=== PATIENT | female | born 1940 | race Caucasian/White ===

== ENCOUNTER 2017-08-23 19:47 | Observation (INO) ==
[2017-08-23] MEDS ORDERED: 0.9 % Sodium Chloride 500 ML IVC ONE (20:01)
[2017-08-23] MEDS ORDERED: Ondansetron 4 MG/2 ML VIAL IVP ONE (20:01)
--- NOTE | 2017-08-23 20:11 | Emergency Department Note ---
Disposition Clinical Impression: Hyperglycemia Chest pain Qualifiers: Chest pain type: unspecified Qualified Code(s): R07.9 - Chest pain, unspecified Disposition: Admitted As Inpatient Condition: Fair Referrals: Cathie Kaminski MD [Primary Care Provider] - Forms: ED Satisfaction Letter Time of Disposition: 21:22 Chest Pain HPI - General Chief Complaint: ED Chest Pain Stated Complaint: Chest Pain Time Seen by Provider: 08/23/17 20:00 Source: patient, EMS Mode of arrival: ambulatory Limitations: no limitations Vital Signs Reviewed: Yes Nursing Notes Reviewed: Yes - History of Present Illness HPI Narrative: 77-year-old female with history of diabetes and hypertension presents for evaluation of chest pain. Patient states the chest pain started approximately 2 hours prior to arrival. Notes it to be nonexertional. Patient describes a pressure sensation in the chest. No alleviating or aggravating factors. Patient has had episodes of nausea with dry heaves. Patient noted diaphoresis and difficulty breathing. Patient denies any fevers but does have a cough. Patient states that she is evaluated couple of months ago for similar complaints. Patient denies history of heart attacks. Patient denies any abdominal pain. EMS report that the patient did receive full dose aspirin prior to arrival. Patient does live at home by herself. Severity scale (1-10): 4 - Related Data Home Medications Medication Instructions Recorded Confirmed Aspirin 81 mg PO DAILY 08/28/16 08/23/17 LORazepam [Ativan] 0.5 - 1 tab PO DAILY PRN 08/28/16 08/23/17 Losartan/HCTZ [Hyzaar 50-12.5 1 tab PO DAILY 08/28/16 08/23/17 Tablet] Metoprolol Succinate 25 mg PO DAILY 08/28/16 08/23/17 Omeprazole 40 mg PO DAILY 08/28/16 08/23/17 Venlafaxine XR (24 HR) [Effexor Xr] 300 tab PO DAILY 08/28/16 08/23/17 ARIPiprazole [Abilify] 2 mg PO DAILY 06/22/17 08/23/17 Amlodipine Besylate 2.5 mg PO DAILY 06/22/17 08/23/17 Melatonin [Melatin] 6 mg PO HS PRN 06/22/17 08/23/17 Albuterol Sulfate [Ventolin Hfa] 2 puff IH Q4H PRN 08/23/17 08/23/17 Gabapentin [Neurontin] 300 mg PO TID 08/23/17 08/23/17 Insulin NPH Hum/Reg Insulin Hm 30 unit IJ BID 08/23/17 08/23/17 [Novolin 70-30 100 Unit/ml Vial] Loratadine [Claritin] 10 mg PO DAILY 08/23/17 08/23/17 Metformin HCl [Glucophage] 1,000 mg PO BID 08/23/17 08/23/17 Pravastatin Sodium 10 mg PO DAILY 08/23/17 08/23/17 Allergies Allergy/AdvReac Type Severity Reaction Status Date / Time No Known Allergies Allergy Verified 08/23/17 20:15 All systems ED: reviewed and negative except as stated. Constitutional: Denies: fever Cardiovascular: Denies: chest pain Respiratory: Denies: cough, dyspnea Gastrointestinal: Reports: abdominal pain, nausea, vomiting Chest Pain PMH - Past Medical History Medical history: Reports: diabetes, GERD, hypertension Surgical history: Reports: cholecystectomy, herniorrhaphy, hysterectomy, orthopedic, other Psychiatric history: Reports: anxiety - Social History Smoking Status: Never smoker Alcohol use: Reports: none Drug use: Reports: none Physical Exam - General Limitations: no limitations General appearance: alert, in no apparent distress - Head Head exam: atraumatic, normocephalic, normal inspection - Eye Eye exam: Present: normal appearance, PERRL, EOMI - ENT ENT exam: normal exam, normal oropharynx - Neck Neck exam: Present: normal inspection - Chest Chest inspection: Present: normal inspection, symmetric chest wall rise - Respiratory Respiratory exam: Present: normal lung sounds bilaterally. Absent: respiratory distress - Cardiovascular Cardiovascular exam: Present: regular rate, normal rhythm. Absent: systolic murmur - Abdominal Exam Abdominal exam: Present: soft, Non-Tender. Absent: distention, guarding, rebound - Extremities Exam Extremities exam: Present: normal inspection. Absent: pedal edema - Expanded Lower Extremity Exam Neurovascular/Tendon exam: Present: normal capillary refill - Back Exam Back exam: Present: normal inspection - Neurological Exam Neurological exam: Present: alert, oriented X3, CN II-XII intact - Skin Skin exam: Present: warm, dry, intact, normal color Course Course Narrative: Patient seen and examined. Patient appears to be uncomfortable. Patient does have a concerning history for ACS typical chest pain. Patient will receive a cardiopulmonary evaluation with EKG, troponin chest x-ray. Patient will likely require admission. - Reevaluation(s) Reevaluation #1: Patient seen and examined. Patient states that she is feeling better. Patient appears in more comfort however she still feels that there is possibly relating anxious component. Family also states the patient's quite anxious. Patient's been under stress with family issues. Given the patient's age comorbidities and initial presentation the patient will be observed for chest pain rule out. Time: 21:20 Vital Signs Temperature 98 F 08/23/17 19:55 Pulse Rate 98 08/23/17 19:55 Respiratory Rate 18 08/23/17 19:55 Blood Pressure 136/76 08/23/17 19:55 O2 Sat by Pulse Oximetry 100 08/23/17 19:55 Temperature 98 F 08/23/17 19:55 Pulse Rate 91 08/23/17 22:48 Respiratory Rate 18 08/23/17 22:48 Blood Pressure 134/64 08/23/17 22:48 O2 Sat by Pulse Oximetry 97 08/23/17 22:48 Oxygen Delivery Oxygen Delivery Room Air Chest Pain - MDM Narrative Medical decision making narrative: Patient presented for concerns of chest pain. Patient does have risk factors for ACS. Patient was having nausea vomiting with diaphoresis. Patient was describing a pressure sensation. Patient's initial troponin was negative. Patient was given aspirin and nitroglycerin. Patient was resting comfortably on repeat evaluations. Given the patient's age and comorbid disease the patient would likely benefit from further testing. Patient's records reviewed and the patient has not had any recent provocative testing. Patient family agree. Patient's pain is not consistent with pulmonary embolism. - Medical Records Medical records reviewed: Yes I reviewed the patient's medical records. Echo obtained 05/2017. Impressions: LVEF 60-65%. Normal left ventricular size and systolic function. Normal right ventricular size and function. No significant valvular dysfunction. Left Ventricular Wall Motion: Rest Echo Findings All wall segments showed normal motion. - Lab Data Result diagrams: 08/23/17 20:27 08/23/17 20:27 Lab Results 08/23/17 08/23/17 08/23/17 Range/Units 20:27 20:27 20:27 WBC (4.3-11.1) K/mcL RBC (3.82-4.97) M/mcL Hgb (11.5-15.4) g/dL Hct (35.3-44.9) % MCV (83.0-100.0) fL MCH (28.0-33.3) pg MCHC (31.6-35.5) g/dL RDW (11.5-14.5) % Plt Count (140-400) K/mcL MPV (9.4-12.4) fL Immature Gran % (0-4) % Seg Neutrophils % % Lymphocytes % % Monocytes % % Eosinophils % % Basophils % % Neutrophils # (1.6-8.9) K/mcL Lymphocytes # (0.6-4.6) K/mcL Monocytes # (0.0-1.3) K/mcL Eosinophils # (0.0-0.6) K/mcL Basophils # (0.0-0.2) K/mcL PT 10.5 (9.4-12.1) Seconds INR 1.0 Sodium (136-145) mEq/L Potassium (3.5-5.1) mEq/L Chloride (98-107) mEq/L Carbon Dioxide (23-29) mEq/L BUN (8-23) mg/dL Creatinine (0.60-1.20) mg/dL Est GFR ( Amer) (> 60) Est GFR (Non-Af Amer) (> 60) BUN/Creatinine Ratio (6-26) Glucose (70-105) mg/dL Calculated Osmolality (280-300) Calcium (8.6-10.3) mg/dL Troponin I (< 0.04) ng/mL B-Natriuretic Peptide 36 (Less than 100) pg/mL Lipase 25 (11-82) Units/L 08/23/17 08/23/17 Range/Units 20:27 20:27 WBC 11.7 H (4.3-11.1) K/mcL RBC 4.18 (3.82-4.97) M/mcL Hgb 11.2 L (11.5-15.4) g/dL Hct 36.3 (35.3-44.9) % MCV 86.8 (83.0-100.0) fL MCH 26.8 L (28.0-33.3) pg MCHC 30.9 L (31.6-35.5) g/dL RDW 14.3 (11.5-14.5) % Plt Count 309 (140-400) K/mcL MPV 9.9 (9.4-12.4) fL Immature Gran % 0.3 (0-4) % Seg Neutrophils % 65.8 % Lymphocytes % 25.2 % Monocytes % 4.9 % Eosinophils % 2.9 % Basophils % 0.9 % Neutrophils # 7.7 (1.6-8.9) K/mcL Lymphocytes # 2.9 (0.6-4.6) K/mcL Monocytes # 0.6 (0.0-1.3) K/mcL Eosinophils # 0.3 (0.0-0.6) K/mcL Basophils # 0.1 (0.0-0.2) K/mcL PT (9.4-12.1) Seconds INR Sodium 136 (136-145) mEq/L Potassium 3.9 (3.5-5.1) mEq/L Chloride 102 (98-107) mEq/L Carbon Dioxide 22 L (23-29) mEq/L BUN 13 (8-23) mg/dL Creatinine 0.74 (0.60-1.20) mg/dL Est GFR ( Amer) > 60 (> 60) Est GFR (Non-Af Amer) > 60 (> 60) BUN/Creatinine Ratio 18 (6-26) Glucose 187 H (70-105) mg/dL Calculated Osmolality 287 (280-300) Calcium 9.3 (8.6-10.3) mg/dL Troponin I < 0.03 (< 0.04) ng/mL B-Natriuretic Peptide (Less than 100) pg/mL Lipase (11-82) Units/L - EKG Data EKG attestation: Yes I reviewed and interpreted this EKG. EKG shows normal: sinus rhythm Rate: normal Rhythm: NSR Q waves: III Interpretation: no acute changes, unchanged when compared to prior tracing (date ), nonspecific ST-T wave changes Heart Score - Score History: Highly Suspicious EKG: Non Specific repolarisation Disturbance Age: Greater than 65 Risk Factors: 1-2 risk factors Troponin: Less than normal limit HEART Score Total: 6 S.B.A.R. - S.B.A.R. Situation: Demographics Background: Presenting Complaint Assessment: Vital Signs, Patient/Family Expectation Recommendation: Barrier(s) to disposition, Recommendation based on pending studies, treatments, or consults Rodolfo Report Given to: Dr. Carlos Reynolds Repor Time: 23:07
[2017-08-23] MEDS: Nitroglycerin 0.4 MG TAB.SUBL SL ONE ×3 (20:31→20:41)
[2017-08-23 20:37] LABS: Basophils # 0.1 K/mcL (0.0-0.2); Basophils % 0.9 %; Eosinophils # 0.3 K/mcL (0.0-0.6); Eosinophils % 2.9 %; Hematocrit 36.3 % (35.3-44.9); Hemoglobin 11.2 g/dL (11.5-15.4); Immature Granulocytes % 0.3 % (0-4); Lymphocytes # 2.9 K/mcL (0.6-4.6); Lymphocytes % 25.2 %; Mean Corpuscular HGB Conc 30.9 g/dL (31.6-35.5); Mean Corpuscular Hemoglobin 26.8 pg (28.0-33.3); Mean Corpuscular Volume 86.8 fL (83.0-100.0); Mean Platelet Volume 9.9 fL (9.4-12.4); Monocytes # 0.6 K/mcL (0.0-1.3); Monocytes % 4.9 %; Neutrophils # 7.7 K/mcL (1.6-8.9); Platelet Count 309 K/mcL (140-400); Red Blood Count 4.18 M/mcL (3.82-4.97); Red Cell Distribution Width 14.3 % (11.5-14.5); Segmented Neutrophils % 65.8 %
[2017-08-23 20:53] LABS: Prothrombin Time 10.5 Seconds (9.4-12.1)
[2017-08-23 20:58] LABS: BUN/Creatinine Ratio 18 (6-26); Blood Urea Nitrogen 13 mg/dL (8-23); Calcium 9.3 mg/dL (8.6-10.3); Carbon Dioxide 22 mEq/L (23-29); Chloride 102 mEq/L (98-107); Glucose 187 mg/dL (70-105); Osmolality,Calculated 287 (280-300); Potassium 3.9 mEq/L (3.5-5.1); Sodium 136 mEq/L (136-145); eGFR For African Americans > 60 (> 60); eGFR For Non-African Americans > 60 (> 60)
[2017-08-23 20:59] LABS: Troponin I < 0.03 ng/mL (< 0.04)
--- NOTE | 2017-08-23 22:30 | Emergency Department Note ---
Disposition Clinical Impression: Hyperglycemia Chest pain Qualifiers: Chest pain type: unspecified Qualified Code(s): R07.9 - Chest pain, unspecified Disposition: Admitted As Inpatient Condition: Fair Referrals: Cathie Kaminski MD [Primary Care Provider] - Forms: ED Satisfaction Letter General Adult HPI - General Chief complaint: ED Chest Pain Stated complaint: Chest Pain Time Seen by Provider: 08/23/17 20:00 Source: patient, EMS Mode of arrival: ambulatory Limitations: no limitations Nursing Notes Reviewed: Yes Vital Signs Reviewed: Yes - History of Present Illness Pain Scale: 4 - Related Data Home Medications Medication Instructions Recorded Confirmed Aspirin 81 mg PO DAILY 08/28/16 08/23/17 LORazepam [Ativan] 0.5 - 1 tab PO DAILY PRN 08/28/16 08/23/17 Losartan/HCTZ [Hyzaar 50-12.5 1 tab PO DAILY 08/28/16 08/23/17 Tablet] Metoprolol Succinate 25 mg PO DAILY 08/28/16 08/23/17 Omeprazole 40 mg PO DAILY 08/28/16 08/23/17 Venlafaxine XR (24 HR) [Effexor Xr] 300 tab PO DAILY 08/28/16 08/23/17 ARIPiprazole [Abilify] 2 mg PO DAILY 06/22/17 08/23/17 Amlodipine Besylate 2.5 mg PO DAILY 06/22/17 08/23/17 Melatonin [Melatin] 6 mg PO HS PRN 06/22/17 08/23/17 Albuterol Sulfate [Ventolin Hfa] 2 puff IH Q4H PRN 08/23/17 08/23/17 Gabapentin [Neurontin] 300 mg PO TID 08/23/17 08/23/17 Insulin NPH Hum/Reg Insulin Hm 30 unit IJ BID 08/23/17 08/23/17 [Novolin 70-30 100 Unit/ml Vial] Loratadine [Claritin] 10 mg PO DAILY 08/23/17 08/23/17 Metformin HCl [Glucophage] 1,000 mg PO BID 08/23/17 08/23/17 Pravastatin Sodium 10 mg PO DAILY 08/23/17 08/23/17 Allergies Allergy/AdvReac Type Severity Reaction Status Date / Time No Known Allergies Allergy Verified 08/23/17 20:15 Constitutional: Denies: fever Cardiovascular: Denies: chest pain Respiratory: Denies: cough, dyspnea Gastrointestinal: Reports: abdominal pain, nausea, vomiting Past Medical History - Past Medical History Medical history: Reports: diabetes, GERD, hypertension Surgical history: Reports: cholecystectomy, herniorrhaphy, hysterectomy, orthopedic, other Psychiatric history: Reports: anxiety - Social History Smoking Status: Never smoker Smokeless Tobacco Status: No Alcohol use: Reports: none Drug use: Reports: none Physical Exam - General Limitations: no limitations General appearance: alert, in no apparent distress Course Vital Signs Temperature 98 F 08/23/17 19:55 Pulse Rate 98 08/23/17 19:55 Respiratory Rate 18 08/23/17 19:55 Blood Pressure 136/76 08/23/17 19:55 O2 Sat by Pulse Oximetry 100 08/23/17 19:55 Temperature 98 F 08/23/17 19:55 Pulse Rate 91 08/23/17 22:48 Respiratory Rate 18 08/23/17 22:48 Blood Pressure 134/64 08/23/17 22:48 O2 Sat by Pulse Oximetry 97 08/23/17 22:48 Oxygen Delivery Oxygen Delivery Room Air Medical Decision Making - Lab Data Result diagrams: 08/23/17 20:27 08/23/17 20:27 Lab Results 08/23/17 08/23/17 08/23/17 Range/Units 20:27 20:27 20:27 WBC (4.3-11.1) K/mcL RBC (3.82-4.97) M/mcL Hgb (11.5-15.4) g/dL Hct (35.3-44.9) % MCV (83.0-100.0) fL MCH (28.0-33.3) pg MCHC (31.6-35.5) g/dL RDW (11.5-14.5) % Plt Count (140-400) K/mcL MPV (9.4-12.4) fL Immature Gran % (0-4) % Seg Neutrophils % % Lymphocytes % % Monocytes % % Eosinophils % % Basophils % % Neutrophils # (1.6-8.9) K/mcL Lymphocytes # (0.6-4.6) K/mcL Monocytes # (0.0-1.3) K/mcL Eosinophils # (0.0-0.6) K/mcL Basophils # (0.0-0.2) K/mcL PT 10.5 (9.4-12.1) Seconds INR 1.0 Sodium (136-145) mEq/L Potassium (3.5-5.1) mEq/L Chloride (98-107) mEq/L Carbon Dioxide (23-29) mEq/L BUN (8-23) mg/dL Creatinine (0.60-1.20) mg/dL Est GFR ( Amer) (> 60) Est GFR (Non-Af Amer) (> 60) BUN/Creatinine Ratio (6-26) Glucose (70-105) mg/dL Calculated Osmolality (280-300) Calcium (8.6-10.3) mg/dL Troponin I (< 0.04) ng/mL B-Natriuretic Peptide 36 (Less than 100) pg/mL Lipase 25 (11-82) Units/L 08/23/17 08/23/17 Range/Units 20:27 20:27 WBC 11.7 H (4.3-11.1) K/mcL RBC 4.18 (3.82-4.97) M/mcL Hgb 11.2 L (11.5-15.4) g/dL Hct 36.3 (35.3-44.9) % MCV 86.8 (83.0-100.0) fL MCH 26.8 L (28.0-33.3) pg MCHC 30.9 L (31.6-35.5) g/dL RDW 14.3 (11.5-14.5) % Plt Count 309 (140-400) K/mcL MPV 9.9 (9.4-12.4) fL Immature Gran % 0.3 (0-4) % Seg Neutrophils % 65.8 % Lymphocytes % 25.2 % Monocytes % 4.9 % Eosinophils % 2.9 % Basophils % 0.9 % Neutrophils # 7.7 (1.6-8.9) K/mcL Lymphocytes # 2.9 (0.6-4.6) K/mcL Monocytes # 0.6 (0.0-1.3) K/mcL Eosinophils # 0.3 (0.0-0.6) K/mcL Basophils # 0.1 (0.0-0.2) K/mcL PT (9.4-12.1) Seconds INR Sodium 136 (136-145) mEq/L Potassium 3.9 (3.5-5.1) mEq/L Chloride 102 (98-107) mEq/L Carbon Dioxide 22 L (23-29) mEq/L BUN 13 (8-23) mg/dL Creatinine 0.74 (0.60-1.20) mg/dL Est GFR ( Amer) > 60 (> 60) Est GFR (Non-Af Amer) > 60 (> 60) BUN/Creatinine Ratio 18 (6-26) Glucose 187 H (70-105) mg/dL Calculated Osmolality 287 (280-300) Calcium 9.3 (8.6-10.3) mg/dL Troponin I < 0.03 (< 0.04) ng/mL B-Natriuretic Peptide (Less than 100) pg/mL Lipase (11-82) Units/L Attestation Statement - Attestation Attestation: I, Leobardo Subramanian MD, personally evaluated this patient and discussed their management with the resident physician. I reviewed the resident's note and agree with the documented findings, medical decision making, and plan of care. 77-year-old female presents to the emergency department by embolus with a complaint of severe epigastric and substernal chest pain which started about 2 hours prior to arrival. Onset was while at rest. The pain has been constant since onset. Patient complains of nausea with a lot of belching and some dry heaves but no productive vomiting. Some shortness of breath. No diaphoresis. No radiation of the pain. She denies any prior history of heart problems. On examination patient is a well-developed well-nourished elderly female in no acute distress but does appear to be in moderate discomfort. She appears somewhat anxious. She is alert and oriented 3. There is no cyanosis or diaphoresis. Chest is nontender to palpation. Breath sounds are clear and equal bilaterally. Heart regular rate and rhythm. Abdomen is soft and nontender with normal bowel sounds. Labs reviewed. Troponin normal. Chest x-ray negative. EKG shows a normal sinus rhythm with ventricular rate of 94. No acute ST segment elevations or depressions. No significant change from prior EKG dated 06/22/2017. The hospitalist, Dr. Gonzalez, was consulted and accepted admission of the patient.
[2017-08-23] MEDS ORDERED: *HR* LORazepam 2 MG/ML VIAL IVP ONE (22:51)
[2017-08-24] MEDS ORDERED: *HR* HYDROcodone/Acet 5/325 mg TABLET PO PRN (01:22)
[2017-08-24] MEDS ORDERED: Naloxone 0.4 MG/ML INJ IVP PRN (01:22)
[2017-08-24] MEDS ORDERED: Acetaminophen 325 MG TABLET PO PRN (01:22)
[2017-08-24] MEDS ORDERED: Dextrose Gel 15 GM/37.5 ML TUBE PO PRN ×2 (01:29)
[2017-08-24] MEDS ORDERED: D5% in Water 1,000 ML IVC PRN (01:29)
[2017-08-24] MEDS ORDERED: *HR* Dextrose 50 % in Water (Syg) 50 ML SYRINGE IVP PRN (01:29)
[2017-08-24] MEDS: *HR* LORazepam 1 MG TABLET PO PRN (02:35)
--- NOTE | 2017-08-24 02:52 | Internal Med History&Physical ---
Date of Encounter: 08/24/17 Time of Encounter: 01:00 Internal Medicine - H&P: HPI Chief complaint: Chest pain Admitted From: Home Plans for Post Hospital Care: Home History of present illness: Ms. Davenport is a 77 year old female present to ER for chest pain. Past medical history is significant for diabetes, hypertension, COPD. Patient said she has a sudden onset chest pain since this evening, when she is at rest. The pain located on left chest, pressure-like, 10 out of 10, radiated to left arm and left shoulder blade. Patient has shortness of breath, nausea, palpitation, and diaphoresis. The pain is constant, when I saw patient in the emergency room, she still feel chest discomfort but the pain is less, after treatment with aspirin and nitroglycerin. Patient denies recent travel, immobilization, leg swelling or leg pain. I have discussed CODE STATUS with patient. She clearly told me she does not want CPR but accept intubation. DNR CCA placed. Past Med Surg Social Fam HX - Past Medical History Medical history: diabetes, GERD, hypertension Psychiatric history: anxiety - Past Surgical History Surgical History: cholecystectomy, herniorrhaphy, hysterectomy, orthopedic, other - Social History Smoking Status: Never smoker Smokeless Tobacco Status: No Alcohol use: none Drug use: none - Family History Mother Living Status: Still Living Hx Family Neurologic Disorders: Yes (Dementia) Sister Hx Family Cancer: Yes Internal Medicine - H&P: Meds Aspirin 81 mg PO DAILY 08/28/16 [History] LORazepam [Ativan] 0.5 - 1 tab PO DAILY PRN 08/28/16 [History] Losartan/HCTZ [Hyzaar 50-12.5 Tablet] 1 tab PO DAILY 08/28/16 [History] Metoprolol Succinate 25 mg PO DAILY 08/28/16 [History] Omeprazole 40 mg PO DAILY 08/28/16 [History] Venlafaxine XR (24 HR) [Effexor Xr] 300 tab PO DAILY 08/28/16 [History] ARIPiprazole [Abilify] 2 mg PO DAILY 06/22/17 [History] Amlodipine Besylate 2.5 mg PO DAILY 06/22/17 [History] Melatonin [Melatin] 6 mg PO HS PRN 06/22/17 [History] Albuterol Sulfate [Ventolin Hfa] 2 puff IH Q4H PRN 08/23/17 [History] Gabapentin [Neurontin] 300 mg PO TID 08/23/17 [History] Insulin NPH Hum/Reg Insulin Hm [Novolin 70-30 100 Unit/ml Vial] 30 unit IJ BID 08/23/17 [History] Loratadine [Claritin] 10 mg PO DAILY 08/23/17 [History] Metformin HCl [Glucophage] 1,000 mg PO BID 08/23/17 [History] Pravastatin Sodium 10 mg PO DAILY 08/23/17 [History] 3 Allergy/AdvReac Type Severity Reaction Status Date / Time No Known Allergies Allergy Verified 08/23/17 20:15 All Systems PM: A 10-system review of systems was performed and is negative for pertinent findings except as documented above in the HPI. - Constitutional Vitals: Temp Pulse Resp BP Pulse Ox 98.0 F 79 14 127/72 96 08/24/17 02:05 08/24/17 02:05 08/24/17 02:05 08/24/17 02:05 08/24/17 02:05 General appearance: Present: A&O X 3, no acute distress, answers questions appropriately - Head Head exam: Present: atraumatic, normocephalic - Eye Eye exam: Present: PERRL, conjuntiva pink, sclera anicteric Pupils: Present: PERRL - Neck Neck exam general surgery: Present: supple, trachea midline. Absent: lymphadenopathy - Respiratory Respiratory exam: Present: chest wall tenderness (On left mid chest wall), CTAB. Absent: accessory muscle use, rales, rhonchi, wheezes - Cardiovascular Cardiovascular exam: Present: RRR, +S1, +S2. Absent: diastolic murmur, gallop, rubs, systolic murmur - GI/Abdominal GI/Abdominal exam: Present: normal bowel sounds, soft, no peritoneal signs. Absent: distended, tenderness - Extremities Exam Extremities exam: Present: warm, radial pulses palpable and symmetrical. Absent : calf tenderness, cyanotic, pedal edema - Neurological Exam Neurological exam: Present: CN II-XII intact, oriented X3, no focal deficits. Absent: pronater drift, facial droop, speech deficit - Skin Skin exam: Present: dry, intact Internal Med - H&P Results - Labs CBC & Chem 7: 08/23/17 20:27 08/23/17 20:27 - EKG Data -: EKG Interpreted by Myself EKG shows normal: sinus rhythm Rate: normal - Assessment and plan (1) DVT prophylaxis Current Visit: Yes Status: Acute Assessment and plan: Heparin subcutaneously (2) Chest pain Current Visit: Yes Status: Acute Assessment and plan: Patient has chest pain with or shortness of breath, nausea, and diaphoresis. Need to rule out ACS. However, patient has clearly chest wall tenderness, pain is also likely skeletal muscular pain. - Continuous cardiac monitoring - Track 3 sets of troponin - Echocardiogram to see wall movement - EKG is unremarkable - NTG sublingual when necessary - By mouth pain medication for pain control - Patient is not a candidate for stress test at this point because she still has active chest pain. Consider cardiology consult if chest pain persists or patient has positive founding with troponin or echo. Qualifiers: Chest pain type: unspecified Qualified Code(s): R07.9 - Chest pain, unspecified (3) Diabetes mellitus Current Visit: No Status: Chronic Assessment and plan: Continue sliding scale insulin coverage Qualifiers: Diabetes mellitus type: type 2 Diabetes mellitus intermodal dispatcher insulin use: without intermodal dispatcher use Diabetes mellitus complication status: without complication Qualified Code(s): E11.9 - Type 2 diabetes mellitus without complications (4) HTN (hypertension) Current Visit: No Status: Chronic Assessment and plan: Continue home medications Qualifiers: Hypertension type: essential hypertension Qualified Code(s): I10 - Essential (primary) hypertension - Time Spent With Patient Total time spent is greater than 50% in coordination of care (as documented) at patient's floor/unit and/or counseling patient: 40 minutes Greater than 35 minutes
[2017-08-24 03:18] LABS: Basophils # 0.1 K/mcL (0.0-0.2); Basophils % 0.8 %; Eosinophils # 0.3 K/mcL (0.0-0.6); Eosinophils % 3.3 %; Hematocrit 32.4 % (35.3-44.9); Hemoglobin 10.2 g/dL (11.5-15.4); Immature Granulocytes % 0.3 % (0-4); Lymphocytes % 31.2 %; Mean Corpuscular HGB Conc 31.5 g/dL (31.6-35.5); Mean Corpuscular Hemoglobin 27.1 pg (28.0-33.3); Mean Corpuscular Volume 85.9 fL (83.0-100.0); Mean Platelet Volume 9.7 fL (9.4-12.4); Monocytes # 0.5 K/mcL (0.0-1.3); Monocytes % 5.1 %; Neutrophils # 5.7 K/mcL (1.6-8.9); Platelet Count 281 K/mcL (140-400); Red Blood Count 3.77 M/mcL (3.82-4.97); Red Cell Distribution Width 14.3 % (11.5-14.5); Segmented Neutrophils % 59.3 %
[2017-08-24] MEDS: Melatonin 3 MG TABLET PO PRN ×2 (03:32→21:44)
[2017-08-24 03:41] LABS: BUN/Creatinine Ratio 18 (6-26); Blood Urea Nitrogen 12 mg/dL (8-23); Calcium 9.1 mg/dL (8.6-10.3); Carbon Dioxide 26 mEq/L (23-29); Chloride 105 mEq/L (98-107); Glucose 141 mg/dL (70-105); Magnesium 1.8 mg/dL (1.6-2.6); Osmolality,Calculated 290 (280-300); Potassium 3.5 mEq/L (3.5-5.1); Sodium 139 mEq/L (136-145); eGFR For African Americans > 60 (> 60); eGFR For Non-African Americans > 60 (> 60)
[2017-08-24] MEDS: *HR* OxyCODONE Immed Rel 5 MG TABLET PO PRN ×2 (05:09→21:44)
[2017-08-24] MEDS: *HR* Heparin 5,000 UNIT/ML VIAL SQ SCH ×2 (05:10→16:52)
[2017-08-24] MEDS: Gabapentin 300 MG CAPSULE PO SCH ×3 (08:38→21:23)
[2017-08-24] MEDS: Metoprolol XL (24 HR) Succ 25 MG TAB.ER.24H PO SCH (08:39)
[2017-08-24] MEDS: Venlafaxine XR (24 HR) 150 MG CAP.ER.24H PO SCH (08:39)
[2017-08-24] MEDS: Losartan/HCTZ 50-12.5 TABLET PO SCH (08:39)
[2017-08-24] MEDS: amLODIPine 5 MG TABLET PO SCH (08:39)
[2017-08-24] MEDS: Insulin LISPRO 300 UNITS/3 ML VIAL SQ SCH ×3 (08:40→16:53)
[2017-08-24] MEDS: ARIPiprazole 2 MG TABLET PO SCH (08:40)
[2017-08-24] MEDS: Aspirin 81 MG TAB.CHEW PO SCH (08:40)
[2017-08-24] MEDS: Loratadine 10 MG TABLET PO SCH (08:40)
[2017-08-24] MEDS: Nitroglycerin 0.4 MG TAB.SUBL SL PRN ×2 (14:14→14:19)
--- NOTE | 2017-08-24 15:28 | Event Note ---
Date of Encounter: 08/24/17 Time of Encounter: 12:30 Patient was examined at bedside She s asking for IV Ativan, states "I feel like I am falling apart" complains of 9/10 CP midsternal Pain is reproducible on palpations. Advised patient she will receive nitro for CP patient becomes tearful, crying asking if cancer is contagious " I have several family members that have from cancer." Patient was given nitro per nursing with no relief. Will give PO ativan
--- NOTE | 2017-08-24 19:26 | Electrocardiograph Report ---
[place] [id number] Test Date: 2017-08-23 Pat Name: Tiff Davenport Department: 103 Room: 3B Gender: F Frame Opener: DEEDEE : 1940 Requested By: Marcus Back Order Number: [id number] Reading MD: Georgina Taylor Measurements Intervals [place] Rate: 94 P: 53 MS: 132 QRS: 53 QRSD: 82 T: 34 QT: 328 QTc: 380 Interpretive Statements SINUS RHYTHM NONSPECIFIC T-WAVE ABNORMALITY Electronically Signed On 08-24-2017 19:25:21 EDT by Georgina Taylor
[2017-08-24] MEDS ORDERED: Insulin LISPRO 300 UNITS/3 ML VIAL SQ SCH (21:00)
[2017-08-25] MEDS: *HR* Heparin 5,000 UNIT/ML VIAL SQ SCH ×2 (06:26→16:48)
[2017-08-25] MEDS: Gabapentin 300 MG CAPSULE PO SCH ×3 (08:16→20:51)
[2017-08-25] MEDS: Venlafaxine XR (24 HR) 150 MG CAP.ER.24H PO SCH (08:17)
[2017-08-25] MEDS: Aspirin 81 MG TAB.CHEW PO SCH (08:17)
[2017-08-25] MEDS: amLODIPine 5 MG TABLET PO SCH (08:17)
[2017-08-25] MEDS: Losartan/HCTZ 50-12.5 TABLET PO SCH (08:17)
[2017-08-25] MEDS: *HR* LORazepam 1 MG TABLET PO PRN (08:17)
[2017-08-25] MEDS: Loratadine 10 MG TABLET PO SCH (08:17)
[2017-08-25] MEDS: Insulin LISPRO 300 UNITS/3 ML VIAL SQ SCH ×3 (08:18→16:48)
[2017-08-25] MEDS: Metoprolol XL (24 HR) Succ 25 MG TAB.ER.24H PO SCH (08:18)
[2017-08-25] MEDS: ARIPiprazole 2 MG TABLET PO SCH (09:07)
[2017-08-25 11:28] LABS: BUN/Creatinine Ratio 15 (6-26); Blood Urea Nitrogen 13 mg/dL (8-23); Calcium 9.4 mg/dL (8.6-10.3); Carbon Dioxide 28 mEq/L (23-29); Chloride 101 mEq/L (98-107); Glucose 261 mg/dL (70-105); Osmolality,Calculated 291 (280-300); Potassium 4.3 mEq/L (3.5-5.1); Sodium 136 mEq/L (136-145); eGFR For African Americans > 60 (> 60); eGFR For Non-African Americans > 60 (> 60)
[2017-08-25 11:34] LABS: Basophils # 0.1 K/mcL (0.0-0.2); Basophils % 0.8 %; Eosinophils # 0.2 K/mcL (0.0-0.6); Eosinophils % 2.8 %; Hematocrit 35.4 % (35.3-44.9); Hemoglobin 11.1 g/dL (11.5-15.4); Immature Granulocytes % 0.7 % (0-4); Lymphocytes # 2.1 K/mcL (0.6-4.6); Lymphocytes % 34.6 %; Mean Corpuscular HGB Conc 31.4 g/dL (31.6-35.5); Mean Corpuscular Hemoglobin 27.1 pg (28.0-33.3); Mean Corpuscular Volume 86.6 fL (83.0-100.0); Mean Platelet Volume 11.2 fL (9.4-12.4); Monocytes # 0.4 K/mcL (0.0-1.3); Monocytes % 5.9 %; Neutrophils # 3.4 K/mcL (1.6-8.9); Platelet Count 245 K/mcL (140-400); Red Blood Count 4.09 M/mcL (3.82-4.97); Red Cell Distribution Width 14.3 % (11.5-14.5); Segmented Neutrophils % 55.2 %
--- NOTE | 2017-08-25 16:50 | Internal Med Progress Note ---
Date of Encounter: 08/25/17 Time of Encounter: 12:00 - Assessment and plan (1) Chest pain Current Visit: Yes Status: Acute Assessment and plan: No chest pain at this time. Patient did experience chest pain yesterday was reproducible she was given nitroglycerin which did not relieve her pain. She was requesting anxiety medication as well as pain medication. Chest pain did relief with pain medication. Patient did have a stress test last year which did show small sized mild intensity reversible defect in the inferolateral segments possibly due to ischemia. She did undergo a cardiac catheterization which was negative. She does have risk factors of diabetes hypertension dyslipidemia. Patient was not able to undergo a stress test yesterday because of taking nitroglycerin. Patient did eat breakfast and take beta ruth this a.m. Discussed with patient she will undergo a stress test on Sunday. She will be nothing by mouth after midnight. Troponins have been negative. EKG with no ST-T wave abnormalities. Continuous cardiac monitoring Qualifiers: Chest pain type: unspecified Qualified Code(s): R07.9 - Chest pain, unspecified (2) HTN (hypertension) Current Visit: No Status: Chronic Assessment and plan: Presently controlled Continue home medications Qualifiers: Hypertension type: essential hypertension Qualified Code(s): I10 - Essential (primary) hypertension (3) Diabetes mellitus Current Visit: No Status: Chronic Assessment and plan: Patient's blood sugar has been elevated to the increase to medium scale sliding scale Accu-Cheks before meals at bedtime Qualifiers: Diabetes mellitus type: type 2 Diabetes mellitus 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 Anticipated stress test however patient did eat breakfast today and took her beta ruth discussed with patient stress test on Sunday which she agreed. - Constitutional Vitals: Temp Pulse Resp BP Pulse Ox 98.2 F 71 16 126/77 95 08/25/17 15:25 08/25/17 15:25 08/25/17 15:25 08/25/17 15:25 08/25/17 15:25 General appearance: Present: A&O X 3, no acute distress, answers questions appropriately - Head Head exam: Present: atraumatic, normocephalic - Eye Eye exam: Present: PERRL, conjuntiva pink, sclera anicteric Pupils: Present: PERRL - Neck Neck exam general surgery: Present: supple, trachea midline. Absent: lymphadenopathy - Respiratory Respiratory exam: Present: CTAB. Absent: accessory muscle use, rales, rhonchi, wheezes - Cardiovascular Cardiovascular exam: Present: RRR, +S1, +S2. Absent: diastolic murmur, gallop, rubs, systolic murmur - GI/Abdominal GI/Abdominal exam: Present: normal bowel sounds, soft, no peritoneal signs. Absent: distended, tenderness - Extremities Exam Extremities exam: Present: warm, radial pulses palpable and symmetrical. Absent : calf tenderness, cyanotic, pedal edema - Neurological Exam Neurological exam: Present: CN II-XII intact, oriented X3, no focal deficits. Absent: pronater drift, facial droop, speech deficit - Skin Skin exam: Present: dry, intact Internal Medicine: Result - Labs CBC & Chem 7: 08/25/17 08:48 08/25/17 10:43 Labs: Short CBC 08/25/17 Range/Units 08:48 WBC 6.1 (4.3-11.1) K/mcL Hgb 11.1 L (11.5-15.4) g/dL Hct 35.4 (35.3-44.9) % Plt Count 245 (140-400) K/mcL Neutrophils # 3.4 (1.6-8.9) K/mcL BMP 08/25/17 10:43 Sodium 136 Potassium 4.3 Chloride 101 Carbon Dioxide 28 BUN 13 Creatinine 0.84 Glucose 261 H Calcium 9.4 - ABG Interpretation ABG results: PT/INR, D-dimer PT 10.5 Seconds (9.4-12.1) 08/23/17 20:27 - Impressions Impressions Echocardiogram 08/24/17 01:27 Impressions: LVEF 65%. Normal LV chamber size, wall thickness and function. Mild left ventricular diastolic dysfunction. Normal right ventricular structure and function. No evidence of pulmonary hypertension. No significant valvular dysfunction. Left Ventricular Wall Motion: Rest Echo Findings All wall segments showed normal motion. Findings: Study Quality * Technically adequate exam. ECG Findings * Normal sinus rhythm. Left Ventricle * LVEF 65%. * Normal LV chamber size, wall thickness and function. * Mild left ventricular diastolic dysfunction. Right Ventricle * Normal right ventricular structure and function. Left Atrium * Mildly dilated left atrium. Right Atrium * Normal right atrial size. Aortic Valve * Aortic valve not well visualized. * No aortic regurgitation. * No aortic stenosis. Mitral Valve * Normal mitral valve structure and function. * No mitral regurgitation. * No mitral stenosis. Tricuspid Valve * Normal tricuspid valve structure and function. * Trace tricuspid regurgitation. * No evidence of pulmonary hypertension. Pulmonic Valve * Normal pulmonic valve structure and function. * No pulmonic regurgitation. Aorta * Normally sized aortic root. Pericardium * The pericardium appears normal. IVC * Normal IVC dimensions and inspiratory collapse. Pulmonary Artery * Normal visualized portions of the main pulmonary artery. Consult Discharge Plan - Plan Referrals: Cathie Kaminski MD [Primary Care Provider] -
[2017-08-25] MEDS ORDERED: Insulin LISPRO 300 UNITS/3 ML VIAL SQ SCH ×2 (16:52)
[2017-08-25] MEDS: *HR* OxyCODONE Immed Rel 5 MG TABLET PO PRN (21:10)
[2017-08-25] MEDS ORDERED: Ondansetron 4 MG/2 ML VIAL IVP PRN (21:53)
[2017-08-25] MEDS ORDERED: Ibuprofen 600 MG TABLET PO PRN (21:55)
[2017-08-25] MEDS ORDERED: *HR* LORazepam 2 MG/ML VIAL IVP PRN ×2 (23:30→23:45)
[2017-08-26 04:23] LABS: Basophils # 0.1 K/mcL (0.0-0.2); Basophils % 1.1 %; Eosinophils # 0.2 K/mcL (0.0-0.6); Eosinophils % 2.5 %; Hematocrit 35.4 % (35.3-44.9); Hemoglobin 11.2 g/dL (11.5-15.4); Immature Granulocytes % 0.2 % (0-4); Lymphocytes # 2.9 K/mcL (0.6-4.6); Lymphocytes % 34.6 %; Mean Corpuscular HGB Conc 31.6 g/dL (31.6-35.5); Mean Corpuscular Hemoglobin 27.3 pg (28.0-33.3); Mean Corpuscular Volume 86.1 fL (83.0-100.0); Mean Platelet Volume 10.1 fL (9.4-12.4); Monocytes # 0.5 K/mcL (0.0-1.3); Monocytes % 5.8 %; Neutrophils # 4.7 K/mcL (1.6-8.9); Platelet Count 287 K/mcL (140-400); Red Blood Count 4.11 M/mcL (3.82-4.97); Red Cell Distribution Width 14.2 % (11.5-14.5); Segmented Neutrophils % 55.8 %
[2017-08-26 04:59] LABS: BUN/Creatinine Ratio 20 (6-26); Blood Urea Nitrogen 17 mg/dL (8-23); Calcium 9.3 mg/dL (8.6-10.3); Chloride 102 mEq/L (98-107); Glucose 233 mg/dL (70-105); Osmolality,Calculated 293 (280-300); Sodium 137 mEq/L (136-145); eGFR For African Americans > 60 (> 60); eGFR For Non-African Americans > 60 (> 60)
[2017-08-26 05:11] LABS: Potassium 4.5 mEq/L (3.5-5.1)
[2017-08-26] MEDS: *HR* Heparin 5,000 UNIT/ML VIAL SQ SCH (05:18)
[2017-08-26 05:53] LABS: Carbon Dioxide 22 mEq/L (23-29)
[2017-08-26] MEDS: Gabapentin 300 MG CAPSULE PO SCH (07:58)
[2017-08-26] MEDS: Losartan/HCTZ 50-12.5 TABLET PO SCH (07:58)
[2017-08-26] MEDS: Loratadine 10 MG TABLET PO SCH (07:59)
[2017-08-26] MEDS: Venlafaxine XR (24 HR) 150 MG CAP.ER.24H PO SCH (07:59)
[2017-08-26] MEDS: amLODIPine 5 MG TABLET PO SCH (07:59)
[2017-08-26] MEDS: Aspirin 81 MG TAB.CHEW PO SCH (08:00)
[2017-08-26] MEDS: Metoprolol XL (24 HR) Succ 25 MG TAB.ER.24H PO SCH (08:00)
[2017-08-26] MEDS: ARIPiprazole 2 MG TABLET PO SCH (08:02)
--- NOTE | 2017-08-26 09:09 | Internal Med Progress Note ---
Date of Encounter: 08/26/17 Time of Encounter: 09:06 - Assessment and plan (1) Chest pain Current Visit: Yes Status: Acute Assessment and plan: No chest pain at this time. Patient did experience chest pain Sunday was reproducible she was given nitroglycerin which did not relieve her pain. She was requesting anxiety medication as well as pain medication. Chest pain did relief with pain medication. Patient did have a stress test last year which did show small sized mild intensity reversible defect in the inferolateral segments possibly due to ischemia. She did undergo a cardiac catheterization which was negative. She does have risk factors of diabetes hypertension dyslipidemia. Patient was not able to undergo a stress test Sunday because of taking nitroglycerin. Patient did eat breakfast and take beta ruth yesterday. Discussed with patient she will undergo a stress test on Sunday. She will be nothing by mouth after midnight. Troponins have been negative. EKG with no ST-T wave abnormalities. Continuous cardiac monitoring Qualifiers: Chest pain type: unspecified Qualified Code(s): R07.9 - Chest pain, unspecified (2) HTN (hypertension) Current Visit: No Status: Chronic Assessment and plan: Presently controlled Continue home medications Qualifiers: Hypertension type: essential hypertension Qualified Code(s): I10 - Essential (primary) hypertension (3) Diabetes mellitus Current Visit: No Status: Chronic Assessment and plan: Patient's blood sugar has been elevated to the increase to medium scale sliding scale Accu-Cheks before meals at bedtime Qualifiers: Diabetes mellitus type: type 2 Diabetes mellitus 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 She will be NPO at midnight and undergo stress test in the AM. I reviewed plan of care and patient verbalizes understanding - Constitutional Vitals: Temp Pulse Resp BP Pulse Ox 97.8 F 73 16 117/70 92 08/26/17 07:02 08/26/17 07:02 08/26/17 07:02 08/26/17 07:02 08/26/17 07:02 General appearance: Present: A&O X 3, no acute distress, answers questions appropriately - Head Head exam: Present: atraumatic, normocephalic - Eye Eye exam: Present: PERRL, conjuntiva pink, sclera anicteric Pupils: Present: PERRL - Neck Neck exam general surgery: Present: supple, trachea midline. Absent: lymphadenopathy - Respiratory Respiratory exam: Present: CTAB. Absent: accessory muscle use, rales, rhonchi, wheezes - Cardiovascular Cardiovascular exam: Present: RRR, +S1, +S2. Absent: diastolic murmur, gallop, rubs, systolic murmur - GI/Abdominal GI/Abdominal exam: Present: normal bowel sounds, soft, no peritoneal signs. Absent: distended, tenderness - Extremities Exam Extremities exam: Present: warm, radial pulses palpable and symmetrical. Absent : calf tenderness, cyanotic, pedal edema - Neurological Exam Neurological exam: Present: CN II-XII intact, oriented X3, no focal deficits. Absent: pronater drift, facial droop, speech deficit - Skin Skin exam: Present: dry, intact Internal Medicine: Result - Labs CBC & Chem 7: 08/26/17 03:52 08/26/17 03:52 Labs: Short CBC 08/25/17 08/26/17 Range/Units 08:48 03:52 WBC 6.1 8.3 (4.3-11.1) K/mcL Hgb 11.1 L 11.2 L (11.5-15.4) g/dL Hct 35.4 35.4 (35.3-44.9) % Plt Count 245 287 (140-400) K/mcL Neutrophils # 3.4 4.7 (1.6-8.9) K/mcL BMP 08/25/17 08/26/17 10:43 03:52 Sodium 136 137 Potassium 4.3 4.5 Chloride 101 102 Carbon Dioxide 28 22 L BUN 13 17 Creatinine 0.84 0.86 Glucose 261 H 233 H Calcium 9.4 9.3 Cardiac Enzymes 08/25/17 08/26/17 Range/Units 21:18 03:52 Troponin I < 0.03 < 0.03 (< 0.04) ng/mL - ABG Interpretation ABG results: PT/INR, D-dimer PT 10.5 Seconds (9.4-12.1) 08/23/17 20:27 Consult Discharge Plan - Plan Referrals: Cathie Kaminski MD [Primary Care Provider] -
[2017-08-26] MEDS ORDERED: Insulin LISPRO 300 UNITS/3 ML VIAL SQ SCH ×2 (09:15)
[2017-08-26] MEDS ORDERED: *HR* LORazepam 2 MG/ML VIAL IVP ONE (11:19)
--- NOTE | 2017-08-26 11:33 | Discharge Summary ---
- NOTES TO OUTPATIENT PROVIDER Notes to Outpatient Provider: Chest pain - muscular skeletal, cardiac workup negative - having alot of anxiety Orders not resulted at time of discharge: Pending orders 08/25/17 12:33 NM fabby perf SPECT multi [NM] Routine 08/25/17 21:00 EKG [ECG 12 lead ECG] [ECG] Stat 08/27/17 04:00 CBC [Complete Blood Count] [HEME] AM 0400 Chem 7 [Basic Metabolic Panel] AM 0400 08/27/17 08:00 SP pharm nuclear stress Routine Date of Encounter: 08/26/17 Time of Encounter: 11:30 - Discharge Diagnosis (1) Chest pain Priority: Primary Status: Acute Qualifiers: Chest pain type: unspecified Qualified Code(s): R07.9 - Chest pain, unspecified (2) HTN (hypertension) Priority: Primary Status: Chronic Qualifiers: Hypertension type: essential hypertension Qualified Code(s): I10 - Essential (primary) hypertension (3) Diabetes mellitus Priority: Primary Status: Chronic Qualifiers: Diabetes mellitus type: type 2 Diabetes mellitus 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 Davenport is a 77 year old female past medical history for diabetes hypertension COPD. She presented to the emergency department with sudden onset chest pain which occurred at rest pain was located left side of her chest 10 out of 10 radiating to left arm shoulder blade pain was constant patient was given aspirin and nitroglycerin with little relief. Troponins were negative 3 EKG with no acute ST-T wave abnormalities. Echo was complete EF of 65% which was unchanged from last year cardiac catheterization. Last year patient did undergo an stress test which did reveal small sized mild intensity reversible defect in the inferolateral segment possibly due to ischemia. She underwent a cardiac catheterization coronary arteries were angiographically normal. Upon assessment patient's chest pain was reproducible upon palpation. She was given nitroglycerin for chest pain which did not relieve her pain however pain was relieved with an analgesic. Patient mostly complain about anxiety and requested Ativan multiple times. I suspect this pain is mostly related to musculoskeletal and anxiety. I did review his case with cardiology ACETYLENE CYLINDER [employer] who agreed patient can follow-up with primary care as outpatient. I did update the patient concerning findings advised her to follow-up with her PCP she verbalized understanding however she began to become tearful requesting Ativan stated that she is out of her prescription. I did prescribe 3 ativan tablets for patient-advised her to follow-up with PCP and renew her prescription since this provider knows her best. Advised patient continue home medications. Patient verbalized understanding she is hemodynamically stable at this time and ready for discharge - Time Spent with Patient Total time spent providing and/or coordinating discharge services: - Discharge Medications Prescriptions: LORazepam [Ativan] 0.5 tab PO DAILY PRN 6 Days #3 tablet PRN Reason: Anxiety Home Medications: Aspirin 81 mg PO DAILY 08/28/16 [History] Losartan/HCTZ [Hyzaar 50-12.5 Tablet] 1 tab PO DAILY 08/28/16 [History] Metoprolol Succinate 25 mg PO DAILY 08/28/16 [History] Omeprazole 40 mg PO DAILY 08/28/16 [History] Venlafaxine XR (24 HR) [Effexor Xr] 300 tab PO DAILY 08/28/16 [History] ARIPiprazole [Abilify] 2 mg PO DAILY 06/22/17 [History] Amlodipine Besylate 2.5 mg PO DAILY 06/22/17 [History] Melatonin [Melatin] 6 mg PO HS PRN 06/22/17 [History] Albuterol Sulfate [Ventolin Hfa] 2 puff IH Q4H PRN 08/23/17 [History] Gabapentin [Neurontin] 300 mg PO TID 08/23/17 [History] Insulin NPH Hum/Reg Insulin Hm [Novolin 70-30 100 Unit/ml Vial] 30 unit IJ BID 08/23/17 [History] Loratadine [Claritin] 10 mg PO DAILY 08/23/17 [History] Metformin HCl [Glucophage] 1,000 mg PO BID 08/23/17 [History] Pravastatin Sodium 10 mg PO DAILY 08/23/17 [History] LORazepam [Ativan] 0.5 tab PO DAILY PRN 6 Days #3 tablet 08/26/17 [Rx] Allergies/Adverse Reactions: 3 Allergy/AdvReac Type Severity Reaction Status Date / Time No Known Allergies Allergy Verified 08/23/17 20:15 Date of admission: 08/24/17 00:20 Primary care physician: Cathie Kamisnki Discharging clinician: Fauzia Blackmon Anticipated date of discharge: 08/26/17 - Constitutional Vitals: Temp Pulse Resp BP Pulse Ox 97.8 F 73 16 117/70 92 08/26/17 07:02 08/26/17 07:02 08/26/17 07:02 08/26/17 07:02 08/26/17 07:02 General appearance: Present: A&O X 3, no acute distress, answers questions appropriately - Head Head exam: Present: atraumatic, normocephalic - Eye Eye exam: Present: PERRL, conjuntiva pink, sclera anicteric Pupils: Present: PERRL - Neck Neck exam general surgery: Present: supple, trachea midline. Absent: lymphadenopathy - Respiratory Respiratory exam: Present: CTAB. Absent: accessory muscle use, rales, rhonchi, wheezes - Cardiovascular Cardiovascular exam: Present: RRR, +S1, +S2. Absent: diastolic murmur, gallop, rubs, systolic murmur - GI/Abdominal GI/Abdominal exam: Present: normal bowel sounds, soft, no peritoneal signs. Absent: distended, tenderness - Extremities Exam Extremities exam: Present: warm, radial pulses palpable and symmetrical. Absent : calf tenderness, cyanotic, pedal edema - Neurological Exam Neurological exam: Present: CN II-XII intact, oriented X3, no focal deficits. Absent: pronater drift, facial droop, speech deficit - Skin Skin exam: Present: dry, intact - Patient Status Disposition: Home, Self-Care Condition: Fair Functional capacity at discharge: independent ambulation - Discharge Instructions Instructions: Chest Pain (DC) Follow Up With: Cathie Kaminski MD [Primary Care Provider] - - Diet and Activity Activity: as per physical therapy Diet: advance to your usual diet
[2017-08-26 11:56] VITALS: BP 131/62
--- NOTE | 2017-08-27 16:42 | Electrocardiograph Report ---
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
== END 2017-08-26 15:26 | disposition home or self-care (01) ==
LOC: EMEROO 19:47 → 3BNU 19:47
PROVIDERS: ADMIT Internal Medicine; ATTEND Internal Medicine

== ENCOUNTER 2017-12-12 19:12 | Observation (INO) ==
--- NOTE | 2017-12-12 19:26 | Emergency Department Note ---
Disposition Clinical Impression: Tachycardia, Left-sided weakness, Lactic acidosis Fever Qualifiers: Fever type: unspecified Qualified Code(s): R50.9 - Fever, unspecified Disposition: Admitted As Inpatient Condition: Good Referrals: Chris Galvez [Primary Care Provider] - Forms: ED Satisfaction Letter Neuro HPI - General Chief Complaint: ED Neuro Symptoms/Deficit Stated Complaint: poss stroke Time Seen by Provider: 12/12/17 19:16 Source: EMS Mode of arrival: EMS Limitations: no limitations Nursing Notes Reviewed: Yes Vital Signs Reviewed: Yes - History of Present Illness HPI Narrative: 77-year-old female history of remote CVA who presents to the ER via EMS from her nursing facility with concern for acute stroke. Reports last known well was at 18:20. Did have left-sided weakness as well as decline in mental status. This is exactly the same as her prior presentation earlier this year. She denies any injury. States that her left face arm and leg feel numb. She has weakness that is worse than her baseline. No other complaints. Onset of Symptoms Date: 12/12/17 Onset of Symptoms Time: 18:20 Symptom Onset Unknown: No Timing confirmed by: caregiver Location: left face, left arm, left leg History of same: Yes Severity: moderate Quality: weakness, numbness Symptoms Improving: No Improves with: none Worsens with: none Context: sudden onset On Anticoagulants: No Associated symptoms: Reports: denies other symptoms Treatments Prior to Arrival: none - Related Data Home Medications: Home Medications Medication Instructions Recorded Confirmed Aspirin 81 mg PO DAILY 08/28/16 12/12/17 Losartan/HCTZ [Hyzaar 50-12.5 1 tab PO DAILY 08/28/16 12/12/17 Tablet] Omeprazole 40 mg PO DAILY 08/28/16 12/12/17 Venlafaxine XR (24 HR) [Effexor Xr] 150 tab PO DAILY 08/28/16 12/12/17 Melatonin [Melatin] 3 mg PO HS PRN 06/22/17 12/12/17 Insulin NPH Hum/Reg Insulin Hm 20 unit SQ BID 08/23/17 12/12/17 [Novolin 70-30 100 Unit/ml Vial] Metformin HCl [Glucophage] 1,000 mg PO BID 08/23/17 12/12/17 Pravastatin Sodium 10 mg PO DAILY 08/23/17 12/12/17 ARIPiprazole [Abilify] 5 mg PO DAILY 12/12/17 12/12/17 Acetaminophen [Tylenol] 650 mg PO Q6HR 12/12/17 12/12/17 Baclofen [Lioresal] 10 mg PO TID 12/12/17 12/12/17 Gabapentin [Neurontin] 600 mg PO BID 12/12/17 12/12/17 LORazepam [Ativan] 1 tab PO DAILY PRN 12/12/17 12/12/17 Metoprolol Succinate [Toprol Xl] 25 mg PO DAILY 12/12/17 12/12/17 Phenazopyridine HCl [Pyridium] 200 mg PO TIDAC 12/12/17 12/12/17 cephALEXin [Cephalexin] 500 mg PO Q12H 12/12/17 12/12/17 Allergies/Adverse Reactions: Allergies Allergy/AdvReac Type Severity Reaction Status Date / Time No Known Allergies Allergy Verified 08/28/17 14:42 All systems ED: reviewed and negative except as stated. Constitutional: Denies: fever Cardiovascular: Denies: chest pain Respiratory: Denies: dyspnea Neurological: Reports: headache, weakness, numbness Past Medical History - Past Medical History Attestation: Yes The following information was validated with the patient. Source: patient, old records reviewed Medical history: Reports: COPD, diabetes, GERD, hypertension Surgical history: Reports: cholecystectomy, herniorrhaphy, hysterectomy, orthopedic, other Psychiatric history: Reports: anxiety - Social History Smoking Status: Never smoker Smokeless Tobacco Status: No Alcohol use: Reports: none Drug use: Reports: none Physical Exam - General Limitations: no limitations General appearance: alert, in no apparent distress - Head Head exam: atraumatic, normocephalic, normal inspection - Eye Eye exam: Present: normal appearance, EOMI - ENT ENT exam: normal exam - Neck Neck exam: Present: normal inspection - Chest Chest inspection: Present: normal inspection, symmetric chest wall rise - Respiratory Respiratory exam: Present: normal lung sounds bilaterally - Cardiovascular Cardiovascular exam: Present: regular rate, normal rhythm, normal heart sounds - Abdominal Exam Abdominal exam: Present: soft, Non-Tender. Absent: tenderness - Extremities Exam Extremities exam: Present: normal inspection, full ROM - Expanded Upper Extremity Exam Shoulder exam: Present: normal inspection, full ROM Arm exam: Present: normal inspection, full ROM Elbow exam: Present: normal inspection, full ROM Forearm/Wrist exam: Present: normal inspection, full ROM Hand exam: Present: normal inspection, full ROM Vascular exam: Normal: radial pulse - Expanded Lower Extremity Exam Hip/Pelvis exam: Present: normal inspection, full ROM Upper leg exam: Present: normal inspection, full ROM Knee exam: Present: normal inspection, full ROM Lower leg exam: Present: normal inspection, full ROM Ankle exam: Present: normal inspection, full ROM Foot/toe exam: Present: normal inspection, full ROM - Neurological Exam Neurological exam: Present: alert, CN II-XII intact (With the exception of left cranial nerve V) - Expanded Neurological Exam Speech: Present: fluid speech Cranial nerves: EOM function (II, III, IV, ): Normal, facial sensation (V): Abnormal Left, spinal accessory function (XI): Normal, tongue deviation (XII): Normal Cerebellar function: finger to nose: Normal Motor strength - LUE: 3/5 Motor strength - RUE: 4/5 Motor strength - LLE: 3/5 Motor strength - RLE: 4/5 Sensory exam upper extremity: light touch: Abnormal Left Sensory exam lower extremity: light touch: Abnormal Left Coma Scale Eye Opening: To Voice Coma Scale Motor Response: Obeys Commands Coma Scale Verbal Response: Oriented Coma Scale Total: 14 - Skin Skin exam: Present: warm, dry Course Course Narrative: Patient seen and examined. Vital signs reviewed. Stroke alert called at presentation. CT imaging head, labs. She is noted to be hypertensive and febrile here. - Reevaluation(s) Reevaluation #1: Patient noted to be febrile and tachycardic here. Lactate and blood cultures ordered as well as IV fluids. - Consultations Consultation #1: Patient evaluated by [facility] stroke neurology. The patient is not felt to be a candidate for TPA given her recent use of TPA. Neurology reports the last time she presented like this she ended up having a UTI exacerbating her neurologic symptoms. Plan to stay here for further evaluation as she is febrile and tachycardic. Vital Signs Temperature 101.5 F H 12/12/17 19:14 Pulse Rate 125 12/12/17 19:14 Respiratory Rate 18 12/12/17 19:14 Blood Pressure 157/55 12/12/17 19:14 O2 Sat by Pulse Oximetry 97 12/12/17 19:14 Temperature 101.5 F H 12/12/17 19:14 Pulse Rate 99 12/12/17 22:00 Respiratory Rate 16 12/12/17 22:00 Blood Pressure 127/60 12/12/17 22:00 O2 Sat by Pulse Oximetry 97 12/12/17 22:00 Oxygen Delivery Oxygen Delivery Room Air Neuro Symptoms/Deficit - MDM Narrative Medical decision making narrative: 77-year-old female presents with strokelike symptoms. She has presented like this previously. Initially evaluated by [facility] stroke neurology not felt to be a candidate for TPA also with likely concern for metabolic origin. Noted to be febrile and tachycardic upon arrival with coordination unknown at this time. Noted to have an elevated lactic of 4.7. CT imaging of the abdomen in process. Patient given vancomycin and Zosyn. Cultures pending. Admitted in stable condition. - Lab Data Lab results reviewed: Yes I reviewed the patient's lab results. Result diagrams: 12/12/17 19:44 12/12/17 19:44 Lab Results 12/12/17 12/12/17 12/12/17 Range/Units 19:44 19:44 19:44 WBC 11.8 H D (4.3-11.1) K/mcL RBC 4.19 (3.82-4.97) M/mcL Hgb 11.0 L (11.5-15.4) g/dL Hct 35.2 L (35.3-44.9) % MCV 84.0 (83.0-100.0) fL MCH 26.3 L (28.0-33.3) pg MCHC 31.3 L (31.6-35.5) g/dL RDW 15.4 H (11.5-14.5) % Plt Count 305 (140-400) K/mcL MPV 9.4 (9.4-12.4) fL Immature Gran % 0.5 (0-4) % Seg Neutrophils % 88.5 % Lymphocytes % 6.1 % Monocytes % 4.1 % Eosinophils % 0.7 % Basophils % 0.1 % Neutrophils # 10.4 H (1.6-8.9) K/mcL Lymphocytes # 0.7 (0.6-4.6) K/mcL Monocytes # 0.5 (0.0-1.3) K/mcL Eosinophils # 0.1 (0.0-0.6) K/mcL Basophils # 0.0 (0.0-0.2) K/mcL PT 11.5 (9.4-12.1) Seconds INR 1.0 APTT 27.3 (26.0-36.0) Seconds Sodium 133 L (136-145) mEq/L Potassium 4.4 (3.5-5.1) mEq/L Chloride 99 (98-107) mEq/L Carbon Dioxide 23 (23-29) mEq/L BUN 13 (8-23) mg/dL Creatinine 0.86 (0.60-1.20) mg/dL Est GFR ( Amer) > 60 (> 60) Est GFR (Non-Af Amer) > 60 (> 60) BUN/Creatinine Ratio 15 (6-26) Glucose 211 H (70-105) mg/dL Calculated Osmolality 282 (280-300) Lactic Acid (0.5-2.2) mmol/L Calcium 9.7 (8.6-10.3) mg/dL Troponin I < 0.03 (< 0.04) ng/mL Urine Color (Yellow) Urine Clarity (Clear) Urine pH (5.0-8.0) pH Units Ur Specific Robert (1.010-1.025) Urine Protein (Neg-Trace) mg/dL Urine Glucose (UA) (Normal) mg/dL Urine Ketones (Negative) mg/dL Urine Blood (Negative) Urine Nitrite (Negative) Urine Bilirubin (Negative) Urine Urobilinogen (Normal) mg/dL Ur Leukocyte Esterase (Negative) Urine Microscopic RBC (0-3) per hpf Urine Microscopic WBC (0-3) per hpf Ur Squamous Epith Cells (None-Few) per lpf Urine Bacteria (None-Few) per hpf Hyaline Casts (None-Few) per lpf Ur Culture Indicated? (NO) Urine Opiates Screen (Yvasgy=139) ng/mL Ur Barbiturates Screen (Bpqiyz=339) ng/mL Ur Phencyclidine Scrn (Cutoff=25) ng/mL Ur Amphetamines Screen (Drkium=5210) ng/mL U Benzodiazepines Scrn (Ysiilw=001) ng/mL Urine Cocaine Screen (Cutoff= 300) ng/mL U Marijuana (THC) Screen (Cutoff = 50) ng/mL Ur Drug Screen Interp 12/12/17 12/12/17 12/12/17 Range/Units 19:44 20:40 20:40 WBC (4.3-11.1) K/mcL RBC (3.82-4.97) M/mcL Hgb (11.5-15.4) g/dL Hct (35.3-44.9) % MCV (83.0-100.0) fL MCH (28.0-33.3) pg MCHC (31.6-35.5) g/dL RDW (11.5-14.5) % Plt Count (140-400) K/mcL MPV (9.4-12.4) fL Immature Gran % (0-4) % Seg Neutrophils % % Lymphocytes % % Monocytes % % Eosinophils % % Basophils % % Neutrophils # (1.6-8.9) K/mcL Lymphocytes # (0.6-4.6) K/mcL Monocytes # (0.0-1.3) K/mcL Eosinophils # (0.0-0.6) K/mcL Basophils # (0.0-0.2) K/mcL PT (9.4-12.1) Seconds INR APTT (26.0-36.0) Seconds Sodium (136-145) mEq/L Potassium (3.5-5.1) mEq/L Chloride (98-107) mEq/L Carbon Dioxide (23-29) mEq/L BUN (8-23) mg/dL Creatinine (0.60-1.20) mg/dL Est GFR ( Amer) (> 60) Est GFR (Non-Af Amer) (> 60) BUN/Creatinine Ratio (6-26) Glucose (70-105) mg/dL Calculated Osmolality (280-300) Lactic Acid 4.7 H* (0.5-2.2) mmol/L Calcium (8.6-10.3) mg/dL Troponin I (< 0.04) ng/mL Urine Color Yellow (Yellow) Urine Clarity Clear (Clear) Urine pH 5.5 (5.0-8.0) pH Units Ur Specific Robert 1.013 (1.010-1.025) Urine Protein Negative (Neg-Trace) mg/dL Urine Glucose (UA) Normal (Normal) mg/dL Urine Ketones 15 H (Negative) mg/dL Urine Blood Negative (Negative) Urine Nitrite Negative (Negative) Urine Bilirubin Negative (Negative) Urine Urobilinogen Normal (Normal) mg/dL Ur Leukocyte Esterase Trace H (Negative) Urine Microscopic RBC 0-3 (0-3) per hpf Urine Microscopic WBC 3-5 H (0-3) per hpf Ur Squamous Epith Cells Few (None-Few) per lpf Urine Bacteria None Seen (None-Few) per hpf Hyaline Casts None Seen (None-Few) per lpf Ur Culture Indicated? YES A (NO) Urine Opiates Screen Negative (Wkcvly=823) ng/mL Ur Barbiturates Screen Negative (Lcwbnq=005) ng/mL Ur Phencyclidine Scrn Negative (Cutoff=25) ng/mL Ur Amphetamines Screen Negative (Bxzrsz=5038) ng/mL U Benzodiazepines Scrn Negative (Czrfcc=220) ng/mL Urine Cocaine Screen Negative (Cutoff= 300) ng/mL U Marijuana (THC) Screen Negative (Cutoff = 50) ng/mL Ur Drug Screen Interp See Below - Radiology Data Radiology results reviewed: Yes I reviewed the patient's radiology results. Chest X-Ray 12/12/17 19:16 IMPRESSION: Stable portable study. D/ / Jannette Broderick Cha, MD / Jannette Broderick Cha, MD Interpreting Provider: Jannette Broderick Cha, MD Head CT 12/12/17 19:16 IMPRESSION: No acute intracranial abnormality. Findings were discussed with Andre Cheney at 7:34 pm on 12/12/2017. D/ / 12/12/2017 19:38:34 John Miller MD / allie Interpreting Provider: John Miller MD - EKG Data EKG attestation: Yes I reviewed and interpreted this EKG. EKG results narrative: EKG demonstrates sinus tachycardia with a rate of 120. Normal axis. Normal intervals. Normal R-wave progression. No gross ST elevations or depressions. No acute ischemic findings. NIH Stroke Scale - Level of Consciousness LOC: Drowsy, but arousable - LOC Questions LOC Questions: Answers both correctly - LOC Commands LOC Commands: Performs both correctly - Best Gaze Best Gaze: Normal - Visual Visual: No visual loss - Facial Palsy Facial Palsy: Minor asymmetry on smiling, flattened nasolabial fold - Motor Arms Motor Arm-Left: Some effort against gravity, limb drifts to bed Motor Arm-Right: No drift for 10 seconds - Motor Legs Motor Leg-Left: Some effort against gravity, limb drifts to bed Motor Leg-Right: No drift for 5 seconds - Limb Ataxia Limb Ataxia: Present in ONE limb - Sensory Sensory: Mild to moderate loss, "not as sharp" - Best Language Best Language: No aphasia - Dysarthria Dysarthria: Mild, slurs some words - Extinction and Inattention Extinction and Inattention: Normal - NIHSS Total Score NIHSS Total Score: 9 TPA Checklist - LKW: 3-4.5 hrs Add. Warnings/Precautions Patient/family understanding: The patient/family members have been counseled and understood the risk, benefit , and alternatives of treatment. S.B.ACorey - Rodolfo Situation: Demographics, MOA Background: Presenting Complaint, Relevant PMH, Meds, & Allergies Assessment: Course and respsone to treatment, Exam Concerns, Patient/Family Expectation, Pertinant Lab Results Recommendation: Barrier(s) to disposition, Recommendation based on pending studies, treatments, or consults S.B.Varghese Report Given to: Dr. Anna Reynolds Repor Time: 22:09 (Agrees with CT of the abdomen given her elevated lactate.) Attestation Statement - Attestation Attestation: I, Kelechi Hair, examined this patient and my medical decision-making was reviewed with the WAGON WASHER/PA/Advanced Practice Nurse/Resident Physician. I agree with the documented findings, disposition and treatment plan as described except to the extent set forth below. 77-year-old female presents emergency department for possible stroke alert. Patient is at a residential facility, they state that she has chronic left- sided weakness however they noticed it as worse today at 1820. This is about 40 minutes prior to arrival. Unknown last time well. Patient is fatigued and has a difficult time answering questions in the emergency department. She gives 1-2 word answers, the answers are appropriate to the question however she is unable to explain things further. Patient had a similar presentation to the day 1 week ago. At that time she was flown to [place] for further evaluation for possible CVA. Apparently the symptoms had improved by the time that she arrived to [place] and she was diagnosed with a urinary tract infection. Patient has a fever of 101 1.5 in the emergency department, she denies coughing, denies abdominal pain, denies other sick contacts. Laboratory evaluation shows an elevated white blood cell count as well as an elevated lactic acidosis. Chest x -ray did not show evidence of acute infiltrate. Urinalysis was negative for urinary tract infection. CT of the abdomen and pelvis is obtained to further evaluate for possible infection source. Imaging is pending however patient will likely be admitted to the hospitalist for further care and evaluation.
[2017-12-12] MEDS ORDERED: 0.9 % Sodium Chloride 1,000 ML IVC ONE ×2 (19:40→20:17)
[2017-12-12 19:53] LABS: Basophils % 0.1 %; Eosinophils # 0.1 K/mcL (0.0-0.6); Eosinophils % 0.7 %; Hematocrit 35.2 % (35.3-44.9); Immature Granulocytes % 0.5 % (0-4); Lymphocytes # 0.7 K/mcL (0.6-4.6); Lymphocytes % 6.1 %; Mean Corpuscular HGB Conc 31.3 g/dL (31.6-35.5); Mean Corpuscular Hemoglobin 26.3 pg (28.0-33.3); Mean Platelet Volume 9.4 fL (9.4-12.4); Monocytes # 0.5 K/mcL (0.0-1.3); Monocytes % 4.1 %; Neutrophils # 10.4 K/mcL (1.6-8.9); Platelet Count 305 K/mcL (140-400); Red Blood Count 4.19 M/mcL (3.82-4.97); Red Cell Distribution Width 15.4 % (11.5-14.5); Segmented Neutrophils % 88.5 %
[2017-12-12 19:59] LABS: Prothrombin Time 11.5 Seconds (9.4-12.1)
[2017-12-12 20:01] LABS: Activated Partial Thrombo Time 27.3 Seconds (26.0-36.0)
[2017-12-12 20:14] LABS: BUN/Creatinine Ratio 15 (6-26); Blood Urea Nitrogen 13 mg/dL (8-23); Calcium 9.7 mg/dL (8.6-10.3); Carbon Dioxide 23 mEq/L (23-29); Chloride 99 mEq/L (98-107); Glucose 211 mg/dL (70-105); Osmolality,Calculated 282 (280-300); Potassium 4.4 mEq/L (3.5-5.1); Sodium 133 mEq/L (136-145); Troponin I < 0.03 ng/mL (< 0.04); eGFR For Non-African Americans > 60 (> 60)
[2017-12-12 20:54] LABS: Bilirubin,Urine Negative (Negative); Blood,Urine Negative (Negative); Clarity,Urine Clear (Clear); Color,Urine Yellow (Yellow); Glucose,Urine (UA) Normal (Normal); Ketones,Urine 15 mg/dL (Negative); Leukocyte Esterase,Urine Trace (Negative); Nitrite,Urine Negative (Negative); PH,Urine 5.5 pH Units (5.0-8.0); Protein,Urine Negative (Neg-Trace); Specific Gravity,Urine 1.013 (1.010-1.025); Urobilinogen,Urine Normal (Normal)
[2017-12-12 20:56] LABS: Bacteria,Urine None Seen per hpf (None-Few); Hyaline Casts,Urine None Seen per lpf (None-Few); RBC,Urine 0-3 per hpf (0-3); Squamous Epithelial Cell,Urine Few per lpf (None-Few)
[2017-12-12] MEDS ORDERED: Piperacillin/Tazobactam 3.375 GM in 0.9 % Sodium Chloride Mini Bag 100 ML IVPB ONE (21:11)
[2017-12-12 21:18] LABS: Amphetamine Screen,Urine Negative ng/mL (Cutoff=1000); Barbiturate Screen,Urine Negative ng/mL (Cutoff=200); Benzodiazepines Screen,Urine Negative ng/mL (Cutoff=200); Cannabinoid Screen,Urine Negative ng/mL (Cutoff = 50); Cocaine Screen,Urine Negative ng/mL (Cutoff= 300); Opiate Screen,Urine Negative ng/mL (Cutoff=300); Phencyclidine Screen,Urine Negative ng/mL (Cutoff=25)
[2017-12-12] MEDS ORDERED: Isovue-370 500 ML INFUS..BTL IV ONE (21:38)
[2017-12-13] MEDS ORDERED: OXYCODONE Oral CONC 10 MG/0.5 ML ORAL.SYG SL PRN (00:14)
[2017-12-13] MEDS ORDERED: Naloxone 0.4 MG/ML INJ IVP PRN ×2 (00:14)
[2017-12-13] MEDS ORDERED: Ondansetron 4 MG/2 ML VIAL IVP PRN (00:14)
[2017-12-13] MEDS ORDERED: D5% in Water 1,000 ML IVC PRN (00:33)
[2017-12-13] MEDS ORDERED: Dextrose Gel 15 GM/37.5 ML TUBE PO PRN ×2 (00:33)
[2017-12-13] MEDS ORDERED: *HR* Dextrose 50 % in Water (Syg) 50 ML SYRINGE IVP PRN (00:33)
--- NOTE | 2017-12-13 00:59 | Internal Med History&Physical ---
Date of Encounter: 12/13/17 Time of Encounter: 00:40 Internal Medicine - H&P: HPI Chief complaint: left sided weakness, headache Admitted From: Emergency Dept Plans for Post Hospital Care: Home History of present illness: Ms. Davenport is a 77 year old female with a PMHx of COPD, DM2, GERD, HTN, CVA presents to ED with a complaint of left sided body weakness, left face numbness , and headache. She has been seen in ED on 11/26/17, and 12/05/17 for similar complaints. On initial presentation, in October, CT head was negative however [facility] teleconference did recommend TPA and she was transferred to [facility]. She was unable to have MRI due to presence of hardware. She then presented on 12/05 with the same complaint and [facility] was again consulted who said due to recent TPA use she was not a condidate however she was transferred back to [facility] for further evaluation. Per printed chart from [facility], they felt that she was experiencing worsening neurological symptoms due to presence of UTI and was being treated with Keflex. Stroke alert was again called at this visit, however [facility] evaluated and did not recommend TPA or transfer. CT head again negative. At this presentation, patient states that her weakness and numbness are worse than usual. Located in the LLE and LUE, and face. She states it was sudden onset since late afternoon. Headache is left frontal and constant but does wax and wane. She denies changes in vision. She also has complaints of sharp chest pain, SOB with orthopnea, non productive cough, nausea without vomiting, fevers and chills, lower extremity swelling, urinary frequency and dysuria, fatigue and malaise. She states her weakness and numbness has been constant since onset. In the ED, Vitals significant for fever of 101.5, tachycardia 125, RR 18, BP 157 /55, O2 97% on RA Labs significant for WBC of 11.8, Lactic acid 4.7, glucose 211. UA with few LE, nitrites, WBCs and few epithelial cells. CT head negative for acute pathology, CXR wnl, ABdomen/pelvis CT shows no acute finding with stable post surgical changes, mild constipation. PMHx as above PSHx includes hysterectomy, hernia repair, cholecystectomy, appendectomy, partial sigmoid resection Social history: Denies smoking, rare alcohol use, denies drug use Family History: sister with lung cancer, mother with alzheimers, brothers with cirrhosis and alcohol abuse Past Med Surg Social Fam HX - Past Medical History Medical history: COPD, diabetes, GERD, hypertension Additional medical history: anemia, Psychiatric history: anxiety - Past Surgical History Surgical History: cholecystectomy, herniorrhaphy, hysterectomy, orthopedic, other Additional surgical history: back stimulator - Social History Smoking Status: Never smoker Smokeless Tobacco Status: No Alcohol use: none Drug use: none - Family History Mother Living Status: Still Living Hx Family Neurologic Disorders: Yes (Dementia) Sister Hx Family Cancer: Yes Internal Medicine - H&P: Meds Aspirin 81 mg PO DAILY 08/28/16 [History] Losartan/HCTZ [Hyzaar 50-12.5 Tablet] 1 tab PO DAILY 08/28/16 [History] Omeprazole 40 mg PO DAILY 08/28/16 [History] Venlafaxine XR (24 HR) [Effexor Xr] 150 tab PO DAILY 08/28/16 [History] Melatonin [Melatin] 3 mg PO HS PRN 06/22/17 [History] Insulin NPH Hum/Reg Insulin Hm [Novolin 70-30 100 Unit/ml Vial] 20 unit SQ BID 08/23/17 [History] Metformin HCl [Glucophage] 1,000 mg PO BID 08/23/17 [History] Pravastatin Sodium 10 mg PO DAILY 08/23/17 [History] ARIPiprazole [Abilify] 5 mg PO DAILY 12/12/17 [History] Acetaminophen [Tylenol] 650 mg PO Q6HR 12/12/17 [History] Baclofen [Lioresal] 10 mg PO TID 12/12/17 [History] Gabapentin [Neurontin] 600 mg PO BID 12/12/17 [History] LORazepam [Ativan] 1 tab PO DAILY PRN 12/12/17 [History] Metoprolol Succinate [Toprol Xl] 25 mg PO DAILY 12/12/17 [History] Phenazopyridine HCl [Pyridium] 200 mg PO TIDAC 12/12/17 [History] cephALEXin [Cephalexin] 500 mg PO Q12H 12/12/17 [History] 3 Allergy/AdvReac Type Severity Reaction Status Date / Time No Known Allergies Allergy Verified 08/28/17 14:42 All Systems PM: A 10-system review of systems was performed and is negative for pertinent findings except as documented above in the HPI. - Constitutional Constitutional: chills, fever(s), malaise, weakness - EENT Eyes: no blurry vision Nose, mouth and throat: facial pain, neck pain, no nasal congestion, no nasal discharge, no odynophagia, no sinus pressure, no sore throat - Cardiovascular Cardiovascular ROS IM: chest pain, dyspnea, edema, orthopnea, no dyspnea on exertion, no syncope - Respiratory Respiratory: cough (non productive), dyspnea, no hemoptysis, no dyspnea on exertion, no wheezing - Gastrointestinal Gastrointestinal: abdominal pain, nausea, no constipation, no diarrhea, no dyspepsia, no hematochezia, no loose stools, no melena, no vomiting - Genitourinary Genitourinary: dysuria, urinary frequency, urinary incontinence - Integumentary Integumentary IM: no rash - Neurological Neurological ROS: abnormal gait, headache(s), numbness, weakness - Constitutional Vitals: Temp Pulse Resp BP Pulse Ox 99.1 F 98 16 119/56 95 12/12/17 23:54 12/12/17 23:54 12/12/17 23:54 12/12/17 23:54 12/12/17 23:54 Exam: Gen.: Vitals noted. No acute distress. AAOx3 (able to state it is November 2017 but is unsure on date). Resting comfortably. HEENT: PERRL/EOMI, oropharynx clear, Normocephalic, atraumatic, MMM Cardiac: RRR, no murmur, +S1/S2 Pulmonary: CTA bilaterally, no wheezes, rales or rhonchi, equal chest expansion Abdomen: soft, diffusely tender to light palpation diffusely, BS noted, exam limited due to pain MSK: Muscle strength 3/5 on left, 4/5 on right. Patient states she feels worse from baseline. Neck tender to palpation but negative brudzinki sign. Skin: warm face and neck with cool distal extremities. No obvious rash Extremities: no BLE edema, nontender calf, no cyanosis or clubbing Neuro: A&Ox3, moves all extremities, strength as above. CN II-XII intact grossly. Patient states numbness but also states pain to palpation of left face. Psych: Appropriate mood and behavior Internal Med - H&P Results - Labs CBC & Chem 7: 12/12/17 19:44 12/12/17 19:44 - Assessment and plan (1) Septic shock Current Visit: Yes Status: Acute Assessment and plan: - Meets 2/4 SIRS criteria on presentation with fever 101.5, HR 125, lactic acid 4.7 - Has improved with 2L fluids and tylenol and is most recently vitals are improved to 98.6/98/18 with a lactic of 2.1 - She is showing no signs of shock or end organ damage. - Most likely source is urine as she is having dysuria and frequency. - CXR shows no acute process, Abd CT show mild-moderate stool burden with no acute process - UA shows trace LE, 3-5 WBC, and few epithelial cells. Its noted that shes been on Keflex however. - Also have low suspicion for meningitis given POPE and neuro symptoms. She does have negative Brudzinski sign Plan - Continue vancomycin and zosyn with de-escalation as able - Continue tylenol PRN fever - Fludis x1L for a total of 3L - Urine and blood cultures collect in ED - Continue to trend lactate - Consider lumbar puncture if she continues to be febrile or has worsening neurologic symptoms. Also keep in mind that she received TPA <3 weeks ago (2) UTI (urinary tract infection) Current Visit: Yes Status: Suspected Assessment and plan: as above for septic shock Qualifiers: Urinary tract infection type: acute cystitis Hematuria presence: without hematuria Qualified Code(s): N30.00 - Acute cystitis without hematuria (3) History of CVA (cerebrovascular accident) Current Visit: Yes Status: Chronic Assessment and plan: - Neurologic symptoms are similar to baseline from 11/26 however patient states they are worsened - This may be a case of infection worsening neurological status - CT head wnl and [facility] cancelled stroke alert - There also may be a component of somatization, patient tearful at times, history of depression Plan - Continue to monitor with q4 hours neuro checks - Patient unable to have MRI due to hardware. - Continue home meds once reconciled. - PT/OT (4) Diabetes mellitus Current Visit: Yes Status: Chronic Assessment and plan: BS on presentation of 211 possibly elevated due to stress, infection A1c in [facility] in 8s Will start SSI moderate scale and 15 units basal. Qualifiers: Diabetes mellitus type: type 2 Diabetes mellitus buttermaker continuous churn insulin use: with assisted use Diabetes mellitus complication status: without complication Qualified Code(s): E11.9 - Type 2 diabetes mellitus without complications; Z79.4 - custodial (current) use of insulin (5) HTN (hypertension) Current Visit: Yes Status: Chronic Assessment and plan: - Mildly elevated at 157/55 on presentation currently 135/57 will continue to monitor and resume home meds Qualifiers: Hypertension type: essential hypertension Qualified Code(s): I10 - Essential (primary) hypertension (6) DVT prophylaxis Current Visit: Yes Status: Acute Assessment and plan: heparin 5000 units q12 hours - Time Spent With Patient Total time spent is greater than 50% in coordination of care (as documented) at patient's floor/unit and/or counseling patient:
[2017-12-13] MEDS ORDERED: 0.9 % Sodium Chloride 1,000 ML IVC ONE (01:29)
[2017-12-13] MEDS ORDERED: *HR* LORazepam 1 MG TABLET PO PRN (01:48)
[2017-12-13] MEDS ORDERED: Melatonin 3 MG TABLET PO PRN (01:48)
[2017-12-13] MEDS: Acetaminophen 325 MG TABLET PO PRN ×2 (02:07→14:14)
[2017-12-13 04:50] LABS: Basophils % 0.1 %; Eosinophils % 1.4 %; Hematocrit 29.8 % (35.3-44.9); Immature Granulocytes % 0.5 % (0-4); Lymphocytes % 7.9 %; Mean Corpuscular HGB Conc 31.5 g/dL (31.6-35.5); Mean Corpuscular Hemoglobin 25.8 pg (28.0-33.3); Mean Corpuscular Volume 81.9 fL (83.0-100.0); Mean Platelet Volume 9.2 fL (9.4-12.4); Monocytes % 5.3 %; Platelet Count 292 K/mcL (140-400); Red Blood Count 3.64 M/mcL (3.82-4.97); Red Cell Distribution Width 15.6 % (11.5-14.5); Segmented Neutrophils % 84.8 %
[2017-12-13 04:51] LABS: Eosinophils # 0.1 K/mcL (0.0-0.6); Lymphocytes # 0.7 K/mcL (0.6-4.6); Monocytes # 0.5 K/mcL (0.0-1.3); Neutrophils # 7.4 K/mcL (1.6-8.9)
[2017-12-13 04:54] LABS: Hemoglobin 9.4 g/dL (11.5-15.4)
--- NOTE | 2017-12-13 05:02 | Sepsis Event Note ---
Sepsis Reassessment Note - Evaluation Sepsis Screen: No Definite Risk Current Stage of Sepsis: ruled out Reason for ruling out sepsis: tachycardia. Fever and lacic acidosis resolved. Possible Source of Sepsis: genitourinary - Focused Exam Date of Encounter: 12/13/17 Time of Encounter: 05:01 Vital Signs: Vital Signs Temp Pulse Resp BP Pulse Ox 12/13/17 03:30 98.9 F 95 18 134/59 94 12/13/17 02:17 98.6 F 98 18 132/57 96 12/13/17 00:41 98.6 F 98 18 132/57 96 Respiratory Exam: Present: CTA bilaterally Cardiovascular Exam: Present: RRR, tachycardia Capillary Refill: < 2 seconds Peripheral Pulse Strength: 2+ slightly diminished Peripheral Pulse Location: Radial Skin Exam: pale
[2017-12-13 05:07] LABS: BUN/Creatinine Ratio 14 (6-26); Blood Urea Nitrogen 9 mg/dL (8-23); Calcium 8.6 mg/dL (8.6-10.3); Carbon Dioxide 22 mEq/L (23-29); Chloride 107 mEq/L (98-107); Glucose 167 mg/dL (70-105); Osmolality,Calculated 284 (280-300); Potassium 3.7 mEq/L (3.5-5.1); Sodium 136 mEq/L (136-145); eGFR For Non-African Americans > 60 (> 60)
[2017-12-13] MEDS: *HR* Heparin 5,000 UNIT/ML VIAL SQ SCH ×3 (05:51→21:13)
[2017-12-13] MEDS: Gabapentin 300 MG CAPSULE PO SCH ×2 (08:11→21:12)
[2017-12-13] MEDS: Aspirin 81 MG TAB.CHEW PO SCH (08:11)
[2017-12-13] MEDS: Losartan/HCTZ 50-12.5 TABLET PO SCH (08:11)
[2017-12-13] MEDS: Metoprolol XL (24 HR) Succ 25 MG TAB.ER.24H PO SCH (08:11)
[2017-12-13] MEDS: Venlafaxine XR (24 HR) 150 MG CAP.ER.24H PO SCH ×2 (08:12→21:12)
[2017-12-13] MEDS: Piperacillin/Tazobactam 3.375 GM in 0.9 % Sodium Chloride Mini Bag 100 ML IVPB SCH ×2 (08:13→15:54)
[2017-12-13] MEDS: Insulin LISPRO 300 UNITS/3 ML VIAL SQ SCH ×3 (08:13→18:04)
--- NOTE | 2017-12-13 09:14 | Internal Med Progress Note ---
<Nadeem Monroe W - Last Filed: 12/13/17 15:34> Hospitalist Progress Note - Encounter Date of Encounter: 12/13/17 Time of Encounter: 09:10 - Subjective Interval History: Patient is 72-year-old female past medical history of CVA presented to the ED yesterday with left-sided body weakness, left face weakness, and headache. She continues in the ED on 11/26/17 and 12/05/17 for similar complaints. On initial presentation, in October, CT head was negative however [facility] teleconference recommended TPA to transfer to [facility]. on 12/05 she was transferred to [facility] again. On this visit CT head is negative again post you felt she could be managed here. Patient is currently being treated for UTI with cephalexin. Patient states numbness and weakness are still present. Located on left lower extremity left upper chest and face. She also has decreased sensation on the left side of her body. Patient also admits to a headache that is left frontal is constant but sometimes wax and wanes. Patient also complains of sharp chest pain 6 out of 10 that comes and goes, shortness of breath, nonproductive cough, nausea, fever, urinary frequency and dysuria, fatigue and malaise. She reports no improvement since admission. On admission lactic acid is 4.7 today lactic acid is 1.6 vitals are stable. Patient has remained afebrile since her first elevated temperature during admission. Sepsis reassessment this morning showed resolution of sepsis concern. - Exam Vitals: Temp Pulse Resp BP Pulse Ox 98.9 F 97 17 151/72 96 12/13/17 05:56 12/13/17 07:03 12/13/17 07:03 12/13/17 07:03 12/13/17 07:03 Exam: Gen.: Vitals noted. No acute distress. Resting comfortably. Other HEENT: PERRL/EOMI, oropharynx clear, Normocephalic, atraumatic, MMM Cardiac: RRR, no murmur, +S1/S2 Pulmonary: CTA bilaterally, no wheezes, rales or rhonchi, equal chest expansion Abdomen: soft, tenderness to palpation left lower quadrant and suprapubic, BS noted, MSK: Muscle strength 3/5 on left, 4/5 on right. Patient states she feels worse from baseline. Skin: warm face and neck with cool distal extremities. No obvious rash Extremities: no BLE edema, nontender calf, no cyanosis or clubbing Neuro: A&O, moves all extremities, strength as above. CN II-XII intact grossly. Patient states numbness but also states pain to palpation of left face. Psych: Appropriate responses - Assessment and Plan (1) UTI (urinary tract infection) Current Visit: Yes Status: Suspected Assessment and Plan: Patient complaining of dysuria and increased frequency urination Urinalysis on mildly elevated leukocyte esterase Currently afebrile in white blood cell count is 8.8 down from 11.8 Admission patient admitted to for SIRS criteria with tachycardia and fever, lactic acid was 4.7 currently is 1.6 Plan - Continue Zosyn day 2 - Vancomycin D/C (2) History of CVA (cerebrovascular accident) Current Visit: Yes Status: Chronic Assessment and Plan: - Neurologic symptoms are similar to baseline from 11/26 however patient states they are worsened - This may be a case of infection worsening neurological status - CT head wnl and [facility] cancelled stroke alert - There also may be a component of somatization, patient tearful at times, history of depression - PT/OT consulted Plan - Continue to monitor with q4 hours neuro checks - Patient unable to have MRI due to hardware. (3) Left-sided weakness Current Visit: Yes Status: Acute Assessment and Plan: Presents with L sided weakness UE and LE History of CVA with same symptoms CT head no acute process L sided frontal POPE Unknown etiology CVA vs vasospastic migraine vs somatization Plan - Neuro consult appreciate recs - Continue to monitor (4) HTN (hypertension) Current Visit: Yes Status: Chronic Assessment and Plan: Known history of HTN Currently 151/72 Continue home medication of Lisinopril/HCTZ and Metoprolol XL (5) Hemoglobin decreased Current Visit: Yes Status: Acute Assessment and Plan: 11.0 on admission 9.4 today Likely dilution as she received 3L during admission Continue to monitor (6) Diabetes mellitus Current Visit: Yes Status: Chronic Assessment and Plan: Known history of DM most recent BG 167 SSI medium corrective dose and 15 units Levamir HS (7) DVT prophylaxis Current Visit: Yes Status: Acute Assessment and Plan: heparin 5000 units q12 hours (8) SIRS due to infectious process without acute organ dysfunction Current Visit: Yes Status: Resolved Assessment and Plan: - Resolved - Meet 2/4 SIRS criteria on presentation with fever 101.5, HR 125, lactic acid 4.7 on admission - Improved with 2L fluids and tylenol - Current lactic acid 1.6 - She is showing no signs of shock or end organ damage. - Most likely source is urine as she is having dysuria and frequency. - CXR shows no acute process, Abd CT show mild-moderate stool burden with no acute process - UA shows trace LE, 3-5 WBC, and few epithelial cells. Its noted that shes been on Keflex however. - Also have low suspicion for meningitis given POPE and neuro symptoms. She does have negative Brudzinski sign Plan - Continue Zosyn - Continue tylenol PRN fever - Follow blood cultures - Time Spent with Patient Total time spent is greater than 50% in coordination of care (as documented) at patient's floor/unit and/or counseling patient: Internal Medicine: Result - Labs CBC & Chem 7: 12/13/17 04:28 12/13/17 04:28 Labs: Short CBC 12/13/17 Range/Units 04:28 WBC 8.8 (4.3-11.1) K/mcL Hgb 9.4 L D (11.5-15.4) g/dL Hct 29.8 L (35.3-44.9) % Plt Count 292 (140-400) K/mcL Neutrophils # 7.4 (1.6-8.9) K/mcL BMP 12/13/17 04:28 Sodium 136 Potassium 3.7 Chloride 107 Carbon Dioxide 22 L BUN 9 Creatinine 0.63 Glucose 167 H Calcium 8.6 - ABG Interpretation ABG results: PT/INR, D-dimer PT 11.5 Seconds (9.4-12.1) 12/12/17 19:44 Consult Discharge Plan - Plan Referrals: Chris Galvez [Primary Care Provider] - <C[place] Patricio - Last Filed: 12/13/17 19:31> Hospitalist Progress Note - Encounter Date of Encounter: 12/13/17 - Exam Vitals: Temp Pulse Resp BP Pulse Ox 98.2 F 84 17 140/63 97 12/13/17 16:10 12/13/17 16:10 12/13/17 16:10 12/13/17 16:10 12/13/17 16:10 - Assessment and Plan (1) UTI (urinary tract infection) Current Visit: Yes Status: Suspected (2) HTN (hypertension) Current Visit: Yes Status: Chronic (3) Diabetes mellitus Current Visit: Yes Status: Chronic (4) DVT prophylaxis Current Visit: Yes Status: Acute (5) Left-sided weakness Current Visit: Yes Status: Acute (6) History of CVA (cerebrovascular accident) Current Visit: Yes Status: Chronic (7) Hemoglobin decreased Current Visit: Yes Status: Acute (8) SIRS due to infectious process without acute organ dysfunction Current Visit: Yes Status: Resolved - Time Spent with Patient Total time spent is greater than 50% in coordination of care (as documented) at patient's floor/unit and/or counseling patient: Internal Medicine: Result - Labs CBC & Chem 7: 12/13/17 04:28 12/13/17 04:28 Labs: Short CBC 12/13/17 Range/Units 04:28 WBC 8.8 (4.3-11.1) K/mcL Hgb 9.4 L D (11.5-15.4) g/dL Hct 29.8 L (35.3-44.9) % Plt Count 292 (140-400) K/mcL Neutrophils # 7.4 (1.6-8.9) K/mcL BMP 12/13/17 04:28 Sodium 136 Potassium 3.7 Chloride 107 Carbon Dioxide 22 L BUN 9 Creatinine 0.63 Glucose 167 H Calcium 8.6 - ABG Interpretation ABG results: PT/INR, D-dimer PT 11.5 Seconds (9.4-12.1) 12/12/17 19:44 - Attending Attestation I examined this patient and my medical decision-making was reviewed with the Resident Physician on 12/13/17. I agree with the documented findings, disposition and treatment plan as described except to the extent set forth below. Ms Davenport is currently in observation for neurologic symptoms. She remains moderate risk. Ms Davenport continues to have fluctuating neurologic symptoms. Appreciate neuro input. No CP at this time. Exam Alert Comfortable Mucus membranes dry Heart not tachy No wheeze She has had transient and inconsistent neuro symptoms. I/P 1. L side weakness Further diagnoses and plan as above. <Nadeem Monroe - Last Filed: 12/13/17 15:34> (1) UTI (urinary tract infection) Qualifiers: Urinary tract infection type: acute cystitis Hematuria presence: without hematuria Qualified Code(s): N30.00 - Acute cystitis without hematuria (4) HTN (hypertension) Qualifiers: Hypertension type: essential hypertension Qualified Code(s): I10 - Essential (primary) hypertension (6) Diabetes mellitus Qualifiers: Diabetes mellitus type: type 2 Diabetes mellitus prison insulin use: with prison use Diabetes mellitus complication status: without complication Qualified Code(s): E11.9 - Type 2 diabetes mellitus without complications; 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 <[place] Patricio A - Last Filed: 12/13/17 19:31> (1) UTI (urinary tract infection) Qualifiers: Urinary tract infection type: acute cystitis Hematuria presence: without hematuria Qualified Code(s): N30.00 - Acute cystitis without hematuria (2) HTN (hypertension) Qualifiers: Hypertension type: essential hypertension Qualified Code(s): I10 - Essential (primary) hypertension (3) Diabetes mellitus Qualifiers: Diabetes mellitus type: type 2 Diabetes mellitus prison insulin use: with prison use Diabetes mellitus complication status: without complication Qualified Code(s): E11.9 - Type 2 diabetes mellitus without complications; 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
[2017-12-13] MEDS ORDERED: Aminoglycoside Consult 1 EACH MC ONE (13:13)
--- NOTE | 2017-12-13 17:21 | Electrocardiograph Report ---
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
--- NOTE | 2017-12-13 17:29 | Neurology - Consult Note ---
Date of Encounter: 12/13/17 Time of Encounter: 17:25 Assessment and Plan (1) History of CVA (cerebrovascular accident) Current Visit: Yes Status: Chronic It is my opinion that the patient does not have evidence of new stroke although she complained of having worsening weakness to the left side the weakness is unreliable due to the notion that she is not using full efforts. Repeated CT of head over the last 2 weeks since 11/26/2017 showed no focal hypointensity in likely involved locations in the brain argue against the diagnosis of stroke, or the focal deficits can be the result of ongoing medical conditions or fluctuating BP. It is worth noting that her stroke, beside the clinical symptoms of left sided weakness has not been confirmed on imaging studies since she can not get MRI of brain and repeated CT of head showed no focal hypointensity in likely areas. it is also noted that this patient has chronic lumbar pain and left leg weakness listed as one of her medical condition. She has had repeated full stroke work up at [facility] during the last two recent admissions therefore i would recommend no repeat stroke work up. I would recommend aspirin 325mg daily and continuing medical and supportive care. after review of her medical records i would refrain from repeat CT of head to avoid excessive x-ray exposure. There may be a component of supratentorial embellishment in my opinion. However , this would be eventually a diagnosis of exclusion. History of Present Illness Chief complaint: headache and left sided weakness HPI: Ms. Davenport is a 77 year old female with PMH significant for recent CVA, s/p tPA thrombolytic therapy on 11/26/2017, GERD, DM, chronic pain, depression, HTN, cervicalgia, peripheral neuropathy who developed worsening of left sided weakness, headache and is also running a fever with tachycardia. She complaints of having a headache on the left side, the left sided weakness was worsening than before although she can move her left arm now. Per medical records, she developed left sided weakness and headache on 2017 ad was consulted by stroke team and eventually given tPA. Transferred to [facility] neurology and completed stroke work up. She could not get MRI of brain due to lumbar stimulator placement. CT of head was normal. CTA of brain and neck showed no occlusion or stenosis, CTP showed symmetry. Echo showed normal LVEF and no other abnormalities. She was given aspirin 325mg daily and eventually discharged home with improving left sided weakness ( NIH scale 3 at discharge) She then developed similar episode of left sided weakness on 12/05/2017, initially evaluated at [facility] and CT showed no acute intracranial abnormality. She was again transferred to [facility] neurology and another stroke work up done. including repeat CT of head, CTP, CTA of brain and neck, and Echo, LDL 50, no changes from pervious studies. She was kept on aspirin 325mg daily. It was thought that initially she has right brain stem infarct, but this can not be confirmed due to lack of crossed paralysis. It is always documented that her facial droop/numbness is on the left side. Repeat CT of head showed no discrete infarct, no large infarct, no hemorrhagic infarct although small infarct can not be excluded. At the time of this interview, she is improving because 'she can move her left hand now'. Then she complains of having headaches and asking if something stronger than tylenolol can be given. Past Med Surg Social Fam HX - Past Medical History Medical history: COPD, diabetes, GERD, hypertension Additional medical history: anemia, Psychiatric history: anxiety - Past Surgical History Surgical History: cholecystectomy, herniorrhaphy, hysterectomy, orthopedic, other Additional surgical history: back stimulator - Social History Smoking Status: Never smoker Smokeless Tobacco Status: No Alcohol use: none Drug use: none - Family History Mother Living Status: Still Living Hx Family Neurologic Disorders: Yes (Dementia) Sister Hx Family Cancer: Yes Medications and Allergies Aspirin 81 mg PO DAILY 08/28/16 [History] Losartan/HCTZ [Hyzaar 50-12.5 Tablet] 1 tab PO DAILY 08/28/16 [History] Omeprazole 40 mg PO DAILY 08/28/16 [History] Venlafaxine XR (24 HR) [Effexor Xr] 150 tab PO DAILY 08/28/16 [History] Melatonin [Melatin] 3 mg PO HS PRN 06/22/17 [History] Insulin NPH Hum/Reg Insulin Hm [Novolin 70-30 100 Unit/ml Vial] 20 unit SQ BID 08/23/17 [History] Metformin HCl [Glucophage] 1,000 mg PO BID 08/23/17 [History] Pravastatin Sodium 10 mg PO DAILY 08/23/17 [History] ARIPiprazole [Abilify] 5 mg PO DAILY 12/12/17 [History] Acetaminophen [Tylenol] 650 mg PO Q6HR 12/12/17 [History] Baclofen [Lioresal] 10 mg PO TID 12/12/17 [History] Gabapentin [Neurontin] 600 mg PO BID 12/12/17 [History] LORazepam [Ativan] 1 tab PO DAILY PRN 12/12/17 [History] Metoprolol Succinate [Toprol Xl] 25 mg PO DAILY 12/12/17 [History] Phenazopyridine HCl [Pyridium] 200 mg PO TIDAC 12/12/17 [History] cephALEXin [Cephalexin] 500 mg PO Q12H 12/12/17 [History] 3 Allergy/AdvReac Type Severity Reaction Status Date / Time No Known Allergies Allergy Verified 08/28/17 14:42 All Systems: The remainder of the systems were reviewed and are negative Physical Examination - Vital Signs Vital Signs: Initial Vital Signs Temp Pulse Resp BP Pulse Ox 101.5 F H 125 18 157/55 97 12/12/17 19:14 12/12/17 19:14 12/12/17 19:14 12/12/17 19:14 12/12/17 19:14 - Constitutional General appearance: comfortable - Neurologic Sensorimotor examination: intact (Grossly intact) Detailed motor examination: other (The muscle strength is thought to be unreliable and my impression is that she is not using fully effots. She is not pushing down her right leg when asking to lift left leg the difference can be noticed when checking the other leg. ) Motor examination - right side: 5/5: deltoids, biceps, triceps, wrist flexion, wrist extension, business services manager, hip flexors, tibialis Anterior, quadriceps, toe extension (EHL), plantarflexion Motor examination - left side: 4/5: deltoids, biceps, triceps, wrist flexion, wrist extension, hip flexors, business services manager, quadriceps, tibialis Anterior, toe extension (EHL), plantarflexion Detailed sensory examination: intact (Grossly intact) Posture: other (None) Reflexes: Biceps: 1+, Triceps: 1+, Brachioradialis: 1+, Patella: 1+, Achilles: 1 + Mental Status Examination: awake, alert, oriented to person, oriented to place, oriented to time, follows commands appropriately, answers questions appropriately, no agnosia, no aphasia, no aproxia Cranial nerve examination: PERRL, EOMI, visual sood intact, corneal reflexes brisk symmetrically, sensory to face intact, mastication intact, no facial asymmetry is present (There may be a slight residual left facial flattening more prominent when trying to smile), no dysarthria, hearing is intact symmetrically, soft palate elevates bilaterally upon phonation, gag reflex intact, flexes SCM and trapezius muscles symmetrically with full power, tongue protrudes midline, no atrophy or facial fasiculations present Results - Laboratory Findings CBC and BMP: 12/13/17 04:28 12/13/17 04:28 Abnormal lab findings: Abnormal lab results RBC 3.64 M/mcL (3.82-4.97) L 12/13/17 04:28 Hgb 9.4 g/dL (11.5-15.4) L D 12/13/17 04:28 Hct 29.8 % (35.3-44.9) L 12/13/17 04:28 MCV 81.9 fL (83.0-100.0) L 12/13/17 04:28 MCH 25.8 pg (28.0-33.3) L 12/13/17 04:28 MCHC 31.5 g/dL (31.6-35.5) L 12/13/17 04:28 RDW 15.6 % (11.5-14.5) H 12/13/17 04:28 MPV 9.2 fL (9.4-12.4) L 12/13/17 04:28 Carbon Dioxide 22 mEq/L (23-29) L 12/13/17 04:28 Glucose 167 mg/dL (70-105) H 12/13/17 04:28 POC Glucose 222 mg/dL (70-99) H 12/13/17 16:12 Urine Ketones 15 mg/dL (Negative) H 12/12/17 20:40 Ur Leukocyte Esterase Trace (Negative) H 12/12/17 20:40 Urine Microscopic WBC 3-5 per hpf (0-3) H 12/12/17 20:40 Ur Culture Indicated? YES (NO) A 12/12/17 20:40 Consult Discharge Plan - Plan Referrals: Chris Galvez [Primary Care Provider] -
[2017-12-13] MEDS: Ketorolac 15 MG/ML VIAL IVP PRN (18:18)
[2017-12-13] MEDS ORDERED: Insulin DETEMIR 100 UNIT/ML X5UNITS SQ SCH (21:00)
[2017-12-13] MEDS ORDERED: Insulin LISPRO 300 UNITS/3 ML VIAL SQ SCH (21:00)
[2017-12-13] MEDS ORDERED: ARIPiprazole 5 MG TABLET PO SCH (21:00)
[2017-12-14] MEDS: Piperacillin/Tazobactam 3.375 GM in 0.9 % Sodium Chloride Mini Bag 100 ML IVPB SCH (00:22)
[2017-12-14] MEDS: Ketorolac 15 MG/ML VIAL IVP PRN ×2 (03:30→09:20)
[2017-12-14 04:01] LABS: Basophils % 0.3 %; Eosinophils # 0.3 K/mcL (0.0-0.6); Eosinophils % 4.8 %; Hematocrit 30.6 % (35.3-44.9); Hemoglobin 9.4 g/dL (11.5-15.4); Immature Granulocytes % 0.3 % (0-4); Immature Platelets 2.4 % (1.1-6.1); Lymphocytes # 1.6 K/mcL (0.6-4.6); Mean Corpuscular HGB Conc 30.7 g/dL (31.6-35.5); Mean Corpuscular Hemoglobin 25.7 pg (28.0-33.3); Mean Corpuscular Volume 83.6 fL (83.0-100.0); Mean Platelet Volume 9.5 fL (9.4-12.4); Monocytes # 0.4 K/mcL (0.0-1.3); Monocytes % 5.7 %; Neutrophils # 4.7 K/mcL (1.6-8.9); Platelet Count 298 K/mcL (140-400); Red Blood Count 3.66 M/mcL (3.82-4.97); Red Cell Distribution Width 15.8 % (11.5-14.5); Segmented Neutrophils % 66.9 %
[2017-12-14 04:25] LABS: BUN/Creatinine Ratio 15 (6-26); Blood Urea Nitrogen 11 mg/dL (8-23); Calcium 9.1 mg/dL (8.6-10.3); Carbon Dioxide 29 mEq/L (23-29); Chloride 103 mEq/L (98-107); Glucose 116 mg/dL (70-105); Osmolality,Calculated 286 (280-300); Potassium 3.7 mEq/L (3.5-5.1); Sodium 138 mEq/L (136-145); eGFR For Non-African Americans > 60 (> 60)
[2017-12-14] MEDS: *HR* Heparin 5,000 UNIT/ML VIAL SQ SCH (06:19)
[2017-12-14 06:54] VITALS: BP 138/65
[2017-12-14] MEDS: Insulin LISPRO 300 UNITS/3 ML VIAL SQ SCH (07:35)
--- NOTE | 2017-12-14 08:03 | Discharge Summary ---
<Nadeem Monroe W - Last Filed: 12/14/17 09:08> - NOTES TO OUTPATIENT PROVIDER Notes to Outpatient Provider: Nichole was admitted for Left sided UE and LE weakness and left sided facial weakness. Similar complaints in past. Questionable history of CVA. Unlikjoe this was a vascular event. Patient also met 2/4 SIRS criteria fever and tachycardia. Most likely source of infection being a UTI. Orders not resulted at time of discharge: Pending orders 12/15/17 04:00 Basic Metabolic Panel AM 0400 CBC [Complete Blood Count] [HEME] AM 0400 12/16/17 04:00 Basic Metabolic Panel AM 0400 CBC [Complete Blood Count] [HEME] AM 0400 12/17/17 04:00 Basic Metabolic Panel AM 0400 CBC [Complete Blood Count] [HEME] AM 0400 Date of Encounter: 12/14/17 Time of Encounter: 08:00 - Discharge Diagnosis (1) UTI (urinary tract infection) Priority: Primary Status: Suspected Assessment and Plan: Patient complaining of dysuria and increased frequency urination has improved since admission Urinalysis on mildly elevated leukocyte esterase Currently afebrile in white blood cell count 11.8 to 8.8 to 7.1 today Admission patient admitted to for SIRS criteria with tachycardia and fever, lactic acid was 4.7 currently is 1.6 Plan - Zosyn day 3 add Levofloxacin for outpatient total 5 day course - Monitor for signs of infection Qualifiers: Urinary tract infection type: acute cystitis Hematuria presence: without hematuria Qualified Code(s): N30.00 - Acute cystitis without hematuria (2) History of CVA (cerebrovascular accident) Priority: Primary Status: Chronic Assessment and Plan: - Neurologic symptoms are similar to baseline from 11/26 however patient states they are worsened - This may be a case of infection worsening neurological status - CT head wnl and [facility] cancelled stroke alert - Patient has not had CT evidence of CVA but has been treated symptomatically as she cannot receive an MRI due to hardware in her hip - There may be a component of somatization, patient tearful at times, history of depression - PT/OT consulted Plan - Aspirin 325 mg daily (3) Left-sided weakness Priority: Primary Status: Acute Assessment and Plan: Presents with L sided weakness UE and LE History of CVA with same symptoms CT head no acute process L sided frontal POPE Unknown etiology CVA vs vasospastic migraine vs somatization Patient has improved no longer complains of decreased ROM but still feels weak Plan - Aspirin 325 mg daily (4) HTN (hypertension) Priority: Secondary Status: Chronic Assessment and Plan: Known history of HTN Continue home medication of Lisinopril/HCTZ and Metoprolol XL Qualifiers: Hypertension type: essential hypertension Qualified Code(s): I10 - Essential (primary) hypertension (5) Diabetes mellitus Priority: Secondary Status: Chronic Assessment and Plan: Known history of DM SSI medium corrective dose and 15 units Levamir HS Qualifiers: Diabetes mellitus type: type 2 Diabetes mellitus prison insulin use: with prison use Diabetes mellitus complication status: without complication Qualified Code(s): E11.9 - Type 2 diabetes mellitus without complications; 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 (6) Hemoglobin decreased Priority: Secondary Status: Acute Assessment and Plan: 11.0 on admission 9.4 today Likely dilution as she received 3L during admission Continue to monitor (7) DVT prophylaxis Priority: Secondary Status: Acute Assessment and Plan: heparin 5000 units q12 hours (8) SIRS due to infectious process without acute organ dysfunction Priority: Secondary Status: Resolved Assessment and Plan: - Resolved - Meet 2/4 SIRS criteria on presentation with fever 101.5, HR 125, lactic acid 4.7 on admission - Improved with 2L fluids and tylenol - Current lactic acid 1.6 - She is showing no signs of shock or end organ damage. - Most likely source is urine as she is having dysuria and frequency. - CXR shows no acute process, Abd CT show mild-moderate stool burden with no acute process - UA shows trace LE, 3-5 WBC, and few epithelial cells. Its noted that shes been on Keflex Plan - Continue Zosyn - Continue tylenol PRN fever - Follow blood cultures Hospital course: Ms. Davenport is a 77 year old female with a past medical history of CVA presented to the ED yesterday with left-sided body weakness, left face weakness, and headache. She was in the ED on 11/26/17 and 12/05/17 for similar complaints. On initial presentation, in October, CT head was negative however [facility] teleconference recommended TPA to transfer to [facility]. on 12/05 she was transferred to [facility] again. On this visit CT head is negative again [facility] felt she could be managed here. Patient is currently being treated for UTI with cephalexin around 4 days. Patient states numbness and weakness are still present. Located on left lower extremity left upper chest and face. She also has decreased sensation on the left side of her body. Patient also admits to a headache that is left frontal is constant but sometimes wax and wanes. Patient also complains of sharp chest pain 6 out of 10 that comes and goes, shortness of breath, nonproductive cough, nausea, and fever. Patient is currently being treated for UTI with cephalexin around 4 days. She is complaining of uriniary symptoms like dysuria and increased frequency. On admission lactic acid is 4.7 which has down tredned significantly. sepsis reassessment was negative. Patient had significant improvement of L sided weakness and improvement of her urinary symptoms. WBC count trended down from 11.8 to 7.1. Neuro was consulted on her case. They found no evidence of CVA and felt no further workup was needed. - Time Spent with Patient Total time spent providing and/or coordinating discharge services: - Discharge Medications Prescriptions: Aspirin Enteric Coated [Aspirin EC] 325 mg PO DAILY #30 tablet. Levofloxacin [Levaquin] 750 mg PO DAILY 2 Days #2 tablet Home Medications: Losartan/HCTZ [Hyzaar 50-12.5 Tablet] 1 tab PO DAILY 08/28/16 [History] Omeprazole 40 mg PO DAILY 08/28/16 [History] Venlafaxine XR (24 HR) [Effexor Xr] 150 tab PO DAILY 08/28/16 [History] Melatonin [Melatin] 3 mg PO HS PRN 06/22/17 [History] Insulin NPH Hum/Reg Insulin Hm [Novolin 70-30 100 Unit/ml Vial] 20 unit SQ BID 08/23/17 [History] Metformin HCl [Glucophage] 1,000 mg PO BID 08/23/17 [History] Pravastatin Sodium 10 mg PO DAILY 08/23/17 [History] ARIPiprazole [Abilify] 5 mg PO DAILY 12/12/17 [History] Acetaminophen [Tylenol] 650 mg PO Q6HR 12/12/17 [History] Baclofen [Lioresal] 10 mg PO TID 12/12/17 [History] Gabapentin [Neurontin] 600 mg PO BID 12/12/17 [History] LORazepam [Ativan] 1 tab PO DAILY PRN 12/12/17 [History] Metoprolol Succinate [Toprol Xl] 25 mg PO DAILY 12/12/17 [History] Phenazopyridine HCl [Pyridium] 200 mg PO TIDAC 12/12/17 [History] Aspirin Enteric Coated [Aspirin EC] 325 mg PO DAILY #30 tablet. 12/14/17 [Rx] Levofloxacin [Levaquin] 750 mg PO DAILY 2 Days #2 tablet 12/14/17 [Rx] Allergies/Adverse Reactions: 3 Allergy/AdvReac Type Severity Reaction Status Date / Time No Known Allergies Allergy Verified 08/28/17 14:42 Date of admission: 12/13/17 00:21 Primary care physician: Chris Galvez Consults: 12/13/17 01:47 Consult to Occupational Therapy [CONS] Routine Comment: Evaluate, develop and implement POC Reason for Consult: weakness Does patient have active BEDREST order?: No Is patient medically & hemodynamically stable?: Yes Patient assessed for mobility or mobilized this visit?: No Consult to Physical Therapy [CONS] Routine Comment: Evaluate, develop and implement POC Reason for Consult: weakness Does patient have active BEDREST order?: No Is patient medically & hemodynamically stable?: Yes Patient assessed for mobility or mobilized this visit?: No 12/13/17 13:26 Consult to Apartment Community Manager [CONS] Routine Reason for SW Consult: patient needs to return to ECF. 12/13/17 15:38 Consult to Neurology [CONS] Routine Consulting Provider: [facility] Reason for Consult: Left sided weakness Time Notified: 15:39 Call Completed: No Discharging clinician: Nadeem Monroe Anticipated date of discharge: 12/14/17 - Constitutional Vitals: Temp Pulse Resp BP Pulse Ox 98.6 F 76 17 138/65 90 12/14/17 06:42 12/14/17 06:42 12/14/17 06:42 12/14/17 06:42 12/14/17 06:42 General appearance: Present: A&O X 3, no acute distress, obese - Head Head exam: Present: atraumatic, normocephalic - Eye Eye exam: Present: PERRL, conjuntiva pink, sclera anicteric Pupils: Present: PERRL - ENT ENT exam: Present: mucous membranes moist, normal exam - Respiratory Respiratory exam: Present: CTAB. Absent: accessory muscle use, rales, rhonchi, wheezes - Cardiovascular Cardiovascular exam: Present: RRR, +S1, +S2. Absent: diastolic murmur, gallop, rubs, systolic murmur - GI/Abdominal GI/Abdominal exam: Present: normal bowel sounds, soft, no peritoneal signs. Absent: distended, tenderness - Extremities Exam Extremities exam: Present: full ROM, warm, radial pulses palpable and symmetrical. Absent: calf tenderness, cyanotic, pedal edema - Neurological Exam Neurological exam: Present: alert, CN II-XII intact, oriented X3, no focal deficits. Absent: strengths equal and symetr throughout (concern of patient not giving full effort during exam) - Psychiatric Additional comments: Patient was appropriate and pleasant, concerns for incongruities in her story and physical exam. - Skin Skin exam: Present: dry, warm - Patient Status Disposition: Transfer SNF Condition: Good Overall status at discharge: patient is back to baseline - Discharge Instructions Follow Up With: Chris Galvez [Primary Care Provider] - - Diet and Activity Activity: increase activity as tolerated Diet: diabetic diet <[place] Patricio - Last Filed: 12/14/17 14:45> Date of Encounter: 12/14/17 - Discharge Diagnosis (1) UTI (urinary tract infection) Status: Suspected Qualifiers: Urinary tract infection type: acute cystitis Hematuria presence: without hematuria Qualified Code(s): N30.00 - Acute cystitis without hematuria (2) HTN (hypertension) Status: Chronic Qualifiers: Hypertension type: essential hypertension Qualified Code(s): I10 - Essential (primary) hypertension (3) Diabetes mellitus Status: Chronic Qualifiers: Diabetes mellitus type: type 2 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 Davenport is a 77 year old female - Time Spent with Patient Total time spent providing and/or coordinating discharge services: Date of admission: 12/13/17 00:21 Primary care physician: Chris Galvez Consults: 12/13/17 01:47 Consult to Occupational Therapy [CONS] Routine Comment: Evaluate, develop and implement POC Reason for Consult: weakness Does patient have active BEDREST order?: No Is patient medically & hemodynamically stable?: Yes Patient assessed for mobility or mobilized this visit?: No Consult to Physical Therapy [CONS] Routine Comment: Evaluate, develop and implement POC Reason for Consult: weakness Does patient have active BEDREST order?: No Is patient medically & hemodynamically stable?: Yes Patient assessed for mobility or mobilized this visit?: No 12/13/17 13:26 Consult to Apartment Community Manager [CONS] Routine Reason for SW Consult: patient needs to return to ECF. 12/13/17 15:38 Consult to Neurology [CONS] Routine Consulting Provider: Neurology [facility] Reason for Consult: Left sided weakness Time Notified: 15:39 Call Completed: No - Constitutional Vitals: Temp Pulse Resp BP Pulse Ox 98.6 F 76 17 138/65 90 12/14/17 06:42 12/14/17 06:42 12/14/17 06:42 12/14/17 06:42 12/14/17 06:42 - Attending Attestation I examined this patient and my medical decision-making was reviewed with the Resident Physician on 12/14/17. I agree with the documented findings, disposition and treatment plan as described except to the extent set forth below. Ms Davenport has been in observation due to UTI and neurologic symptoms. She is now afebrile and ready to return to SNF. She has been evaluated by neurology and it does not appear that this is an ischemic process due to the inconsistencies in her exac. UTI was treated with abx. Exam alert comfortable Mucus membranes dry No wheeze Not tachycardic Plan D/C to SNF today.
[2017-12-14] MEDS ORDERED: levoFLOXacin 750 MG TABLET PO ONE (08:59)
--- NOTE | 2017-12-14 09:07 | Physician Discharge Referral ---
<Nadeem Monroe W - Last Filed: 12/14/17 09:08> ExtendedCare Referral Info Transfer To: [facility] Provider in Charge after Transfer: PCP Institutional Level of Care: Skilled - Diagnosis (1) UTI (urinary tract infection) Priority: Primary Status: Suspected (2) History of CVA (cerebrovascular accident) Priority: Primary Status: Chronic (3) Left-sided weakness Priority: Primary Status: Acute (4) HTN (hypertension) Priority: Secondary Status: Chronic (5) Diabetes mellitus Priority: Secondary Status: Chronic (6) Hemoglobin decreased Priority: Secondary Status: Acute (7) SIRS due to infectious process without acute organ dysfunction Priority: Secondary Status: Resolved (8) DVT prophylaxis Priority: Secondary Status: Acute - Transfer Medications Prescriptions: Aspirin Enteric Coated [Aspirin EC] 325 mg PO DAILY #30 tablet. Levofloxacin [Levaquin] 750 mg PO DAILY 2 Days #2 tablet Home Medications: Losartan/HCTZ [Hyzaar 50-12.5 Tablet] 1 tab PO DAILY 08/28/16 [History] Omeprazole 40 mg PO DAILY 08/28/16 [History] Venlafaxine XR (24 HR) [Effexor Xr] 150 tab PO DAILY 08/28/16 [History] Melatonin [Melatin] 3 mg PO HS PRN 06/22/17 [History] Insulin NPH Hum/Reg Insulin Hm [Novolin 70-30 100 Unit/ml Vial] 20 unit SQ BID 08/23/17 [History] Metformin HCl [Glucophage] 1,000 mg PO BID 08/23/17 [History] Pravastatin Sodium 10 mg PO DAILY 08/23/17 [History] ARIPiprazole [Abilify] 5 mg PO DAILY 12/12/17 [History] Acetaminophen [Tylenol] 650 mg PO Q6HR 12/12/17 [History] Baclofen [Lioresal] 10 mg PO TID 12/12/17 [History] Gabapentin [Neurontin] 600 mg PO BID 12/12/17 [History] LORazepam [Ativan] 1 tab PO DAILY PRN 12/12/17 [History] Metoprolol Succinate [Toprol Xl] 25 mg PO DAILY 12/12/17 [History] Phenazopyridine HCl [Pyridium] 200 mg PO TIDAC 12/12/17 [History] Aspirin Enteric Coated [Aspirin EC] 325 mg PO DAILY #30 tablet. 12/14/17 [Rx] Levofloxacin [Levaquin] 750 mg PO DAILY 2 Days #2 tablet 12/14/17 [Rx] Allergies/Adverse Reactions: 3 Allergy/AdvReac Type Severity Reaction Status Date / Time No Known Allergies Allergy Verified 08/28/17 14:42 - Respiratory Orders Smoking Cessation: Smoking cessation has been advised. For more information, call the [facility] at 3-189-FIRT-KXY. CERTIFICATION: I certify that the transfer of the above named patient to an Extended Care Facility is necessary for the continuing treatment of the diagnosis listed. The above information is true and accurate reflection of patient's current condition. Confidential - Redisclosure prohibited without a patient's written consent. <C[place] Patricio - Last Filed: 12/14/17 14:55> - Diagnosis (1) UTI (urinary tract infection) Status: Suspected (2) HTN (hypertension) Status: Chronic (3) Diabetes mellitus Status: Chronic (4) Left-sided weakness Priority: Secondary Status: Acute (5) History of CVA (cerebrovascular accident) Priority: Secondary Status: Chronic (6) Hemoglobin decreased Status: Acute Expected Duration of Placement: Less than 30 days Prognosis: Fair Aware of Diagnosis: Patient Aware of Prognosis: Patient - Respiratory Orders None Smoking Cessation: Smoking cessation has been advised. For more information, call the [facility] at 3-467-GOEU-UYZ. - Ancillary Orders May use pressure relief devices daily prn, May consult with Dentist, Drawbench Operator, Varying Exceptionalities Teacher PRN - Advance Directives Code Status: DNR-Arrest/Don't Intubate - Mobility Orders Ambulate - Rehabiliation Orders Rehab Potential: Fair Rehab Orders: Evaluation for Physical Therapy, Evaluation for Occupational Therapy - Treatments Skin tear care topically daily PRN per policy, May check for fecal impaction rectally daily PRN, Fleet enema rectally every other day PRN cleansing purposes - Diet Orders Cardiac CERTIFICATION: I certify that the transfer of the above named patient to an Extended Care Facility is necessary for the continuing treatment of the diagnosis listed. The above information is true and accurate reflection of patient's current condition. Confidential - Redisclosure prohibited without a patient's written consent.
[2017-12-14] MEDS: Aspirin 81 MG TAB.CHEW PO SCH (09:08)
[2017-12-14] MEDS: Venlafaxine XR (24 HR) 150 MG CAP.ER.24H PO SCH (09:08)
[2017-12-14] MEDS: Metoprolol XL (24 HR) Succ 25 MG TAB.ER.24H PO SCH (09:08)
[2017-12-14] MEDS: Losartan/HCTZ 50-12.5 TABLET PO SCH (09:08)
[2017-12-14] MEDS: Gabapentin 300 MG CAPSULE PO SCH (09:09)
== END 2017-12-14 13:14 ==
LOC: 2NENU 19:12 → EMEROOARM 19:12 → SUATTDRO 12-13 00:21 → 2NENU 12-13 00:36
PROVIDERS: ADMIT Internal Medicine; ATTEND Internal Medicine

== ENCOUNTER 2017-12-31 19:25 | Inpatient (IN) ==
--- NOTE | 2017-12-31 20:10 | Emergency Department Note ---
Disposition Clinical Impression: Weakness Disposition: Still a Patient Condition: Fair Referrals: Cathie Kaminski MD [Primary Care Provider] - General Adult HPI - General Chief complaint: ED Neuro Symptoms/Deficit Stated complaint: poss stroke Time Seen by Provider: 12/31/17 19:34 Source: patient, family Limitations: no limitations Nursing Notes Reviewed: Yes Vital Signs Reviewed: Yes - History of Present Illness Pain Scale: 0 - Related Data Home Medications Medication Instructions Recorded Confirmed Losartan/HCTZ [Hyzaar 50-12.5 1 tab PO DAILY 08/28/16 12/12/17 Tablet] Omeprazole 40 mg PO DAILY 08/28/16 12/12/17 Venlafaxine XR (24 HR) [Effexor Xr] 150 tab PO DAILY 08/28/16 12/12/17 Melatonin [Melatin] 3 mg PO HS PRN 06/22/17 12/12/17 Insulin NPH Hum/Reg Insulin Hm 20 unit SQ BID 08/23/17 12/12/17 [Novolin 70-30 100 Unit/ml Vial] Metformin HCl [Glucophage] 1,000 mg PO BID 08/23/17 12/12/17 Pravastatin Sodium 10 mg PO DAILY 08/23/17 12/12/17 ARIPiprazole [Abilify] 5 mg PO DAILY 12/12/17 12/12/17 Acetaminophen [Tylenol] 650 mg PO Q6HR 12/12/17 12/12/17 Baclofen [Lioresal] 10 mg PO TID 12/12/17 12/12/17 Gabapentin [Neurontin] 600 mg PO BID 12/12/17 12/12/17 LORazepam [Ativan] 1 tab PO DAILY PRN 12/12/17 12/12/17 Metoprolol Succinate [Toprol Xl] 25 mg PO DAILY 12/12/17 12/12/17 Phenazopyridine HCl [Pyridium] 200 mg PO TIDAC 12/12/17 12/12/17 Previous Rx's Medication Instructions Recorded Aspirin Enteric Coated [Aspirin EC] 325 mg PO DAILY #30 tablet. 12/14/17 Levofloxacin [Levaquin] 750 mg PO DAILY 2 Days #2 tablet 12/14/17 Allergies Allergy/AdvReac Type Severity Reaction Status Date / Time No Known Allergies Allergy Verified 08/28/17 14:42 Past Medical History - Past Medical History Medical history: Reports: COPD, diabetes, GERD, hypertension Surgical history: Reports: cholecystectomy, herniorrhaphy, hysterectomy, orthopedic, other Psychiatric history: Reports: anxiety - Social History Smoking Status: Never smoker Smokeless Tobacco Status: No Alcohol use: Reports: none Drug use: Reports: none Physical Exam - General Limitations: no limitations General appearance: alert, in no apparent distress Course Vital Signs Temperature 98.9 F 12/31/17 19:28 Pulse Rate 97 12/31/17 19:28 Respiratory Rate 18 12/31/17 19:28 Blood Pressure 183/79 12/31/17 19:28 O2 Sat by Pulse Oximetry 98 12/31/17 19:28 Temperature 98.9 F 12/31/17 19:28 Pulse Rate 97 12/31/17 19:28 Respiratory Rate 18 12/31/17 19:28 Blood Pressure 183/79 12/31/17 19:28 O2 Sat by Pulse Oximetry 99 12/31/17 19:44 Oxygen Delivery Oxygen Delivery Room Air Attestation Statement - Attestation Attestation: I, Kelechi Hair, examined this patient and my medical decision-making was reviewed with the LIFE ENRICHMENT SPECIALIST/PA/Advanced Practice Nurse/Resident Physician. I agree with the documented findings, disposition and treatment plan as described except to the extent set forth below. 77-year-old female presents emergency Department with concerns of acute weakness. Patient states she has weakness to the left upper and left lower extremities. Last known well was 5:30 PM at the [facility] facility. I saw the patient for a very similar presentation one month ago for which she was admitted to the hospital for a lactic acidosis and the [place] left lower extremity weakness with possible CVA. Patient states she had been improving while she was at [facility] facility however she had an acute decline in her strength of the left upper and left lower extremity. On physical exam the patient is unable or unwilling to smile. She also had 25 weakness to the left upper extremity compared to 5 out of 5 strength of the right upper extremity. Patient also had 305 strength to the left lower extremity compared to 5 out of 5 on the right. She will below was initiated and we will have [facility] neurology evaluate the patient. Disposition and imaging pending at this time.
[2017-12-31] MEDS ORDERED: Isovue-370 500 ML INFUS..BTL IV ONE (20:42)
[2017-12-31 20:49] LABS: Basophils # 0.1 K/mcL (0.0-0.2); Basophils % 0.9 %; Eosinophils # 0.7 K/mcL (0.0-0.6); Eosinophils % 6.9 %; Hematocrit 34.2 % (35.3-44.9); Hemoglobin 10.4 g/dL (11.5-15.4); Immature Granulocytes % 0.4 % (0-4); Lymphocytes % 28.8 %; Mean Corpuscular HGB Conc 30.4 g/dL (31.6-35.5); Mean Corpuscular Hemoglobin 26.1 pg (28.0-33.3); Mean Corpuscular Volume 85.7 fL (83.0-100.0); Mean Platelet Volume 9.6 fL (9.4-12.4); Monocytes # 0.6 K/mcL (0.0-1.3); Monocytes % 5.3 %; Neutrophils # 5.9 K/mcL (1.6-8.9); Platelet Count 346 K/mcL (140-400); Red Blood Count 3.99 M/mcL (3.82-4.97); Red Cell Distribution Width 16.6 % (11.5-14.5); Segmented Neutrophils % 57.7 %
--- NOTE | 2017-12-31 20:50 | Emergency Department Note ---
Disposition Clinical Impression: Weakness Cerebrovascular accident Qualifiers: CVA mechanism: unspecified Qualified Code(s): I63.9 - Cerebral infarction, unspecified Disposition: Still a Patient Condition: Fair Referrals: Cathie Kaminski MD [Primary Care Provider] - Forms: ED Satisfaction Letter Time of Disposition: 21:02 Neuro HPI - General Chief Complaint: ED Neuro Symptoms/Deficit Stated Complaint: poss stroke Time Seen by Provider: 12/31/17 19:34 Source: patient, family Limitations: no limitations Nursing Notes Reviewed: Yes Vital Signs Reviewed: Yes - History of Present Illness HPI Narrative: Patient is a 77-year-old female who presents to [facility] ED with a chief complaint of left-sided extremity weakness. States her symptoms started at approximately 5:30 this evening after she ate dinner. States she started feeling weak than called the nurse in who came to get her blood pressure. States she also felt her face and her left extremities go numb. Past medical history significant for recent stroke for which she received TPA and was sent to [facility] in October. She then has been back 3 more times for similar symptoms. Denies any nausea, vomiting, fever or chills. No chest pain, difficulty breathing, abdominal pain, problems with urination or bowel movements. Onset of Symptoms Date: 12/31/17 Onset of Symptoms Time: 17:30 Symptom Onset Unknown: No Timing confirmed by: caregiver Location: left face, dysarthria, left arm, left leg History of same: No Severity: moderate Quality: weakness, numbness Symptoms Improving: No Improves with: none Worsens with: none Context: sudden onset On Anticoagulants: No Associated symptoms: Reports: weakness. Denies: chest pain, cough, fever/chills , nausea/vomiting, shortness of breath Treatments Prior to Arrival: none - Related Data Home Medications: Home Medications Medication Instructions Recorded Confirmed Losartan/HCTZ [Hyzaar 50-12.5 1 tab PO DAILY 08/28/16 12/12/17 Tablet] Omeprazole 40 mg PO DAILY 08/28/16 12/12/17 Venlafaxine XR (24 HR) [Effexor Xr] 150 tab PO DAILY 08/28/16 12/12/17 Melatonin [Melatin] 3 mg PO HS PRN 06/22/17 12/12/17 Insulin NPH Hum/Reg Insulin Hm 20 unit SQ BID 08/23/17 12/12/17 [Novolin 70-30 100 Unit/ml Vial] Metformin HCl [Glucophage] 1,000 mg PO BID 08/23/17 12/12/17 Pravastatin Sodium 10 mg PO DAILY 08/23/17 12/12/17 ARIPiprazole [Abilify] 5 mg PO DAILY 12/12/17 12/12/17 Acetaminophen [Tylenol] 650 mg PO Q6HR 12/12/17 12/12/17 Baclofen [Lioresal] 10 mg PO TID 12/12/17 12/12/17 Gabapentin [Neurontin] 600 mg PO BID 12/12/17 12/12/17 LORazepam [Ativan] 1 tab PO DAILY PRN 12/12/17 12/12/17 Metoprolol Succinate [Toprol Xl] 25 mg PO DAILY 12/12/17 12/12/17 Phenazopyridine HCl [Pyridium] 200 mg PO TIDAC 12/12/17 12/12/17 Previous Rx's Medication Instructions Recorded Aspirin Enteric Coated [Aspirin EC] 325 mg PO DAILY #30 tablet. 12/14/17 Levofloxacin [Levaquin] 750 mg PO DAILY 2 Days #2 tablet 12/14/17 Allergies/Adverse Reactions: Allergies Allergy/AdvReac Type Severity Reaction Status Date / Time No Known Allergies Allergy Verified 08/28/17 14:42 All systems ED: reviewed and negative except as stated. Past Medical History - Past Medical History Attestation: Yes The following information was validated with the patient. Source: patient Medical history: Reports: COPD, diabetes, GERD, hypertension Surgical history: Reports: cholecystectomy, herniorrhaphy, hysterectomy, orthopedic, other Psychiatric history: Reports: anxiety - Social History Smoking Status: Never smoker Smokeless Tobacco Status: No Alcohol use: Reports: none Drug use: Reports: none Physical Exam - General Limitations: no limitations General appearance: alert, in no apparent distress - Head Head exam: atraumatic, normocephalic, normal inspection - Eye Eye exam: Present: PERRL, EOMI - ENT ENT exam: normal exam, normal oropharynx, mucous membranes moist - Neck Neck exam: Present: normal inspection, full ROM, trachea midline - Chest Chest inspection: Present: normal inspection, symmetric chest wall rise - Respiratory Respiratory exam: Present: normal lung sounds bilaterally - Cardiovascular Cardiovascular exam: Present: regular rate, normal rhythm, normal heart sounds - Abdominal Exam Abdominal exam: Present: soft, Non-Tender. Absent: tenderness, distention, guarding, rebound, rigidity - Extremities Exam Extremities exam: Present: normal inspection - Neurological Exam Neurological exam: Present: alert, oriented X3 - Expanded Neurological Exam Patient oriented to: Present: person, place, time Speech: Present: expressive aphasia Cranial nerves: EOM function (II, III, IV, ): Normal, facial sensation (V): Abnormal Left, facial palsy (VII): Normal, tongue deviation (XII): Normal Cerebellar function: finger to nose: Normal, heel to [place]: Normal Motor strength - LUE: 1/5 Motor strength - RUE: 5/5 Motor strength - LLE: 1/5 Motor strength - RLE: 5/5 Upper motor neuron exam: radha neglect: Absent bilaterally, pronator drift: Present on left Sensory exam upper extremity: light touch: Abnormal Left Sensory exam lower extremity: light touch: Abnormal Left Coma Scale Eye Opening: Spontaneous Coma Scale Motor Response: Obeys Commands Coma Scale Verbal Response: Oriented Coma Scale Total: 15 - Psychiatric Psychiatric exam: Present: normal affect, normal mood - Skin Skin exam: Present: warm, dry, intact, normal color Course Course Narrative: Patient seen and examined. CVA symptoms including left lower extremity and upper extremity weakness, decreased sensation on the left side of the face, arm and leg. History of recent prior CVA and was given TPA on November 26. Stroke alert was initiated at 19:30. CVA workup, CT of the head ordered. Initial NIH score of 6. - Reevaluation(s) Reevaluation #1: I received call back from [facility] saying CT head was unremarkable for any acute changes. Patient was assessed by the [facility] neurologist on the [facility] monitor who states she does believe that the patient is having a CVA. States she has not a TPA candidate since she recently received TPA. Recommends CTA of the head and neck to rule out large vessel occlusion. If there is no signs of this, we can admit her for further management at our facility. Time: 20:57 Vital Signs Temperature 98.9 F 12/31/17 19:28 Pulse Rate 97 12/31/17 19:28 Respiratory Rate 18 12/31/17 19:28 Blood Pressure 183/79 12/31/17 19:28 O2 Sat by Pulse Oximetry 98 12/31/17 19:28 Temperature 98.5 F 12/31/17 20:30 Pulse Rate 92 12/31/17 20:30 Respiratory Rate 16 12/31/17 20:30 Blood Pressure 164/72 12/31/17 20:30 O2 Sat by Pulse Oximetry 99 12/31/17 19:44 Oxygen Delivery Oxygen Delivery Room Air Neuro Symptoms/Deficit - Medical Records Medical records reviewed: Yes I reviewed the patient's medical records. - Lab Data Lab results reviewed: Yes I reviewed the patient's lab results. - Radiology Data Radiology results reviewed: Yes I reviewed the patient's radiology results. Head CT 12/31/17 19:35 IMPRESSION: No acute intracranial abnormality. Diffuse atrophic changes with findings suggesting chronic microvascular ischemia Findings were discussed with Dr Horowitz at 8:02 pm on 12/31/2017. D/ / Delmer Delgado MD / Delmer Delgado MD Interpreting Provider: Delmer Delgado MD - EKG Data EKG attestation: Yes I reviewed and interpreted this EKG. EKG results narrative: EKG done at 1933 shows sinus tachycardia with a rate of [address] elevation or depression noted. Normal axis. Poor wandering baseline. Unchanged from prior EKG done 12/12/2017. NIH Stroke Scale - Level of Consciousness LOC: Alert - LOC Questions LOC Questions: Answers both correctly - LOC Commands LOC Commands: Performs both correctly - Best Gaze Best Gaze: Normal - Visual Visual: No visual loss - Facial Palsy Facial Palsy: Normal - Motor Arms Motor Arm-Left: Some effort against gravity, limb drifts to bed Motor Arm-Right: No drift for 10 seconds - Motor Legs Motor Leg-Left: Some effort against gravity, limb drifts to bed Motor Leg-Right: No drift for 5 seconds - Limb Ataxia Limb Ataxia: Absent of affected limb too weak to perform exam - Sensory Sensory: Mild to moderate loss, "not as sharp" - Best Language Best Language: No aphasia - Dysarthria Dysarthria: Mild, slurs some words - Extinction and Inattention Extinction and Inattention: Normal - NIHSS Total Score NIHSS Total Score: 6 TPA Checklist - LKW: 3-4.5 hrs Add. Warnings/Precautions Patient/family understanding: The patient/family members have been counseled and understood the risk, benefit , and alternatives of treatment.
[2017-12-31] MEDS ORDERED: Aspirin 325 MG TABLET PO ONE (20:51)
[2017-12-31 21:09] LABS: BUN/Creatinine Ratio 16 (6-26); Blood Urea Nitrogen 15 mg/dL (8-23); Carbon Dioxide 18 mEq/L (23-29); Chloride 103 mEq/L (98-107); Glucose 295 mg/dL (70-105); Osmolality,Calculated 288 (280-300); Potassium 4.6 mEq/L (3.5-5.1); Sodium 133 mEq/L (136-145); Troponin I < 0.03 ng/mL (< 0.04); eGFR For Non-African Americans > 60 (> 60)
[2017-12-31 21:34] LABS: INR 0.9; Prothrombin Time 9.8 Seconds (9.4-12.1)
[2017-12-31 21:36] LABS: Activated Partial Thrombo Time 28.9 Seconds (26.0-36.0)
[2018-01-01] MEDS: Acetaminophen 325 MG TABLET PO PRN ×2 (03:29→20:41)
[2018-01-01] MEDS ORDERED: Naloxone 0.4 MG/ML INJ IVP PRN (03:33)
[2018-01-01 05:30] LABS: Bilirubin,Urine Negative (Negative); Blood,Urine Negative (Negative); Clarity,Urine Clear (Clear); Color,Urine Yellow (Yellow); Glucose,Urine (UA) 100 mg/dL (Normal); Ketones,Urine Negative (Negative); Leukocyte Esterase,Urine Negative (Negative); Nitrite,Urine Negative (Negative); Protein,Urine Negative (Neg-Trace); Specific Gravity,Urine 1.024 (1.010-1.025); Urobilinogen,Urine Normal (Normal)
[2018-01-01 06:03] LABS: Basophils # 0.1 K/mcL (0.0-0.2); Basophils % 0.8 %; Eosinophils # 0.8 K/mcL (0.0-0.6); Eosinophils % 8.4 %; Hematocrit 30.9 % (35.3-44.9); Hemoglobin 9.2 g/dL (11.5-15.4); Immature Granulocytes % 0.3 % (0-4); Lymphocytes # 2.9 K/mcL (0.6-4.6); Lymphocytes % 30.4 %; Mean Corpuscular HGB Conc 29.8 g/dL (31.6-35.5); Mean Corpuscular Hemoglobin 24.9 pg (28.0-33.3); Mean Corpuscular Volume 83.7 fL (83.0-100.0); Mean Platelet Volume 9.3 fL (9.4-12.4); Monocytes # 0.6 K/mcL (0.0-1.3); Monocytes % 5.9 %; Neutrophils # 5.1 K/mcL (1.6-8.9); Platelet Count 374 K/mcL (140-400); Red Blood Count 3.69 M/mcL (3.82-4.97); Red Cell Distribution Width 16.8 % (11.5-14.5); Segmented Neutrophils % 54.2 %
[2018-01-01 06:08] LABS: Prothrombin Time 11.6 Seconds (9.4-12.1)
--- NOTE | 2018-01-01 06:44 | Internal Med History&Physical ---
Date of Encounter: 01/02/18 Time of Encounter: 03:33 Internal Medicine - H&P: HPI Chief complaint: Acute onset Left-sided weakness History of present illness: Ms. Davenport is a 77 year old female with a past medical history of multiple CVAs , diabetes, hypertension and COPD who presents with acute onset left-sided extremity weakness which occurred at her rehabilitation center. Patient states that her symptoms started at approximately 5:30 this evening shortly after she had dinner. She went to retire to her room when she was all of a sudden overcome with a strange feeling. Symptoms were followed by left arm, face and lower leg numbness and weakness. She subsequently called the nurse in who came to get her blood pressure which was found to be 200/140. Past medical history significant for a recent stroke for which she received TPA and was sent to [facility] in October. Denies any nausea, vomiting, fever or chills. No chest pain, difficulty breathing, abdominal pain, problems with urination or bowel movements. Patient was assessed by the [facility] neurologist via monitor who felt the patient was having a CVA, however, given that she received TPA in October, she was not a candidate for TPA and recommended CTA of the head and neck to rule out large vessel occlusion. CT scan showed no evidence of vessel occlusion. EKG was unchanged from prior EKG. Patient was given a loading dose of aspirin and admitted to the floor. Past Med Surg Social Fam HX - Past Medical History Medical history: COPD, diabetes, GERD, hypertension, TIA Additional medical history: anemia, Psychiatric history: anxiety - Past Surgical History Surgical History: cholecystectomy, herniorrhaphy, hysterectomy, orthopedic, other Additional surgical history: back stimulator - Social History Smoking Status: Never smoker Smokeless Tobacco Status: No Alcohol use: none Drug use: none - Family History Mother Living Status: Still Living Hx Family Neurologic Disorders: Yes (Dementia) Sister Hx Family Cancer: Yes Internal Medicine - H&P: Meds ARIPiprazole [Abilify] 5 mg PO HS 01/01/18 [History] Acetaminophen [Tylenol] 650 mg PO Q6HR 01/01/18 [History] Aspirin [Ecotrin] 81 mg PO QAM 30 Days #30 tablet. 01/01/18 [Rx] Atorvastatin [Lipitor] 40 mg PO HS #30 tablet 01/01/18 [Rx] Baclofen [Lioresal] 10 mg PO TID 01/01/18 [History] Clopidogrel [Plavix] 75 mg PO DAILY #30 tablet 01/01/18 [Rx] Gabapentin [Neurontin] 600 mg PO BID 01/01/18 [History] Insulin Aspart Prot/Insuln Asp [Novolog Mix 70-30 Vial] 20 unit SQ BID 01/01/18 [History] LORazepam [Ativan] 1 mg PO HS 01/01/18 [History] Losartan/HCTZ [Hyzaar 50-12.5 Tablet] 1 each PO DAILY 01/01/18 [History] Melatonin [Melatin] 3 mg PO HS 01/01/18 [History] Metformin HCl 1,000 mg PO BID 01/01/18 [History] Metoprolol Succinate [Toprol Xl] 25 mg PO QAM 01/01/18 [History] Omeprazole [PriLOSEC] 40 mg PO DAILY 01/01/18 [History] Sulfamethoxazole/Trimeth DS [Bactrim Ds] 1 tab PO DAILY 01/01/18 [History] Venlafaxine XR (24 HR) [Effexor XR] 300 mg PO DAILY 01/01/18 [History] 3 Allergy/AdvReac Type Severity Reaction Status Date / Time No Known Allergies Allergy Verified 08/28/17 14:42 All Systems PM: A 10-system review of systems was performed and is negative for pertinent findings except as documented above in the HPI. - Constitutional Constitutional: no chills, no fever(s), no night sweats - EENT Eyes: no change in vision, no discharge, no pain, no photophobia Ears: no ear discharge, no ear pain, no tinnitus Nose, mouth and throat: no dysphagia, no nasal discharge, no neck pain, no sore throat - Cardiovascular Cardiovascular ROS IM: no chest pain, no diaphoresis, no dyspnea, no lightheadedness, no palpitations, no syncope - Respiratory Respiratory: no cough, no dyspnea, no wheezing, no excessive phlegm production - Gastrointestinal Gastrointestinal: no abdominal pain, no diarrhea, no hematemesis, no hematochezia, no melena, no nausea, no vomiting - Genitourinary Genitourinary: no change in urinary stream, no dysuria, no flank pain, no hematuria - Musculoskeletal Musculoskeletal ROS IM: no numbness, no tingling - Integumentary Integumentary IM: no rash, no unusual bruising - Neurological Neurological ROS: no confusion, no convulsions, no focal weakness, no numbness, no tingling, no tremor(s) - Hematologic/Lymphatic Hematologic/Lymphatic: no easy bruising - Constitutional Vitals: Temp Pulse Resp BP Pulse Ox 97.9 F 73 16 116/65 97 01/01/18 03:05 01/01/18 03:05 01/01/18 03:05 01/01/18 03:05 01/01/18 03:05 Exam: General: Alert and oriented 3. Lying in bed in no acute distress Skin:Normal color, no rash, no lesions. HEENT:EOM, pupils equal, round and reactive. Cardiovascular:Normal S1 & S2, no rubs, murmurs or gallops. No JVD. Pulse regular. Lungs: Normal breath sounds, no wheezes or crackles. Abdomen:Soft, non-tender, no rigidity. Extremities:No deformity, no edema or tenderness, no joint swelling or clubbing. Neurological: Normal cognition; cranial nerves II through XII intact; left- sided pronator drift; decreased sensation of the right upper and lower extremity as well as left side of the face. Muscle strength to out of 5 in the left upper and lower extremities. 5 out of 5 in the right upper lower extremities. Babinski was mute bilaterally. Pulses:Carotid and radial pulses normal +2. Rest of the physical exam is non contributory Internal Med - H&P Results - Labs CBC & Chem 7: 01/01/18 05:26 01/01/18 07:03 Labs: Short CBC 01/01/18 Range/Units 05:26 WBC 9.4 (4.3-11.1) K/mcL Hgb 9.2 L (11.5-15.4) g/dL Hct 30.9 L (35.3-44.9) % Plt Count 374 (140-400) K/mcL Neutrophils # 5.1 (1.6-8.9) K/mcL Urine 01/01/18 Range/Units 05:21 Urine Color Yellow (Yellow) Urine Clarity Clear (Clear) Urine pH 6.0 (5.0-8.0) pH Units Ur Specific [place] 1.024 (1.010-1.025) Urine Protein Negative (Neg-Trace) mg/dL Urine Glucose (UA) 100 H (Normal) mg/dL - Assessment and plan (1) Cerebrovascular accident Current Visit: Yes Status: Acute Assessment and plan: Recurrent stroke with left-sided facial, upper and lower extremity weakness which is an acute change from her previous baseline of residual left-sided weakness. Patient evaluated by [facility] neurology and further assessment if felt patient had suffered a recurrence of her stroke. No evidence of vascular occlusion on CTA. As noted above patient was not a candidate for TPA given that she had received TPA in October. Patient received loading dose of aspirin in the ED. We will give statin. Allow permissive hypertension and hold her antihypertensives for now. Frequent neuro checks. Neurology consult in the morning. Echo and carotid ultrasound. Qualifiers: CVA mechanism: unspecified Qualified Code(s): I63.9 - Cerebral infarction, unspecified (2) Left-sided weakness Current Visit: No Status: Acute Assessment and plan: Change from previous residual left-sided weakness as patient reports a change from her baseline which had been improving during rehabilitation. (3) Diabetes mellitus Current Visit: No Status: Chronic Assessment and plan: We will monitor blood glucose. Sliding scale insulin. Qualifiers: Diabetes mellitus type: type 2 Diabetes mellitus nursing home insulin use: with computer terminal operator use Diabetes mellitus complication status: without complication Qualified Code(s): E11.9 - Type 2 diabetes mellitus without complications; Z79.4 - FDC (current) use of insulin (4) HTN (hypertension) Current Visit: No Status: Chronic Assessment and plan: Holding antihypertensives to allow for permissive hypertension. Qualifiers: Hypertension type: essential hypertension Qualified Code(s): I10 - Essential (primary) hypertension - Time Spent With Patient Total time spent is greater than 50% in coordination of care (as documented) at patient's floor/unit and/or counseling patient:
[2018-01-01] MEDS: Ondansetron 4 MG/2 ML VIAL IVP PRN ×2 (06:48→18:39)
[2018-01-01] MEDS: traMADol 50 MG TABLET PO PRN ×2 (06:48→10:53)
[2018-01-01] MEDS ORDERED: Isovue-370 500 ML INFUS..BTL IV ONE (06:49)
[2018-01-01] MEDS ORDERED: D5% in Water 1,000 ML IVC PRN (06:57)
[2018-01-01] MEDS ORDERED: *HR* Dextrose 50 % in Water (Syg) 50 ML SYRINGE IVP PRN (06:57)
[2018-01-01] MEDS ORDERED: Dextrose Gel 15 GM/37.5 ML TUBE PO PRN ×2 (06:57)
[2018-01-01 07:39] LABS: Troponin I < 0.03 ng/mL (< 0.04)
[2018-01-01 07:41] LABS: Alanine Aminotransferase 14 Units/L (7-52); Albumin 3.9 g/dL (3.5-5.7); Albumin/Globulin Ratio 1.4 (1.1-2.2); Alkaline Phosphatase 99 Units/L (34-104); Aspartate Amino Transferase 16 Units/L (13-39); BUN/Creatinine Ratio 18 (6-26); Bilirubin,Total 0.3 mg/dL (0.3-1.0); Blood Urea Nitrogen 12 mg/dL (8-23); Calcium 9.3 mg/dL (8.6-10.3); Carbon Dioxide 24 mEq/L (23-29); Chloride 104 mEq/L (98-107); Chol/HDL Ratio 2.4 (0-4.9); Cholesterol 146 mg/dL (< 200); Globulin 2.7 g/dL (2.4-3.5); Glucose 146 mg/dL (70-105); HDL Cholesterol 62 mg/dL (40-59); LDL Cholesterol,Calculated 64 mg/dL (0-99); LDL Cholesterol,Direct 71 mg/dL (75-193); Osmolality,Calculated 284 (280-300); Potassium 4.4 mEq/L (3.5-5.1); Sodium 136 mEq/L (136-145); Total Protein 6.6 g/dL (6.4-8.9); Triglycerides 99 mg/dL (< 150); eGFR For Non-African Americans > 60 (> 60)
[2018-01-01] MEDS: Aspirin Enteric Coated 325 MG Tablet PO SCH (08:28)
[2018-01-01] MEDS ORDERED: Aspirin Enteric Coated 81 MG Tablet PO SCH (09:00)
--- NOTE | 2018-01-01 09:27 | Discharge Summary ---
Orders not resulted at time of discharge: Pending orders 01/01/18 15:00 CT head/brain w con [CT] Routine Date of Encounter: 01/01/18 Time of Encounter: 09:00 - Discharge Diagnosis (1) Cerebrovascular accident Priority: Primary Status: Acute Assessment and Plan: 77 year old female with a past medical history of multiple CVAs, diabetes, hypertension and COPD who presents with acute onset left-sided extremity weakness which occurred at her rehabilitation center. Patient states that her symptoms started at approximately 5:30 this evening shortly after she had dinner. She went to retire to her room when she was all of a sudden overcome with a strange feeling. Symptoms were followed by left arm, face and lower leg numbness and weakness. Past medical history significant for a recent stroke for which she received TPA and was sent to [facility] in October. Patient was assessed by the [facility] neurologist via monitor who felt the patient was having a CVA, however, given that she received TPA in October, she was not a candidate for TPA and recommended CTA of the head and neck to rule out large vessel occlusion. She was started on aspirin and high dose statin and admitted to rule out a new acute CVA. CT head and CTA head and neck were one and came back showing no acute abnormality. She is not a candidate for a brain MRI due to the fact that she has a spinal stimulator. She was seen by neurology who determined it was possible she had suffered a new infarct in the same distribution as her last CVA and recommended changing her antiplatelet therapy to aspirin 81mg and plavix and to continue statin. She was prescribed these meds and discharged in a stable condition Qualifiers: CVA mechanism: unspecified Qualified Code(s): I63.9 - Cerebral infarction, unspecified (2) HTN (hypertension) Priority: Secondary Status: Chronic Assessment and Plan: Holding antihypertensives to allow for permissive hypertension. Qualifiers: Hypertension type: essential hypertension Qualified Code(s): I10 - Essential (primary) hypertension (3) Diabetes mellitus Priority: Secondary Status: Chronic Qualifiers: Diabetes mellitus type: type 2 Diabetes mellitus watermelon inspector insulin use: with watermelon inspector use Diabetes mellitus complication status: without complication Qualified Code(s): E11.9 - Type 2 diabetes mellitus without complications; Z79.4 - terminal operations manager (current) use of insulin (4) Left-sided weakness Priority: Secondary Status: Acute Hospital course: Ms. Davenport is a 77 year old female - Time Spent with Patient Total time spent providing and/or coordinating discharge services: - Discharge Medications Prescriptions: Aspirin [Ecotrin] 81 mg PO QAM 30 Days #30 tablet. Atorvastatin [Lipitor] 40 mg PO HS #30 tablet Clopidogrel [Plavix] 75 mg PO DAILY #30 tablet Home Medications: ARIPiprazole [Abilify] 5 mg PO HS 01/01/18 [History] Acetaminophen [Tylenol] 650 mg PO Q6HR 01/01/18 [History] Aspirin [Ecotrin] 81 mg PO QAM 30 Days #30 tablet. 01/01/18 [Rx] Atorvastatin [Lipitor] 40 mg PO HS #30 tablet 01/01/18 [Rx] Baclofen [Lioresal] 10 mg PO TID 01/01/18 [History] Clopidogrel [Plavix] 75 mg PO DAILY #30 tablet 01/01/18 [Rx] Gabapentin [Neurontin] 600 mg PO BID 01/01/18 [History] Insulin Aspart Prot/Insuln Asp [Novolog Mix 70-30 Vial] 20 unit SQ BID 01/01/18 [History] LORazepam [Ativan] 1 mg PO HS 01/01/18 [History] Losartan/HCTZ [Hyzaar 50-12.5 Tablet] 1 each PO DAILY 01/01/18 [History] Melatonin [Melatin] 3 mg PO HS 01/01/18 [History] Metformin HCl 1,000 mg PO BID 01/01/18 [History] Metoprolol Succinate [Toprol Xl] 25 mg PO QAM 01/01/18 [History] Omeprazole [PriLOSEC] 40 mg PO DAILY 01/01/18 [History] Sulfamethoxazole/Trimeth DS [Bactrim Ds] 1 tab PO DAILY 01/01/18 [History] Venlafaxine XR (24 HR) [Effexor XR] 300 mg PO DAILY 01/01/18 [History] Allergies/Adverse Reactions: 3 Allergy/AdvReac Type Severity Reaction Status Date / Time No Known Allergies Allergy Verified 08/28/17 14:42 Date of admission: 01/01/18 03:33 Primary care physician: Cathie Kaminski - Constitutional Vitals: Temp Pulse Resp BP Pulse Ox 97.8 F 73 18 137/61 98 01/01/18 07:32 01/01/18 07:32 01/01/18 07:32 01/01/18 07:32 01/01/18 07:32 Exam: General: Alert and oriented 3. Lying in bed in no acute distress Skin:Normal color, no rash, no lesions. HEENT:EOM, pupils equal, round and reactive. Cardiovascular:Normal S1 & S2, no rubs, murmurs or gallops. No JVD. Pulse regular. Lungs: Normal breath sounds, no wheezes or crackles. Abdomen:Soft, non-tender, no rigidity. Extremities:No deformity, no edema or tenderness, no joint swelling or clubbing. Neurological: Normal cognition; cranial nerves II through XII intact; le Pulses:Carotid and radial pulses normal +2. Rest of the physical exam is non contributory - Head Head exam: Present: atraumatic, normocephalic - Eye Eye exam: Present: PERRL, conjuntiva pink, sclera anicteric Pupils: Present: PERRL - Neck Neck exam general surgery: Present: supple, trachea midline. Absent: lymphadenopathy - Respiratory Respiratory exam: Present: CTAB. Absent: accessory muscle use, rales, rhonchi, wheezes - Cardiovascular Cardiovascular exam: Present: RRR, +S1, +S2. Absent: diastolic murmur, gallop, rubs, systolic murmur - GI/Abdominal GI/Abdominal exam: Present: normal bowel sounds, soft, no peritoneal signs. Absent: distended, tenderness - Extremities Exam Extremities exam: Present: warm, radial pulses palpable and symmetrical. Absent : calf tenderness, cyanotic, pedal edema - Neurological Exam Neurological exam: Present: CN II-XII intact, oriented X3, no focal deficits. Absent: pronater drift, facial droop, speech deficit - Skin Skin exam: Present: dry, intact - Patient Status Disposition: Transfer SNF Condition: Good - Discharge Instructions Follow Up With: Cathie Kaminski MD [Primary Care Provider] -
--- NOTE | 2018-01-01 09:55 | Neurology - Consult Note ---
<Leticia Chaudhry P - Last Filed: 01/01/18 11:05> Date of Encounter: 01/01/18 Time of Encounter: 09:30 Assessment and Plan (1) Stroke Current Visit: Yes Status: Acute She is case of Recurrent stroke with left-sided hemiparesis She had weakness in left upper and lower extremities and numbness in left side of face and left limbs which was worse from her previous stroke and residual left-sided weakness. Patient was managed by [facility] neurology team with TPA in October and recovering gradually with [facility]. She had significant weakness in both upper and lower limbs ( left side) and numbness in left side of face CTA head and neck : unremarkable, EKG normal CT head : normal , no acute clot : chronic microvascular ischemia She is on high dose aspirin and atorvastatin 80 mg Her recent BP is 137/61 . Qualifiers: CVA mechanism: unspecified Qualified Code(s): I63.9 - Cerebral infarction, unspecified History of Present Illness Chief complaint: Left sided hemiparesis /weakness and numbness in left side HPI: Ms. Davenport is a 77 year old female admitted via [facility] ED for sudden onset of left side weakness , headache, nausea . She is patient of DM , HTN, repeated stroke, COPD . Patient states she had weakness to the left upper and lower extremities as she had h/o stroke in October and she is under follow up with [facility] neurology team . She states that she had stroke in the past, had received TPA treatment and was recovering with exercise at her prison facility . She was able to walk in walker .Now she has difficulty to move her left arm, left leg and feeling numbness in left side of face and both upper and lower limbs.She mentioned that she did not miss her medication , but her BP was 200/ 140 during her attack. Today she was lying in bed and states that she is better than before. Vitals : 97.8 BP 137/61 , sat 98 , Labs:WBC 9.4, Hb 9.2, Na 136, K 4.4 BUN 12, creatinine 0.68, PT 11.6, INR 1. CTA head : unremarkable,CT head : no acute abnormality, CTA neck : unremarkable . Past Med Surg Social Fam HX - Past Medical History Medical history: COPD, diabetes, GERD, hypertension, TIA Additional medical history: anemia, Psychiatric history: anxiety - Past Surgical History Surgical History: cholecystectomy, herniorrhaphy, hysterectomy, orthopedic, other Additional surgical history: back stimulator - Social History Smoking Status: Never smoker Smokeless Tobacco Status: No Alcohol use: none Drug use: none - Family History Mother Living Status: Still Living Hx Family Neurologic Disorders: Yes (Dementia) Sister Hx Family Cancer: Yes Medications and Allergies ARIPiprazole [Abilify] 5 mg PO HS 01/01/18 [History] Acetaminophen [Tylenol] 650 mg PO Q6HR 01/01/18 [History] Aspirin [Ecotrin] 325 mg PO QAM 01/01/18 [History] Baclofen [Lioresal] 10 mg PO TID 01/01/18 [History] Gabapentin [Neurontin] 600 mg PO BID 01/01/18 [History] Insulin Aspart Prot/Insuln Asp [Novolog Mix 70-30 Vial] 20 unit SQ BID 01/01/18 [History] LORazepam [Ativan] 1 mg PO HS 01/01/18 [History] Losartan/HCTZ [Hyzaar 50-12.5 Tablet] 1 each PO DAILY 01/01/18 [History] Melatonin [Melatin] 3 mg PO HS 01/01/18 [History] Metformin HCl 1,000 mg PO BID 01/01/18 [History] Metoprolol Succinate [Toprol Xl] 25 mg PO QAM 01/01/18 [History] Omeprazole [PriLOSEC] 40 mg PO DAILY 01/01/18 [History] Pravastatin Sodium [Pravachol] 10 mg PO QAM 01/01/18 [History] Sulfamethoxazole/Trimeth DS [Bactrim Ds] 1 tab PO DAILY 01/01/18 [History] Venlafaxine XR (24 HR) [Effexor XR] 300 mg PO DAILY 01/01/18 [History] 3 Allergy/AdvReac Type Severity Reaction Status Date / Time No Known Allergies Allergy Verified 08/28/17 14:42 All Systems: The remainder of the systems were reviewed and are negative Physical Examination - Vital Signs Vital Signs: Initial Vital Signs Temp Pulse Resp BP Pulse Ox 98.9 F 97 18 183/79 98 12/31/17 19:28 12/31/17 19:28 12/31/17 19:28 12/31/17 19:28 12/31/17 19:28 - Constitutional General appearance: comfortable - Neurologic Sensorimotor examination: hemiparesis Detailed motor examination: other Motor examination - right side: 5/5: deltoids, biceps, triceps, wrist flexion, wrist extension, checkering machine adjuster, hip flexors, tibialis Anterior, quadriceps, toe extension (EHL), plantarflexion Motor examination - left side: 2: checkering machine adjuster, toe extension (EHL), 3/5: deltoids, biceps, triceps, wrist flexion, wrist extension, hip flexors, quadriceps, tibialis Anterior, plantarflexion Detailed sensory examination: light touch Reflex and gait examination: other Reflexes: Biceps: 2+, Triceps: 2+, Brachioradialis: 2+, Patella: 2+, Achilles: 2 + Mental Status Examination: awake, alert, oriented to person, oriented to place, oriented to time, follows commands appropriately, answers questions appropriately Cranial nerve examination: PERRL, EOMI, visual sood intact, hearing is intact symmetrically, gag reflex intact Results - Laboratory Findings CBC and BMP: 01/01/18 05:26 01/01/18 07:03 Abnormal lab findings: Abnormal lab results RBC 3.69 M/mcL (3.82-4.97) L 01/01/18 05:26 Hgb 9.2 g/dL (11.5-15.4) L 01/01/18 05:26 Hct 30.9 % (35.3-44.9) L 01/01/18 05:26 MCH 24.9 pg (28.0-33.3) L 01/01/18 05:26 MCHC 29.8 g/dL (31.6-35.5) L 01/01/18 05:26 RDW 16.8 % (11.5-14.5) H 01/01/18 05:26 MPV 9.3 fL (9.4-12.4) L 01/01/18 05:26 Eosinophils # 0.8 K/mcL (0.0-0.6) H 01/01/18 05:26 Glucose 146 mg/dL (70-105) H 01/01/18 07:03 POC Glucose 309 mg/dL (70-99) H 12/31/17 19:31 LDL Cholesterol Measurd 71 mg/dL (75-193) L 01/01/18 07:03 HDL Cholesterol 62 mg/dL (40-59) H 01/01/18 07:03 Urine Glucose (UA) 100 mg/dL (Normal) H 01/01/18 05:21 Consult Discharge Plan - Plan Referrals: Cathie Kaminski MD [Primary Care Provider] - <Jayden Johnson I - Last Filed: 01/01/18 12:05> Date of Encounter: 01/01/18 Time of Encounter: 12:01 Assessment and Plan (1) Stroke Current Visit: Yes Status: Acute Pt was seen and examined, my medical decision was reviewed with the Resident Physician, I agree with the documented findings, disposition and treatment plas as described except to the extent set forth below This patient who apparently had a history of recent CVA with negative workup with residual left-sided weakness now admitted with increasing weakness of the left upper and lower extremity in the same distribution. At the same time she was also found to have a UTI and is been treated for it CT scan of the head did not show any acute abnormality CT angiogram also did not show any intracranial stenosis and at the same time no evidence of any carotid stenosis of CT angiogram Echocardiogram in July was negative for any embolic source at the same time negative for any PFO As she has a spinal stimulator, she is not able to get an MRI of the brain to confirm that indeed it was a new stroke or not Considering patient's symptoms with increased weakness it is possible that, she may have suffered a new infarct in the same distribution but at the same time possibility of worsening of the or deficit from the UTI and metabolic imbalance. Regardless I recommend changing her antiplatelet therapy to Plavix 75 mg daily along with 81 mg of baby aspirin as well as statin. Continue to monitor her blood pressure and blood sugar and keep it in stable range head at the same time a sure that she is not having any paroxysmal atrial fibrillation Patient would benefit from continued physical therapy and long-term rehabilitation Patient will follow up with neurology in 3-4 weeks as an outpatient Jayden Johnson MD Qualifiers: CVA mechanism: unspecified Qualified Code(s): I63.9 - Cerebral infarction, unspecified History of Present Illness HPI: Ms. Davenport is a 77 year old female All Systems: The remainder of the systems were reviewed and are negative Physical Examination - Vital Signs Vital Signs: Initial Vital Signs Temp Pulse Resp BP Pulse Ox 98.9 F 97 18 183/79 98 12/31/17 19:28 12/31/17 19:28 12/31/17 19:28 12/31/17 19:28 12/31/17 19:28 Results - Laboratory Findings CBC and BMP: 01/01/18 05:26 01/01/18 07:03 Abnormal lab findings: Abnormal lab results RBC 3.69 M/mcL (3.82-4.97) L 01/01/18 05:26 Hgb 9.2 g/dL (11.5-15.4) L 01/01/18 05:26 Hct 30.9 % (35.3-44.9) L 01/01/18 05:26 MCH 24.9 pg (28.0-33.3) L 01/01/18 05:26 MCHC 29.8 g/dL (31.6-35.5) L 01/01/18 05:26 RDW 16.8 % (11.5-14.5) H 01/01/18 05:26 MPV 9.3 fL (9.4-12.4) L 01/01/18 05:26 Eosinophils # 0.8 K/mcL (0.0-0.6) H 01/01/18 05:26 Glucose 146 mg/dL (70-105) H 01/01/18 07:03 POC Glucose 309 mg/dL (70-99) H 12/31/17 19:31 LDL Cholesterol Measurd 71 mg/dL (75-193) L 01/01/18 07:03 HDL Cholesterol 62 mg/dL (40-59) H 01/01/18 07:03 Urine Glucose (UA) 100 mg/dL (Normal) H 01/01/18 05:21
[2018-01-01] MEDS: Insulin LISPRO 300 UNITS/3 ML VIAL SQ SCH ×2 (12:51→18:34)
[2018-01-01] MEDS ORDERED: Melatonin 3 MG TABLET PO SCH (21:00)
[2018-01-01] MEDS: Gabapentin 300 MG CAPSULE PO SCH (22:38)
[2018-01-02] MEDS: Insulin LISPRO 300 UNITS/3 ML VIAL SQ SCH ×2 (04:20→06:29)
[2018-01-02 08:33] VITALS: BP 138/75
[2018-01-02] MEDS: Aspirin Enteric Coated 325 MG Tablet PO SCH (09:05)
[2018-01-02] MEDS: Gabapentin 300 MG CAPSULE PO SCH (09:05)
--- NOTE | 2018-01-02 09:05 | Internal Med Progress Note ---
Hospitalist Progress Note - Encounter Date of Encounter: 01/02/18 Time of Encounter: 09:00 - Exam Vitals: Temp Pulse Resp BP Pulse Ox 98.1 F 85 18 138/75 91 01/02/18 08:29 01/02/18 08:29 01/02/18 08:29 01/02/18 08:29 01/02/18 08:29 Exam: General: Alert and oriented 3. Lying in bed in no acute distress Skin:Normal color, no rash, no lesions. HEENT:EOM, pupils equal, round and reactive. Cardiovascular:Normal S1 & S2, no rubs, murmurs or gallops. No JVD. Pulse regular. Lungs: Normal breath sounds, no wheezes or crackles. Abdomen:Soft, non-tender, no rigidity. Extremities:No deformity, no edema or tenderness, no joint swelling or clubbing. Neurological: Normal cognition; cranial nerves II through XII intact; left- sided pronator drift; decreased sensation of the right upper and lower extremity as well as left side of the face. Muscle strength to out of 5 in the left upper and lower extremities. 5 out of 5 in the right upper lower extremities. Babinski was mute bilaterally. Pulses:Carotid and radial pulses normal +2. Rest of the physical exam is non contributory - Assessment and Plan (1) Cerebrovascular accident Status: Acute Assessment and Plan: CT head and CTA head and neck were one and came back showing no acute abnormality. She is not a candidate for a brain MRI due to the fact that she has a spinal stimulator. She was seen by neurology who determined it was possible she had suffered a new infarct in the same distribution as her last CVA and recommended changing her antiplatelet therapy to aspirin 81mg and plavix and to continue statin. (2) HTN (hypertension) Status: Chronic Assessment and Plan: Holding antihypertensives to allow for permissive hypertension. (3) Diabetes mellitus Status: Chronic Assessment and Plan: We will monitor blood glucose. Sliding scale insulin. (4) Left-sided weakness Status: Acute Assessment and Plan: Change from previous residual left-sided weakness as patient reports a change from her baseline which had been improving during rehabilitation. - Time Spent with Patient Total time spent is greater than 50% in coordination of care (as documented) at patient's floor/unit and/or counseling patient: Internal Medicine: Result - Labs CBC & Chem 7: 01/01/18 05:26 01/01/18 07:03 - ABG Interpretation ABG results: PT/INR, D-dimer PT 11.6 Seconds (9.4-12.1) 01/01/18 05:26 Consult Discharge Plan - Plan Instructions: Chest Pain (DC), Diabetic Hyperglycemia (DC) Referrals: Cathie Kaminski MD [Primary Care Provider] - Prescriptions: Aspirin [Ecotrin] 81 mg PO QAM 30 Days #30 tablet. 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
[2018-01-02] MEDS: Ondansetron 4 MG/2 ML VIAL IVP PRN (09:12)
[2018-01-02] MEDS: traMADol 50 MG TABLET PO PRN (09:12)
--- NOTE | 2018-01-02 10:01 | Physician Discharge Referral ---
- Diagnosis (1) Cerebrovascular accident Priority: Primary Status: Acute (2) HTN (hypertension) Priority: Secondary Status: Chronic (3) Diabetes mellitus Priority: Secondary Status: Chronic (4) Left-sided weakness Priority: Secondary Status: Acute - Transfer Medications Prescriptions: Aspirin [Ecotrin] 81 mg PO QAM 30 Days #30 tablet. Atorvastatin [Lipitor] 40 mg PO HS #30 tablet Clopidogrel [Plavix] 75 mg PO DAILY #30 tablet Home Medications: ARIPiprazole [Abilify] 5 mg PO HS 01/01/18 [History] Acetaminophen [Tylenol] 650 mg PO Q6HR 01/01/18 [History] Aspirin [Ecotrin] 81 mg PO QAM 30 Days #30 tablet. 01/01/18 [Rx] Atorvastatin [Lipitor] 40 mg PO HS #30 tablet 01/01/18 [Rx] Baclofen [Lioresal] 10 mg PO TID 01/01/18 [History] Clopidogrel [Plavix] 75 mg PO DAILY #30 tablet 01/01/18 [Rx] Gabapentin [Neurontin] 600 mg PO BID 01/01/18 [History] Insulin Aspart Prot/Insuln Asp [Novolog Mix 70-30 Vial] 20 unit SQ BID 01/01/18 [History] LORazepam [Ativan] 1 mg PO HS 01/01/18 [History] Losartan/HCTZ [Hyzaar 50-12.5 Tablet] 1 each PO DAILY 01/01/18 [History] Melatonin [Melatin] 3 mg PO HS 01/01/18 [History] Metformin HCl 1,000 mg PO BID 01/01/18 [History] Metoprolol Succinate [Toprol Xl] 25 mg PO QAM 01/01/18 [History] Omeprazole [PriLOSEC] 40 mg PO DAILY 01/01/18 [History] Sulfamethoxazole/Trimeth DS [Bactrim Ds] 1 tab PO DAILY 01/01/18 [History] Venlafaxine XR (24 HR) [Effexor XR] 300 mg PO DAILY 01/01/18 [History] Allergies/Adverse Reactions: 3 Allergy/AdvReac Type Severity Reaction Status Date / Time No Known Allergies Allergy Verified 08/28/17 14:42 - Respiratory Orders Smoking Cessation: Smoking cessation has been advised. For more information, call the [place] Tobacco Quit Line at 5-441-LVUP-NOW. - Mobility Orders Ambulate - Rehabiliation Orders Rehab Potential: Good Rehab Orders: Evaluation for Physical Therapy - Diet Orders Cardiac CERTIFICATION: I certify that the transfer of the above named patient to an Extended Care Facility is necessary for the continuing treatment of the diagnosis listed. The above information is true and accurate reflection of patient's current condition. Confidential - Redisclosure prohibited without a patient's written consent.
--- NOTE | 2018-01-05 11:00 | Electrocardiograph Report ---
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
== END 2018-01-02 10:31 | DRG 65 ==
LOC: EMEROOARM 19:25 → 3BNU 19:25
PROVIDERS: ADMIT Internal Medicine; ATTEND Internal Medicine

== ENCOUNTER 2018-08-11 12:36 | Inpatient (IN) ==
[2018-08-11] MEDS ORDERED: Isovue-370 500 ML BOTTLE IVP ONE (13:27)
[2018-08-11 13:36] LABS: Hematocrit 32.3 % (35.3-44.9); Mean Corpuscular HGB Conc 27.9 g/dL (31.6-35.5); Mean Corpuscular Hemoglobin 20.9 pg (28.0-33.3); Mean Corpuscular Volume 74.9 fL (83.0-100.0); Mean Platelet Volume 9.4 fL (9.4-12.4); Platelet Count 352 K/mcL (140-400); Red Blood Count 4.31 M/mcL (3.82-4.97); Red Cell Distribution Width 19.4 % (11.5-14.5)
[2018-08-11 13:36] LABS: BUN/Creatinine Ratio 18 (6-26); Blood Urea Nitrogen 15 mg/dL (8-23); Calcium 9.3 mg/dL (8.6-10.3); Carbon Dioxide 19 mEq/L (23-29); Chloride 106 mEq/L (98-107); Glucose 133 mg/dL (70-105); Osmolality,Calculated 287 (280-300); Potassium 4.2 mEq/L (3.5-5.1); Sodium 137 mEq/L (136-145); eGFR For Non-African Americans > 60 (> 60)
[2018-08-11 13:37] LABS: Troponin I < 0.03 ng/mL (< 0.04)
[2018-08-11 13:47] LABS: INR 0.9; Prothrombin Time 9.6 Seconds (9.4-12.1)
[2018-08-11 13:49] LABS: Activated Partial Thrombo Time 24.9 Seconds (26.0-36.0)
--- NOTE | 2018-08-11 15:27 | Emergency Department Note ---
Disposition Clinical Impression: Left-sided weakness Disposition: Admitted As Inpatient Condition: Good Time of Disposition: 16:02 General Adult HPI - General Chief complaint: ED Neuro Symptoms/Deficit Stated complaint: stroke alert Time Seen by Provider: 08/11/18 12:41 Source: EMS Mode of arrival: EMS Limitations: no limitations Nursing Notes Reviewed: Yes Vital Signs Reviewed: Yes - History of Present Illness HPI Narrative: Pt is a 78F DNR-CCA that was walking to lunch at 1210 today and reported to her aide that she felt like her left leg was becoming weak. The aide was able to get her into her walker and have her sit down. She then noted that her left arm, left face, and left leg all felt "funny". Her [facility] called EMS, when EMS arrived, they called a stroke alert to our facility. When patient arrived, she was immediately taken to the CT suite for a non-contrast Head CT which was negative for acute intracranial abnormality. I discussed the findings with the radiologist by telephone. Pt reports a headache that she has had treated with botox before with resolution, last botox was several months ago. She states her head started hurting again one week ago. Pain Scale: 0 - Related Data Home Medications Medication Instructions Recorded Confirmed Gabapentin [Neurontin] 600 mg PO BID 01/01/18 08/11/18 Insulin Aspart Prot/Insuln Asp 30 unit SQ BIDWM 01/01/18 08/11/18 [Novolog Mix 70-30 Vial] Losartan/HCTZ [Hyzaar 50-12.5 1 each PO DAILY 01/01/18 08/11/18 Tablet] Metformin HCl 1,000 mg PO BID 01/01/18 08/11/18 Metoprolol Succinate [Toprol Xl] 25 mg PO QAM 01/01/18 08/11/18 Omeprazole [PriLOSEC] 40 mg PO DAILY 01/01/18 08/11/18 Aspirin 325 mg PO DAILY 03/08/18 08/11/18 Pravastatin Sodium 10 mg PO HS 03/08/18 08/11/18 Topiramate 50 mg PO BID 03/08/18 08/11/18 Venlafaxine HCl [Venlafaxine HCl 300 mg PO DAILY 03/08/18 08/11/18 ER] ARIPiprazole [Abilify] 2 mg PO HS 08/11/18 08/11/18 Loratadine [Allergy Relief] 10 mg PO DAILY 08/11/18 08/11/18 Tizanidine HCl 2 mg PO BID 08/11/18 08/11/18 Allergies Allergy/AdvReac Type Severity Reaction Status Date / Time No Known Allergies Allergy Verified 03/08/18 13:00 Review of Systems: All systems ED: reviewed and negative except as stated. Constitutional: Denies: fever, chills ENT ED: Denies: ear pain, throat pain Cardiovascular: Denies: chest pain, palpitations Respiratory: Denies: cough, dyspnea Gastrointestinal: Denies: abdominal pain, nausea, vomiting, diarrhea, constipation Genitourinary: Denies: urgency, dysuria, frequency Musculoskeletal: Denies: back pain, neck pain Integumentary: Denies: rash, abrasion Neurological: Reports: weakness, numbness, paresthesias on left side, headache Psychiatric: Denies: anxiety, depression Endocrine: Denies: fatigue, heat or cold intolerance Hematological/Lymphatic: Denies: easy bleeding, easy bruising Allergic/Immunologic: Denies: facial swelling, urticaria Past Medical History - Past Medical History Medical history: Reports: COPD, CVA, diabetes, GERD, hypertension, TIA Surgical history: Reports: cholecystectomy, herniorrhaphy, hysterectomy, orthopedic, other Psychiatric history: Reports: anxiety - Social History Smoking Status: Never smoker Smokeless Tobacco Status: No Alcohol use: Reports: none Drug use: Reports: none Physical Exam General: A&O x 3. No acute distress. Well developed, well nourished. Head: atraumatic, normocephalic. ENT: No conjunctival injection, no scleral icterus. PERRLA. EOMI. Oropharynx non- erythematous. mucous membranes moist. Neuro: Pt has eyes closed, will open only a slit to voice. States she cannot open them wider. Speech is slow. EOMI, PRAMOD. Pt states she cannot feel the left side of her face as sharply, nor the left arm or left leg as sharply as the rig ht. She is unable to lift/hold up her left leg. When her left arm is raised over her body, she is able to return it to her side, but states she cannot hold it up. During conversation, she will move her left hand, but when asked to move her left hand, she cannot. Pt is unable to smile at all or open her eyes wider. Left side of patient's face appears more flat than right. Cerebellar testing with he el-to-amezcua with right heel over amezcua is slow but intact. Pulm: Lungs CTAB A/P. No wheezes, rales, ronchi. Cardio: RRR no m/r/g. Chest not tender to palpation. Abd: Soft, non-distended. Normoactive bowel sounds. Non-tender to palpation. No guarding. Non rigid. Extremities: Radial pulses 2+ julisa, dorsalis pedis/posterior tibialis 2+ julisa. No LE edema. No cyanosis, clubbing. Skin: warm, dry, intact. No rashes. Psych: Appropriate mood and affect. Answers questions appropriately. Cooperative with exam. - General Limitations: no limitations General appearance: alert Course Course Narrative: Stroke alert was called, pt received labs, imaging, and EKG. Will wait for results for disposition. - Reevaluation(s) Reevaluation #1: Records review revealed that pt had tPA 05/19/18 and so was not eligible to receive it during this visit. [facility] stroke neurologist, Dr. Aj Hill recommended CTA head and neck to r/o acute occlusion. These studies were negative for occlusion. Pt continued to have weakness and had not returned to baseline. Time: 15:49 Vital Signs Temperature 99.8 F H 08/11/18 12:51 Pulse Rate 90 08/11/18 12:51 Respiratory Rate 16 08/11/18 12:51 Blood Pressure 144/63 08/11/18 12:51 O2 Sat by Pulse Oximetry 97 08/11/18 12:51 Temperature 99.8 F H 08/11/18 12:51 Pulse Rate 75 08/11/18 15:11 Respiratory Rate 16 08/11/18 15:11 Blood Pressure 114/92 08/11/18 15:11 O2 Sat by Pulse Oximetry 98 08/11/18 15:11 Oxygen Delivery Oxygen Delivery Room Air Medical Decision Making - MDM Narrative Medical decision making narrative: Pts workup was unrevealing as to cause of her weakness, imaging did not show an acute bleed or occlusion. Pt was admitted to hospitalist, Dr. Dial, for further workup of her symptoms. Patient was given an opportunity to ask questions at bedside and all of their concerns were addressed. Patient verbalized understanding and agreement with plan of care. Pt remained stable while in the department. - Medical Records Medical records reviewed: Yes I reviewed the patient's medical records. - Lab Data Lab results reviewed: Yes I reviewed the patient's lab results. Result diagrams: 08/11/18 13:27 08/11/18 13:03 Lab Results 08/11/18 08/11/18 08/11/18 Range/Units 13:03 13:03 13:27 WBC 11.2 H (4.3-11.1) K/mcL RBC 4.31 (3.82-4.97) M/mcL Hgb 9.0 L (11.5-15.4) g/dL Hct 32.3 L (35.3-44.9) % MCV 74.9 L (83.0-100.0) fL MCH 20.9 L (28.0-33.3) pg MCHC 27.9 L (31.6-35.5) g/dL RDW 19.4 H (11.5-14.5) % Plt Count 352 (140-400) K/mcL MPV 9.4 (9.4-12.4) fL PT (9.4-12.1) Seconds INR APTT (26.0-36.0) Seconds Sodium 137 (136-145) mEq/L Potassium 4.2 (3.5-5.1) mEq/L Chloride 106 (98-107) mEq/L Carbon Dioxide 19 L (23-29) mEq/L BUN 15 (8-23) mg/dL Creatinine 0.85 (0.60-1.20) mg/dL Est GFR ( Amer) > 60 (> 60) Est GFR (Non-Af Amer) > 60 (> 60) BUN/Creatinine Ratio 18 (6-26) Glucose 133 H (70-105) mg/dL Calculated Osmolality 287 (280-300) Calcium 9.3 (8.6-10.3) mg/dL Troponin I < 0.03 (< 0.04) ng/mL Specimen Rejected Clotted 08/11/18 Range/Units 13:27 WBC (4.3-11.1) K/mcL RBC (3.82-4.97) M/mcL Hgb (11.5-15.4) g/dL Hct (35.3-44.9) % MCV (83.0-100.0) fL MCH (28.0-33.3) pg MCHC (31.6-35.5) g/dL RDW (11.5-14.5) % Plt Count (140-400) K/mcL MPV (9.4-12.4) fL PT 9.6 (9.4-12.1) Seconds INR 0.9 APTT 24.9 L (26.0-36.0) Seconds Sodium (136-145) mEq/L Potassium (3.5-5.1) mEq/L Chloride (98-107) mEq/L Carbon Dioxide (23-29) mEq/L BUN (8-23) mg/dL Creatinine (0.60-1.20) mg/dL Est GFR ( Amer) (> 60) Est GFR (Non-Af Amer) (> 60) BUN/Creatinine Ratio (6-26) Glucose (70-105) mg/dL Calculated Osmolality (280-300) Calcium (8.6-10.3) mg/dL Troponin I (< 0.04) ng/mL Specimen Rejected - Radiology Data Radiology results reviewed: Yes I reviewed the patient's radiology results. Head CT 08/11/18 12:41 IMPRESSION: No acute intracranial abnormality. Findings were discussed with Ivett Dempsey at 12:54 pm on 08/11/2018. D/ / Alex Javier MD / Alex Javier MD Interpreting Provider: Alex Javier MD Head CTA 08/11/18 13:27 IMPRESSION: No flow limiting stenosis or branch occlusion detected within the head or neck. D/ / Cséar Ochoa MD / César Ochoa MD Interpreting Provider: César Ochoa MD Neck CTA 08/11/18 13:27 IMPRESSION: No flow limiting stenosis or branch occlusion detected within the head or neck. D/ / César Ochoa MD / César Ochoa MD Interpreting Provider: César Ochoa MD - EKG Data EKG #1 EKG attestation: Yes I reviewed and interpreted this EKG. EKG results narrative: HR 74, rhythm sinus, axis normal. NH 154, QRS 87, QTc 434. No evidence of ST elevation or depression. Low voltage in precordial leads, unchanged from previous study on 05/19/18. No criteria for LVH. Attestation Statement - Attestation Attestation: I, Kelechi Hair, examined this patient and my medical decision-making was reviewed with the [employer]/PA/Advanced Practice Nurse/Resident Physician. I agree with the documented findings, disposition and treatment plan as described except to the extent set forth below. 78-year-old female brought to emergency department for evaluation of acute weakness and concerns for stroke. Patient was diagnosed with CVA and given TPA within the past 3 months for similar symptoms. Patient states she was walking to a meal when she developed acute weakness left lower extremity and generalized weakness with difficulty with her speech. As seen patient in the past for similar symptoms, she is able to answer questions and is alert and oriented, she is moving all extremities however it seems that she has either poor effort or has global weakness. Sugar was initiated as symptoms started within 20 minutes prior to arrival per EMS. CT of the head did not show evidence of acute intracranial hemorrhage or mass. Neurology recommended no TPA she had it within the past 3 months. Patient had CTA of the head and neck which did not show evidence of acute stenosis or thrombosis. Patient will be admitted to the hospitalist for further care and evaluation.
--- NOTE | 2018-08-11 18:04 | Internal Med History&Physical ---
Date of Encounter: 08/11/18 Time of Encounter: 11:00 Internal Medicine - H&P: HPI Chief complaint: Left-sided weakness Admitted From: Long-term Nursing Facility Plans for Post Hospital Care: Transfer [facility] History of present illness: Patient is a 78-year-old female with past medical history significant for multiple CVAs with resultant left-sided weakness in extremities, diabetes, hypertension and COPD who presents from the [facility] due to left-sided weakness. Patient is a very poor historian and family not present at bedside but reports of dragging left foot and then developing left-sided weakness in lower extremit ies and upper extremities and was recommended to come to the ER per nursing staff at the [facility]. In the ER patient was found to have no acute findings on head CT and no acute findings on CT of the head/neck. She will be admitted to observation unit for CVA/TIA rule out. Past Med Surg Social Fam HX - Past Medical History Medical history: COPD, CVA, diabetes, GERD, hypertension, TIA Additional medical history: depression,lateral meniscus tear,perniciuos anemia,anxiety,bilateral hip osteoarthritis,left hamstring avulsion,peripheral neuropathy,diabetic neuropathy,left foot drop,right third MCP post traumatic synovitis,bilateral knee osteoarthritis,avulsion of hamstring muscle,lactic acidosis,3rd toe right turning under, spinal cord stimulator,stroke Psychiatric history: anxiety - Past Surgical History Surgical History: cholecystectomy, herniorrhaphy, hysterectomy, orthopedic, other Additional surgical history: bilateral knee,hip implant neuromodulation,intestinal resection,hiatal hernia repair,colonoscopy/EGD,heart cath,botulinium toxin injection gastroenteric anastomosis - Social History Smoking Status: Never smoker Smokeless Tobacco Status: No Alcohol use: none Drug use: none - Family History Mother Living Status: Still Living Hx Family Neurologic Disorders: Yes (Dementia) Sister Hx Family Cancer: Yes Internal Medicine - H&P: Meds Gabapentin [Neurontin] 600 mg PO BID 01/01/18 [History] Insulin Aspart Prot/Insuln Asp [Novolog Mix 70-30 Vial] 30 unit SQ BIDWM 01/01/18 [History] Losartan/HCTZ [Hyzaar 50-12.5 Tablet] 1 each PO DAILY 01/01/18 [History] Metformin HCl 1,000 mg PO BID 01/01/18 [History] Metoprolol Succinate [Toprol Xl] 25 mg PO QAM 01/01/18 [History] Omeprazole [PriLOSEC] 40 mg PO DAILY 01/01/18 [History] Aspirin 325 mg PO DAILY 03/08/18 [History] Pravastatin Sodium 10 mg PO HS 03/08/18 [History] Topiramate 50 mg PO BID 03/08/18 [History] Venlafaxine HCl [Venlafaxine HCl ER] 300 mg PO DAILY 03/08/18 [History] ARIPiprazole [Abilify] 2 mg PO HS 08/11/18 [History] Loratadine [Allergy Relief] 10 mg PO DAILY 08/11/18 [History] Tizanidine HCl 2 mg PO BID 08/11/18 [History] Allergy/AdvReac Type Severity Reaction Status Date / Time No Known Allergies Allergy Verified 03/08/18 13:00 All Systems PM: A 10-system review of systems was performed and is negative for pertinent findings except as documented above in the HPI. - Constitutional Vitals: Temp Pulse Resp BP Pulse Ox 99.8 F H 76 16 135/62 98 08/11/18 12:51 08/11/18 17:34 08/11/18 17:34 08/11/18 17:34 08/11/18 17:34 Exam: General appearance: Present: A&O X 3, no acute distress - Head Head exam: Present: normocephalic - Eye Eye exam: Present: normal appearance - ENT ENT exam: Present: mucous membranes moist - Respiratory Respiratory exam: Present: CTAB. Absent: accessory muscle use, rales, rhonchi, wheezes - Cardiovascular Cardiovascular exam: Present: RRR, +S1, +S2. Absent: diastolic murmur, gallop, rubs, systolic murmur - GI/Abdominal GI/Abdominal exam: Present: normal bowel sounds, soft, no peritoneal signs. Absent: distended, tenderness - Extremities Exam Extremities exam: Absent: pedal edema - Neurological Exam Neurological exam: Present: alert, oriented X3, no focal deficits. Absent: altered - Psychiatric Psychiatric exam: -normal mood Skin exam: -normal color Internal Med - H&P Results - Labs CBC & Chem 7: 08/11/18 13:27 08/11/18 13:03 Labs: Short CBC 08/11/18 Range/Units 13:27 WBC 11.2 H (4.3-11.1) K/mcL Hgb 9.0 L (11.5-15.4) g/dL Hct 32.3 L (35.3-44.9) % Plt Count 352 (140-400) K/mcL BMP 08/11/18 13:03 Sodium 137 Potassium 4.2 Chloride 106 Carbon Dioxide 19 L BUN 15 Creatinine 0.85 Glucose 133 H Calcium 9.3 Cardiac Enzymes 08/11/18 Range/Units 13:03 Troponin I < 0.03 (< 0.04) ng/mL - Impressions ITS Impressions Head CT 08/11/18 12:41 IMPRESSION: No acute intracranial abnormality. Findings were discussed with Ivett Dempsey at 12:54 pm on 08/11/2018. D/ / Alex Javier MD / Alex Javier MD Interpreting Provider: Alex Javier MD Head CTA 08/11/18 13:27 IMPRESSION: No flow limiting stenosis or branch occlusion detected within the head or neck. D/ / César Ochoa MD / César Ochoa MD Interpreting Provider: César Ochoa MD Neck CTA 08/11/18 13:27 IMPRESSION: No flow limiting stenosis or branch occlusion detected within the head or neck. D/ / César Ochoa MD / César Ochoa MD Interpreting Provider: César Ochoa MD - Assessment and Plan (1) Left-sided weakness Current Visit: Yes Status: Acute Assessment and plan: Patient port acute on chronic left-sided weakness that developed earlier today. Patient has a history of recurrent CVA with left-sided hemiparesis recently treated on 01/01/18 In the ER patient was found to have no acute findings on head CT and no acute findings on CT of the head/neck. Will order MRI Will Also consult neurology and appreciate recommendations. (2) History of CVA (cerebrovascular accident) Current Visit: No Status: Chronic Assessment and plan: Patient with history of recurrent CVA and was recently discharged on 01/01/18 for recurrent CVA noted to have worsening residual left-sided weakness Neurology consulted as above. 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
[2018-08-11] MEDS ORDERED: Naloxone 0.4 MG/ML INJ IVP PRN (18:10)
[2018-08-11] MEDS ORDERED: D5% in Water 1,000 ML IVC PRN (18:17)
[2018-08-11] MEDS ORDERED: Dextrose Gel 15 GM/37.5 ML TUBE PO PRN ×2 (18:17)
[2018-08-11] MEDS ORDERED: *HR* Dextrose 50 % in Water (Syg) 50 ML SYRINGE IVP PRN (18:17)
[2018-08-11] MEDS: Topiramate 25 MG TABLET PO SCH (21:36)
[2018-08-11] MEDS: ARIPiprazole 2 MG TABLET PO SCH (21:36)
[2018-08-11] MEDS: Gabapentin 300 MG CAPSULE PO SCH (21:36)
[2018-08-11] MEDS: tiZANidine 4 MG TABLET PO SCH (21:37)
[2018-08-11] MEDS: *HR* Heparin 5,000 UNIT/ML VIAL SQ SCH (21:37)
--- NOTE | 2018-08-12 01:47 | Event Note ---
Date of Encounter: 08/11/18 Time of Encounter: 20:33 Alerted by patient's nurse CECILLE Gunderson that patient had been admitted for stroke-like symptoms. Modified NIHSS, dysphagia screen, NPO, and neurologic assessments ordered. Alerted by pts. nurse that the pt. had MRI of the head/brain ordered which could not be done d/t pt. having metal in her spine. Paged Dr. Alarcon to discuss plan of action, however Dr. Alarcon was unfamiliar w/pt. and not been consulted yet. Discussed the pt. w/him regarding permissive HTN, Plavix, etc. and I appreciate the consult and recommendations. Dr. Alarcon states he will see pt. tomorrow and make sure pt. has ASA dosing. Additional stroke w/u orders placed per Dr. Alarcon. MRI cancelled. Pt. passed dysphagia screen successfully so cardiac/ADA diet ordered. Instructed nurse to monitor BP closely and notify me if >170 systolically. Nurse instructed to continue monitoring pt. very closely for any adverse neurologic changes and notify me immediately.
[2018-08-12] MEDS: Aspirin Enteric Coated 81 MG Tablet PO SCH ×2 (02:02→07:56)
[2018-08-12 02:32] LABS: Basophils % 0.9 %; Hemoglobin 8.4 g/dL (11.5-15.4); Mean Platelet Volume 9.6 fL (9.4-12.4); Segmented Neutrophils % 58.6 %
[2018-08-12 02:34] LABS: Basophils # 0.1 K/mcL (0.0-0.2); Eosinophils # 0.4 K/mcL (0.0-0.6); Eosinophils % 3.4 %; Immature Granulocytes % 0.4 % (0-4); Lymphocytes # 3.3 K/mcL (0.6-4.6); Lymphocytes % 31.1 %; Mean Corpuscular HGB Conc 27.1 g/dL (31.6-35.5); Mean Corpuscular Volume 73.8 fL (83.0-100.0); Monocytes # 0.6 K/mcL (0.0-1.3); Monocytes % 5.6 %; Neutrophils # 6.2 K/mcL (1.6-8.9); Platelet Count 317 K/mcL (140-400); Red Cell Distribution Width 19.4 % (11.5-14.5)
[2018-08-12 02:51] LABS: BUN/Creatinine Ratio 18 (6-26); Blood Urea Nitrogen 14 mg/dL (8-23); Calcium 9.1 mg/dL (8.6-10.3); Carbon Dioxide 26 mEq/L (23-29); Chloride 105 mEq/L (98-107); Glucose 188 mg/dL (70-105); Osmolality,Calculated 291 (280-300); Sodium 138 mEq/L (136-145); eGFR For Non-African Americans > 60 (> 60)
[2018-08-12 02:58] LABS: Hypochromasia Present (Not Present); Platelet Estimate Normal (Normal)
[2018-08-12] MEDS: *HR* Heparin 5,000 UNIT/ML VIAL SQ SCH ×3 (05:04→21:14)
[2018-08-12] MEDS: Insulin LISPRO 300 UNITS/3 ML VIAL SQ SCH ×4 (07:49→21:46)
[2018-08-12] MEDS: Venlafaxine XR (24 HR) 150 MG CAP.ER.24H PO SCH (07:55)
[2018-08-12] MEDS: Metoprolol XL (24 HR) Succ 25 MG TAB.ER.24H PO SCH (07:56)
[2018-08-12] MEDS: Losartan/HCTZ 50-12.5 TABLET PO SCH (07:56)
[2018-08-12] MEDS: Topiramate 25 MG TABLET PO SCH ×2 (07:56→21:13)
[2018-08-12] MEDS: tiZANidine 4 MG TABLET PO SCH ×2 (07:56→21:14)
[2018-08-12] MEDS: Gabapentin 300 MG CAPSULE PO SCH ×2 (07:56→21:14)
[2018-08-12] MEDS: Loratadine 10 MG TABLET PO SCH (07:56)
[2018-08-12] MEDS: Insulin NPH/REG 70/30 100 UNIT/ML (x5UNIT) SQ SCH ×2 (08:01→16:39)
[2018-08-12] MEDS: traMADol 50 MG TABLET PO PRN ×3 (08:59→21:20)
[2018-08-12] MEDS ORDERED: Aspirin 325 MG TABLET PO SCH (09:00)
--- NOTE | 2018-08-12 09:37 | Neurology - Consult Note ---
<Tommie Zambrano J - Last Filed: 08/12/18 09:29> Date of Encounter: 08/12/18 Time of Encounter: 09:29 Assessment and Plan (1) Left-sided weakness Current Visit: Yes Status: Acute Neurologist been consulted to evaluate for the cause of left sided weakness and paresthesias. The patient is reporting left facial asymmetry, slurred speech, headache, visual changes, left arm and leg hemiparesis and paresthesias which began yesterday around noon. These symptoms are slowly improving but nonetheless are persistent. CT angiogram of the head and neck completed and found to be negative for flow- limiting stenosis or aneurysms. CT of head for this admission negative for acute intracranial abnormality more specifically negative for an acute right-sided infarct in the region of the motor cortex. Unable to obtain MRI due to spine stimulator. It should be noted the patient has had multiple stroke alerts with multiple CT angiograms of the head and neck as well as CT of the head. All prior imaging negative for an acute cerebrovascular event. Today on exam she is very anxious and perseverating on the fact that she believes she has had another stroke. She reports that in October 2017 she had a stroke resulting in left-sided residual deficits requiring many months of therapy to get back to baseline. However, review of the October 2017 study reveals that she had a questionable left-sided MCA territory infarct. An infarct in this location would not explain left-sided motor symptoms. Today on exam she is displaying left arm and leg weakness and reports that she is unable to lift her left extremities off the bed. However, through passive observation I did witness the patient lifting her left arm up to her face to rub her eye and lifting her left leg off the bed closer to her body to scratch it. She notes that when she has a pain or itch she is able to move her left side but only then. At this time I feel that her symptoms are most likely supratentorial. She is currently taking a daily aspirin and statin. I would not recommend any dose changes at this time but agree with continuing both of these medications. Further, I do not recommend any additional neuroimaging. I would recommend PT/OT however. There does not appear to be an acute neurological process. Neurology will sign off at this time. Please reconsult should any further need arise. History of Present Illness Chief complaint: left sided weakness and parasthesias HPI: Ms. Davenport is a 78 year old female with a PMH of COPD, DM, and HTN who presents to [facility] with a chief c/o left arm/leg weakness and parasthesias. She states that around noon yesterday "my left foot began to drag". She states that this concerned her that she may be having a stroke so she informed a nurse at her facility. She notes that while talking to the nurse her symptoms began to progress up her leg into her left arm and left face. She notes that due to the progressive symptoms she was no longer able to stand and had to sit by her walker. She states that "I have had the same symptoms in the past and in October of 2017 was dx with a stroke". She reports that the CVA in 10/2017 resulted in residual left-sided deficits requiring much physical therapy. However, per review of the CT imaging it appears that there is a questionable MCA territory infarct which would not explain residual left-sided deficits. Additionally, yesterday she endorses that she was experiencing headaches, blurred vision, slurred speech, facial droop, left-sided paresthesias and weakness extending from the left leg to the left face. As of my assessment this morning she reports that the symptoms are improving but have not completely resolved. She states that she is unable to lift her left arm or left leg and she does not know why. However, through passive observation I did witness the patient move both her left leg off the bed and lift her left arm up to her left thigh to rub it. I have reviewed CT imaging of the head which was negative for an acute intracranial abnormality. CT angiogram of head and neck also negative for flow limiting stenosis. No abnormalities found on CBC or chemistry panel with the exception of a chronic anemia. Vital signs remained stable. Past Med Surg Social Fam HX - Past Medical History Medical history: COPD, CVA, diabetes, GERD, hypertension, TIA Additional medical history: depression,lateral meniscus tear,perniciuos anemia,anxiety,bilateral hip osteoarthritis,left hamstring avulsion,peripheral neuropathy,diabetic neuropathy,left foot drop,right third MCP post traumatic synovitis,bilateral knee osteoarthritis,avulsion of hamstring muscle,lactic acidosis,3rd toe right turning under, spinal cord stimulator,stroke Psychiatric history: anxiety - Past Surgical History Surgical History: cholecystectomy, herniorrhaphy, hysterectomy, orthopedic, other Additional surgical history: bilateral knee,hip implant ne uromodulation,intestinal resection,hiatal hernia repair,colonoscopy/EGD,heart cath,botulinium toxin injection gastroenteric anastomosis - Social History Smoking Status: Never smoker Smokeless Tobacco Status: No Alcohol use: none Drug use: none - Family History Mother Age: 94 Living Status: Still Living Hx Family Neuromuscular Disorders: Yes (Dementia) Hx Family Neurologic Disorders: Yes (Dementia) Sister Hx Family Cancer: Yes Father Living Status: Age at : 55 Cause of : heart attack Medications and Allergies Gabapentin [Neurontin] 600 mg PO BID 01/01/18 [History] Insulin Aspart Prot/Insuln Asp [Novolog Mix 70-30 Vial] 30 unit SQ BIDWM 01/01/18 [History] Losartan/HCTZ [Hyzaar 50-12.5 Tablet] 1 each PO DAILY 01/01/18 [History] Metformin HCl 1,000 mg PO BID 01/01/18 [History] Metoprolol Succinate [Toprol Xl] 25 mg PO QAM 01/01/18 [History] Omeprazole [PriLOSEC] 40 mg PO DAILY 01/01/18 [History] Aspirin 325 mg PO DAILY 03/08/18 [History] Pravastatin Sodium 10 mg PO HS 03/08/18 [History] Topiramate 50 mg PO BID 03/08/18 [History] Venlafaxine HCl [Venlafaxine HCl ER] 300 mg PO DAILY 03/08/18 [History] ARIPiprazole [Abilify] 2 mg PO HS 08/11/18 [History] Loratadine [Allergy Relief] 10 mg PO DAILY 08/11/18 [History] Tizanidine HCl 2 mg PO BID 08/11/18 [History] Allergy/AdvReac Type Severity Reaction Status Date / Time No Known Allergies Allergy Verified 03/08/18 13:00 All Systems: The remainder of the systems were reviewed and are negative Review of Systems: REVIEW OF SYSTEMS GENERAL: Negative for any nausea, vomiting, fevers, chills, or weight loss, POSITIE-fatigue NEUROLOGIC: Negative for dysphagia, POSITIVE-blurred vision, slurred speech, left facial droop, left face parasthesias, left arm and leg hemiparesis and parasthesias. PSYCH: POSITIVE- Anxiety HEENT: Negative for any head trauma, neck trauma, neck stiffness CARDIAC: Negative for any chest pain, dyspnea, peripheral edema. POSITIVE: palpitations GENITOURINARY: Negative for any dysuria, hematuria, incontinence. MUSCULOSKELETAL: POSITIVE; loss of strength left arm and leg Physical Examination - Vital Signs Vital Signs: Initial Vital Signs Temp Pulse Resp BP Pulse Ox 99.8 F H 90 16 144/63 97 08/11/18 12:51 08/11/18 12:51 08/11/18 12:51 08/11/18 12:51 08/11/18 12:51 - Exam Exam: Examination: General Examination: *CONSTITUTIONAL: Alert and oriented x3, no acute distress, *GENERAL APPEARANCE OF PATIENT appears generally healthy and well groome d. Elderly obese female *EYES: pupils equal, round, reactive to light and accommodation, con junctiva clear *CARDIOVASCULAR RRR, S1, S2, no mumurs, rubs, or gallops, no peripheral edema, distal temperature normal, dorsalis pedis pulses normal. See vital signs *PSYCH: Anxious appearing Musculoskeletal: *GAIT AND STATION sitting upright in bed with erect posture. 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 Patient reports that she is unable to lift extremities off the bed. However, through passive observation I did witness her lifting THE left arm and left leg completely off the bed. She did note that sometimes she is able to move the le ft arm and left leg if she has "a pain or an itch or something". *MUSCLE TONE IN THE UPPER AND LOWER EXTREMITIES normal. No abnormal movements, fasciculations or atrophy identified. Neurological: *ORIENTATION to person, situation, time and place *RECURRENT AND REMOTE MEMORY intact *ATTENTION AND CONCENTRATION are normal *LANGUAGE FUNCTION no significant aphasia or dysarthia was noted. *FUND OF KNOWLEDGE aware of current events, past history, vocabulary *MENTAL attention span and concentration normal. *CN II optic fundi were normal, no papilledema noted. *CN III,IV, PERRLA extraocular eye movements were full, no nystagmus and no ptosis noted. *CN V shows normal sensation and jaw opens symmetrically. *CN VII shows normal facial movement symmetrically, upper and lower bilaterally. *CN VIII shows no significant hearing loss on exam *CN IX,,X palate elevated symmetrically *CN XI normal strength in the sternocleidomastoid muscles, symmetrical shoulder shrugging. *CN XII tongue protruded in the midline, with normal strength and movement. *SENSORY EXAMINATION light touch intact *REFLEXES: deep tendon reflexes were normal and symmetrical , grade 2/4 diffusely, no pathological reflexes were noted. *CEREBELLAR TESTING negative for opsoclonus, normal right finger to nose, noncompliant with exam when assessing left finger to nose *PAIN LEVEL 4/10 intermittent left temporal headache Results - Laboratory Findings CBC and BMP: 08/12/18 02:02 08/12/18 02:02 Abnormal lab findings: Abnormal lab results Hgb 8.4 g/dL (11.5-15.4) L 08/12/18 02:02 Hct 31.0 % (35.3-44.9) L 08/12/18 02:02 MCV 73.8 fL (83.0-100.0) L 08/12/18 02:02 MCH 20.0 pg (28.0-33.3) L 08/12/18 02:02 MCHC 27.1 g/dL (31.6-35.5) L 08/12/18 02:02 RDW 19.4 % (11.5-14.5) H 08/12/18 02:02 Hypochromasia Present (Not Present) A 08/12/18 02:02 APTT 24.8 Seconds (26.0-36.0) L 08/11/18 21:06 Glucose 188 mg/dL (70-105) H 08/12/18 02:02 - Diagnostic Findings Additional findings: CT/CT angio neck IMPRESSION: No flow limiting stenosis or branch occlusion detected within the head or neck. CT/CT stroke alert head wo con IMPRESSION: No acute intracranial abnormality. Consult Discharge Plan - Plan Referrals: Cathie Kaminski MD [Partnered Physician] - <Delmer Alarcon - Last Filed: 08/12/18 15:34> Date of Encounter: 08/12/18 Assessment and Plan (1) Left-sided weakness Current Visit: Yes Status: Acute I have personally performed a [id number] assessment of the patient and have reviewed the PA/PRESS MACHINE OPERATOR note. My impressions are as follows: The case was discussed with the COMPOSITE BOND TECHNICIAN. I agree with his assessment as stated above. Patient has had multiple admissions for chief complaint of left sided weakness none of which have ever feel that an offending right hemispheric lesion. I agree that more than likely this is conversion. I agree with PT and OT is necessary. Otherwise I will reevaluate her at your request. History of Present Illness HPI: I have personally performed a [id number] assessment of the patient and have reviewed the PA/PRESS MACHINE OPERATOR note. My impressions are as follows: I agree with the issue of present illness as documented above. This patient has had multiple admissions for strokelike symptoms, and has even received TPA on several occasions. However her neuroimaging studies are consistently negative for any evidence of ischemic insult. She has had yet another CT scan of the brain with this admission as well as CTA of the head and neck which are negative and modalities that explain this presentation. All Systems: The remainder of the systems were reviewed and are negative Review of Systems: The balance of the systems review is negative Physical Examination - Vital Signs Vital Signs: Initial Vital Signs Temp Pulse Resp BP Pulse Ox 99.8 F H 90 16 144/63 97 08/11/18 12:51 08/11/18 12:51 08/11/18 12:51 08/11/18 12:51 08/11/18 12:51 - Exam Exam: I have personally performed a ohyj-jm-[id number] assessment of the patient and have reviewed the PA/PRESS MACHINE OPERATOR note. My impressions are as follows: I have performed a completing comprehensive neurologic examination and I agree with the COMPOSITE BOND TECHNICIAN's assessment as stated above. Results - Laboratory Findings CBC and BMP: 08/12/18 02:02 08/12/18 02:02 Abnormal lab findings: Abnormal lab results Hgb 8.4 g/dL (11.5-15.4) L 08/12/18 02:02 Hct 31.0 % (35.3-44.9) L 08/12/18 02:02 MCV 73.8 fL (83.0-100.0) L 08/12/18 02:02 MCH 20.0 pg (28.0-33.3) L 08/12/18 02:02 MCHC 27.1 g/dL (31.6-35.5) L 08/12/18 02:02 RDW 19.4 % (11.5-14.5) H 08/12/18 02:02 Hypochromasia Present (Not Present) A 08/12/18 02:02 APTT 24.8 Seconds (26.0-36.0) L 08/11/18 21:06 Glucose 188 mg/dL (70-105) H 08/12/18 02:02
[2018-08-12] MEDS ORDERED: Nitroglycerin 0.4 MG TAB.SUBL SL PRN (15:28)
[2018-08-12] MEDS ORDERED: Nitroglycerin 0.4 MG TAB.SUBL SL ONE (15:30)
--- NOTE | 2018-08-12 15:43 | Internal Med Progress Note ---
Hospitalist Progress Note - Encounter Date of Encounter: 08/12/18 Time of Encounter: 13:30 - Subjective Interval History: Ms. Davenport is a 78-year-old female with known past medical history of spina injury status post stimulator, chronic lower back pain and followed with Dr. Ryan as an out pt, also have depression / anxiety who follows Dr. Kelley as an out pt, also patient believes that she had stroke in the past with left sided residual weakness, as well as patient had history of multiple hospitalizations here for stroke workup, unable to do MRI of Brain due to her spine stimulator now she presented to our ER from local assisted-living facility c/o worsening left side weakness and left foot drop started y/d afternoon. In the ER her her workup CT of the head CTA of the head and neck were unremarkable. Patient was admitted in the hospital and placed on cardiac cath lab manager. This morning patient complained about chest pain. However EKG's completely within normal limits. Patient stated her left-sided weakness is a little better today. She is also complaining about generalized weakness and lethargic. - Exam Vitals: Temp Pulse Resp BP Pulse Ox 97.8 F 80 15 105/66 98 08/12/18 15:16 08/12/18 15:16 08/12/18 15:16 08/12/18 15:16 08/12/18 15:16 Exam: Gen: Alert, awake, Oriented to time,place and person Chest: Diminished breath sounds B/L, No wheezing, No crackles, No rales Heart: S1S2+ RRR No murmurs Abd: Soft, NT, BS +, No organomegaly Ext: No edema, pulses are palpable, No calf tenderness Neuro : strength 4/5 in LE b/l. No foot drop / no pronator drift noticed. No loss of sensation. Reflexex + Psych: Depressed Skin: No rash. - Assessment and Plan (1) Left-sided weakness Current Visit: Yes Status: Acute Assessment and Plan: acute on chronic left-sided weakness Unable to do brain MRI due to her Spine stimulator Reviewed her Ct of head and CTA of Head and Neck - No acute on subsacute infarction noticed I could not appreciate any focal neuro deficits, other than b/l LE weakness and more lethargic concerning for spine pathology too ordered CT of Thoracic and Lumbar spine PT / OT eval Patient does need to stay in the hospital more than 2 midnights due to her complex medical problems. So we will change her to full admission today. I did review my colleague Dr. Chacko's H & P including HPI, PMH, PSH, FH, SH, and ROS no changes noticed (2) Chest pain Current Visit: Yes Status: Acute Assessment and Plan: atypical presentation her EKG showed NST No ST T changes noticed Had normal LHC in 08/2016 Will repeat a stress test in AM Trop x 2 were negative (3) Diabetes mellitus Current Visit: No Status: Chronic Assessment and Plan: on ADA diet and ISS (4) Depression Current Visit: No Status: Chronic Assessment and Plan: Continue home medications (5) DVT prophylaxis Current Visit: No Status: Acute Assessment and Plan: Subcutaneous heparin (6) History of CVA (cerebrovascular accident) Current Visit: No Status: Chronic Assessment and Plan: Resumed home medications - Time Spent with Patient Total time spent is greater than 50% in coordination of care (as documented) at patient's floor/unit and/or counseling patient: Internal Medicine: Result - Labs CBC & Chem 7: 08/12/18 02:02 08/12/18 02:02 Labs: Short CBC 08/12/18 Range/Units 02:02 WBC 10.5 (4.3-11.1) K/mcL Hgb 8.4 L (11.5-15.4) g/dL Hct 31.0 L (35.3-44.9) % Plt Count 317 (140-400) K/mcL Neutrophils # 6.2 (1.6-8.9) K/mcL BMP 08/12/18 02:02 Sodium 138 Potassium 4.0 Chloride 105 Carbon Dioxide 26 BUN 14 Creatinine 0.77 Glucose 188 H Calcium 9.1 Cardiac Enzymes 08/11/18 Range/Units 21:06 Troponin I < 0.03 (< 0.04) ng/mL - ABG Interpretation ABG results: PT/INR, D-dimer PT 9.6 Seconds (9.4-12.1) 08/11/18 13:27 Consult Discharge Plan - Plan Referrals: Cathie Kaminski MD [Partnered Physician] - (3) Diabetes mellitus Qualifiers: Diabetes mellitus type: type 2 Diabetes mellitus halfway insulin use: with manager long term care use Diabetes mellitus complication status: without complication Qualified Code(s): E11.9 - Type 2 diabetes mellitus without complications; Z79.4 - 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
--- NOTE | 2018-08-12 16:41 | Electrocardiograph Report ---
[address] [address] Test Date: 2018-08-11 Pat Name: Tiff Davenport Department: [id number] Room: 3B Gender: F Director Of Litigation: : 1940 Requested By: Ivett Dempsey Order Number: [id number] Reading MD: Phil Brown Measurements Intervals [place] Rate: 74 P: 78 [place]: 154 QRS: 77 QRSD: 87 T: 62 QT: 391 QTc: 434 Interpretive Statements Sinus rhythm Electronically Signed On 08-12-2018 16:39:45 EDT by Phil Brown
[2018-08-12] MEDS: ARIPiprazole 2 MG TABLET PO SCH (21:14)
[2018-08-13] MEDS: traMADol 50 MG TABLET PO PRN ×2 (04:21→21:31)
[2018-08-13] MEDS: *HR* Heparin 5,000 UNIT/ML VIAL SQ SCH ×3 (05:17→21:32)
[2018-08-13] MEDS ORDERED: Regadenoson 0.4 MG/5 ML SYRINGE IVP ONE (06:24)
[2018-08-13 06:27] LABS: Hematocrit 31.4 % (35.3-44.9); Hemoglobin 8.9 g/dL (11.5-15.4); Mean Corpuscular HGB Conc 28.3 g/dL (31.6-35.5); Mean Corpuscular Hemoglobin 20.9 pg (28.0-33.3); Mean Corpuscular Volume 73.7 fL (83.0-100.0); Mean Platelet Volume 9.7 fL (9.4-12.4); Platelet Count 343 K/mcL (140-400); Red Blood Count 4.26 M/mcL (3.82-4.97); Red Cell Distribution Width 19.7 % (11.5-14.5)
[2018-08-13 06:48] LABS: BUN/Creatinine Ratio 22 (6-26); Blood Urea Nitrogen 16 mg/dL (8-23); Calcium 7.2 mg/dL (8.6-10.3); Carbon Dioxide 27 mEq/L (23-29); Chloride 101 mEq/L (98-107); Glucose 182 mg/dL (70-105); Osmolality,Calculated 288 (280-300); Potassium 3.6 mEq/L (3.5-5.1); Sodium 136 mEq/L (136-145); eGFR For Non-African Americans > 60 (> 60)
[2018-08-13] MEDS: Insulin LISPRO 300 UNITS/3 ML VIAL SQ SCH ×4 (08:00→21:30)
--- NOTE | 2018-08-13 09:42 | Electrocardiograph Report ---
[place] [address] Test Date: 2018-08-12 Pat Name: Tiff Davenport Department: 113 Room: 3B Gender: F Teacher Dancing: : 1940 Requested By: Sia Vu Order Number: [id number] Reading MD: Ricardo Cleaning Measurements Intervals [place] Rate: 75 P: 46 UT: 146 QRS: 46 QRSD: 90 T: 38 QT: 370 QTc: 398 Interpretive Statements SINUS RHYTHM Electronically Signed On 08-13-2018 9:41:20 EDT by Ricardo Cleaning
[2018-08-13] MEDS ORDERED: Ondansetron 4 MG/2 ML VIAL ONE (10:16)
[2018-08-13] MEDS: Ondansetron 4 MG/2 ML VIAL IVP PRN ×2 (10:33→19:42)
[2018-08-13] MEDS ORDERED: Ondansetron 4 MG/2 ML VIAL IVP SCH (12:00)
[2018-08-13] MEDS: Metoprolol XL (24 HR) Succ 25 MG TAB.ER.24H PO SCH (12:21)
[2018-08-13] MEDS: tiZANidine 4 MG TABLET PO SCH ×2 (12:21→21:31)
[2018-08-13] MEDS: Topiramate 25 MG TABLET PO SCH ×2 (12:21→21:32)
[2018-08-13] MEDS: Losartan/HCTZ 50-12.5 TABLET PO SCH (12:21)
[2018-08-13] MEDS: Gabapentin 300 MG CAPSULE PO SCH ×2 (12:21→21:31)
[2018-08-13] MEDS: Aspirin Enteric Coated 81 MG Tablet PO SCH (12:21)
[2018-08-13] MEDS: Venlafaxine XR (24 HR) 150 MG CAP.ER.24H PO SCH (12:21)
[2018-08-13] MEDS: Insulin NPH/REG 70/30 100 UNIT/ML (x5UNIT) SQ SCH ×2 (12:22→18:00)
[2018-08-13] MEDS: Loratadine 10 MG TABLET PO SCH (12:22)
--- NOTE | 2018-08-13 16:01 | Internal Med Progress Note ---
Hospitalist Progress Note - Encounter Date of Encounter: 08/13/18 Time of Encounter: 15:59 - Subjective Interval History: Ms. Davenport is a 78-year-old female with known past medical history of spina injury status post stimulator, chronic lower back pain and followed with Dr. Ryan as an out pt, also have depression / anxiety who follows Dr. Kelley as an out pt, also patient believes that she had stroke in the past with left sided residual weakness, as well as patient had history of multiple hospitalizations here for stroke workup, unable to do MRI of Brain due to her spine stimulator now she presented to our ER from local assisted-living facility c/o worsening left side weakness and left foot drop started y/d afternoon. In the ER her her workup CT of the head CTA of the head and neck were unremarkable. Patient was admitted in the hospital and placed on director of cardiac cath lab. Pt complained about chest pain initially. However EKG's completely within normal limits. Patient stated her left-sided weakness is a little better today. She is still complaining about generalized weakness and lethargic. She denied any more CP today. - Exam Vitals: Temp Pulse Resp BP Pulse Ox 97.8 F 70 13 113/71 94 08/13/18 15:20 08/13/18 15:20 08/13/18 15:20 08/13/18 15:20 08/13/18 15:20 Exam: Gen: Alert, awake, Oriented to time,place and person Chest: Diminished breath sounds B/L, No wheezing, No crackles, No rales Heart: S1S2+ RRR No murmurs Abd: Soft, NT, BS +, No organomegaly Ext: No edema, pulses are palpable, No calf tenderness Neuro : strength 4/5 in LE b/l. No foot drop / no pronator drift noticed. No loss of sensation. Reflexex + Psych: Depressed Skin: No rash. - Assessment and Plan (1) Left-sided weakness Current Visit: Yes Status: Acute Assessment and Plan: acute on chronic left-sided weakness Unable to do brain MRI due to her Spine stimulator Reviewed her Ct of head and CTA of Head and Neck - No acute on subsacute infarction noticed I could not appreciate any focal neuro deficits, other than b/l LE weakness and more lethargic concerning for spine pathology too ordered CT of Thoracic and Lumbar spine PT / OT eval May need ECF placement SW working on it (2) Chest pain Current Visit: Yes Status: Acute Assessment and Plan: atypical presentation her EKG showed NST No ST T changes noticed Had normal LHC in 08/2016 Trop x 2 were negative her nuclear stress test came back is negative for ischemia or infarct continue home medication aspirin, metoprolol and Zocor (3) Diabetes mellitus Current Visit: No Status: Chronic Assessment and Plan: on ADA diet and resumed home Insulin regimen also placed her on ISS (4) Depression Current Visit: No Status: Chronic Assessment and Plan: Continue home medications (5) DVT prophylaxis Current Visit: No Status: Acute Assessment and Plan: Subcutaneous heparin (6) History of CVA (cerebrovascular accident) Current Visit: No Status: Chronic Assessment and Plan: Resumed home medications - Time Spent with Patient Total time spent is greater than 50% in coordination of care (as documented) at patient's floor/unit and/or counseling patient: Internal Medicine: Result - Labs CBC & Chem 7: 08/13/18 05:08 08/13/18 05:08 Labs: Short CBC 08/13/18 Range/Units 05:08 WBC 9.4 (4.3-11.1) K/mcL Hgb 8.9 L (11.5-15.4) g/dL Hct 31.4 L (35.3-44.9) % Plt Count 343 (140-400) K/mcL BMP 08/13/18 05:08 Sodium 136 Potassium 3.6 Chloride 101 Carbon Dioxide 27 BUN 16 Creatinine 0.74 Glucose 182 H Calcium 7.2 L - ABG Interpretation ABG results: PT/INR, D-dimer PT 9.6 Seconds (9.4-12.1) 08/11/18 13:27 - Impressions Impressions Lumbar Spine CT 08/12/18 12:53 IMPRESSION: 1. No acute abnormality in the thoracolumbar spine. 2. Stimulator lead wires in the midthoracic spine with no complication noted. 3. Multilevel degenerative changes throughout the lumbar spine as described above. D/ / Sheng Gilbert MD / Sheng Gilbert MD Interpreting Provider: Sheng Gilbert MD Thoracic Spine CT 08/12/18 12:53 IMPRESSION: 1. No acute abnormality in the thoracolumbar spine. 2. Stimulator lead wires in the midthoracic spine with no complication noted. 3. Multilevel degenerative changes throughout the lumbar spine as described above. 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
[2018-08-13] MEDS: ARIPiprazole 2 MG TABLET PO SCH (21:31)
[2018-08-14] MEDS: traMADol 50 MG TABLET PO PRN ×2 (03:48→22:19)
[2018-08-14 05:00] LABS: Hematocrit 33.9 % (35.3-44.9); Platelet Count 369 K/mcL (140-400)
[2018-08-14 05:01] LABS: Hemoglobin 9.4 g/dL (11.5-15.4); Mean Corpuscular HGB Conc 27.7 g/dL (31.6-35.5); Mean Corpuscular Hemoglobin 20.3 pg (28.0-33.3); Mean Corpuscular Volume 73.2 fL (83.0-100.0); Mean Platelet Volume 9.4 fL (9.4-12.4); Red Blood Count 4.63 M/mcL (3.82-4.97); Red Cell Distribution Width 19.6 % (11.5-14.5)
[2018-08-14 05:18] LABS: BUN/Creatinine Ratio 20 (6-26); Blood Urea Nitrogen 16 mg/dL (8-23); Calcium 9.3 mg/dL (8.6-10.3); Carbon Dioxide 27 mEq/L (23-29); Chloride 104 mEq/L (98-107); Glucose 112 mg/dL (70-105); Osmolality,Calculated 288 (280-300); Potassium 3.7 mEq/L (3.5-5.1); Sodium 138 mEq/L (136-145); eGFR For Non-African Americans > 60 (> 60)
[2018-08-14] MEDS: *HR* Heparin 5,000 UNIT/ML VIAL SQ SCH ×3 (06:04→22:20)
[2018-08-14] MEDS: Insulin LISPRO 300 UNITS/3 ML VIAL SQ SCH ×4 (07:30→22:18)
[2018-08-14] MEDS: Aspirin Enteric Coated 81 MG Tablet PO SCH (08:26)
[2018-08-14] MEDS: Gabapentin 300 MG CAPSULE PO SCH ×2 (08:26→22:18)
[2018-08-14] MEDS: Loratadine 10 MG TABLET PO SCH (08:26)
[2018-08-14] MEDS: Topiramate 25 MG TABLET PO SCH ×2 (08:26→22:18)
[2018-08-14] MEDS: Insulin NPH/REG 70/30 100 UNIT/ML (x5UNIT) SQ SCH ×2 (08:27→19:20)
[2018-08-14] MEDS: tiZANidine 4 MG TABLET PO SCH ×2 (08:27→22:19)
[2018-08-14] MEDS: Losartan/HCTZ 50-12.5 TABLET PO SCH (08:27)
[2018-08-14] MEDS: Venlafaxine XR (24 HR) 150 MG CAP.ER.24H PO SCH (08:27)
[2018-08-14] MEDS: Metoprolol XL (24 HR) Succ 25 MG TAB.ER.24H PO SCH (08:27)
--- NOTE | 2018-08-14 10:25 | Internal Med Progress Note ---
Hospitalist Progress Note - Encounter Date of Encounter: 08/14/18 Time of Encounter: 10:23 - Subjective Interval History: Ms. Davenport is a 78-year-old female with known past medical history of spina injury status post stimulator, chronic lower back pain and followed with Dr. Ryan as an out pt, also have depression / anxiety who follows Dr. Kelley as an out pt, also patient believes that she had stroke in the past with left sided residual weakness, as well as patient had history of multiple hospitalizations here for stroke workup, unable to do MRI of Brain due to her spine stimulator now she presented to our ER from local assisted-living facility c/o worsening left side weakness and left foot drop started y/d afternoon. In the ER her her workup CT of the head CTA of the head and neck were unremarkable. Patient was admitted in the hospital and placed on security monitor. Pt complained about chest pain initially. However EKG is completely within normal limits. Patient stated her left-sided weakness is a little better today. She is still complaining about generalized weakness and lethargic. She denied any more CP today. - Exam Vitals: Temp Pulse Resp BP Pulse Ox 97.5 F L 70 16 119/73 93 08/14/18 06:56 08/14/18 06:56 08/14/18 06:56 08/14/18 06:56 08/14/18 06:56 Exam: Gen: Alert, awake, Oriented to time,place and person Chest: Diminished breath sounds B/L, No wheezing, No crackles, No rales Heart: S1S2+ RRR No murmurs Abd: Soft, NT, BS +, No organomegaly Ext: No edema, pulses are palpable, No calf tenderness Neuro : strength 4/5 in LE b/l. No foot drop / no pronator drift noticed. No loss of sensation. Reflexes + Psych: Depressed Skin: No rash. - Assessment and Plan (1) Left-sided weakness Current Visit: Yes Status: Acute Assessment and Plan: acute on chronic left-sided weakness Unable to do brain MRI due to her Spine stimulator Reviewed her Ct of head and CTA of Head and Neck - No acute on subsacute infarction noticed I could not appreciate any focal neuro deficits, other than b/l LE weakness and more lethargic concerning for spine pathology too Reviewed her CT of Thoracic and Lumbar spine - which did not show any acute abnormality. She does have stimulator lead wires in the mid-thoracic spine with no complication. There are multilevel degenerative changes through the lumbar spine noticed PT / OT eval done - recommend short-term rehab May need ECF placement SW working on it (2) Chest pain Current Visit: Yes Status: Acute Assessment and Plan: atypical presentation her EKG showed NST No ST T changes noticed Had normal LHC in 08/2016 Trop x 2 were negative her nuclear stress test came back as negative for ischemia or infarct continue home medication aspirin, metoprolol and Zocor (3) Diabetes mellitus Current Visit: No Status: Chronic Assessment and Plan: on ADA diet and resumed home Insulin regimen also placed her on ISS (4) Depression Current Visit: No Status: Chronic Assessment and Plan: Continue home medications (5) DVT prophylaxis Current Visit: No Status: Acute Assessment and Plan: Subcutaneous heparin (6) History of CVA (cerebrovascular accident) Current Visit: No Status: Chronic Assessment and Plan: Resumed home medications - Time Spent with Patient Total time spent is greater than 50% in coordination of care (as documented) at patient's floor/unit and/or counseling patient: Internal Medicine: Result - Labs CBC & Chem 7: 08/14/18 04:43 08/14/18 04:43 Labs: Short CBC 08/14/18 Range/Units 04:43 WBC 10.0 (4.3-11.1) K/mcL Hgb 9.4 L (11.5-15.4) g/dL Hct 33.9 L (35.3-44.9) % Plt Count 369 (140-400) K/mcL BMP 08/14/18 04:43 Sodium 138 Potassium 3.7 Chloride 104 Carbon Dioxide 27 BUN 16 Creatinine 0.82 Glucose 112 H Calcium 9.3 - ABG Interpretation ABG results: PT/INR, D-dimer PT 9.6 Seconds (9.4-12.1) 08/11/18 13:27 Consult Discharge Plan - Plan Referrals: Cathie Kaminski MD [Partnered Physician] - (3) Diabetes mellitus Qualifiers: Diabetes mellitus type: type 2 Diabetes mellitus senior living insulin use: with senior living use Diabetes mellitus complication status: without complication Qualified Code(s): E11.9 - Type 2 diabetes mellitus without complications; 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
[2018-08-14] MEDS: Ondansetron 4 MG/2 ML VIAL IVP PRN (20:10)
[2018-08-14] MEDS: ARIPiprazole 2 MG TABLET PO SCH (22:17)
[2018-08-14 22:18] LABS: Bilirubin,Urine Negative (Negative); Blood,Urine Negative (Negative); Clarity,Urine Clear (Clear); Color,Urine Yellow (Yellow); Glucose,Urine (UA) Normal (Normal); Ketones,Urine Negative (Negative); Leukocyte Esterase,Urine Negative (Negative); Nitrite,Urine Negative (Negative); PH,Urine 5.5 pH Units (5.0-8.0); Protein,Urine Negative (Neg-Trace); Specific Gravity,Urine 1.024 (1.010-1.025); Urobilinogen,Urine Normal (Normal)
[2018-08-15] MEDS: traMADol 50 MG TABLET PO PRN (03:33)
[2018-08-15] MEDS: *HR* Heparin 5,000 UNIT/ML VIAL SQ SCH (06:02)
[2018-08-15] MEDS: Insulin LISPRO 300 UNITS/3 ML VIAL SQ SCH ×2 (07:47→13:00)
[2018-08-15] MEDS: Losartan/HCTZ 50-12.5 TABLET PO SCH (08:15)
[2018-08-15] MEDS: Gabapentin 300 MG CAPSULE PO SCH (08:15)
[2018-08-15] MEDS: Venlafaxine XR (24 HR) 150 MG CAP.ER.24H PO SCH (08:15)
[2018-08-15] MEDS: Aspirin Enteric Coated 81 MG Tablet PO SCH (08:16)
[2018-08-15] MEDS: tiZANidine 4 MG TABLET PO SCH (08:16)
[2018-08-15] MEDS: Metoprolol XL (24 HR) Succ 25 MG TAB.ER.24H PO SCH (08:16)
[2018-08-15] MEDS: Loratadine 10 MG TABLET PO SCH (08:16)
[2018-08-15] MEDS: Topiramate 25 MG TABLET PO SCH (08:16)
[2018-08-15] MEDS: Insulin NPH/REG 70/30 100 UNIT/ML (x5UNIT) SQ SCH (08:17)
[2018-08-15 11:29] VITALS: BP 104/64
--- NOTE | 2018-08-15 11:32 | Discharge Summary ---
- NOTES TO OUTPATIENT PROVIDER Notes to Outpatient Provider: f/u with PCP in one week. 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 Davenport is a 78-year-old female with known past medical history of spina injury status post stimulator, chronic lower back pain and followed with Dr. Ryan as an out pt, also have depression / anxiety who follows Dr. Kelley as an out pt, also patient believes that she had stroke in the past with left sided residual weakness, as well as patient had history of multiple hospitalizations here for stroke workup, unable to do MRI of Brain due to her spine stimulator now she presented to our ER from local assisted-living facility c/o worsening left side weakness and left foot drop started y/d afternoon. In the ER her her workup CT of the head CTA of the head and neck were unremarkable. Patient was admitted in the hospital and placed on air sampling and monitoring. Pt complained about chest pain initially. However EKG is completely within normal limits. Her serial troponin came back is negative. She did go for nuclear stress test which came back as negative for any ischemia or infarction. Regarding her left-sided weakness unable to do brain MRI due to her Spine stimulator. I could not appreciate any focal neuro deficits, other than b/l LE weakness and more lethargic. Reviewed her CT of Thoracic and Lumbar spine - which did not show any acute abnormality. She does have stimulator lead wires in the mid-thoracic spine with no complication. There are multilevel degenerative changes through the lumbar spine noticed. Her weakness seems to be more like physical deconditioning. Patient was evaluated by PT/OT who recommended ECF placement for short-term rehab. So will d/c her to ECF in stable condition today. - Time Spent with Patient Total time spent providing and/or coordinating discharge services: - Discharge Medications Prescriptions: New Ondansetron ODT [Zofran ODT] 4 mg SL Q8HR PRN #15 tab.rapdis PRN Reason: Nausea Continue Gabapentin [Neurontin] 600 mg PO BID Losartan/HCTZ [Hyzaar 50-12.5 Tablet] 1 each PO DAILY Insulin Aspart Prot/Insuln Asp [Novolog Mix 70-30 Vial] 30 unit SQ BIDWM Metoprolol Succinate [Toprol Xl] 25 mg PO QAM Omeprazole [PriLOSEC] 40 mg PO DAILY Metformin HCl 1,000 mg PO BID Aspirin 325 mg PO DAILY Pravastatin Sodium 10 mg PO HS Topiramate 50 mg PO BID Venlafaxine HCl [Venlafaxine HCl ER] 300 mg PO DAILY ARIPiprazole [Abilify] 2 mg PO HS Loratadine [Allergy Relief] 10 mg PO DAILY Tizanidine HCl 2 mg PO BID Home Medications: Gabapentin [Neurontin] 600 mg PO BID 01/01/18 [History] Insulin Aspart Prot/Insuln Asp [Novolog Mix 70-30 Vial] 30 unit SQ BIDWM 01/01/18 [History] Losartan/HCTZ [Hyzaar 50-12.5 Tablet] 1 each PO DAILY 01/01/18 [History] Metformin HCl 1,000 mg PO BID 01/01/18 [History] Metoprolol Succinate [Toprol Xl] 25 mg PO QAM 01/01/18 [History] Omeprazole [PriLOSEC] 40 mg PO DAILY 01/01/18 [History] Aspirin 325 mg PO DAILY 03/08/18 [History] Pravastatin Sodium 10 mg PO HS 03/08/18 [History] Topiramate 50 mg PO BID 03/08/18 [History] Venlafaxine HCl [Venlafaxine HCl ER] 300 mg PO DAILY 03/08/18 [History] ARIPiprazole [Abilify] 2 mg PO HS 08/11/18 [History] Loratadine [Allergy Relief] 10 mg PO DAILY 08/11/18 [History] Tizanidine HCl 2 mg PO BID 08/11/18 [History] Ondansetron ODT [Zofran ODT] 4 mg SL Q8HR PRN #15 tab.rapdis 08/15/18 [Rx] Allergies/Adverse Reactions: Allergy/AdvReac Type Severity Reaction Status Date / Time No Known Allergies Allergy Verified 03/08/18 13:00 Date of admission: 08/12/18 18:53 Primary care physician: PCP NONE Consults: 08/11/18 18:13 Consult to Neurology [CONS] Stat Consulting Provider: [facility] Reason for Consult: CVA/TIA rule out Call Completed: No 08/12/18 09:11 Consult to Catcher Plug [CONS] Routine Reason for SW Consult: [facility] FROM [facility] 08/12/18 09:39 Consult to Physical Therapy [CONS] Routine Comment: Evaluate, develop and implement POC Reason for Consult: Left side weakness Does patient have active BEDREST order?: Yes Is patient medically & hemodynamically stable?: No Patient assessed for mobility or mobilized this visit?: No OT [Consult to Occupational Therapy] [CONS] Routine Comment: Evaluate, develop and implement POC Reason for Consult: Left side weakness Does patient have active BEDREST order?: Yes Is patient medically & hemodynamically stable?: No Patient assessed for mobility or mobilized this visit?: No - Constitutional Vitals: Temp Pulse Resp BP Pulse Ox 97.5 F L 66 20 117/69 95 08/15/18 07:30 08/15/18 07:30 08/15/18 07:30 08/15/18 07:30 08/15/18 07:30 General appearance: Present: A&O X 3, no acute distress, answers questions appropriately Exam: Gen: Alert, awake, Oriented to time,place and person Chest: Diminished breath sounds B/L, No wheezing, No crackles, No rales Heart: S1S2+ RRR No murmurs Abd: Soft, NT, BS +, No organomegaly Ext: No edema, pulses are palpable, No calf tenderness Neuro : strength 4/5 in LE b/l. No foot drop / no pronator drift noticed. No loss of sensation. Reflexes + Psych: Depressed Skin: No rash - Patient Status Disposition: Transfer SNF Condition: Good Overall status at discharge: patient is back to baseline - Discharge Instructions Follow Up With: Cathie Kaminski MD [Partnered Physician] - 08/21/18 11:15 am - Diet and Activity Activity: as per physical therapy, increase activity as tolerated Diet: low salt diet
--- NOTE | 2018-08-15 11:34 | Physician Discharge Referral ---
ExtendedCare Referral Info Transfer To: ECF Provider in Charge after Transfer: PCP Institutional Level of Care: Skilled - Diagnosis (1) Left-sided weakness Status: Acute (2) Chest pain Status: Acute (3) Diabetes mellitus Status: Chronic (4) Depression Status: Chronic (5) DVT prophylaxis Status: Acute (6) History of CVA (cerebrovascular accident) Status: Chronic - Transfer Medications Prescriptions: Ondansetron ODT [Zofran ODT] 4 mg SL Q8HR PRN #15 tab.rapdis PRN Reason: Nausea Home Medications: Gabapentin [Neurontin] 600 mg PO BID 01/01/18 [History] Insulin Aspart Prot/Insuln Asp [Novolog Mix 70-30 Vial] 30 unit SQ BIDWM 01/01/18 [History] Losartan/HCTZ [Hyzaar 50-12.5 Tablet] 1 each PO DAILY 01/01/18 [History] Metformin HCl 1,000 mg PO BID 01/01/18 [History] Metoprolol Succinate [Toprol Xl] 25 mg PO QAM 01/01/18 [History] Omeprazole [PriLOSEC] 40 mg PO DAILY 01/01/18 [History] Aspirin 325 mg PO DAILY 03/08/18 [History] Pravastatin Sodium 10 mg PO HS 03/08/18 [History] Topiramate 50 mg PO BID 03/08/18 [History] Venlafaxine HCl [Venlafaxine HCl ER] 300 mg PO DAILY 03/08/18 [History] ARIPiprazole [Abilify] 2 mg PO HS 08/11/18 [History] Loratadine [Allergy Relief] 10 mg PO DAILY 08/11/18 [History] Tizanidine HCl 2 mg PO BID 08/11/18 [History] Ondansetron ODT [Zofran ODT] 4 mg SL Q8HR PRN #15 tab.rapdis 08/15/18 [Rx] Allergies/Adverse Reactions: Allergy/AdvReac Type Severity Reaction Status Date / Time No Known Allergies Allergy Verified 03/08/18 13:00 - Respiratory Orders Smoking Cessation: Smoking cessation has been advised. For more information, call the [place] Tobacco Quit Line at 0-439-IEDJ-NOW. CERTIFICATION: I certify that the transfer of the above named patient to an Extended Care Facility is necessary for the continuing treatment of the diagnosis listed. The above information is true and accurate reflection of patient's current condition. Confidential - Redisclosure prohibited without a patient's written consent.
[2018-08-15] MEDS: Ondansetron 4 MG/2 ML VIAL IVP PRN (12:53)
== END 2018-08-15 14:14 | DRG 57 ==
LOC: 3BNU 12:36 → EMEROOARM 12:36 → SUATTDRO 18:30 → 3BNU 19:13
PROVIDERS: ADMIT Hospitalist; ATTEND Family Medicine

== ENCOUNTER 2018-09-16 10:15 | Inpatient (IN) ==
--- NOTE | 2018-09-16 10:28 | Emergency Department Note ---
Disposition Clinical Impression: Left-sided weakness Extravasation accident Qualifiers: Encounter type: initial encounter Qualified Code(s): T80.818A - Extravasation of other vesicant agent, initial encounter Disposition: Admitted As Inpatient Referrals: NONE,PCP [Primary Care Provider] - Forms: ED Satisfaction Letter Time of Disposition: 17:00 Neuro HPI - General Chief Complaint: ED Neuro Symptoms/Deficit Stated Complaint: stroke symptoms Source: EMS Mode of arrival: EMS Limitations: no limitations Nursing Notes Reviewed: Yes Vital Signs Reviewed: Yes - History of Present Illness HPI Narrative: Patient is a 78-year-old female with past medical history including hypertension, diabetes mellitus presenting with chief complaint of left-sided weakness that started at 9:22 AM. The patient has presented multiple times for left-sided weakness and slurred speech. She last received TPA in April 2018 and has been at [facility] several times. This morning, the patient states she just finished breakfast when she all of a sudden developed left arm and left leg weakness. She also complains of slurred speech. EMS was called and brought the patient here. She also complains of a generalized pounding headache. She states she usually does not have headaches with these symptoms. She states symptoms resolve within a day or 2. She denies any residual weakness in the past. She denies any falls or loss of consciousness, vision changes, chest pain, shortness of breath, abdominal pain, nausea or vomiting. - Related Data Home Medications: Home Medications Medication Instructions Recorded Confirmed Gabapentin [Neurontin] 600 mg PO BID 01/01/18 08/11/18 Insulin Aspart Prot/Insuln Asp 30 unit SQ BIDWM 01/01/18 08/11/18 [Novolog Mix 70-30 Vial] Losartan/HCTZ [Hyzaar 50-12.5 1 each PO DAILY 01/01/18 08/11/18 Tablet] Metformin HCl 1,000 mg PO BID 01/01/18 08/11/18 Metoprolol Succinate [Toprol Xl] 25 mg PO QAM 01/01/18 08/11/18 Omeprazole [PriLOSEC] 40 mg PO DAILY 01/01/18 08/11/18 Aspirin 325 mg PO DAILY 03/08/18 08/11/18 Pravastatin Sodium 10 mg PO HS 03/08/18 08/11/18 Topiramate 50 mg PO BID 03/08/18 08/11/18 Venlafaxine HCl [Venlafaxine HCl 300 mg PO DAILY 03/08/18 08/11/18 ER] ARIPiprazole [Abilify] 2 mg PO HS 08/11/18 08/11/18 Loratadine [Allergy Relief] 10 mg PO DAILY 08/11/18 08/11/18 Tizanidine HCl 2 mg PO BID 08/11/18 08/11/18 Acetaminophen [Tylenol] 500 mg PO Q6HR 09/16/18 09/16/18 Ketorolac [Toradol] 10 mg PO DAILY PRN 09/16/18 09/16/18 Melatonin [Melatin] 3 mg PO HS PRN 09/16/18 09/16/18 Nitroglycerin [Nitrostat] 0.4 mg SL Q5M PRN 09/16/18 09/16/18 Previous Rx's Medication Instructions Recorded Ondansetron ODT [Zofran ODT] 4 mg SL Q8HR PRN #15 tab.rapdis 08/15/18 Allergies/Adverse Reactions: Allergies Allergy/AdvReac Type Severity Reaction Status Date / Time No Known Allergies Allergy Verified 03/08/18 13:00 All systems ED: reviewed and negative except as stated. Review of Systems: As Per HPI Constitutional: Denies: fever, chills Eyes: Denies: vision change Cardiovascular: Denies: chest pain, palpitations Respiratory: Denies: cough, dyspnea Gastrointestinal: Denies: abdominal pain, nausea, vomiting Genitourinary: Denies: dysuria Neurological: Reports: weakness, numbness Past Medical History - Past Medical History Attestation: Yes The following information was validated with the patient. Source: patient Medical history: Reports: COPD, CVA, diabetes, GERD, hypertension, TIA Surgical history: Reports: cholecystectomy, herniorrhaphy, hysterectomy, orthopedic, other Psychiatric history: Reports: anxiety - Social History Smoking Status: Never smoker Smokeless Tobacco Status: No Alcohol use: Reports: none Drug use: Reports: none Physical Exam - General Limitations: no limitations General appearance: other (Appears lethargic, eye opening is sluggish, slow response to answering questions.) - Head Head exam: atraumatic, normocephalic - Eye Eye exam: Present: normal appearance, PERRL, EOMI. Absent: nystagmus - ENT ENT exam: mucous membranes moist - Neck Neck exam: Present: trachea midline. Absent: tenderness - Chest Chest inspection: Present: normal inspection, symmetric chest wall rise - Respiratory Respiratory exam: Present: normal lung sounds bilaterally. Absent: respiratory distress, wheezes - Cardiovascular Cardiovascular exam: Present: regular rate, normal rhythm - Abdominal Exam Abdominal exam: Present: soft, Non-Tender. Absent: distention, guarding - Extremities Exam Extremities exam: Present: normal capillary refill. Absent: pedal edema, calf tenderness - Neurological Exam Neurological exam: Present: alert, oriented X3, other (NIHSS 9) - Expanded Neurological Exam Cranial nerves: EOM function (II, III, IV, ): Normal, facial sensation (V): Normal, facial palsy (VII): Abnormal Left, spinal accessory function (XI): Normal, tongue deviation (XII): Normal Motor strength - LUE: 1/5 Motor strength - RUE: 5/5 Motor strength - LLE: 1/5 Motor strength - RLE: 5/5 Sensory exam upper extremity: light touch: Abnormal Left Sensory exam lower extremity: light touch: Abnormal Left - Psychiatric Psychiatric exam: Present: normal affect, normal mood - Skin Skin exam: Present: warm, dry. Absent: diaphoresis, pallor Course Vital Signs Temperature 98.6 F 09/16/18 10:19 Pulse Rate 87 09/16/18 10:19 Respiratory Rate 16 09/16/18 10:19 Blood Pressure 132/85 09/16/18 10:19 O2 Sat by Pulse Oximetry 100 09/16/18 10:19 Temperature 98.6 F 09/16/18 10:19 Pulse Rate 72 09/16/18 15:16 Respiratory Rate 16 09/16/18 15:16 Blood Pressure 133/62 09/16/18 15:16 O2 Sat by Pulse Oximetry 100 09/16/18 15:16 Oxygen Delivery Oxygen Delivery Room Air Neuro Symptoms/Deficit - MDM Narrative Medical decision making narrative: Stroke alert was called with NIHSS 9 for left upper extremity and left lower extremity weakness, slurred speech, and decreased sensation on the Discussed with patient's daughter, Angela Adhikari at [phone]. She states that there has never been a documented stroke in the past. She has last received TPA in April and was sent to [facility] at that time. She states she has no residual left-sided weakness however she does have a known left-sided facial droop that is chronic for many years. She states the patient frequently presents with left-sided weakness. She has presented multiple times in the past year. She states most recently, she had a follow-up appointment with her primary care physician, Dr. Pierson, and states the patient was complaining of left arm weakness. She started to cry and Dr. Pierson handed her a tissue which the patient then grabbed with her left arm. The patient's daughter states she is DNR CC they do not want to give any TPA. They state a CT angiogram does show a clot, they will be agreeable to transfer up to [facility] area and will call the daughter back with CT findings. At 1047, [facility], Dr. Lorenzo, states there are no acute findings on CT head without contrast. [facility] neurology, Dr. Will is on stroke telemetry at this time. Discussed with Dr. Will, Neurology, at 10:55. documentation from [facility] was reviewed. After imaging and much evaluation, she states her symptoms are likely secondary to migraine or conversion disorder. She has multiple documented episodes of this. She recommends treating this symptomatically for her migraine. She states symptoms resolved within a day and the patient then goes home. Stroke alert will be canceled at this time. No MRI secondary to spinal cord stimulator. 12:20 Contrast extravasation in the left arm IV from the CTA head and neck. Will elevate the arm and give hyaluronidase and contact radiology on whether the patient can receive repeat imaging or should be admitted for obs and have repeat imaging tomorrow. Discussed with Dr. Seaman at [facility] and states this is considered a dose of contrast and will be reabsorbed. We are able to repeat the dose of contrast. 12:30 Discussed with the patient's nurse, the patient was able to move both of her legs equally when she had her Nair inserted. She also held up her left upper extremity when the tourniquet was placed on for IV placement and the blood pressure cuff was placed on. However when I reassessed the patient, the patient states she cannot move her left leg and had minimal movement of her left arm. Will obtain PICC/midline and repeat imaging. She will receive additional IVFs. She will need to be admitted for monitoring of the extravasation of the left upper extremity as well as monitoring of kidney function and resolution of her symptoms. 15:00 A midline was placed and patient is currently receiving repeat CTA head and neck. 16:00 CTA were within normal limits. Will admit to monitor weakness, SUMA, and monitor for complications from extravasation of the left upper extremity. Hospitalist has been paged. 17:[address] Connor who accepts patient for admission. - Medical Records Medical records reviewed: Yes I reviewed the patient's medical records. - Lab Data Lab results reviewed: Yes I reviewed the patient's lab results. Result diagrams: 09/16/18 10:40 09/16/18 10:40 Lab Results 09/16/18 09/16/18 09/16/18 Range/Units 10:40 10:40 10:40 WBC 11.1 (4.3-11.1) K/mcL RBC 4.43 (3.82-4.97) M/mcL Hgb 9.0 L (11.5-15.4) g/dL Hct 33.1 L (35.3-44.9) % MCV 74.7 L (83.0-100.0) fL MCH 20.3 L (28.0-33.3) pg MCHC 27.2 L (31.6-35.5) g/dL RDW 20.0 H (11.5-14.5) % Plt Count 297 (140-400) K/mcL MPV 9.3 L (9.4-12.4) fL PT 11.1 (9.4-12.1) Seconds INR 1.0 APTT 22.6 L (26.0-36.0) Seconds Sodium 140 (136-145) mEq/L Potassium 4.0 (3.5-5.1) mEq/L Chloride 106 (98-107) mEq/L Carbon Dioxide 23 (23-29) mEq/L BUN 14 (8-23) mg/dL Creatinine 0.92 (0.60-1.20) mg/dL Est GFR ( Amer) > 60 (> 60) Est GFR (Non-Af Amer) 59 L (> 60) BUN/Creatinine Ratio 15 (6-26) Glucose 148 H (70-105) mg/dL Calculated Osmolality 293 (280-300) Calcium 9.3 (8.6-10.3) mg/dL Troponin I < 0.03 (< 0.04) ng/mL Urine Color (Yellow) Urine Clarity (Clear) Urine pH (5.0-8.0) pH Units Ur Specific [place] (1.010-1.025) Urine Protein (Neg-Trace) mg/dL Urine Glucose (UA) (Normal) mg/dL Urine Ketones (Negative) mg/dL Urine Blood (Negative) Urine Nitrite (Negative) Urine Bilirubin (Negative) Urine Urobilinogen (Normal) mg/dL Ur Leukocyte Esterase (Negative) Urine Microscopic RBC (0-3) per hpf Urine Microscopic WBC (0-3) per hpf Ur Squamous Epith Cells (None-Few) per lpf Urine Bacteria (None-Few) per hpf Hyaline Casts (None-Few) per lpf Ur Culture Indicated? (NO) 09/16/18 Range/Units 12:00 WBC (4.3-11.1) K/mcL RBC (3.82-4.97) M/mcL Hgb (11.5-15.4) g/dL Hct (35.3-44.9) % MCV (83.0-100.0) fL MCH (28.0-33.3) pg MCHC (31.6-35.5) g/dL RDW (11.5-14.5) % Plt Count (140-400) K/mcL MPV (9.4-12.4) fL PT (9.4-12.1) Seconds INR APTT (26.0-36.0) Seconds Sodium (136-145) mEq/L Potassium (3.5-5.1) mEq/L Chloride (98-107) mEq/L Carbon Dioxide (23-29) mEq/L BUN (8-23) mg/dL Creatinine (0.60-1.20) mg/dL Est GFR ( Amer) (> 60) Est GFR (Non-Af Amer) (> 60) BUN/Creatinine Ratio (6-26) Glucose (70-105) mg/dL Calculated Osmolality (280-300) Calcium (8.6-10.3) mg/dL Troponin I (< 0.04) ng/mL Urine Color Yellow (Yellow) Urine Clarity Clear (Clear) Urine pH 6.0 (5.0-8.0) pH Units Ur Specific [place] 1.020 (1.010-1.025) Urine Protein Negative (Neg-Trace) mg/dL Urine Glucose (UA) Normal (Normal) mg/dL Urine Ketones Negative (Negative) mg/dL Urine Blood Negative (Negative) Urine Nitrite Negative (Negative) Urine Bilirubin Negative (Negative) Urine Urobilinogen Normal (Normal) mg/dL Ur Leukocyte Esterase Trace H (Negative) Urine Microscopic RBC 0-3 (0-3) per hpf Urine Microscopic WBC 3-5 H (0-3) per hpf Ur Squamous Epith Cells Many H (None-Few) per lpf Urine Bacteria Many H (None-Few) per hpf Hyaline Casts None Seen (None-Few) per lpf Ur Culture Indicated? YES A (NO) - Radiology Data Radiology results reviewed: Yes I reviewed the patient's radiology results. Head CT 09/16/18 10:22 IMPRESSION: No acute intracranial abnormality. D/ / 09/16/2018 10:44:41 Bradley Lorenzo MD / Charu Rocha Interpreting Provider: Bradley Lorenzo MD - EKG Data EKG attestation: Yes I reviewed and interpreted this EKG. EKG results narrative: EKG obtained at 1036 shows sinus rhythm with heart rate 84, normal intervals, no ST elevation or depression, compared to old EKG on 08/12/2018 which shows no ac nome changes. NIH Stroke Scale - Level of Consciousness LOC: Alert - LOC Questions LOC Questions: Answers both correctly - LOC Commands LOC Commands: Performs both correctly - Best Gaze Best Gaze: Normal - Visual Visual: No visual loss - Facial Palsy Facial Palsy: Minor asymmetry on smiling, flattened nasolabial fold - Motor Arms Motor Arm-Left: No effort against gravity, limb falls to bed, some movement Motor Arm-Right: No drift for 10 seconds - Motor Legs Motor Leg-Left: No effort against gravity, limb falls to bed, some movement Motor Leg-Right: No drift for 5 seconds - Limb Ataxia Limb Ataxia: Absent of affected limb too weak to perform exam - Sensory Sensory: Mild to moderate loss, "not as sharp" - Best Language Best Language: No aphasia - Dysarthria Dysarthria: Mild, slurs some words - Extinction and Inattention Extinction and Inattention: Normal - NIHSS Total Score NIHSS Total Score: 9 TPA Checklist - LKW: 3-4.5 hrs Add. Warnings/Precautions Patient/family understanding: The patient/family members have been counseled and understood the risk, benefit, and alternatives of treatment.
[2018-09-16] MEDS ORDERED: Isovue-370 500 ML BOTTLE IVP ONE ×2 (10:29→14:15)
--- NOTE | 2018-09-16 10:44 | Emergency Department Note ---
Disposition Clinical Impression: Left-sided weakness Extravasation accident Qualifiers: Encounter type: initial encounter Qualified Code(s): T80.818A - Extravasation of other vesicant agent, initial encounter Disposition: Admitted As Inpatient Time of Disposition: 12:00 Neuro HPI - General Chief Complaint: ED Neuro Symptoms/Deficit Stated Complaint: stroke symptoms Time Seen by Provider: 09/16/18 10:28 Source: EMS Mode of arrival: EMS Limitations: no limitations - Related Data Home Medications: Home Medications Medication Instructions Recorded Confirmed Gabapentin [Neurontin] 600 mg PO BID 01/01/18 09/17/18 Insulin Aspart Prot/Insuln Asp 30 unit SQ BIDWM 01/01/18 09/17/18 [Novolog Mix 70-30 Vial] Losartan/HCTZ [Hyzaar 50-12.5 1 each PO DAILY 01/01/18 09/17/18 Tablet] Metformin HCl 1,000 mg PO BID 01/01/18 09/17/18 Metoprolol Succinate [Toprol Xl] 25 mg PO QAM 01/01/18 09/17/18 Omeprazole [PriLOSEC] 40 mg PO DAILY 01/01/18 09/17/18 Aspirin 325 mg PO DAILY 03/08/18 09/17/18 Pravastatin Sodium 10 mg PO HS 03/08/18 09/17/18 Topiramate 50 mg PO BID 03/08/18 09/17/18 Venlafaxine HCl [Venlafaxine HCl 300 mg PO DAILY 03/08/18 09/17/18 ER] ARIPiprazole [Abilify] 2 mg PO HS 08/11/18 09/17/18 Loratadine [Allergy Relief] 10 mg PO DAILY 08/11/18 09/17/18 Tizanidine HCl 2 mg PO BID 08/11/18 09/17/18 Acetaminophen [Tylenol] 500 mg PO Q6HR 09/16/18 09/17/18 Ketorolac [Toradol] 10 mg PO DAILY PRN 09/16/18 09/17/18 Melatonin [Melatin] 3 - 6 mg PO HS PRN 09/16/18 09/17/18 Nitroglycerin [Nitrostat] 0.4 mg SL Q5M PRN 09/16/18 09/17/18 LORazepam [Ativan] 0.5 - 1 mg PO DAILY PRN 09/17/18 09/17/18 Allergies/Adverse Reactions: Allergies Allergy/AdvReac Type Severity Reaction Status Date / Time No Known Allergies Allergy Verified 09/17/18 13:39 Past Medical History - Past Medical History Medical history: Reports: COPD, CVA, diabetes, GERD, hypertension, TIA Surgical history: Reports: cholecystectomy, herniorrhaphy, hysterectomy, orthopedic, other Psychiatric history: Reports: anxiety - Social History Smoking Status: Never smoker Smokeless Tobacco Status: No Alcohol use: Reports: none Drug use: Reports: none Physical Exam - General Limitations: no limitations Course Vital Signs Temperature 98.6 F 09/16/18 10:19 Pulse Rate 87 09/16/18 10:19 Respiratory Rate 16 09/16/18 10:19 Blood Pressure 132/85 09/16/18 10:19 O2 Sat by Pulse Oximetry 100 09/16/18 10:19 Temperature 98.4 F 09/17/18 11:29 Pulse Rate 70 09/17/18 11:29 Respiratory Rate 13 09/17/18 11:29 Blood Pressure 135/75 09/17/18 11:29 O2 Sat by Pulse Oximetry 96 09/17/18 11:29 Oxygen Delivery Oxygen Delivery Room Air Neuro Symptoms/Deficit - Lab Data Result diagrams: 09/17/18 04:34 09/17/18 04:34 Lab Results 09/16/18 09/16/18 09/16/18 Range/Units 10:21 10:40 10:40 WBC 11.1 (4.3-11.1) K/mcL RBC 4.43 (3.82-4.97) M/mcL Hgb 9.0 L (11.5-15.4) g/dL Hct 33.1 L (35.3-44.9) % MCV 74.7 L (83.0-100.0) fL MCH 20.3 L (28.0-33.3) pg MCHC 27.2 L (31.6-35.5) g/dL RDW 20.0 H (11.5-14.5) % Plt Count 297 (140-400) K/mcL MPV 9.3 L (9.4-12.4) fL Immature Gran % (0-4) % Seg Neutrophils % % Lymphocytes % % Monocytes % % Eosinophils % % Basophils % % Neutrophils # (1.6-8.9) K/mcL Lymphocytes # (0.6-4.6) K/mcL Monocytes # (0.0-1.3) K/mcL Eosinophils # (0.0-0.6) K/mcL Basophils # (0.0-0.2) K/mcL Platelet Estimate (Normal) Polychromasia (Not Present) Hypochromasia (Not Present) Anisocytosis (Not Present) Macrocytosis (Not Present) PT 11.1 (9.4-12.1) Seconds INR 1.0 APTT 22.6 L (26.0-36.0) Seconds Sodium (136-145) mEq/L Potassium (3.5-5.1) mEq/L Chloride (98-107) mEq/L Carbon Dioxide (23-29) mEq/L BUN (8-23) mg/dL Creatinine (0.60-1.20) mg/dL Est GFR ( Amer) (> 60) Est GFR (Non-Af Amer) (> 60) BUN/Creatinine Ratio (6-26) Glucose (70-105) mg/dL POC Glucose 174 H (70-99) mg/dL Calculated Osmolality (280-300) Calcium (8.6-10.3) mg/dL Phosphorus (2.7-4.5) mg/dL Magnesium (1.6-2.6) mg/dL Troponin I (< 0.04) ng/mL Triglycerides (< 150) mg/dL Cholesterol (< 200) mg/dL LDL Cholesterol, Calc (0-99) mg/dL VLDL Cholesterol, Calc (< 31) mg/dL HDL Cholesterol (40-59) mg/dL Cholesterol/HDL Ratio (0-4.9) Urine Color (Yellow) Urine Clarity (Clear) Urine pH (5.0-8.0) pH Units Ur Specific Milo (1.010-1.025) Urine Protein (Neg-Trace) mg/dL Urine Glucose (UA) (Normal) mg/dL Urine Ketones (Negative) mg/dL Urine Blood (Negative) Urine Nitrite (Negative) Urine Bilirubin (Negative) Urine Urobilinogen (Normal) mg/dL Ur Leukocyte Esterase (Negative) Urine Microscopic RBC (0-3) per hpf Urine Microscopic WBC (0-3) per hpf Ur Squamous Epith Cells (None-Few) per lpf Urine Bacteria (None-Few) per hpf Hyaline Casts (None-Few) per lpf Ur Culture Indicated? (NO) 09/16/18 09/16/18 09/16/18 Range/Units 10:40 12:00 19:11 WBC (4.3-11.1) K/mcL RBC (3.82-4.97) M/mcL Hgb (11.5-15.4) g/dL Hct (35.3-44.9) % MCV (83.0-100.0) fL MCH (28.0-33.3) pg MCHC (31.6-35.5) g/dL RDW (11.5-14.5) % Plt Count (140-400) K/mcL MPV (9.4-12.4) fL Immature Gran % (0-4) % Seg Neutrophils % % Lymphocytes % % Monocytes % % Eosinophils % % Basophils % % Neutrophils # (1.6-8.9) K/mcL Lymphocytes # (0.6-4.6) K/mcL Monocytes # (0.0-1.3) K/mcL Eosinophils # (0.0-0.6) K/mcL Basophils # (0.0-0.2) K/mcL Platelet Estimate (Normal) Polychromasia (Not Present) Hypochromasia (Not Present) Anisocytosis (Not Present) Macrocytosis (Not Present) PT (9.4-12.1) Seconds INR APTT (26.0-36.0) Seconds Sodium 140 (136-145) mEq/L Potassium 4.0 (3.5-5.1) mEq/L Chloride 106 (98-107) mEq/L Carbon Dioxide 23 (23-29) mEq/L BUN 14 (8-23) mg/dL Creatinine 0.92 (0.60-1.20) mg/dL Est GFR ( Amer) > 60 (> 60) Est GFR (Non-Af Amer) 59 L (> 60) BUN/Creatinine Ratio 15 (6-26) Glucose 148 H (70-105) mg/dL POC Glucose 97 (70-99) mg/dL Calculated Osmolality 293 (280-300) Calcium 9.3 (8.6-10.3) mg/dL Phosphorus (2.7-4.5) mg/dL Magnesium (1.6-2.6) mg/dL Troponin I < 0.03 (< 0.04) ng/mL Triglycerides (< 150) mg/dL Cholesterol (< 200) mg/dL LDL Cholesterol, Calc (0-99) mg/dL VLDL Cholesterol, Calc (< 31) mg/dL HDL Cholesterol (40-59) mg/dL Cholesterol/HDL Ratio (0-4.9) Urine Color Yellow (Yellow) Urine Clarity Clear (Clear) Urine pH 6.0 (5.0-8.0) pH Units Ur Specific Milo 1.020 (1.010-1.025) Urine Protein Negative (Neg-Trace) mg/dL Urine Glucose (UA) Normal (Normal) mg/dL Urine Ketones Negative (Negative) mg/dL Urine Blood Negative (Negative) Urine Nitrite Negative (Negative) Urine Bilirubin Negative (Negative) Urine Urobilinogen Normal (Normal) mg/dL Ur Leukocyte Esterase Trace H (Negative) Urine Microscopic RBC 0-3 (0-3) per hpf Urine Microscopic WBC 3-5 H (0-3) per hpf Ur Squamous Epith Cells Many H (None-Few) per lpf Urine Bacteria Many H (None-Few) per hpf Hyaline Casts None Seen (None-Few) per lpf Ur Culture Indicated? YES A (NO) 09/17/18 09/17/18 Range/Units 04:34 04:34 WBC 8.8 (4.3-11.1) K/mcL RBC 4.21 (3.82-4.97) M/mcL Hgb 8.5 L (11.5-15.4) g/dL Hct 30.9 L (35.3-44.9) % MCV 73.4 L (83.0-100.0) fL MCH 20.2 L (28.0-33.3) pg MCHC 27.5 L (31.6-35.5) g/dL RDW 19.9 H (11.5-14.5) % Plt Count 297 (140-400) K/mcL MPV 9.3 L (9.4-12.4) fL Immature Gran % 0.2 (0-4) % Seg Neutrophils % 58.0 % Lymphocytes % 31.1 % Monocytes % 5.8 % Eosinophils % 3.9 % Basophils % 1.0 % Neutrophils # 5.1 (1.6-8.9) K/mcL Lymphocytes # 2.7 (0.6-4.6) K/mcL Monocytes # 0.5 (0.0-1.3) K/mcL Eosinophils # 0.3 (0.0-0.6) K/mcL Basophils # 0.1 (0.0-0.2) K/mcL Platelet Estimate Normal (Normal) Polychromasia 1+ A (Not Present) Hypochromasia Present A (Not Present) Anisocytosis 1+ A (Not Present) Macrocytosis Present A (Not Present) PT (9.4-12.1) Seconds INR APTT (26.0-36.0) Seconds Sodium 139 (136-145) mEq/L Potassium 4.0 (3.5-5.1) mEq/L Chloride 108 H (98-107) mEq/L Carbon Dioxide 22 L (23-29) mEq/L BUN 11 (8-23) mg/dL Creatinine 0.66 (0.60-1.20) mg/dL Est GFR ( Amer) > 60 (> 60) Est GFR (Non-Af Amer) > 60 (> 60) BUN/Creatinine Ratio 17 (6-26) Glucose 94 (70-105) mg/dL POC Glucose (70-99) mg/dL Calculated Osmolality 287 (280-300) Calcium 8.7 (8.6-10.3) mg/dL Phosphorus 3.3 (2.7-4.5) mg/dL Magnesium 2.1 (1.6-2.6) mg/dL Troponin I (< 0.04) ng/mL Triglycerides 215 H (< 150) mg/dL Cholesterol 139 (< 200) mg/dL LDL Cholesterol, Calc 49 (0-99) mg/dL VLDL Cholesterol, Calc 43 H (< 31) mg/dL HDL Cholesterol 47 (40-59) mg/dL Cholesterol/HDL Ratio 3.0 (0-4.9) Urine Color (Yellow) Urine Clarity (Clear) Urine pH (5.0-8.0) pH Units Ur Specific Milo (1.010-1.025) Urine Protein (Neg-Trace) mg/dL Urine Glucose (UA) (Normal) mg/dL Urine Ketones (Negative) mg/dL Urine Blood (Negative) Urine Nitrite (Negative) Urine Bilirubin (Negative) Urine Urobilinogen (Normal) mg/dL Ur Leukocyte Esterase (Negative) Urine Microscopic RBC (0-3) per hpf Urine Microscopic WBC (0-3) per hpf Ur Squamous Epith Cells (None-Few) per lpf Urine Bacteria (None-Few) per hpf Hyaline Casts (None-Few) per lpf Ur Culture Indicated? (NO) TPA Checklist - LKW: 3-4.5 hrs Add. Warnings/Precautions Patient/family understanding: The patient/family members have been counseled and understood the risk, benefit, and alternatives of treatment. Attestation Statement - Attestation Attestation: Resident Attestation: I examined this patient and my medical decision making was reviewed with the Resident Physician. I agree with the documented findings, disposition and treatment plan as described except to the extent set forth below. We independently had [id number] contact with the patient. Patient to the emergency room for left-sided deficits. No by staff for previous stroke visits. Last TPA was in April. Patient went [facility]. Patient without any specific evidence for stroke. Patient unable to go through MRI. Patient on arrival has left-sided deficits. She sepsis involving the left face left arm and left leg. Daughter will be contacted by resident physician. Stroke alert has been called. Patient will undergo further evaluation. After resident discussion with daughter. Daughter has complained of symptoms on the left side before but has then gone on to specifically move the left arm whe n prompted. The patient has had multiple visits to [facility] with no specific cause found. Daughter echoes patient statement in regards to not wanting TPA. CTA head and neck will be performed. There is interventional lesion, patient will be transferred to [facility]. Otherwise, it appears they would like conservative management at [facility] possible. They do understand this does not involve potential definitive or curative therapy. Patient went for CTA, IV had extravasation of the contrast material. The IV initially placed with ultrasound guidance and had meds flushed through it. Did not have any signs of extra prior to contrast per nurse. Extremity will be elevated, ice pack applied, how you are on today's ordered per hospital protocol.
[2018-09-16 10:53] LABS: Mean Platelet Volume 9.3 fL (9.4-12.4)
[2018-09-16 10:55] LABS: Hematocrit 33.1 % (35.3-44.9); Mean Corpuscular HGB Conc 27.2 g/dL (31.6-35.5); Mean Corpuscular Hemoglobin 20.3 pg (28.0-33.3); Mean Corpuscular Volume 74.7 fL (83.0-100.0); Platelet Count 297 K/mcL (140-400); Red Blood Count 4.43 M/mcL (3.82-4.97)
[2018-09-16] MEDS ORDERED: 0.9 % Sodium Chloride 1,000 ML IVC ONE (10:57)
[2018-09-16] MEDS ORDERED: Prochlorperazine 10 MG/2 ML VIAL IVP ONE (10:58)
[2018-09-16 11:04] LABS: Prothrombin Time 11.1 Seconds (9.4-12.1)
[2018-09-16 11:06] LABS: Activated Partial Thrombo Time 22.6 Seconds (26.0-36.0)
[2018-09-16 11:15] LABS: BUN/Creatinine Ratio 15 (6-26); Blood Urea Nitrogen 14 mg/dL (8-23); Calcium 9.3 mg/dL (8.6-10.3); Carbon Dioxide 23 mEq/L (23-29); Chloride 106 mEq/L (98-107); Glucose 148 mg/dL (70-105); Osmolality,Calculated 293 (280-300); Sodium 140 mEq/L (136-145); eGFR For Non-African Americans 59 (> 60)
[2018-09-16 12:23] LABS: Troponin I < 0.03 ng/mL (< 0.04)
[2018-09-16 12:24] LABS: Bilirubin,Urine Negative (Negative); Blood,Urine Negative (Negative); Clarity,Urine Clear (Clear); Color,Urine Yellow (Yellow); Glucose,Urine (UA) Normal (Normal); Ketones,Urine Negative (Negative); Leukocyte Esterase,Urine Trace (Negative); Nitrite,Urine Negative (Negative); Protein,Urine Negative (Neg-Trace); Urobilinogen,Urine Normal (Normal)
[2018-09-16 12:30] LABS: Bacteria,Urine Many per hpf (None-Few); Hyaline Casts,Urine None Seen per lpf (None-Few); RBC,Urine 0-3 per hpf (0-3); Squamous Epithelial Cell,Urine Many per lpf (None-Few)
[2018-09-16] MEDS: 0.9 % Sodium Chloride 1,000 ML IVC SCH (14:09)
[2018-09-16] MEDS ORDERED: Naloxone 0.4 MG/ML INJ IVP PRN (17:07)
[2018-09-16] MEDS ORDERED: D5% in Water 1,000 ML IVC PRN (17:11)
[2018-09-16] MEDS ORDERED: *HR* Dextrose 50 % in Water (Syg) 50 ML SYRINGE IVP PRN (17:11)
[2018-09-16] MEDS ORDERED: Dextrose Gel 15 GM/37.5 ML TUBE PO PRN ×2 (17:11)
--- NOTE | 2018-09-16 17:43 | Internal Med History&Physical ---
Date of Encounter: 09/16/18 Time of Encounter: 17:36 Internal Medicine - H&P: HPI Chief complaint: facial droop and worsening left sided weakness Admitted From: Home Plans for Post Hospital Care: Home History of present illness: Ms. Davenport is a 78 year old female PMH of CVA and multiple TIAs, DM, HTN, chronic headache s/p Botox injection and COPD. Patient presented to the ED due to left facial droop and slurred speech. patient reports that the had a CVA on November 26, 2017 and she had significant left sided weakness for which she required extensive rehabilitation. She reports that after this CVA she has had multiple episodes of stroke like symptoms, which she describes as worsening left extremity weakness, left facial droop and slurred speech. Reports that today after she finished eating breakfast she started feeling this strange sensation on her left side and started feeling like she had left facial droop and slurred speech. She asked some of her family members if her face was different and they told her it did and they called EMS. Patient also reports having urinary frequency and urgency for the past 2 weeks. denies dysuria or abdominal pain. denies fever or chills. 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,bilateral knee osteoarthritis,avulsion of hamstring muscle,lactic acidosis,3rd toe right turning under, spinal cord stimulator,stroke Psychiatric history: anxiety - Past Surgical History Surgical History: cholecystectomy, herniorrhaphy, hysterectomy, orthopedic, other Additional surgical history: bilateral knee,hip implant neuromodulation,intestinal resection,hiatal hernia repair,colonoscopy/EGD,heart cath,botulinium toxin injection gastroenteric anastomosis - Social History Smoking Status: Never smoker Smokeless Tobacco Status: No Alcohol use: none Drug use: none - Family History Mother Living Status: Still Living Hx Family Neuromuscular Disorders: Yes (Dementia) Hx Family Neurologic Disorders: Yes (Dementia) Sister Hx Family Cancer: Yes Father Living Status: Internal Medicine - H&P: Meds Gabapentin [Neurontin] 600 mg PO BID 01/01/18 [History] Insulin Aspart Prot/Insuln Asp [Novolog Mix 70-30 Vial] 30 unit SQ BIDWM 01/01/18 [History] Losartan/HCTZ [Hyzaar 50-12.5 Tablet] 1 each PO DAILY 01/01/18 [History] Metformin HCl 1,000 mg PO BID 01/01/18 [History] Metoprolol Succinate [Toprol Xl] 25 mg PO QAM 01/01/18 [History] Omeprazole [PriLOSEC] 40 mg PO DAILY 01/01/18 [History] Aspirin 325 mg PO DAILY 03/08/18 [History] Pravastatin Sodium 10 mg PO HS 03/08/18 [History] Topiramate 50 mg PO BID 03/08/18 [History] Venlafaxine HCl [Venlafaxine HCl ER] 300 mg PO DAILY 03/08/18 [History] ARIPiprazole [Abilify] 2 mg PO HS 08/11/18 [History] Loratadine [Allergy Relief] 10 mg PO DAILY 08/11/18 [History] Tizanidine HCl 2 mg PO BID 08/11/18 [History] Ondansetron ODT [Zofran ODT] 4 mg SL Q8HR PRN #15 tab.rapdis 08/15/18 [Rx] Acetaminophen [Tylenol] 500 mg PO Q6HR 09/16/18 [History] Ketorolac [Toradol] 10 mg PO DAILY PRN 09/16/18 [History] Melatonin [Melatin] 3 mg PO HS PRN 09/16/18 [History] Nitroglycerin [Nitrostat] 0.4 mg SL Q5M PRN 09/16/18 [History] Allergy/AdvReac Type Severity Reaction Status Date / Time No Known Allergies Allergy Verified 03/08/18 13:00 All Systems PM: A 10-system review of systems was performed and is negative for pertinent findings except as documented above in the HPI. - Constitutional Constitutional: weakness, no chills, no fever(s), no lethargy - EENT Eyes: no irritation, no pain - Cardiovascular Cardiovascular ROS IM: no chest pain, no dyspnea, no edema - Respiratory Respiratory: no cough, no wheezing, no excessive phlegm production - Gastrointestinal Gastrointestinal: no abdominal pain, no melena, no vomiting - Genitourinary Genitourinary: urinary frequency, no dysuria, no urinary incontinence, no urinary urgency - Musculoskeletal Musculoskeletal ROS IM: limited range of motion, numbness, no atrophy, no stiffness, no tingling - Integumentary Integumentary IM: no erythema, no non-healing lesions - Neurological Neurological ROS: numbness (left facial.), weakness, no dizziness, no headache(s ), no lack of coordination, no loss of vision - Psychiatric Psychiatric: no anxiety, no hopelessness, no irritability - Endocrine Endocrine IM: no cold intolerance, no excessive sweating - Allergic/Immunologic Allergic/Immunologic: no GI upset with certain foods - Constitutional Vitals: Temp Pulse Resp BP Pulse Ox 98.6 F 72 16 133/62 100 09/16/18 10:19 09/16/18 15:16 09/16/18 15:16 09/16/18 15:16 09/16/18 15:16 Exam: General: Patient is alert, oriented x4. In mild distress due to worsening left sided weakness Head: atraumatic, normocephalic, Eye: normal appearance, PERRL, no scleral icterus, no conjunctival injection Neck: normal inspection, trachea midline, full ROM, no carotid bruits Respiratory: Good respiratory effort. CTA b/l, no wheezing, or crackles. Cardiovascular: RRR, normal s1 and s2, No clicks, rubs, gallops, or murmors. Abdomen: Bowel sounds present normoactive x-4 quadrants. Abdomen is soft, nondistended. No guarding or rebound. Musculoskeletal: No edema, no calf tenderness. strength in the left upper extr 4/5, 5/5 in the right upper extr, 2/5 in the left lower extr and 5/5 in the right lower extr. Neuro: Not aphasic. CN II-XII intact. Psych: Patient's affect is normal Internal Med - H&P Results - Labs CBC & Chem 7: 09/16/18 10:40 09/16/18 10:40 Labs: Short CBC 09/16/18 Range/Units 10:40 WBC 11.1 (4.3-11.1) K/mcL Hgb 9.0 L (11.5-15.4) g/dL Hct 33.1 L (35.3-44.9) % Plt Count 297 (140-400) K/mcL BMP 09/16/18 10:40 Sodium 140 Potassium 4.0 Chloride 106 Carbon Dioxide 23 BUN 14 Creatinine 0.92 Glucose 148 H Calcium 9.3 Cardiac Enzymes 09/16/18 Range/Units 10:40 Troponin I < 0.03 (< 0.04) ng/mL Urine 09/16/18 Range/Units 12:00 Urine Color Yellow (Yellow) Urine Clarity Clear (Clear) Urine pH 6.0 (5.0-8.0) pH Units Ur Specific Hamel 1.020 (1.010-1.025) Urine Protein Negative (Neg-Trace) mg/dL Urine Glucose (UA) Normal (Normal) mg/dL - Impressions ITS Impressions Head CTA 09/16/18 00:00 IMPRESSION: Normal CTA of the head and neck. No significant arterial stenosis identified. No aneurysm or dissection. D/ / Jeevan Shah MD / Jeevan Shah MD Interpreting Provider: Jeevan Shah MD Neck CTA 09/16/18 00:00 IMPRESSION: Normal CTA of the head and neck. No significant arterial stenosis identified. No aneurysm or dissection. D/ / Jeevan Shah MD / Jeevan Shah MD Interpreting Provider: Jeevan Shah MD Head CT 09/16/18 10:22 IMPRESSION: No acute intracranial abnormality. D/ / 09/16/2018 10:44:41 Bradley Lorenzo MD / Charu Rocha Interpreting Provider: Bradley Lorenzo MD Head CTA 09/16/18 14:15 IMPRESSION: Failed procedure due to IV infiltration. No gross evidence of acute abnormality within the visualized portion of the neck. Repeat examination may be obtained as clinically warranted. Repeat CTA head and neck may be obtained, once IV access has been reobtained. D/ : / 09/16/2018 14:34:14 Sherman Virk MD / [email or web address] Interpreting Provider: Sherman Virk MD Neck CTA 09/16/18 14:15 IMPRESSION: Failed procedure due to IV infiltration. No gross evidence of acute abnormality within the visualized portion of the neck. Repeat examination may be obtained as clinically warranted. Repeat CTA head and neck may be obtained, once IV access has been reobtained. D/ /16/2018 14:34:14 Sherman Virk MD / [email or web address] Interpreting Provider: Sherman Virk MD - Assessment and Plan (1) Left-sided weakness Current Visit: Yes Status: Acute Assessment and plan: patient reports left sided facial droop and worsening left upper and lower extremities weakness. worsening symptoms likely due to UTI. patient reported urinary frequency. Plan unable to obtain a MRI of the brain as patient has a spinal stimulator CTA of the head and neck: unremarkable Neurology consulted Will continue home dose of Aspirin 325mg/PO daily Lipid panel Hydralazine 5mg/IV Q6HR for SBP >190 PT/OT (2) DVT prophylaxis Current Visit: No Status: Chronic Assessment and plan: started on heparin subQ (3) Depression Current Visit: No Status: Chronic Assessment and plan: Continue home dose Aripiprazole. Qualifiers: Depression Type: unspecified Qualified Code(s): F32.9 - Major depressive disorder, single episode, unspecified (4) Diabetes mellitus Current Visit: No Status: Chronic Assessment and plan: carbs controlled diet. started on lispro medium dose sliding scale. 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 will start patient on ceftriaxone 1gm/IV jonathan ly. Qualifiers: Urinary tract infection type: acute cystitis Hematuria presence: without hematuria Qualified Code(s): N30.00 - Acute cystitis without hematuria (8) Migraine headache Current Visit: Yes Status: Chronic Assessment and plan: patient s/p Botox injection. will continue topiromate Qualifiers: Migraine type: unspecified Status migrainosus presence: without status migrainosus Intractability: not intractable Qualified Code(s): G43.909 - Migraine, unspecified, not intractable, without status migrainosus - Time Spent With Patient Total time spent is greater than 50% in coordination of care (as documented) at patient's floor/unit and/or counseling patient: Greater than 35 minutes (45)
[2018-09-16] MEDS: ARIPiprazole 2 MG TABLET PO SCH (21:21)
[2018-09-16] MEDS: cefTRIAXone 1,000 MG in Water for inj. (sterile) 20 ML 10 ML IVP SCH (21:22)
[2018-09-16] MEDS: Aspirin Enteric Coated 325 MG Tablet PO SCH (21:22)
[2018-09-16] MEDS: Topiramate 25 MG TABLET PO SCH (21:22)
[2018-09-16] MEDS: *HR* Heparin 5,000 UNIT/ML VIAL SQ SCH (21:23)
[2018-09-16] MEDS: Insulin DETEMIR 100 UNIT/ML X5UNITS SQ SCH (21:23)
[2018-09-16] MEDS: traMADol 50 MG TABLET PO PRN (21:47)
[2018-09-17] MEDS: Melatonin 3 MG TABLET PO PRN ×2 (00:34→21:24)
[2018-09-17] MEDS: Gabapentin 300 MG CAPSULE PO SCH ×3 (00:34→21:22)
[2018-09-17] MEDS: 0.9 % Sodium Chloride 1,000 ML IVC SCH (04:33)
[2018-09-17] MEDS: traMADol 50 MG TABLET PO PRN ×3 (05:02→21:22)
[2018-09-17] MEDS: *HR* Heparin 5,000 UNIT/ML VIAL SQ SCH ×3 (05:02→21:23)
[2018-09-17 05:11] LABS: Hemoglobin 8.5 g/dL (11.5-15.4); Immature Granulocytes % 0.2 % (0-4)
[2018-09-17 05:13] LABS: Basophils # 0.1 K/mcL (0.0-0.2); Eosinophils # 0.3 K/mcL (0.0-0.6); Eosinophils % 3.9 %; Hematocrit 30.9 % (35.3-44.9); Lymphocytes # 2.7 K/mcL (0.6-4.6); Lymphocytes % 31.1 %; Mean Corpuscular HGB Conc 27.5 g/dL (31.6-35.5); Mean Corpuscular Hemoglobin 20.2 pg (28.0-33.3); Mean Corpuscular Volume 73.4 fL (83.0-100.0); Mean Platelet Volume 9.3 fL (9.4-12.4); Monocytes # 0.5 K/mcL (0.0-1.3); Monocytes % 5.8 %; Neutrophils # 5.1 K/mcL (1.6-8.9); Platelet Count 297 K/mcL (140-400); Red Blood Count 4.21 M/mcL (3.82-4.97); Red Cell Distribution Width 19.9 % (11.5-14.5)
[2018-09-17 05:32] LABS: Cholesterol 139 mg/dL (< 200); HDL Cholesterol 47 mg/dL (40-59); LDL Cholesterol,Calculated 49 mg/dL (0-99); Triglycerides 215 mg/dL (< 150)
[2018-09-17 05:51] LABS: Anisocytosis 1+ (Not Present); Hypochromasia Present (Not Present); Macrocytosis Present (Not Present); Platelet Estimate Normal (Normal); Polychromasia 1+ (Not Present)
[2018-09-17] MEDS: Insulin LISPRO 300 UNITS/3 ML VIAL SQ SCH ×3 (08:31→17:02)
[2018-09-17] MEDS: Losartan/HCTZ 50-12.5 TABLET PO SCH (08:34)
[2018-09-17] MEDS: Topiramate 25 MG TABLET PO SCH ×2 (08:34→21:22)
[2018-09-17] MEDS: cefTRIAXone 1,000 MG in Water for inj. (sterile) 20 ML 10 ML IVP SCH (08:34)
[2018-09-17] MEDS: Aspirin Enteric Coated 325 MG Tablet PO SCH (08:34)
--- NOTE | 2018-09-17 09:57 | Neurology - Consult Note ---
<Tommie Zambrano J - Last Filed: 09/17/18 15:31> Date of Encounter: 09/17/18 Time of Encounter: 09:53 Assessment and Plan (1) Left-sided weakness Current Visit: Yes Status: Acute P/W left-sided weakness and paresthesias Multiple admissions for the same in the past; has had 10 admissions with stroke alert called and negative CT imaging of the head since 10/2017 During one of these admissions she reports receiving TPA Again, presents with the same presentation of left-sided weakness and paresthesias CT head and CT angiogram this admission unremarkable She reports that her symptoms are improving. Neuro exam reveals some left arm and leg weakness 3/5 with poor effort on exam. Additionally, admits to diminished sensation in left face arm and leg however, during sensory testing patient reporting diminished sensation before crossing midline when assessing laterality of sensory deficits. Low suspicion for acute CVA. This is most like ly conversion disorder which she has been previously diagnosed. We do not recommend any further neuro imaging or workup at this time. However, we do recommend a psychiatric consultation for evaluation given conversion disorder. History of Present Illness Chief complaint: left sided weakness and parasthesias HPI: Ms. Davenport is a 78 year old female with a PMH of conversion disorder, CVA, multiple TIAs, DM, HTN, chronic headache S/P Botox injection and COPD. She is known to neurology and has had multiple workups both here and at [facility] in the last 6 months for CVA and TIA. She presents to the ED from a [facility] with a CC of left facial droop, slurred speech, left-sided paresthesias and weakness. The time of my assessment this morning her symptoms are persisting. However, she notes that they have improved since admission. There is no evidence of speech slurring or facial droop. Patient is unable to obtain an MRI due to spinal stimulator. CT of head was obtained in the ED and shows no acute intracranial abnormality. CT of the head and neck shows no significant arterial stenosis no aneurysm or dissection. Past Med Surg Social Fam HX - Past Medical History Medical history: COPD, CVA, diabetes, GERD, hypertension, TIA Additional medical history: depression,lateral meniscus tear,perniciuos anemia,anxiety,bilateral hip osteoarthritis,left hamstring avulsion,peripheral neuropathy,diabetic neuropathy,left foot drop,right third MCP post traumatic synovitis,bilateral knee osteoarthritis,avulsion of hamstring muscle,lactic acidosis,3rd toe right turning under, spinal cord stimulator,stroke Psychiatric history: anxiety - Past Surgical History Surgical History: cholecystectomy, herniorrhaphy, hysterectomy, orthopedic, other Additional surgical history: bilateral knee,hip implant neuromodulation,intestinal resection,hiatal hernia repair,colonoscopy/EGD,heart cath,botulinium toxin injection gastroenteric anastomosis - Social History Smoking Status: Never smoker Smokeless Tobacco Status: No Alcohol use: none Drug use: none - Family History Mother Living Status: Still Living Hx Family Neuromuscular Disorders: Yes (Dementia) Hx Family Neurologic Disorders: Yes (dementia) Sister Hx Family Cancer: Yes Father History Unknown: Yes Living Status: Medications and Allergies Gabapentin [Neurontin] 600 mg PO BID 01/01/18 [History] Insulin Aspart Prot/Insuln Asp [Novolog Mix 70-30 Vial] 30 unit SQ BIDWM 01/01/18 [History] Losartan/HCTZ [Hyzaar 50-12.5 Tablet] 1 each PO DAILY 01/01/18 [History] Metformin HCl 1,000 mg PO BID 01/01/18 [History] Metoprolol Succinate [Toprol Xl] 25 mg PO QAM 01/01/18 [History] Omeprazole [PriLOSEC] 40 mg PO DAILY 01/01/18 [History] Aspirin 325 mg PO DAILY 03/08/18 [History] Pravastatin Sodium 10 mg PO HS 03/08/18 [History] Topiramate 50 mg PO BID 03/08/18 [History] Venlafaxine HCl [Venlafaxine HCl ER] 300 mg PO DAILY 03/08/18 [History] ARIPiprazole [Abilify] 2 mg PO HS 08/11/18 [History] Loratadine [Allergy Relief] 10 mg PO DAILY 08/11/18 [History] Tizanidine HCl 2 mg PO BID 08/11/18 [History] Acetaminophen [Tylenol] 500 mg PO Q6HR 09/16/18 [History] Ketorolac [Toradol] 10 mg PO DAILY PRN 09/16/18 [History] Melatonin [Melatin] 3 - 6 mg PO HS PRN 09/16/18 [History] Nitroglycerin [Nitrostat] 0.4 mg SL Q5M PRN 09/16/18 [History] LORazepam [Ativan] 0.5 - 1 mg PO DAILY PRN 09/17/18 [History] Allergy/AdvReac Type Severity Reaction Status Date / Time No Known Allergies Allergy Verified 09/17/18 13:39 All Systems: The remainder of the systems were reviewed and are negative Review of Systems: REVIEW OF SYSTEMS GENERAL: Negative for any nausea, vomiting, fevers, chills NEUROLOGIC: Negative for any blurry vision, blind spots, double vision,dysphagia, Wsghrmar-qvuh-lhcwe paresthesias and weakness, reporting left facial droop and s lurred speech which has since resolved CARDIAC: Negative for any chest pain, dyspnea, or palpitation MUSCULOSKELETAL: Positive-loss of strength to left arm and leg, Decreased activity tolerance Physical Examination - Vital Signs Vital Signs: Initial Vital Signs Temp Pulse Resp BP Pulse Ox 98.6 F 87 16 132/85 100 09/16/18 10:19 09/16/18 10:19 09/16/18 10:19 09/16/18 10:09/16/18 10:19 - Exam Exam: Examination: General Examination: *CONSTITUTIONAL: Alert and oriented x3, no acute distress *GENERAL APPEARANCE OF PATIENT appears healthy and well groomed *EYES: pupils equal, round, reactive to light and accommodation *CARDIOVASCULAR no peripheral edema, see vital signs Musculoskeletal: *GAIT AND STATION *ASSESSMENT OF MUSCLE STRENGTH IN THE UPPER AND LOWER EXTREMITIES right deltoid, bicep, tricep, animal rehabilitator strength, hip flexors ,anterior tibialis, dorsoflexion of the foot 5/5 - left deltoid, bicep, tricep, animal rehabilitator strength is 3/5, left hip flexor, anterior tibialis and dorsal flexion of 3/5 *MUSCLE TONE IN THE UPPER AND LOWER EXTREMITIES No abnormal movements, fasciculations or atrophy identified. Neurological: *ORIENTATION to person, situation, time and place *RECURRENT AND REMOTE MEMORY intact *ATTENTION AND CONCENTRATION are normal *LANGUAGE FUNCTION no significant aphasia or dysarthia was noted. *FUND OF KNOWLEDGE aware of current events, past history, vocabulary *MENTAL attention span and concentration normal. *CN II optic fundi were normal, no papilledema noted. *CN III,IV, PERRLA extraocular eye movements were full, no nystagmus and no ptosis noted. *CN V shows normal sensation and jaw opens symmetrically. *CN VII shows normal facial movement symmetrically, upper and lower bilaterally. *CN VIII shows no significant hearing loss on exam *CN IX,,X palate elevated symmetrically *CN XI normal strength in the sternocleidomastoid muscles, symmetrical shoulder shrugging. *CN XII tongue protruded in the midline, with normal strength and movement. *SENSORY EXAMINATION diminished sensation to sharp and light touch on left face, arm and leg however, there is some discrepancy as some of the sensory deficit occurs before crossing midline from right to left *REFLEXES: deep tendon reflexes were normal and symmetrical , grade 2/4 diffusely, no pathological reflexes were noted. *PAIN LEVEL 0/10 Results - Laboratory Findings CBC and BMP: 09/17/18 04:34 09/17/18 04:34 Abnormal lab findings: Abnormal lab results Hgb 8.5 g/dL (11.5-15.4) L 09/17/18 04:34 Hct 30.9 % (35.3-44.9) L 09/17/18 04:34 MCV 73.4 fL (83.0-100.0) L 09/17/18 04:34 MCH 20.2 pg (28.0-33.3) L 09/17/18 04:34 MCHC 27.5 g/dL (31.6-35.5) L 09/17/18 04:34 RDW 19.9 % (11.5-14.5) H 09/17/18 04:34 MPV 9.3 fL (9.4-12.4) L 09/17/18 04:34 1+ (Not Present) A 09/17/18 04:34 Present (Not Present) A 09/17/18 04:34 1+ (Not Present) A 09/17/18 04:34 Present (Not Present) A 09/17/18 04:34 APTT 22.6 Seconds (26.0-36.0) L 09/16/18 10:40 Est GFR (Non-Af Amer) 59 (> 60) L 09/16/18 10:40 Glucose 148 mg/dL (70-105) H 09/16/18 10:40 POC Glucose 174 mg/dL (70-99) H 09/16/18 10:21 Triglycerides 215 mg/dL (< 150) H 09/17/18 04:34 VLDL Cholesterol, Calc 43 mg/dL (< 31) H 09/17/18 04:34 Ur Leukocyte Esterase Trace (Negative) H 09/16/18 12:00 3-5 per hpf (0-3) H 09/16/18 12:00 Ur Squamous Epith Cells Many per lpf (None-Few) H 09/16/18 12:00 Many per hpf (None-Few) H 09/16/18 12:00 Ur Culture Indicated? YES (NO) A 09/16/18 12:00 - Diagnostic Findings Additional findings: CT/CT angio neck IMPRESSION: Normal CTA of the head and neck. No significant arterial stenosis identified. No aneurysm or dissection. CT/CT stroke alert head wo con IMPRESSION: No acute intracranial abnormality. Consult Discharge Plan - Plan Referrals: NONE,PCP [Primary Care Provider] - <Jayden Johnson I - Last Filed: 09/17/18 16:06> Date of Encounter: 09/17/18 Assessment and Plan (1) Left-sided weakness Current Visit: Yes Status: Acute I have personally performed a face to face diagnostic evaluation, including HPI, EXAM, which is included in the Assesment and plan, which was discussed with Tommie Zambrano CNP, I agree with the above outlined documentation. Patient is known to me from previous office visits as well as multiple admissions including [facility] and [facility] with stroke like symptoms. Patient had multiple workup for stroke in all has been negative. Even today's examination significant functional deficit on exam. She had been evaluated by psychiatrist as an outpatient. Symptoms are consistent with conversion disorder. Unable to get an MRI of the brain because of the stimulator but again multiple CT angiograms and CT of the headaches had been negative. Not recommend any more angiograms at this time. Suggest psychiatric evaluation, probably would need long-term rehabilitation and behavioral therapy. At the same times need to discussed with the family regarding long-term care plan, no family is available at this time but I have discussed it with her daughter in the past, that need to come is some long-term plan about her care otherwise she would continue to have these symptoms and afraid that she may get TPA with acute acute stroke like symptoms and that could have a potentially devastating side affects. Jayden Johnson MD. Neurology History of Present Illness HPI: Ms. Davenport is a 78 year old female All Systems: The remainder of the systems were reviewed and are negative Physical Examination - Vital Signs Vital Signs: Initial Vital Signs Temp Pulse Resp BP Pulse Ox 98.6 F 87 16 132/85 100 09/16/18 10:19 09/16/18 10:19 09/16/18 10:19 09/16/18 10:19 09/16/18 10:19 Results - Laboratory Findings CBC and BMP: 09/17/18 04:34 09/17/18 04:34 Abnormal lab findings: Abnormal lab results Hgb 8.5 g/dL (11.5-15.4) L 09/17/18 04:34 Hct 30.9 % (35.3-44.9) L 09/17/18 04:34 MCV 73.4 fL (83.0-100.0) L 09/17/18 04:34 MCH 20.2 pg (28.0-33.3) L 09/17/18 04:34 MCHC 27.5 g/dL (31.6-35.5) L 09/17/18 04:34 RDW 19.9 % (11.5-14.5) H 09/17/18 04:34 MPV 9.3 fL (9.4-12.4) L 09/17/18 04:34 1+ (Not Present) A 09/17/18 04:34 Present (Not Present) A 09/17/18 04:34 1+ (Not Present) A 09/17/18 04:34 Present (Not Present) A 09/17/18 04:34 APTT 22.6 Seconds (26.0-36.0) L 09/16/18 10:40 Chloride 108 mEq/L (98-107) H 09/17/18 04:34 Carbon Dioxide 22 mEq/L (23-29) L 09/17/18 04:34 Est GFR (Non-Af Amer) 59 (> 60) L 09/16/18 10:40 Glucose 148 mg/dL (70-105) H 09/16/18 10:40 POC Glucose 174 mg/dL (70-99) H 09/16/18 10:21 Triglycerides 215 mg/dL (< 150) H 09/17/18 04:34 VLDL Cholesterol, Calc 43 mg/dL (< 31) H 09/17/18 04:34 Ur Leukocyte Esterase Trace (Negative) H 09/16/18 12:00 3-5 per hpf (0-3) H 09/16/18 12:00 Ur Squamous Epith Cells Many per lpf (None-Few) H 09/16/18 12:00 Many per hpf (None-Few) H 09/16/18 12:00 Ur Culture Indicated? YES (NO) A 09/16/18 12:00
[2018-09-17] MEDS: Ketorolac 15 MG/ML VIAL IVP PRN ×2 (10:06→17:02)
--- NOTE | 2018-09-17 11:27 | Electrocardiograph Report ---
[employer] Test Date: 2018-09-16 Pat Name: Tiff Davenport Department: [id number] Room: 3B34 Gender: F Top Cager: : [phone] Requested By: Thuan Stephens Order Number: [id number] Reading MD: Octaviano Carrasco Measurements Intervals [place] Rate: 84 P: 87 NV: 156 QRS: 73 QRSD: 88 T: 64 QT: 363 QTc: 430 Interpretive Statements Sinus rhythm Low voltage, precordial leads Electronically Signed On 09-17-2018 11:25:30 EDT by Octaviano Carrasco
--- NOTE | 2018-09-17 11:42 | Internal Med Progress Note ---
Hospitalist Progress Note - Encounter Date of Encounter: 09/17/18 Time of Encounter: 11:42 - Subjective Interval History: I have seen and evaluated the patient at bedside. Patient reported improvement on the strength of her left upper extr, reports still feeling some tingling on the left lower side of her face. Patient denies nausea, vomiting or chest pain. - Exam Vitals: Temp Pulse Resp BP Pulse Ox 98.4 F 70 13 135/75 96 09/17/18 11:29 09/17/18 11:29 09/17/18 11:09/17/18 11:09/17/18 11:29 Exam: Vitals: Reviewed General: Alert and oriented x3. In mild distress due to left side weakness Cardiovascular: RRR, normal S1 & S2, no rubs, murmurs or gallops. Lungs: CTA b/l, no wheezes or crackles. Abdomen: Obese, soft, non-tender, no rigidity. Extremities: strength 4/5 in the left upper extr, 4/5 in the left lower extr. Neurological: CN II-XII intact Rest of the physical exam is non contributory - Assessment and Plan (1) Left-sided weakness Current Visit: Yes Status: Acute Assessment and Plan: possible secondary to a TIA vs possible UTI. patient symptoms on presentation have almost completely resolved. patient only refers tingly in the left side of her face the weakness is back to her baseline. neurology consulted, recommendations appreciated on aspirin 325mg/PO daily (2) Depression Current Visit: No Status: Chronic Assessment and Plan: Aripiprazole 2mg/PO HS (3) Diabetes mellitus Current Visit: No Status: Chronic Assessment and Plan: blood sugar is well controlled. on short and long acting insulin coverage. (4) HTN (hypertension) Current Visit: No Status: Chronic Assessment and Plan: Blood pressures well controlled. Patient is on losartan HCTZ. (5) History of CVA (cerebrovascular accident) Current Visit: No Status: Chronic Assessment and Plan: Plan of care as problem #1. (6) UTI (urinary tract infection) Current Visit: No Status: Suspected Assessment and Plan: Continue ceftriaxone 1 g IV daily. Urine cultures result pending. (7) Migraine headache Current Visit: Yes Status: Chronic Assessment and Plan: patient s/p Botox injection. On topiromate 50 mg by mouth twice a day DVT Prophylaxis: On heparin subcutaneous. - Summary of Assessment and Plan Summary of Assessment and Plan: Patient to remain in the hospital due to left-sided weakness. Potential discharge tomorrow morning - Time Spent with Patient Total time spent is greater than 50% in coordination of care (as documented) at patient's floor/unit and/or counseling patient: Greater than 35 minutes (40) Plan of Care Discussed with: patient (and the nurse.) Internal Medicine: Result - Labs CBC & Chem 7: 09/17/18 04:34 09/16/18 10:40 Labs: Short CBC 09/17/18 Range/Units 04:34 WBC 8.8 (4.3-11.1) K/mcL Hgb 8.5 L (11.5-15.4) g/dL Hct 30.9 L (35.3-44.9) % Plt Count 297 (140-400) K/mcL Neutrophils # 5.1 (1.6-8.9) K/mcL Cardiac Enzymes 09/16/18 Range/Units 10:40 Troponin I < 0.03 (< 0.04) ng/mL Urine 09/16/18 Range/Units 12:00 Urine Color Yellow (Yellow) Urine Clarity Clear (Clear) Urine pH 6.0 (5.0-8.0) pH Units Ur Specific [place] 1.020 (1.010-1.025) Urine Protein Negative (Neg-Trace) mg/dL Urine Glucose (UA) Normal (Normal) mg/dL - ABG Interpretation ABG results: PT/INR, D-dimer PT 11.1 Seconds (9.4-12.1) 09/16/18 10:40 - Impressions Impressions Head CTA 09/16/18 00:00 IMPRESSION: Normal CTA of the head and neck. No significant arterial stenosis identified. No aneurysm or dissection. D/ / Jeevan Shah MD / Jeevan Shah MD Interpreting Provider: Jeevan Shah MD Neck CTA 09/16/18 00:00 IMPRESSION: Normal CTA of the head and neck. No significant arterial stenosis identified. No aneurysm or dissection. D/ / Jeevan Shah MD / Jeevan Shah MD Interpreting Provider: Jeevan Shah MD Head CTA 09/16/18 14:15 IMPRESSION: 1. Failed CTA head and neck examination due to IV infiltration. No gross evidence of acute abnormality within visualized portion of head and neck on provided images. 2. Repeat CTA head and neck may be obtained, once IV access has been re-established. D/ : / 09/16/2018 14:34:14 Sherman Virk MD / nawaf Interpreting Provider: Sherman Virk MD Neck CTA 09/16/18 14:15 IMPRESSION: 1. Failed CTA head and neck examination due to IV infiltration. No gross evidence of acute abnormality within visualized portion of head and neck on provided images. 2. Repeat CTA head and neck may be obtained, once IV access has been re-established. 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
[2018-09-17 14:13] LABS: BUN/Creatinine Ratio 17 (6-26); Blood Urea Nitrogen 11 mg/dL (8-23); Calcium 8.7 mg/dL (8.6-10.3); Carbon Dioxide 22 mEq/L (23-29); Chloride 108 mEq/L (98-107); Glucose 94 mg/dL (70-105); Magnesium 2.1 mg/dL (1.6-2.6); Osmolality,Calculated 287 (280-300); Phosphorous 3.3 mg/dL (2.7-4.5); Sodium 139 mEq/L (136-145); eGFR For Non-African Americans > 60 (> 60)
[2018-09-17] MEDS: ARIPiprazole 2 MG TABLET PO SCH (21:23)
[2018-09-17] MEDS: Insulin DETEMIR 100 UNIT/ML X5UNITS SQ SCH (21:33)
[2018-09-18] MEDS: *HR* Heparin 5,000 UNIT/ML VIAL SQ SCH ×3 (04:59→21:28)
[2018-09-18] MEDS: Ketorolac 15 MG/ML VIAL IVP PRN ×3 (05:10→21:27)
[2018-09-18] MEDS: cefTRIAXone 1,000 MG in Water for inj. (sterile) 20 ML 10 ML IVP SCH (08:07)
[2018-09-18] MEDS: Topiramate 25 MG TABLET PO SCH ×2 (08:08→21:28)
[2018-09-18] MEDS: Aspirin Enteric Coated 325 MG Tablet PO SCH (08:09)
[2018-09-18] MEDS: Gabapentin 300 MG CAPSULE PO SCH ×2 (08:09→21:28)
[2018-09-18] MEDS: Losartan/HCTZ 50-12.5 TABLET PO SCH (08:09)
[2018-09-18] MEDS: Insulin LISPRO 300 UNITS/3 ML VIAL SQ SCH ×3 (08:09→18:08)
[2018-09-18] MEDS: traMADol 50 MG TABLET PO PRN (08:21)
--- NOTE | 2018-09-18 09:29 | Neurology Progress Note ---
<Tommie Zambrano - Last Filed: 09/18/18 14:40> Date of Encounter: 09/18/18 Time of Encounter: 09:27 Assessment and Plan (1) Left-sided weakness Current Visit: Yes Status: Acute p/w left-sided weakness and paresthesias; symptoms are improving overnight Multiple admissions for the same in the past; has had 10 admissions with stroke alert called and negative CT imaging of the head since 10/2017 During one of these admissions she reports receiving TPA Patients has been admitted on multiple occasions with the manifestation of neurological sx which are exacerbated by life stress CT imaging of the head and CT angiogram head and neck completed yesterday and unremarkable Symptoms are most compatible with conversion disorder which she has a known history Neuro exam reveals improving LUE, LLE weakness; patient is progressing back to baseline Recommend psychiatric evaluation; will likely benefit from long-term rehabilitation and behavioral therapy Neurology will sign off at this time Subjective Principal diagnosis: Strokelike symptoms Interval history: Patient seen in follow-up for strokelike symptoms. Overnight notes and chart reviewed. Again, patient has had 10 stroke alerts since October 2017 which have all had negative CT imaging. She is unable to obtain MRI of the brain and spine stimulator. This morning she reports that her left-sided weakness is resolving but that ultimately she is still weaker than baseline. Nursing staff reported to me that yesterday the patient had no difficulty using his left arm or leg. She does have a history of conversion disorder and this is thought to be caused by conversion at this time. Objective - Constitutional Vitals: Temp Pulse Resp BP Pulse Ox 97.7 F 82 14 127/73 94 09/18/18 07:16 09/18/18 07:16 09/18/18 07:16 09/18/18 07:16 09/18/18 07:16 Exam: Examination: General Examination: *CONSTITUTIONAL: Alert and oriented x3, no acute distress *GENERAL APPEARANCE OF PATIENT appears healthy and well groomed *EYES: pupils equal, round, reactive to light and accommodation *CARDIOVASCULAR no peripheral edema, see vital signs Musculoskeletal: *GAIT AND STATION *ASSESSMENT OF MUSCLE STRENGTH IN THE UPPER AND LOWER EXTREMITIES right deltoid, bicep, tricep, silk crepe machine operator strength, hip flexors ,anterior tibialis, dorsoflexion of the foot 5/5 - left deltoid, bicep, tricep, silk crepe machine operator strength is 3/5, left hip flexor, anterior tibialis and dorsal flexion of 3/5 *MUSCLE TONE IN THE UPPER AND LOWER EXTREMITIES No abnormal movements, fasciculations or atrophy identified. Neurological: *ORIENTATION to person, situation, time and place *RECURRENT AND REMOTE MEMORY intact *ATTENTION AND CONCENTRATION are normal *LANGUAGE FUNCTION no significant aphasia or dysarthia was noted. *FUND OF KNOWLEDGE aware of current events, past history, vocabulary *MENTAL attention span and concentration normal. *CN II optic fundi were normal, no papilledema noted. *CN III,IV, PERRLA extraocular eye movements were full, no nystagmus and no ptosis noted. *CN V shows normal sensation and jaw opens symmetrically. *CN VII shows normal facial movement symmetrically, upper and lower bilaterally. *CN VIII shows no significant hearing loss on exam *CN IX,,X palate elevated symmetrically *CN XI normal strength in the sternocleidomastoid muscles, symmetrical shoulder shrugging. *CN XII tongue protruded in the midline, with normal strength and movement. *SENSORY EXAMINATION continues to report left-sided diminished sensation but notes that this has somewhat improved overnight *REFLEXES: deep tendon reflexes were normal and symmetrical , grade 2/4 diffusely, no pathological reflexes were noted. *PAIN LEVEL 0/10 Results - Laboratory Findings CBC and BMP: 09/17/18 04:34 09/18/18 13:35 Abnormal lab findings: Abnormal lab results Hgb 8.5 g/dL (11.5-15.4) L 09/17/18 04:34 Hct 30.9 % (35.3-44.9) L 09/17/18 04:34 MCV 73.4 fL (83.0-100.0) L 09/17/18 04:34 MCH 20.2 pg (28.0-33.3) L 09/17/18 04:34 MCHC 27.5 g/dL (31.6-35.5) L 09/17/18 04:34 RDW 19.9 % (11.5-14.5) H 09/17/18 04:34 MPV 9.3 fL (9.4-12.4) L 09/17/18 04:34 1+ (Not Present) A 09/17/18 04:34 Present (Not Present) A 09/17/18 04:34 1+ (Not Present) A 09/17/18 04:34 Present (Not Present) A 09/17/18 04:34 APTT 22.6 Seconds (26.0-36.0) L 09/16/18 10:40 Chloride 108 mEq/L (98-107) H 09/17/18 04:34 Carbon Dioxide 22 mEq/L (23-29) L 09/17/18 04:34 Est GFR (Non-Af Amer) 59 (> 60) L 09/16/18 10:40 Glucose 148 mg/dL (70-105) H 09/16/18 10:40 POC Glucose 196 mg/dL (70-99) H 09/17/18 20:01 Triglycerides 215 mg/dL (< 150) H 09/17/18 04:34 VLDL Cholesterol, Calc 43 mg/dL (< 31) H 09/17/18 04:34 Ur Leukocyte Esterase Trace (Negative) H 09/16/18 12:00 3-5 per hpf (0-3) H 09/16/18 12:00 Ur Squamous Epith Cells Many per lpf (None-Few) H 09/16/18 12:00 Many per hpf (None-Few) H 09/16/18 12:00 Ur Culture Indicated? YES (NO) A 09/16/18 12:00 Consult Discharge Plan - Plan Referrals: Anastasia Beverly MD [Partnered Physician] - 09/26/18 2:40 pm Sahra Higgins LISW [Seo Expert] - 10/02/18 3:00 pm Kelechi Bridges DPM [Partnered Physician] - 10/08/18 10:30 am Jayden Johnson MD [Partnered Physician] - 10/30/18 8:00 am <Jayden Johnson I - Last Filed: 09/18/18 16:15> Date of Encounter: 09/18/18 Assessment and Plan (1) Left-sided weakness Current Visit: Yes Status: Acute I have personally performed a face to face diagnostic evaluation, including HPI, EXAM, which is included in the Assesment and plan, which was discussed with Tommie Zambrano CNP, I agree with the above outlined documentation. Patient is stable but continued to have these fluctuating exam findings, CT of the head is negative Considering overall I would recommend that she should be evaluated by a psychiatrist though she has seen them as an outpatient but would need some adjustment of the medication as she continued to have these symptoms off and on and unfortunately, continued to have these symptoms. She also has an history of chronic headaches for which she has received even the Botox which has not helped her either. Which is also quite unusual due to the fact that not even as little bit improvement, especially when Botox seems to work pretty good for these chronic headaches again significant behavioral psychosomatic component in her overall symptoms and condition. Jayden Johnson MD. Neurology Objective - Constitutional Vitals: Temp Pulse Resp BP Pulse Ox 97.9 F 83 16 144/68 94 09/18/18 11:38 09/18/18 11:38 09/18/18 11:38 09/18/18 11:38 09/18/18 11:38 Results - Laboratory Findings CBC and BMP: 09/17/18 04:34 09/18/18 13:35 Abnormal lab findings: Abnormal lab results Hgb 8.5 g/dL (11.5-15.4) L 09/17/18 04:34 Hct 30.9 % (35.3-44.9) L 09/17/18 04:34 MCV 73.4 fL (83.0-100.0) L 09/17/18 04:34 MCH 20.2 pg (28.0-33.3) L 09/17/18 04:34 MCHC 27.5 g/dL (31.6-35.5) L 09/17/18 04:34 RDW 19.9 % (11.5-14.5) H 09/17/18 04:34 MPV 9.3 fL (9.4-12.4) L 09/17/18 04:34 1+ (Not Present) A 09/17/18 04:34 Present (Not Present) A 09/17/18 04:34 1+ (Not Present) A 09/17/18 04:34 Present (Not Present) A 09/17/18 04:34 APTT 22.6 Seconds (26.0-36.0) L 09/16/18 10:40 Chloride 108 mEq/L (98-107) H 09/17/18 04:34 Carbon Dioxide 22 mEq/L (23-29) L 09/17/18 04:34 Est GFR (Non-Af Amer) 59 (> 60) L 09/16/18 10:40 Glucose 244 mg/dL (70-105) H 09/18/18 13:35 POC Glucose 196 mg/dL (70-99) H 09/17/18 20:01 Triglycerides 215 mg/dL (< 150) H 09/17/18 04:34 VLDL Cholesterol, Calc 43 mg/dL (< 31) H 09/17/18 04:34 Ur Leukocyte Esterase Trace (Negative) H 09/16/18 12:00 3-5 per hpf (0-3) H 09/16/18 12:00 Ur Squamous Epith Cells Many per lpf (None-Few) H 09/16/18 12:00 Many per hpf (None-Few) H 09/16/18 12:00 Ur Culture Indicated? YES (NO) A 09/16/18 12:00
[2018-09-18 14:04] LABS: BUN/Creatinine Ratio 16 (6-26); Blood Urea Nitrogen 14 mg/dL (8-23); Calcium 8.8 mg/dL (8.6-10.3); Carbon Dioxide 26 mEq/L (23-29); Chloride 105 mEq/L (98-107); Glucose 244 mg/dL (70-105); Osmolality,Calculated 293 (280-300); Phosphorous 3.2 mg/dL (2.7-4.5); Potassium 4.3 mEq/L (3.5-5.1); Sodium 137 mEq/L (136-145); eGFR For Non-African Americans > 60 (> 60)
--- NOTE | 2018-09-18 16:19 | Internal Med Progress Note ---
Hospitalist Progress Note - Encounter Date of Encounter: 09/18/18 Time of Encounter: 16:16 - Subjective Interval History: Patient seen and examined earlier today. Patient resting in bed and reports of feeling better compared to previous day. States she was able to shower today which made her feel better. Continues to complain of left upper and lower extremity weakness which has improved from previous day. PT evaluation recommending SNF placement and patient willing to go. environmental services manager on board for placement. Pt denies any headache, sob, chest pain, n/v, fever, or chills. No overnight events reported Pt appears to have multiple hospitalizations for similar symptoms, reports of following a psychiatrist as outpatient. Pt will benefit from behavioral therapy as outpatient in addition to physical therapy. Ten point ROS is negative except as listed above A sharp catheter was placed in the ER, sharp to be discontinued today - Exam Vitals: Temp Pulse Resp BP Pulse Ox 97.9 F 83 16 144/68 94 09/18/18 11:38 09/18/18 11:38 09/18/18 11:38 09/18/18 11:38 09/18/18 11:38 Exam: Vitals: Reviewed General: Alert and oriented x3. No acute distress, morbidly obese Cardiovascular: RRR, normal S1 & S2, no rubs, murmurs or gallops. Lungs: CTA b/l, no wheezes or crackles. Abdomen: Obese, soft, non-tender, no rigidity, normal bowel sounds Extremities: strength 4/5 in the left upper extr, 4/5 in the left lower extr, no tenderness Neurological: CN II-XII intact Rest of the physical exam is non contributory - Assessment and Plan (1) Left-sided weakness Current Visit: Yes Status: Acute Assessment and Plan: Of unclear etiology neuro workup negative PT recommending SNF placement on discharge Neurology recommending psych follow up continue aspirin and statin therapy clinically improving tentative d/c in am once SNF placement has been arranged (2) History of CVA (cerebrovascular accident) Current Visit: No Status: Chronic Assessment and Plan: Plan of care as problem #1. (3) HTN (hypertension) Current Visit: No Status: Chronic Assessment and Plan: BP within acceptable range continue current management closely monitor BP (4) Diabetes mellitus Current Visit: No Status: Chronic Assessment and Plan: Noted to be hyperglycemic increased to high dose insulin sliding scale monitor fingerstick and blood glucose ADA diet (5) Depression Current Visit: No Status: Chronic Assessment and Plan: continue home meds (6) UTI (urinary tract infection) Current Visit: No Status: Suspected Assessment and Plan: urine culture reported no growth will treat for a total of five days (day 3/5) (7) Migraine headache Current Visit: Yes Status: Chronic DVT Prophylaxis: Heparin SQ - Time Spent with Patient Total time spent is greater than 50% in coordination of care (as documented) at patient's floor/unit and/or counseling patient: 25 - 35 minutes Plan of Care Discussed with: patient (patient/RN/case management) Internal Medicine: Result - Labs CBC & Chem 7: 09/17/18 04:34 09/18/18 13:35 Labs: BMP 09/18/18 13:35 Sodium 137 Potassium 4.3 Chloride 105 Carbon Dioxide 26 BUN 14 Creatinine 0.88 Glucose 244 H Calcium 8.8 - ABG Interpretation ABG results: PT/INR, D-dimer PT 11.1 Seconds (9.4-12.1) 09/16/18 10:40 Consult Discharge Plan - Plan Referrals: Anastasia Beverly MD [Partnered Physician] - 09/26/18 2:40 pm Sahra Higgins LISW [Plug Grower] - 10/02/18 3:00 pm Kelechi Bridges DPM [Partnered Physician] - 10/08/18 10:30 am Jayden Johnson MD [Partnered Physician] - 10/30/18 8:00 am (3) HTN (hypertension) Qualifiers: Hypertension type: essential hypertension Qualified Code(s): I10 - Essential (primary) hypertension (4) Diabetes mellitus Qualifiers: Diabetes mellitus type: type 2 Diabetes mellitus long chain beamer insulin use: with senior living use Diabetes mellitus complication status: without complication Qualified Code(s): E11.9 - Type 2 diabetes mellitus without complications; Z79.4 - shelter (current) use of insulin (5) Depression Qualifiers: Depression Type: unspecified Qualified Code(s): F32.9 - Major depressive disorder, single episode, unspecified (6) UTI (urinary tract infection) Qualifiers: Urinary tract infection type: acute cystitis Hematuria presence: without hematuria Qualified Code(s): N30.00 - Acute cystitis without hematuria (7) Migraine headache Qualifiers: Migraine type: unspecified Status migrainosus presence: without status migrainosus Intractability: not intractable Qualified Code(s): G43.909 - Migraine, unspecified, not intractable, without status migrainosus
[2018-09-18] MEDS: ARIPiprazole 2 MG TABLET PO SCH (21:28)
[2018-09-18] MEDS: Melatonin 3 MG TABLET PO PRN (21:28)
[2018-09-18] MEDS: Insulin DETEMIR 100 UNIT/ML X5UNITS SQ SCH (21:37)
[2018-09-19] MEDS: Ketorolac 15 MG/ML VIAL IVP PRN ×2 (04:07→11:30)
[2018-09-19] MEDS: *HR* Heparin 5,000 UNIT/ML VIAL SQ SCH (04:51)
[2018-09-19 07:42] LABS: Hemoglobin 8.9 g/dL (11.5-15.4); Red Cell Distribution Width 19.7 % (11.5-14.5)
[2018-09-19 07:43] LABS: Eosinophils # 0.3 K/mcL (0.0-0.6); Hematocrit 33.1 % (35.3-44.9); Mean Corpuscular HGB Conc 26.9 g/dL (31.6-35.5); Mean Corpuscular Hemoglobin 19.7 pg (28.0-33.3); Mean Corpuscular Volume 73.2 fL (83.0-100.0); Mean Platelet Volume 9.3 fL (9.4-12.4); Platelet Count 323 K/mcL (140-400); Red Blood Count 4.52 M/mcL (3.82-4.97)
[2018-09-19] MEDS: Insulin LISPRO 300 UNITS/3 ML VIAL SQ SCH ×2 (08:21→11:26)
[2018-09-19] MEDS: cefTRIAXone 1,000 MG in Water for inj. (sterile) 20 ML 10 ML IVP SCH (08:21)
[2018-09-19] MEDS: Losartan/HCTZ 50-12.5 TABLET PO SCH (08:22)
[2018-09-19] MEDS: Gabapentin 300 MG CAPSULE PO SCH (08:22)
[2018-09-19] MEDS: Aspirin Enteric Coated 325 MG Tablet PO SCH (08:23)
[2018-09-19] MEDS: Topiramate 25 MG TABLET PO SCH (08:23)
[2018-09-19 08:37] LABS: BUN/Creatinine Ratio 21 (6-26); Blood Urea Nitrogen 15 mg/dL (8-23); Calcium 9.4 mg/dL (8.6-10.3); Carbon Dioxide 25 mEq/L (23-29); Chloride 106 mEq/L (98-107); Glucose 189 mg/dL (70-105); Magnesium 2.1 mg/dL (1.6-2.6); Osmolality,Calculated 294 (280-300); Phosphorous 3.6 mg/dL (2.7-4.5); Potassium 3.9 mEq/L (3.5-5.1); Sodium 139 mEq/L (136-145); eGFR For Non-African Americans > 60 (> 60)
[2018-09-19 08:56] LABS: Lymphocytes # 2.1 K/mcL (0.6-4.6); Monocytes # 0.3 K/mcL (0.0-1.3); Neutrophils # 4.9 K/mcL (1.6-8.9); Platelet Clumps Few (Not Present)
[2018-09-19 08:57] LABS: Anisocytosis 1+ (Not Present); Hypochromasia Present (Not Present); Platelet Estimate Normal (Normal)
--- NOTE | 2018-09-19 10:17 | Electrocardiograph Report ---
[facility] [employer] Test Date: 2018-09-16 Pat Name: Tiff Davenport Department: [id number] Room: 3B34 Gender: F [employer] Director: : 1940 Requested By: Smith Quigley Order Number: [id number] Reading MD: Octaviano Carrasco Measurements Intervals Lennon Rate: 74 P: 81 NV: 144 QRS: 74 QRSD: 76 T: 62 QT: 383 QTc: 425 Interpretive Statements Sinus rhythm Low voltage, precordial leads Electronically Signed On 09-19-2018 10:15:46 EDT by Octaviano Carrasco
[2018-09-19 11:08] VITALS: BP 123/61
--- NOTE | 2018-09-19 12:04 | Neurology Progress Note ---
Date of Encounter: 09/19/18 Time of Encounter: 10:01 Assessment and Plan (1) Left-sided weakness Current Visit: Yes Status: Acute Patient is stable but continued to have these fluctuating exam findings, CT of the head is negative. She continued to have these symptoms off and on negative for stroke workup, Even if it is something neurological like hemiplegic migraine, that could. Presented with stroke like symptoms she had been treated with multiple preventive medication for it without much help in fact she is been getting Botox injections and that has also not helped her symptoms neither her migraines. Considering overall I would recommend that she should be evaluated by a psychiatrist though she has seen them as an outpatient but would need some adjustment of the medication as she continued to have these symptoms off and on and unfortunately, continued to have these symptoms. I have also spoke with patient and daughter who is a nurse she understand and ac knowledges it Unfortunately she continued to be symptomatic and having these symptoms off and on for no obvious reason and all negative workup I discussed with her the possibility of seeing a neuropsychologist /psychiatrist at a tertiary care center-like [facility] We will try to set up as an outpatient setting. Stable neurologically okay to discharge transferred to the short-term rehabilitation or [facility] Jayden Johnson MD. Neurology Subjective Principal diagnosis: Strokelike symptoms Interval history: Patient seen as an follow-up she seemed to be doing better now her left-sided weakness has improved she is able to get up with some help. Denies any other new symptoms or any other new problems Objective - Constitutional Vitals: Temp Pulse Resp BP Pulse Ox 97.7 F 87 17 123/61 95 09/19/18 11:00 09/19/18 11:00 09/19/18 11:00 09/19/18 11:00 09/19/18 11:00 Results - Laboratory Findings CBC and BMP: 09/19/18 07:11 09/19/18 07:11 Abnormal lab findings: Abnormal lab results Hgb 8.9 g/dL (11.5-15.4) L 09/19/18 07:11 Hct 33.1 % (35.3-44.9) L 09/19/18 07:11 MCV 73.2 fL (83.0-100.0) L 09/19/18 07:11 MCH 19.7 pg (28.0-33.3) L 09/19/18 07:11 MCHC 26.9 g/dL (31.6-35.5) L 09/19/18 07:11 RDW 19.7 % (11.5-14.5) H 09/19/18 07:11 MPV 9.3 fL (9.4-12.4) L 09/19/18 07:11 Few (Not Present) A 09/19/18 07:11 1+ (Not Present) A 09/17/18 04:34 Present (Not Present) A 09/19/18 07:11 1+ (Not Present) A 09/19/18 07:11 Present (Not Present) A 09/17/18 04:34 APTT 22.6 Seconds (26.0-36.0) L 09/16/18 10:40 Chloride 108 mEq/L (98-107) H 09/17/18 04:34 Carbon Dioxide 22 mEq/L (23-29) L 09/17/18 04:34 Est GFR (Non-Af Amer) 59 (> 60) L 09/16/18 10:40 Glucose 189 mg/dL (70-105) H 09/19/18 07:11 POC Glucose 282 mg/dL (70-99) H 09/18/18 20:47 Triglycerides 215 mg/dL (< 150) H 09/17/18 04:34 VLDL Cholesterol, Calc 43 mg/dL (< 31) H 09/17/18 04:34 Ur Leukocyte Esterase Trace (Negative) H 09/16/18 12:00 3-5 per hpf (0-3) H 09/16/18 12:00 Ur Squamous Epith Cells Many per lpf (None-Few) H 09/16/18 12:00 Many per hpf (None-Few) H 09/16/18 12:00 Ur Culture Indicated? YES (NO) A 09/16/18 12:00 Consult Discharge Plan - Plan Referrals: Anastasia Beverly MD [Partnered Physician] - 09/26/18 2:40 pm Sahra Higgins LISW [Patient Accounts Manager] - 10/02/18 3:00 pm Kelehci Bridges DPM [Partnered Physician] - 10/08/18 10:30 am Jayden Johnson MD [Partnered Physician] - 10/30/18 8:00 am
--- NOTE | 2018-09-19 12:06 | Consult Note ---
Date of Encounter: 09/19/18 Time of Encounter: 12:02 History of Present Illness Requesting Physician: Ana Cristina Monroy MD Reason for consult: conversion symptoms History of present illness: Ms. Davenport is a 78 year old female who was admitted secondary to stroke like symptoms. Medical work-up has been negative and psychiatry was consulted for possible conversion symptoms. On eval client is pleasant, alert, and oriented. She denies SI, intent, or plan but admits to some depression and anxiety. However, she is well linked with outpatient services and she has positive relationships with both her prescriber and her therapist. She lives in an Assisted Living facility and her medications are given to her daily. Client states she has support from family and friends and that she keeps herself active by doing puzzles and playing cards every day. No major recent stressors or life changes. Client states she is being discharged today to [facility] for rehab and that she is in agreement with this plan. CC: Ana Cristina Monroy MD Past Med Surg Social Fam HX - Past Medical History Medical history: COPD, CVA, diabetes, GERD, hypertension, TIA - Past Psychiatric History Psychiatric history: Reports: anxiety, depression Family psychiatric history: Unknown Family History of Suicide: Unknown - Past Surgical History Surgical History: cholecystectomy, herniorrhaphy, hysterectomy, orthopedic, other - Social History Smoking Status: Never smoker Smokeless Tobacco Status: No Alcohol use: none Drug use: none - Family History Mother Living Status: Still Living Hx Family Neuromuscular Disorders: Yes (Dementia) Hx Family Neurologic Disorders: Yes (dementia) Sister Hx Family Cancer: Yes Father History Unknown: Yes Living Status: Medications & Allergies Gabapentin [Neurontin] 600 mg PO BID 01/01/18 [History] Insulin Aspart Prot/Insuln Asp [Novolog Mix 70-30 Vial] 30 unit SQ BIDWM 01/01/18 [History] Losartan/HCTZ [Hyzaar 50-12.5 Tablet] 1 each PO DAILY 01/01/18 [History] Metformin HCl 1,000 mg PO BID 01/01/18 [History] Metoprolol Succinate [Toprol Xl] 25 mg PO QAM 01/01/18 [History] Omeprazole [PriLOSEC] 40 mg PO DAILY 01/01/18 [History] Aspirin 325 mg PO DAILY 03/08/18 [History] Pravastatin Sodium 10 mg PO HS 03/08/18 [History] Topiramate 50 mg PO BID 03/08/18 [History] Venlafaxine HCl [Venlafaxine HCl ER] 300 mg PO DAILY 03/08/18 [History] ARIPiprazole [Abilify] 2 mg PO HS 08/11/18 [History] Loratadine [Allergy Relief] 10 mg PO DAILY 08/11/18 [History] Tizanidine HCl 2 mg PO BID 08/11/18 [History] Acetaminophen [Tylenol] 500 mg PO Q6HR 09/16/18 [History] Ketorolac [Toradol] 10 mg PO DAILY PRN 09/16/18 [History] Melatonin [Melatin] 3 - 6 mg PO HS PRN 09/16/18 [History] Nitroglycerin [Nitrostat] 0.4 mg SL Q5M PRN 09/16/18 [History] Ciprofloxacin [Cipro] 500 mg PO BID #2 tablet 09/19/18 [Rx] LORazepam [Ativan] 0.5 - 1 mg PO DAILY PRN 1 Days #2 tablet 09/19/18 [Rx] Allergy/AdvReac Type Severity Reaction Status Date / Time No Known Allergies Allergy Verified 09/17/18 13:39 Review of Systems Constitutional: Reports: weakness Eyes: Denies: eye pain, vision change Ears, Nose, Throat: Denies: ear pain, throat pain, dental pain, hearing loss, co ngestion Cardiovascular: Denies: chest pain, palpitations, dyspnea on exertion Respiratory: Denies: cough, dyspnea, wheezes Gastrointestinal: Denies: abdominal pain, nausea, vomiting, diarrhea, constipation Genitourinary female: Denies: urgency, dysuria, frequency, abnormal menses, dyspareunia Musculoskeletal: Reports: other Integumentary: Denies: rash, lesions, pruritus Neurological: Reports: weakness, memory loss Endocrine: Denies: fatigue, heat or cold intolerance Hematologic/Lymphatic: Denies: easy bruising, lymphadenopathy Allergic/Immunologic: Denies: urticaria, itchy eyes Psychiatry Exam - Constitutional Vitals: Temp Pulse Resp BP Pulse Ox 97.7 F 87 17 123/61 95 09/19/18 11:00 09/19/18 11:00 09/19/18 11:00 09/19/18 11:00 09/19/18 11:00 General appearance: age & developmentally appropriate, well-groomed, well-nour ished - Musculoskeletal Gait: other Station: relaxed Strength & Tone: mild weakness - Psychiatric Patient Orientation: Yes Person, Yes Time, Yes Place Level of alertness: Alert Behavior: calm, cooperative Psychomotor activity: Normal Eye Contact: Maintains Eye Contact Mood Description: Anxious Affect description: tearful Speech Volume: Normal Speech pattern: normal rate, normal rhythm, normal tone, fluent, spontaneous Language & Vocabulary: consistent with education Thought Process: Linear, Goal Oriented Thought Content: No Suicidal ideation, No Homicidal ideation, No Overt delusions Perceptual Disturbances: No Auditory hallucinations, No Visual hallucinations Attention Span Ability: Capable of Focused Attention Memory Description: Grossly Intact Patient Reliability: Reliable Historian Fund of knowledge: Yes abstraction ability, Yes aware of current events Intelligence Estimate: Average Judgment: Fair Insight: Partial Results - Labs Labs: Laboratory Last Values WBC 7.6 K/mcL (4.3-11.1) 09/19/18 07:11 RBC 4.52 M/mcL (3.82-4.97) 09/19/18 07:11 Hgb 8.9 g/dL (11.5-15.4) L 09/19/18 07:11 Hct 33.1 % (35.3-44.9) L 09/19/18 07:11 MCV 73.2 fL (83.0-100.0) L 09/19/18 07:11 MCH 19.7 pg (28.0-33.3) L 09/19/18 07:11 MCHC 26.9 g/dL (31.6-35.5) L 09/19/18 07:11 RDW 19.7 % (11.5-14.5) H 09/19/18 07:11 Plt Count 323 K/mcL (140-400) 09/19/18 07:11 MPV 9.3 fL (9.4-12.4) L 09/19/18 07:11 Immature Gran % 0.2 % (0-4) 09/17/18 04:34 Seg Neutrophils % 64.0 % 09/19/18 07:11 28.0 % 09/19/18 07:11 4.0 % 09/19/18 07:11 4.0 % 09/19/18 07:11 1.0 % 09/17/18 04:34 4.9 K/mcL (1.6-8.9) 09/19/18 07:11 2.1 K/mcL (0.6-4.6) 09/19/18 07:11 0.3 K/mcL (0.0-1.3) 09/19/18 07:11 0.3 K/mcL (0.0-0.6) 09/19/18 07:11 0.1 K/mcL (0.0-0.2) 09/17/18 04:34 Normal (Normal) 09/19/18 07:11 Few (Not Present) A 09/19/18 07:11 1+ (Not Present) A 09/17/18 04:34 Present (Not Present) A 09/19/18 07:11 1+ (Not Present) A 09/19/18 07:11 Present (Not Present) A 09/17/18 04:34 PT 11.1 Seconds (9.4-12.1) 09/16/18 10:40 INR 1.0 09/16/18 10:40 APTT 22.6 Seconds (26.0-36.0) L 09/16/18 10:40 Sodium 139 mEq/L (136-145) 09/19/18 07:11 Potassium 3.9 mEq/L (3.5-5.1) 09/19/18 07:11 Chloride 106 mEq/L (98-107) 09/19/18 07:11 Carbon Dioxide 25 mEq/L (23-29) 09/19/18 07:11 BUN 15 mg/dL (8-23) 09/19/18 07:11 0.70 mg/dL (0.60-1.20) 09/19/18 07:11 Est GFR ( Amer) > 60 (> 60) 09/19/18 07:11 Est GFR (Non-Af Amer) > 60 (> 60) 09/19/18 07:11 21 (6-26) 09/19/18 07:11 Glucose 189 mg/dL (70-105) H 09/19/18 07:11 POC Glucose 282 mg/dL (70-99) H 09/18/18 20:47 294 (280-300) 09/19/18 07:11 Calcium 9.4 mg/dL (8.6-10.3) 09/19/18 07:11 Phosphorus 3.6 mg/dL (2.7-4.5) 09/19/18 07:11 Magnesium 2.1 mg/dL (1.6-2.6) 09/19/18 07:11 < 0.03 ng/mL (< 0.04) 09/16/18 10:40 Triglycerides 215 mg/dL (< 150) H 09/17/18 04:34 Cholesterol 139 mg/dL (< 200) 09/17/18 04:34 LDL Cholesterol, Calc 49 mg/dL (0-99) 09/17/18 04:34 VLDL Cholesterol, Calc 43 mg/dL (< 31) H 09/17/18 04:34 47 mg/dL (40-59) 09/17/18 04:34 3.0 (0-4.9) 09/17/18 04:34 Yellow (Yellow) 09/16/18 12:00 Clear (Clear) 09/16/18 12:00 6.0 pH Units (5.0-8.0) 09/16/18 12:00 Ur Specific [place] 1.020 (1.010-1.025) 09/16/18 12:00 Negative mg/dL (Neg-Trace) 09/16/18 12:00 Normal mg/dL (Normal) 09/16/18 12:00 Negative mg/dL (Negative) 09/16/18 12:00 Negative (Negative) 09/16/18 12:00 Negative (Negative) 09/16/18 12:00 Negative (Negative) 09/16/18 12:00 Normal mg/dL (Normal) 09/16/18 12:00 Ur Leukocyte Esterase Trace (Negative) H 09/16/18 12:00 0-3 per hpf (0-3) 09/16/18 12:00 3-5 per hpf (0-3) H 09/16/18 12:00 Ur Squamous Epith Cells Many per lpf (None-Few) H 09/16/18 12:00 Many per hpf (None-Few) H 09/16/18 12:00 Hyaline Casts None Seen per lpf (None-Few) 09/16/18 12:00 Ur Culture Indicated? YES (NO) A 09/16/18 12:00 Consult Discharge Plan - Plan Additional Instructions: 1. Please follow-up with your primary care physician within 3-5 days after your discharge from the hospital 2. Please follow up with neurology and psychiatry within 1 week after your discharge from the hospital 3. Please continue all your home medication as prescribed by your primary care physician. 4. Please seek medical help if you have difficulty breathing or if shortness of breath/chest pain occurs. Referrals: Anastasia Beverly MD [Partnered Physician] - 09/26/18 2:40 pm Sahra Higgins LISW [Fingerprint Expert] - 10/02/18 3:00 pm Kelechi Bridges DPM [Partnered Physician] - 10/08/18 10:30 am Jayden Johnson MD [Partnered Physician] - 10/30/18 8:00 am Prescriptions: LORazepam [Ativan] 0.5 - 1 mg PO DAILY PRN 1 Days #2 tablet PRN Reason: Anxiety Ciprofloxacin [Cipro] 500 mg PO BID #2 tablet
--- NOTE | 2018-09-19 12:13 | Physician Discharge Referral ---
ExtendedCare Referral Info Transfer To: SNF Provider in Charge after Transfer: PCP Institutional Level of Care: Skilled - Diagnosis (1) Left-sided weakness Priority: Primary Status: Acute (2) History of CVA (cerebrovascular accident) Priority: Secondary Status: Chronic (3) HTN (hypertension) Priority: Secondary Status: Chronic (4) Diabetes mellitus Priority: Secondary Status: Chronic (5) Depression Priority: Secondary Status: Chronic (6) UTI (urinary tract infection) Priority: Secondary Status: Suspected (7) Migraine headache Priority: Secondary Status: Chronic - Transfer Medications Prescriptions: LORazepam [Ativan] 0.5 - 1 mg PO DAILY PRN 1 Days #2 tablet PRN Reason: Anxiety Ciprofloxacin [Cipro] 500 mg PO BID #2 tablet Home Medications: Gabapentin [Neurontin] 600 mg PO BID 01/01/18 [History] Insulin Aspart Prot/Insuln Asp [Novolog Mix 70-30 Vial] 30 unit SQ BIDWM 01/01/18 [History] Losartan/HCTZ [Hyzaar 50-12.5 Tablet] 1 each PO DAILY 01/01/18 [History] Metformin HCl 1,000 mg PO BID 01/01/18 [History] Metoprolol Succinate [Toprol Xl] 25 mg PO QAM 01/01/18 [History] Omeprazole [PriLOSEC] 40 mg PO DAILY 01/01/18 [History] Aspirin 325 mg PO DAILY 03/08/18 [History] Pravastatin Sodium 10 mg PO HS 03/08/18 [History] Topiramate 50 mg PO BID 03/08/18 [History] Venlafaxine HCl [Venlafaxine HCl ER] 300 mg PO DAILY 03/08/18 [History] ARIPiprazole [Abilify] 2 mg PO HS 08/11/18 [History] Loratadine [Allergy Relief] 10 mg PO DAILY 08/11/18 [History] Tizanidine HCl 2 mg PO BID 08/11/18 [History] Acetaminophen [Tylenol] 500 mg PO Q6HR 09/16/18 [History] Ketorolac [Toradol] 10 mg PO DAILY PRN 09/16/18 [History] Melatonin [Melatin] 3 - 6 mg PO HS PRN 09/16/18 [History] Nitroglycerin [Nitrostat] 0.4 mg SL Q5M PRN 09/16/18 [History] Ciprofloxacin [Cipro] 500 mg PO BID #2 tablet 09/19/18 [Rx] LORazepam [Ativan] 0.5 - 1 mg PO DAILY PRN 1 Days #2 tablet 09/19/18 [Rx] Allergies/Adverse Reactions: Allergy/AdvReac Type Severity Reaction Status Date / Time No Known Allergies Allergy Verified 09/17/18 13:39 - Respiratory Orders Smoking Cessation: Smoking cessation has been advised. For more information, call the [place] Tobacco Quit Line at 3-570-ESEL-NOW. CERTIFICATION: I certify that the transfer of the above named patient to an Extended Care Facility is necessary for the continuing treatment of the diagnosis listed. The above information is true and accurate reflection of patient's current conditio n. Confidential - Redisclosure prohibited without a patient's written consent.
--- NOTE | 2018-09-19 12:16 | Discharge Summary ---
- NOTES TO OUTPATIENT PROVIDER Notes to Outpatient Provider: Pt was admitted for left sided weakness concerning for CVA. CVA workup remains negative, and this was pt's recurrent hospitalization for the same symptoms. Concern for conversion disorder contributing to current symptoms, therefore psych follow up is recommended. Pt was also treated for a UTI. Date of Encounter: 09/19/18 Time of Encounter: 12:14 - Discharge Diagnosis (1) Left-sided weakness Priority: Primary Status: Acute (2) History of CVA (cerebrovascular accident) Priority: Secondary Status: Chronic (3) HTN (hypertension) Priority: Secondary Status: Chronic Qualifiers: Hypertension type: essential hypertension Qualified Code(s): I10 - Essential (primary) hypertension (4) Diabetes mellitus Priority: Secondary Status: Chronic Qualifiers: Diabetes mellitus type: type 2 Diabetes mellitus long term care administrator insulin use: with correction use Diabetes mellitus complication status: without complication Qualified Code(s): E11.9 - Type 2 diabetes mellitus without complications; Z79.4 - correction (current) use of insulin (5) Depression Priority: Secondary Status: Chronic Qualifiers: Depression Type: unspecified Qualified Code(s): F32.9 - Major depressive disorder, single episode, unspecified (6) UTI (urinary tract infection) Priority: Secondary Status: Suspected Qualifiers: Urinary tract infection type: acute cystitis Hematuria presence: without hematuria Qualified Code(s): N30.00 - Acute cystitis without hematuria (7) Migraine headache Priority: Secondary Status: Chronic Qualifiers: Migraine type: unspecified Status migrainosus presence: without status migrainosus Intractability: not intractable Qualified Code(s): G43.909 - Migraine, unspecified, not intractable, without status migrainosus Hospital course: Ms. Davenport is a 78 year old female with past medical history of CVA, multiple TIAs, diabetes mellitus, hypertension, chronic headaches status post Botox injections, COPD who presents to the ER for evaluation of left facial droop and slurred speech. Patient was admitted for CVA workup. Neurology evaluated the patient and all CVA workup remained negative. As per patient's family, patient has had recurrent hospital visits for the same complaints. Given persistent symptoms and with negative workup, neurology is concerned about conversion disorder contributing to her current symptoms. Psychiatric evaluation has been requested. Patient was also treated for urinary tract infection during this hospitalization. Physical therapy evaluated the patient and [facility] facility was recommended. Patient is currently medically stable for discharge to [facility] facility, pending psych evaluation. Patient was seen and examined on the day of discharge. Patient will be discharged to [facility] facility today with outpatient follow-up with PCP, neurology, psychiatry. Discharge discussed with: patient, nurse, social work, case management, application support consultant - Time Spent with Patient Total time spent providing and/or coordinating discharge services: 35 minutes Time spent: Greater than 30 minutes - Discharge Medications Prescriptions: New Ciprofloxacin [Cipro] 500 mg PO BID #2 tablet Continued Gabapentin [Neurontin] 600 mg PO BID Losartan/HCTZ [Hyzaar 50-12.5 Tablet] 1 each PO DAILY Insulin Aspart Prot/Insuln Asp [Novolog Mix 70-30 Vial] 30 unit SQ BIDWM Metoprolol Succinate [Toprol Xl] 25 mg PO QAM Omeprazole [PriLOSEC] 40 mg PO DAILY Metformin HCl 1,000 mg PO BID Aspirin 325 mg PO DAILY Pravastatin Sodium 10 mg PO HS Topiramate 50 mg PO BID Venlafaxine HCl [Venlafaxine HCl ER] 300 mg PO DAILY ARIPiprazole [Abilify] 2 mg PO HS Loratadine [Allergy Relief] 10 mg PO DAILY Tizanidine HCl 2 mg PO BID Melatonin [Melatin] 3 - 6 mg PO HS PRN PRN Reason: Sleep Nitroglycerin [Nitrostat] 0.4 mg SL Q5M PRN PRN Reason: Chest Pain Acetaminophen [Tylenol] 500 mg PO Q6HR Ketorolac [Toradol] 10 mg PO DAILY PRN PRN Reason: Pain LORazepam [Ativan] 0.5 - 1 mg PO DAILY PRN 1 Days #2 tablet PRN Reason: Anxiety Home Medications: Gabapentin [Neurontin] 600 mg PO BID 01/01/18 [History] Insulin Aspart Prot/Insuln Asp [Novolog Mix 70-30 Vial] 30 unit SQ BIDWM 01/01/18 [History] Losartan/HCTZ [Hyzaar 50-12.5 Tablet] 1 each PO DAILY 01/01/18 [History] Metformin HCl 1,000 mg PO BID 01/01/18 [History] Metoprolol Succinate [Toprol Xl] 25 mg PO QAM 01/01/18 [History] Omeprazole [PriLOSEC] 40 mg PO DAILY 01/01/18 [History] Aspirin 325 mg PO DAILY 03/08/18 [History] Pravastatin Sodium 10 mg PO HS 03/08/18 [History] Topiramate 50 mg PO BID 03/08/18 [History] Venlafaxine HCl [Venlafaxine HCl ER] 300 mg PO DAILY 03/08/18 [History] ARIPiprazole [Abilify] 2 mg PO HS 08/11/18 [History] Loratadine [Allergy Relief] 10 mg PO DAILY 08/11/18 [History] Tizanidine HCl 2 mg PO BID 08/11/18 [History] Acetaminophen [Tylenol] 500 mg PO Q6HR 09/16/18 [History] Ketorolac [Toradol] 10 mg PO DAILY PRN 09/16/18 [History] Melatonin [Melatin] 3 - 6 mg PO HS PRN 09/16/18 [History] Nitroglycerin [Nitrostat] 0.4 mg SL Q5M PRN 09/16/18 [History] Ciprofloxacin [Cipro] 500 mg PO BID #2 tablet 09/19/18 [Rx] LORazepam [Ativan] 0.5 - 1 mg PO DAILY PRN 1 Days #2 tablet 09/19/18 [Rx] Allergies/Adverse Reactions: Allergy/AdvReac Type Severity Reaction Status Date / Time No Known Allergies Allergy Verified 09/17/18 13:39 Date of admission: 09/17/18 05:12 Primary care physician: PCP NONE Consults: 09/16/18 13:10 Consult to PICC team [Consult to Invasive Line Access Team] [CONS] Stat Reason for Consult: difficult access Line Type: Midline PICC line indications: Limited vascular access 09/16/18 14:28 Consult to Invasive Line Access Team [CONS] Routine Reason for Consult: poor access Line Type: EPIV 09/16/18 17:08 Consult to Occupational Therapy [CONS] Routine Comment: Evaluate, develop and implement POC Reason for Consult: Hx of CVA. left sided weakness Does patient have active BEDREST order?: No Is patient medically & hemodynamically stable?: Yes Consult to Physical Therapy [CONS] Routine Comment: Evaluate, develop and implement POC Reason for Consult: Hx of CVA. left sided weakness Does patient have active BEDREST order?: No Is patient medically & hemodynamically stable?: Yes 09/16/18 17:49 Consult to Neurology [CONS] Routine Consulting Provider: Neurology [facility] Reason for Consult: stroke like symptoms Call Completed: No 09/18/18 09:15 Consult to Legal Financial Specialist [CONS] Routine Reason for SW Consult: PT/OT RECOMMEND SNF 09/18/18 15:24 Consult to Psychiatry [CONS] Routine Consulting Provider: Psychiatry Maryan Reason consult: Other Other reason and/or additional details: Conversion disorder, left side weakness, sees Dr. Beverly as outpatient. Medication recommenda tions please. Discharging clinician: Ana Cristina Monroy Anticipated date of discharge: 09/19/18 - Constitutional Vitals: Temp Pulse Resp BP Pulse Ox 97.7 F 87 17 123/61 95 09/19/18 11:00 09/19/18 11:00 09/19/18 11:00 09/19/18 11:00 09/19/18 11:00 Exam: Vitals: Reviewed General: Alert and oriented x3. No acute distress, morbidly obese Cardiovascular: RRR, normal S1 & S2, no rubs, murmurs or gallops. Lungs: CTA b/l, no wheezes or crackles. Abdomen: Obese, soft, non-tender, no rigidity, normal bowel sounds Extremities: strength 4/5 in the left upper extr, 4/5 in the left lower extr, no tenderness Neurological: CN II-XII intact Rest of the physical exam is non contributory - Patient Status Disposition: Transfer SNF Functional capacity at discharge: uses cane/walker - Discharge Instructions Follow Up With: Anastasia Beverly MD [Partnered Physician] - 09/26/18 2:40 pm Sahra Higgins LISW [Fire Prevention Forester] - 10/02/18 3:00 pm Kelechi Bridges DPM [Partnered Physician] - 10/08/18 10:30 am Jayden Johnson MD [Partnered Physician] - 10/30/18 8:00 am Additional Instructions: 1. Please follow-up with your primary care physician within 3-5 days after your discharge from the hospital 2. Please follow up with neurology and psychiatry within 1 week after your discharge from the hospital 3. Please continue all your home medication as prescribed by your primary care physician. 4. Please seek medical help if you have difficulty breathing or if shortness of breath/chest pain occurs. - Diet and Activity Activity: as per physical therapy Diet: diabetic diet, low fat, low cholesterol, low salt diet
[2018-09-19] MEDS: traMADol 50 MG TABLET PO PRN (14:25)
[2018-09-19] MEDS ORDERED: Insulin NPH/REG 70/30 100 UNIT/ML (x5UNIT) SQ SCH (16:30)
[2018-09-19] MEDS ORDERED: NON-FORMULARY MEDICATION 1 EACH EACH (Insulin Aspart Prot/Insuln Asp [Novolog Mix 70-30 Vi SQ SCH (17:00)
== END 2018-09-19 14:44 | DRG 57 ==
LOC: EMEROOARM 10:15 → 3BNU 10:15 → SUATTDRO 09-17 05:12
PROVIDERS: ADMIT Internal Medicine Nephrology; ATTEND Internal Medicine

== ENCOUNTER 2019-01-12 17:32 | Inpatient (IN) ==
--- NOTE | 2019-01-12 17:52 | Emergency Department Note ---
Disposition Clinical Impression: Left-sided weakness Hemiplegic migraine Qualifiers: Status migrainosus presence: without status migrainosus Intractability: not intractable Qualified Code(s): G43.409 - Hemiplegic migraine, not intractable, without status migrainosus Chest pain Qualifiers: Chest pain type: precordial pain Qualified Code(s): R07.2 - Precordial pain Disposition: Admitted As Inpatient Condition: Good Referrals: NONE,PCP [Primary Care Provider] - Forms: ED Satisfaction Letter Time of Disposition: 19:15 Neuro HPI - General Chief Complaint: ED Chest Pain Stated Complaint: chest pain Time Seen by Provider: 01/12/19 17:43 Source: patient, EMS Limitations: no limitations Nursing Notes Reviewed: Yes Vital Signs Reviewed: Yes - History of Present Illness HPI Narrative: This is a 78-year-old female who presents today with a complaint of left-sided weakness and chest pain. Patient states that her left-sided weakness that shortly after had pain in her chest which was around 4 PM. She was last seen normal around 4 PM. She describes trouble with his speech, left-sided weakness and paresthesias, and a slight headache. EMS was called for chest pain. She was given nitroglycerin and Tylenol. EMS. Patient has a history of previous CVA with residual left-sided weakness. However, patient tells me that she is typically able to walk with a walker. Location: speech, left face, left arm, left leg, right leg Quality: weakness Symptoms Improving: No - Related Data Home Medications: Home Medications Medication Instructions Recorded Confirmed Gabapentin [Neurontin] 600 mg PO BID 01/01/18 01/12/19 Insulin Aspart Prot/Insuln Asp 30 unit SQ BIDWM 01/01/18 01/12/19 [Novolog Mix 70-30 Vial] Losartan/HCTZ [Hyzaar 50-12.5 1 each PO DAILY 01/01/18 01/12/19 Tablet] Metformin HCl 1,000 mg PO BID 01/01/18 01/12/19 Metoprolol Succinate [Toprol Xl] 25 mg PO QAM 01/01/18 01/12/19 Omeprazole [PriLOSEC] 40 mg PO DAILY 01/01/18 01/12/19 Aspirin 325 mg PO DAILY 03/08/18 01/12/19 Pravastatin Sodium 10 mg PO HS 03/08/18 01/12/19 Topiramate 50 mg PO BID 03/08/18 01/12/19 Venlafaxine HCl [Venlafaxine HCl 300 mg PO DAILY 03/08/18 01/12/19 ER] Loratadine [Allergy Relief] 10 mg PO DAILY 08/11/18 01/12/19 Tizanidine HCl 2 mg PO BID 08/11/18 01/12/19 Melatonin [Melatin] 3 - 6 mg PO HS PRN 09/16/18 01/12/19 Nitroglycerin [Nitrostat] 0.4 mg SL Q5M PRN 09/16/18 01/12/19 Cyanocobalamin (B-12) [Vitamin B12] 1,000 mcg IM QMONTH 01/12/19 01/12/19 Ferrous Sulfate [Iron] 325 mg PO BID 01/12/19 01/12/19 Oxybutynin Chloride [Ditropan XL] 10 mg PO DAILY 01/12/19 01/12/19 SUMAtriptan succinate [Imitrex] 25 mg PO DAILY PRN 01/12/19 01/12/19 Allergies/Adverse Reactions: Allergies Allergy/AdvReac Type Severity Reaction Status Date / Time No Known Allergies Allergy Verified 09/17/18 13:39 All systems ED: reviewed and negative except as stated. Constitutional: Reports: weakness. Denies: fever, chills Cardiovascular: Reports: chest pain. Denies: palpitations, dyspnea on exertion Gastrointestinal: Denies: abdominal pain, nausea Neurological: Reports: headache, weakness Past Medical History - Past Medical History Medical history: Reports: COPD, CVA, diabetes, GERD, hypertension, TIA Surgical history: Reports: cholecystectomy, herniorrhaphy, hysterectomy, orthopedic, other Psychiatric history: Reports: anxiety, depression - Social History Smoking Status: Never smoker Smokeless Tobacco Status: No Alcohol use: Reports: none Drug use: Reports: none Physical Exam - General Limitations: no limitations General appearance: alert, in no apparent distress - Head Head exam: atraumatic, normocephalic, normal inspection - Eye Eye exam: Present: normal appearance, PERRL, EOMI - Expanded Eye Exam Pupils: Left: reactive - ENT ENT exam: normal exam, normal oropharynx, mucous membranes moist - Expanded ENT Exam External ear exam: Present: normal external inspection Mouth exam: Present: normal external inspection Teeth exam: Present: normal inspection Throat exam: Present: normal inspection - Neck Neck exam: Present: normal inspection, full ROM, trachea midline - Chest Chest inspection: Present: normal inspection, symmetric chest wall rise - Respiratory Respiratory exam: Present: normal lung sounds bilaterally - Cardiovascular Cardiovascular exam: Present: regular rate, normal rhythm, normal heart sounds - Abdominal Exam Abdominal exam: Present: soft, Non-Tender. Absent: tenderness, distention, guarding, rebound, rigidity - Extremities Exam Extremities exam: Present: normal inspection, full ROM. Absent: tenderness, pedal edema - Expanded Upper Extremity Exam Shoulder exam: Present: normal inspection, full ROM Arm exam: Present: normal inspection, full ROM Elbow exam: Present: normal inspection, full ROM Forearm/Wrist exam: Present: normal inspection, full ROM Hand exam: Present: normal inspection, full ROM Vascular exam: Normal: capillary refill, radial pulse - Expanded Lower Extremity Exam Hip/Pelvis exam: Present: normal inspection, full ROM Upper leg exam: Present: normal inspection, full ROM Knee exam: Present: normal inspection, full ROM Lower leg exam: Present: normal inspection, full ROM Ankle exam: Present: normal inspection, full ROM Foot/toe exam: Present: normal inspection, full ROM Neurovascular/Tendon exam: Absent: motor deficit, sensory deficit, tendon deficit - Back Exam Back exam: Present: normal inspection, full ROM. Absent: tenderness - Neurological Exam Neurological exam: Present: alert, oriented X3 - Expanded Neurological Exam Patient oriented to: Present: person, place, time Cranial nerves: facial sensation (V): Abnormal Left, facial palsy (VII): Abnormal Left Motor strength - LUE: 2/5 Motor strength - RUE: 5/5 Motor strength - LLE: 2/5 Motor strength - RLE: 5/5 Sensory exam upper extremity: light touch: Abnormal Left Sensory exam lower extremity: light touch: Abnormal Left Coma Scale Eye Opening: Spontaneous Coma Scale Motor Response: Obeys Commands Coma Scale Verbal Response: Oriented Coma Scale Total: 15 - Psychiatric Psychiatric exam: Present: normal affect, normal mood - Skin Skin exam: Present: warm, dry, intact, normal color Course Vital Signs Temperature 98.8 F 01/12/19 17:35 Pulse Rate 85 01/12/19 17:35 Respiratory Rate 18 01/12/19 17:35 Blood Pressure 142/64 01/12/19 17:35 O2 Sat by Pulse Oximetry 98 09/15/19 17:35 Temperature 98.8 F 01/12/19 17:35 Pulse Rate 83 01/12/19 18:30 Respiratory Rate 18 01/12/19 18:30 Blood Pressure 151/73 01/12/19 18:30 O2 Sat by Pulse Oximetry 98 01/12/19 17:35 Oxygen Delivery Oxygen Delivery Room Air Neuro Symptoms/Deficit - MDM Narrative Medical decision making narrative: Clinical picture is concerning for acute CVA. Stroke alert called promptly. Differential diagnosis also includes acute coronary syndrome versus a typical chest pain versus complex/hemiplegic migraine. EKG shows normal sinus rhythm at 86 beats per minute. Normal axis. Normal intervals. No acute injury pattern. 181 CT scan was negative. 1819 Patient has been seen by neurologist. Dr. Will recommended no TPA. She had rashes that patient's symptoms are likely secondary to complex migraine. Patient has had previous similar episodes with negative workup. She actually had TPA in [facility] with similar presentation, and atenolol to be complex migraine. The currently recommends admission for supportive care. 1824 Patient reevaluated. the patient is doing better. She is now able to lift the left arm.. 1944 Patient area for the depression is doing much better. Patient's care discussed with the hospitalist. Will admit. - Medical Records Medical records reviewed: Yes I reviewed the patient's medical records. - Lab Data Lab results reviewed: Yes I reviewed the patient's lab results. Result diagrams: 01/12/19 18:06 01/12/19 18:06 Lab Results 01/12/19 01/12/19 01/12/19 Range/Units 18:02 18:06 18:06 WBC 9.9 (4.3-11.1) K/mcL RBC 4.48 (3.82-4.97) M/mcL Hgb 11.8 (11.5-15.4) g/dL Hct 38.1 (35.3-44.9) % MCV 85.0 (83.0-100.0) fL MCH 26.3 L (28.0-33.3) pg MCHC 31.0 L (31.6-35.5) g/dL RDW 20.7 H (11.5-14.5) % Plt Count 300 (140-400) K/mcL MPV 9.0 L (9.4-12.4) fL PT 10.3 (9.4-12.1) Seconds INR 0.9 APTT 30.5 (26.0-36.0) Seconds Sodium (136-145) mEq/L Potassium (3.5-5.1) mEq/L Chloride (98-107) mEq/L Carbon Dioxide (23-29) mEq/L BUN (8-23) mg/dL Creatinine (0.60-1.20) mg/dL Est GFR ( Amer) (> 60) Est GFR (Non-Af Amer) (> 60) BUN/Creatinine Ratio (6-26) Glucose (70-105) mg/dL POC Glucose 103 H (70-99) mg/dL Calculated Osmolality (280-300) Calcium (8.6-10.3) mg/dL Troponin I (< 0.04) ng/mL 01/12/19 Range/Units 18:06 WBC (4.3-11.1) K/mcL RBC (3.82-4.97) M/mcL Hgb (11.5-15.4) g/dL Hct (35.3-44.9) % MCV (83.0-100.0) fL MCH (28.0-33.3) pg MCHC (31.6-35.5) g/dL RDW (11.5-14.5) % Plt Count (140-400) K/mcL MPV (9.4-12.4) fL PT (9.4-12.1) Seconds INR APTT (26.0-36.0) Seconds Sodium 139 (136-145) mEq/L Potassium 3.7 (3.5-5.1) mEq/L Chloride 104 (98-107) mEq/L Carbon Dioxide 24 (23-29) mEq/L BUN 18 (8-23) mg/dL Creatinine 0.91 (0.60-1.20) mg/dL Est GFR ( Amer) > 60 (> 60) Est GFR (Non-Af Amer) > 60 (> 60) BUN/Creatinine Ratio 20 (6-26) Glucose 102 (70-105) mg/dL POC Glucose (70-99) mg/dL Calculated Osmolality 290 (280-300) Calcium 9.1 (8.6-10.3) mg/dL Troponin I < 0.03 (< 0.04) ng/mL - Radiology Data Radiology results reviewed: Yes I reviewed the patient's radiology results. - EKG Data EKG attestation: Yes I reviewed and interpreted this EKG. NIH Stroke Scale - Level of Consciousness LOC: Alert - LOC Questions LOC Questions: Answers both correctly - LOC Commands LOC Commands: Performs both correctly - Best Gaze Best Gaze: Normal - Visual Visual: No visual loss - Facial Palsy Facial Palsy: Minor asymmetry on smiling, flattened nasolabial fold - Motor Arms Motor Arm-Left: Some effort against gravity, limb drifts to bed Motor Arm-Right: No drift for 10 seconds - Motor Legs Motor Leg-Left: Some effort against gravity, limb drifts to bed Motor Leg-Right: No drift for 5 seconds - Limb Ataxia Limb Ataxia: Absent of affected limb too weak to perform exam - Sensory Sensory: Mild to moderate loss, "not as sharp" - Best Language Best Language: No aphasia - Dysarthria Dysarthria: Mild, slurs some words - Extinction and Inattention Extinction and Inattention: Normal - NIHSS Total Score NIHSS Total Score: 7 TPA Checklist - LKW: 3-4.5 hrs Add. Warnings/Precautions Patient/family understanding: The patient/family members have been counseled and understood the risk, benefit, and alternatives of treatment.
[2019-01-12 18:18] LABS: Hematocrit 38.1 % (35.3-44.9); Hemoglobin 11.8 g/dL (11.5-15.4); Mean Corpuscular Hemoglobin 26.3 pg (28.0-33.3); Platelet Count 300 K/mcL (140-400); Red Blood Count 4.48 M/mcL (3.82-4.97); Red Cell Distribution Width 20.7 % (11.5-14.5); White Blood Count 9.9 K/mcL (4.3-11.1)
[2019-01-12 18:27] LABS: INR 0.9; Prothrombin Time 10.3 Seconds (9.4-12.1)
[2019-01-12 18:30] LABS: Activated Partial Thrombo Time 30.5 Seconds (26.0-36.0)
[2019-01-12 18:35] LABS: BUN/Creatinine Ratio 20 (6-26); Blood Urea Nitrogen 18 mg/dL (8-23); Calcium 9.1 mg/dL (8.6-10.3); Carbon Dioxide 24 mEq/L (23-29); Chloride 104 mEq/L (98-107); Glucose 102 mg/dL (70-105); Osmolality,Calculated 290 (280-300); Potassium 3.7 mEq/L (3.5-5.1); Sodium 139 mEq/L (136-145); eGFR For African Americans > 60 (> 60); eGFR For Non-African Americans > 60 (> 60)
[2019-01-12 18:36] LABS: Troponin I < 0.03 ng/mL (< 0.04)
[2019-01-12] MEDS: Acetaminophen/Butalbital/CaffeineTABLET PO PRN (21:33)
[2019-01-12] MEDS ORDERED: Naloxone 0.4 MG/ML INJ IVP PRN (22:46)
[2019-01-12] MEDS ORDERED: Nitroglycerin 0.4 MG TAB.SUBL SL PRN (22:48)
[2019-01-12] MEDS ORDERED: SUMAtriptan succinate 25 MG TABLET PO PRN (22:48)
[2019-01-12] MEDS ORDERED: Cyanocobalamin (B-12) 1,000 MCG/ML VIAL IM SCH (23:00)
[2019-01-13 01:04] LABS: Hematocrit 38.4 % (35.3-44.9); Hemoglobin 11.7 g/dL (11.5-15.4); Mean Corpuscular HGB Conc 30.5 g/dL (31.6-35.5); Mean Corpuscular Hemoglobin 26.5 pg (28.0-33.3); Mean Corpuscular Volume 86.9 fL (83.0-100.0); Mean Platelet Volume 9.2 fL (9.4-12.4); Platelet Count 327 K/mcL (140-400); Red Blood Count 4.42 M/mcL (3.82-4.97); Red Cell Distribution Width 20.7 % (11.5-14.5); White Blood Count 9.7 K/mcL (4.3-11.1)
[2019-01-13] MEDS ORDERED: Ketorolac 30 MG/ML VIAL IVP PRN (01:12)
[2019-01-13 01:22] LABS: BUN/Creatinine Ratio 22 (6-26); Blood Urea Nitrogen 17 mg/dL (8-23); Calcium 9.1 mg/dL (8.6-10.3); Carbon Dioxide 26 mEq/L (23-29); Chloride 103 mEq/L (98-107); Glucose 88 mg/dL (70-105); Osmolality,Calculated 287 (280-300); Potassium 3.7 mEq/L (3.5-5.1); Sodium 138 mEq/L (136-145); eGFR For African Americans > 60 (> 60); eGFR For Non-African Americans > 60 (> 60)
[2019-01-13 01:31] LABS: Troponin I < 0.03 ng/mL (< 0.04)
--- NOTE | 2019-01-13 05:28 | Internal Med History&Physical ---
Date of Encounter: 01/13/19 Time of Encounter: 05:25 Internal Medicine - H&P: HPI Chief complaint: Stroke like Sx History of present illness: Ms. Davenport is a 78 year old female COPD, CVA with residual left-sided weakness, diabetes, GERD, hypertension, TIA, anxiety and Migraines who presented to the ED with complaints of headache, left-sided weakness and chest pain. Patient reporting onset of left-sided non-radiating chest pain around 4 PM this afternoon while patient was ambulating to her bedroom. Pain described as someone sitting on her chest. No aggravating or alleviating factors. Shortly thereafter she began having headaches and weakness in the left arm and leg. Headache is similar to her previous migraine headaches described as intermittent, occurring in waves and involving different parts of her head. Headaches have been associated with left-sided weakness similar to current presentation. Patient has had multiple admissions for strokelike symptoms with negative workup. Differential in the past has included hemiplegic migraines though there was concern for possible conversion disorder for which patient was seen by psychiatry and given a diagnosis of general anxiety disorder with conversion symptoms. Patient follows with Dr. Johnson with neurology who has been managing her headaches and previously evaluated her for strokelike symptoms. Currently on sumatriptan. On arrival patient was hemodynamically stable, afebrile saturating 95% on room air. Laboratory workup was unremarkable including initial troponin. EKG shows normal sinus rhythm at 86 beats per minute in the absence of any ischemic changes. CT scan of the head was negative. Patient evaluated by [facility] neurology who recommended against TPA and suggested this symptoms may be secondary to complex migraine and recommended admission for supportive care. Past Med Surg Social Fam HX - Past Medical History Medical history: COPD, CVA, diabetes, GERD, hypertension, TIA Additional medical history: depression,lateral meniscus tear,perniciuos anemia,anxiety,bilateral hip osteoarthritis,left hamstring avulsion,peripheral neuropathy,diabetic neuropathy,left foot drop,right third MCP post traumatic synovitis,bilateral knee osteoarthritis,avulsion of hamstring muscle,lactic acidosis,3rd toe right turning under, spinal cord stimulator,stroke Psychiatric history: anxiety, depression - Past Surgical History Surgical History: appendectomy, cholecystectomy, hysterectomy Additional surgical history: bilateral knee,hip implant neuromodulation,intestinal resection,hiatal hernia repair,colonoscopy/EGD,heart cath,botulinium toxin injection gastroenteric anastomosis - Social History Smoking Status: Never smoker Smokeless Tobacco Status: No Alcohol use: none Drug use: none - Family History Mother Age: 96 Living Status: Still Living Hx Family Neuromuscular Disorders: Yes (Dementia) Hx Family Neurologic Disorders: Yes (dementia) Sister Hx Family Cancer: Yes Father Living Status: Internal Medicine - H&P: Meds Gabapentin [Neurontin] 600 mg PO BID 01/01/18 [History] Insulin Aspart Prot/Insuln Asp [Novolog Mix 70-30 Vial] 30 unit SQ BIDWM [History] Losartan/HCTZ [Hyzaar 50-12.5 Tablet] 1 each PO DAILY 01/01/18 [History] Metformin HCl 1,000 mg PO BID 01/01/18 [History] Metoprolol Succinate [Toprol Xl] 25 mg PO QAM 01/01/18 [History] Omeprazole [PriLOSEC] 40 mg PO DAILY 01/01/18 [History] Aspirin 325 mg PO DAILY 03/08/18 [History] Pravastatin Sodium 10 mg PO HS 03/08/18 [History] Topiramate 50 mg PO BID 03/08/18 [History] Venlafaxine HCl [Venlafaxine HCl ER] 300 mg PO DAILY 03/08/18 [History] Loratadine [Allergy Relief] 10 mg PO DAILY 08/11/18 [History] Tizanidine HCl 2 mg PO BID 08/11/18 [History] Melatonin [Melatin] 3 - 6 mg PO HS PRN 09/16/18 [History] Nitroglycerin [Nitrostat] 0.4 mg SL Q5M PRN 09/16/18 [History] Cyanocobalamin (B-12) [Vitamin B12] 1,000 mcg IM QMONTH 01/12/19 [History] Ferrous Sulfate [Iron] 325 mg PO BID 01/12/19 [History] Oxybutynin Chloride [Ditropan XL] 10 mg PO DAILY 01/12/19 [History] SUMAtriptan succinate [Imitrex] 25 mg PO DAILY PRN 01/12/19 [History] Allergy/AdvReac Type Severity Reaction Status Date / Time No Known Allergies Allergy Verified 09/17/18 13:39 All Systems PM: A 10-system review of systems was performed and is negative for pertinent findings except as documented above in the HPI. - Constitutional Constitutional: no chills, no fever(s), no night sweats - EENT Eyes: no change in vision, no discharge, no pain, no photophobia Ears: no ear discharge, no ear pain, no tinnitus Nose, mouth and throat: no dysphagia, no nasal discharge, no neck pain, no sore throat - Cardiovascular Cardiovascular ROS IM: no chest pain, no diaphoresis, no dyspnea, no lightheadedness, no palpitations, no syncope - Respiratory Respiratory: no cough, no dyspnea, no wheezing, no excessive phlegm production - Gastrointestinal Gastrointestinal: no abdominal pain, no diarrhea, no hematemesis, no hematochezia, no melena, no nausea, no vomiting - Genitourinary Genitourinary: no change in urinary stream, no dysuria, no flank pain, no hematuria - Musculoskeletal Musculoskeletal ROS IM: no numbness, no tingling - Integumentary Integumentary IM: no rash, no unusual bruising - Neurological Neurological ROS: no confusion, no convulsions, no focal weakness, no numbness, no tingling, no tremor(s) - Hematologic/Lymphatic Hematologic/Lymphatic: no easy bruising - Constitutional Vitals: Temp Pulse Resp BP Pulse Ox 97.8 F 69 17 126/69 95 01/13/19 04:08 01/13/19 04:08 01/13/19 04:08 01/13/19 04:08 01/13/19 04:08 Exam: General: Alert and oriented 3 Skin:Normal color, no rash, no lesions. HEENT:EOM, pupils equal, round and reactive. Cardiovascular:Normal S1 & S2, no rubs, murmurs or gallops. No JVD. Pulse regular. Lungs:Normal breath sounds, no wheezes or crackles. Abdomen:Soft, non-tender, no rigidity. Extremities:No deformity, no edema or tenderness, no joint swelling or clubbing. Neurological: Slowed cognition. Cranial nerves II through XII intact. No weakness in the right upper lower extremities. Sensation intact Pulses:Carotid and radial pulses normal +2. Rest of the physical exam is non contributory Internal Med - H&P Results - Labs CBC & Chem 7: 01/14/19 05:06 01/14/19 05:06 Labs: Short CBC 01/12/19 01/13/19 Range/Units 18:06 00:34 WBC 9.9 9.7 (4.3-11.1) K/mcL Hgb 11.8 11.7 (11.5-15.4) g/dL Hct 38.1 38.4 (35.3-44.9) % Plt Count 300 327 (140-400) K/mcL BMP 01/12/19 01/13/19 18:06 00:34 Sodium 139 138 Potassium 3.7 3.7 Chloride 104 103 Carbon Dioxide 24 26 BUN 18 17 Creatinine 0.91 0.77 Glucose 102 88 Calcium 9.1 9.1 Cardiac Enzymes 01/12/19 01/13/19 Range/Units 18:06 00:34 Troponin I < 0.03 < 0.03 (< 0.04) ng/mL - Impressions ITS Impressions Head CT 01/12/19 18:02 IMPRESSION: No acute abnormality detected. Findings were discussed with Heladio Parikh MD at 6:06 pm on 01/12/2019. D/ / Dalton Otero MD / Dalton Otero MD Interpreting Provider: Dalton Otero MD Chest X-Ray 01/12/19 18:59 IMPRESSION: No acute process. D/ / Delmer Delgado MD / Delmer Delgado MD Interpreting Provider: Delmer Delgado MD - Assessment and Plan (1) Stroke-like symptoms Current Visit: Yes Status: Acute Assessment and plan: Patient presenting with left-sided weakness involving the upper and lower extremity increased from her baseline. Workup thus far has been negative. Patient has had multiple admissions for strokelike symptoms with negative workup. Differential in the past has included hemiplegic migraines though there was concern for possible conversion disorder for which patient was seen by psychiatry and given a diagnosis of general anxiety disorder with conversion symptoms. Patient follows with Dr. Johnson with neurology who has been managing her headaches and has previously evaluated her for strokelike symptoms. Currently on sumatriptan. I suspect current presentation likely the same. No netheless we will continue evaluation for possible TIA/CVA. Patient reports having hardware preventing previous MRI imaging. -Telemetry -Neurochecks -Pain control as needed -Lipid panel; A1c -Echocardiogram -CTA of the head and neck -Neurology consult (2) Chest pain Current Visit: Yes Status: Acute Assessment and plan: Patient reporting left-sided chest pain described as someone sitting on her chest that was nonradiating, nonpleuritic and not reproducible. No prior history of coronary artery disease diagnosis. Patient had a nuclear stress test in July of this year which was negative for ischemia or infarct. Initial EKG was unremarkable. Troponin thus far 2 has been negative low suspicion for ACS at this time. -Telemetry -Trend troponin -We will obtain Echocardiogram -Consider consult cardiology Qualifiers: Chest pain type: precordial pain Qualified Code(s): R07.2 - Precordial pain (3) Diabetes mellitus Current Visit: No Status: Chronic Assessment and plan: Continue Accu-Cheks with sliding scale insulin. Qualifiers: Diabetes mellitus type: type 2 Diabetes mellitus continuous churn buttermaker insulin use: with fdc use Diabetes mellitus complication status: without complication Qualified Code(s): E11.9 - Type 2 diabetes mellitus without complications; Z79.4 - retirement (current) use of insulin (4) DVT prophylaxis Current Visit: No Status: Chronic Assessment and plan: Substance heparin - Time Spent With Patient Total time spent is greater than 50% in coordination of care (as documented) at patient's floor/unit and/or counseling patient:
[2019-01-13] MEDS ORDERED: Isovue-370 500 ML BOTTLE IVP ONE (05:32)
[2019-01-13] MEDS ORDERED: D5% in Water 1,000 ML IVC PRN (06:35)
[2019-01-13] MEDS ORDERED: *HR* Dextrose 50 % in Water (Syg) 50 ML SYRINGE IVP PRN (06:35)
[2019-01-13] MEDS ORDERED: Dextrose Gel 15 GM/37.5 ML TUBE PO PRN ×2 (06:35)
[2019-01-13] MEDS: *HR* Heparin 5,000 UNIT/ML VIAL SQ SCH ×3 (09:59→22:45)
[2019-01-13] MEDS: Venlafaxine XR (24 HR) 150 MG CAP.ER.24H PO SCH (09:59)
[2019-01-13] MEDS: Aspirin 325 MG TABLET PO SCH (09:59)
[2019-01-13] MEDS: Metoprolol XL (24 HR) Succ 25 MG TAB.ER.24H PO SCH (09:59)
[2019-01-13] MEDS: Topiramate 25 MG TABLET PO SCH ×2 (09:59→20:17)
[2019-01-13] MEDS: Insulin LISPRO 300 UNITS/3 ML VIAL SQ SCH ×3 (10:00→17:24)
[2019-01-13] MEDS: Gabapentin 300 MG CAPSULE PO SCH ×2 (10:00→20:17)
[2019-01-13] MEDS: Losartan/HCTZ 50-12.5 TABLET PO SCH (10:00)
--- NOTE | 2019-01-13 11:12 | Neurology - Consult Note ---
Date of Encounter: 01/13/19 Time of Encounter: 10:00 Assessment and Plan (1) Left-sided weakness Current Visit: Yes Status: Acute Patient displayed left sided weakness to examination in a pattern that does not appear to be completely neurological in origin. Head CTA showed no focal stenosis involving cervial carotid/vertebral arteries and no focal stenosis of the [place]. Head CT was negative for acute infarct. Patient also reports sensory deficits on the left. Patient reports inability to receive an MRI due to "metal in spine" will need to verify. Continue risk factor management and medical treatment. Further recommendations per Dr. Quevedo, attending neurologists, addendum. History of Present Illness Chief complaint: "weakness" HPI: Ms. Davenport is a 78 year old female with past medical history significant for COPD, CVA with residual left sided weakness, Diabetes, GERD, HTN, Anxiety with somatization, and Migraines who presented to the ED with chest pain, headaches, and worsening left sided weakness. She reports left-sided numbness that worsens with chest pain. She states that everything on the left "feels elevator builder" when touched. She reports chronic headaches which she follows with Dr. Johnson for and receives Botox. She states the botox helped until the most recent injections which she feels weren't as beneficial. She states that the headaches "come and go" and are located in different places but currently in the right fronto/parietal region. She denies nausea, vomiting, changes in vision or hearing, or photophobia. Past Med Surg Social Fam HX - Past Medical History Medical history: COPD, CVA, diabetes, GERD, hypertension, TIA Additional medical history: depression,lateral meniscus tear,perniciuos anemia,anxiety,bilateral hip osteoarthritis,left hamstring avulsion,peripheral neuropathy,diabetic neuropathy,left foot drop,right third MCP post traumatic synovitis,bilateral knee osteoarthritis,avulsion of hamstring muscle,lactic acidosis,3rd toe right turning under, spinal cord stimulator,stroke Psychiatric history: anxiety, depression - Past Surgical History Surgical History: appendectomy, cholecystectomy, hysterectomy Additional surgical history: bilateral knee,hip implant neuromodulation,intestinal resection,hiatal hernia repair,colonoscopy/EGD,heart cath,botulinium toxin injection gastroenteric anastomosis - Social History Smoking Status: Never smoker Smokeless Tobacco Status: No Alcohol use: none Drug use: none - Family History Mother Age: 96 Living Status: Still Living Hx Family Neuromuscular Disorders: Yes (Dementia) Hx Family Neurologic Disorders: Yes (dementia) Sister Hx Family Cancer: Yes Father Living Status: Medications and Allergies Gabapentin [Neurontin] 600 mg PO BID 01/01/18 [History] Insulin Aspart Prot/Insuln Asp [Novolog Mix 70-30 Vial] 30 unit SQ BIDWM 01/01/18 [History] Losartan/HCTZ [Hyzaar 50-12.5 Tablet] 1 each PO DAILY 01/01/18 [History] Metformin HCl 1,000 mg PO BID 01/01/18 [History] Metoprolol Succinate [Toprol Xl] 25 mg PO QAM 01/01/18 [History] Omeprazole [PriLOSEC] 40 mg PO DAILY 01/01/18 [History] Aspirin 325 mg PO DAILY 03/08/18 [History] Pravastatin Sodium 10 mg PO HS 03/08/18 [History] Topiramate 50 mg PO BID 03/08/18 [History] Venlafaxine HCl [Venlafaxine HCl ER] 300 mg PO DAILY 03/08/18 [History] Loratadine [Allergy Relief] 10 mg PO DAILY 08/11/18 [History] Tizanidine HCl 2 mg PO BID 08/11/18 [History] Melatonin [Melatin] 3 - 6 mg PO HS PRN 09/16/18 [History] Nitroglycerin [Nitrostat] 0.4 mg SL Q5M PRN 09/16/18 [History] Cyanocobalamin (B-12) [Vitamin B12] 1,000 mcg IM QMONTH 01/12/19 [History] Ferrous Sulfate [Iron] 325 mg PO BID 01/12/19 [History] Oxybutynin Chloride [Ditropan XL] 10 mg PO DAILY 01/12/19 [History] SUMAtriptan succinate [Imitrex] 25 mg PO DAILY PRN 01/12/19 [History] Allergy/AdvReac Type Severity Reaction Status Date / Time No Known Allergies Allergy Verified 09/17/18 13:39 All Systems: The remainder of the systems were reviewed and are negative - Constitutional Constitutional ROS IM: headache(s), weakness, no anorexia, no chills, no weight gain - Nose, Mouth, Throat Nose, mouth and throat: dizziness, no abnormal hearing, no change in voice, no dysphagia, no hoarseness - Cardiovascular Cardiovascular ROS IM: chest pain, no diaphoresis, no edema - Respiratory Respiratory IM: no cough, no chest congestion - Gastrointestinal Gastrointestinal: no constipation, no diarrhea, no nausea - Genitourinary Genitourinary ROS: no change in urinary stream, no difficulty voiding, no dysuria - Musculoskeletal Musculoskeletal ROS IM: no atrophy, no back pain - Integumentary Integumentary IM: no photosensitivity - Neurological Neurological ROS: dizziness, headache(s), tingling, weakness, no abnormal movements, no confusion, no frequent falls, no lack of coordination, no loss of vision - Psychiatric Psychiatric general PM: anxiety, difficulty concentrating, no abnormal sleep pattern, no confusion Physical Examination - Vital Signs Vital Signs: Initial Vital Signs Temp Pulse Resp BP Pulse Ox 98.8 F 85 18 142/64 98 01/12/19 17:35 01/12/19 17:35 01/12/19 17:35 01/12/19 17:35 01/12/19 17:35 - Exam Exam: GENERAL: Comfortable in no acute distress HEENT: Normal LUNGS: CTA HEART: RRR, S1 S2 Audible, no murmur EXTREMITIES: No Pedal edema. DETAILED NEUROLOGICAL EXAMINATION: MENTAL STATUS: Oriented to person, place, and situation. Oriented to month and year but not date. Memory: knows the President, Aware of recent events Recent Memory Intact, Attention span is normal Cranial Nerve Examination: CN - II: Visual Acuity, Field of Vision Normal, Fundus examination: No disk edema, Pupils- size shape reaction to light and accommodation: All normal. CN III, IV, : External ocular movements were intact, Pupils were reactive, Nodrooping of the eyelids CN V: Sensation over the face to light touch and pinprick diminished on left side of face. Corneal reflexes not tested, jaw jerk normal. CN VII: No facial asymmetry, no flattening of nasolabial folds, no difficulty in closing the eyes, no loss of forehead wrinkles, no difficulty in eye-closure, frowning raising eyebrows. CNVIII: No significant hearing loss CN IX, X: Uvula centralized not deviated, Gag reflex: Not tested CN X1: Sternocleidomastoid, trapezius, difficult to assess on left as patient was minimally engaged to strength testing, may be due to weakness CN X11: No Dysarthria, no wasting or fibrilation of tongue muscles, no deviation, tongue muscle strength normal. Motor examination: No hypertrophy, tone was normal, Upper limbs Proximal- Unable to lift left arm above head Distal- able to minimally artificial marble worker with left hand, On formal testing 3/5 on left, 5/5 on right Lower limbs On formal testing 3/5 on left, 5/5 on right Coordination: Lekvkf-kq-skia normal on right, was unable to lift left arm all the way to nose. Target pursuit normal on right with inability to test it on left due to p atient only lifting arm slightly off of bed, Rapid alternating moment of wrist slow but normal on left without testing on right as patient would only lift left arm a few inches from bed Sensory system: Superficial sensations- Touch normal on right with patient reporting diminished sensation on left Pain- Pinprick, Temperature all normal, Deep sensation normal, Joint position sense lost bilaterally in distal metatarsals due to neuropathy Cortical sensation, Tactile discrimination, localization and extinction all normal with the exception of distal lower extremity where patient was unable to localize feet sensation bilaterally from tarsals to metatarsals. . Deep tendon reflexes. Symmetrical bilateral, No evidence of Babinski. No sign of meningeal irritation Gait Examination: Deferred Results - Laboratory Findings CBC and BMP: 01/13/19 00:34 01/13/19 00:34 Abnormal lab findings: Abnormal lab results MCH 26.5 pg (28.0-33.3) L 01/13/19 00:34 MCHC 30.5 g/dL (31.6-35.5) L 01/13/19 00:34 RDW 20.7 % (11.5-14.5) H 01/13/19 00:34 MPV 9.2 fL (9.4-12.4) L 01/13/19 00:34 POC Glucose 103 mg/dL (70-99) H 01/12/19 18:02 Consult Discharge Plan - Plan Referrals: NONE,PCP [Primary Care Provider] -
--- NOTE | 2019-01-13 14:19 | Internal Med Progress Note ---
Hospitalist Progress Note - Encounter Date of Encounter: 01/13/19 Time of Encounter: 14:19 - Subjective Interval History: Pt was seen and examined at bed side. She still complaining about headaches. She looks very depressed. She also complained about chest discomfort. She denied anymore left-sided weakness. - Exam Vitals: Temp Pulse Resp BP Pulse Ox 98.5 F 72 16 124/69 94 01/13/19 11:07 01/13/19 11:07 01/13/19 11:07 01/13/19 11:07 01/13/19 11:07 Exam: Gen: Alert, awake, Oriented to time,place and person Chest: Diminished breath sounds B/L, No wheezing, No crackles, No rales Heart: S1S2+ RRR No murmurs Abd: Soft, NT, BS +, No organomegaly Ext: No edema, pulses are palpable, No calf tenderness Neuro : Chronic left residual paralysis noticed. No speech difficulties noticed Psych: A, A, O x 3.. Looks very depressed. Skin: No rash. - Assessment and Plan (1) Stroke-like symptoms Current Visit: Yes Status: Acute Assessment and Plan: She does have chronic left residual paralysis from previous CVA Her current symptoms seems to be anxiety / depression related cont on tele cont close monitoring will ask SW to corporate travel counselor the pt I did corporate travel counselor the pt. PT / OT eval cont aspirin and Zocor Neuro on board appreciate recommendations Initial CT of Head- did not show any acute intracranial abnormality she had CTA of Head and Neck done today - no focal stenosis involving the cervical carotid/vertebral arteries (2) Chest pain Current Visit: Yes Status: Acute Assessment and Plan: Atypical chest pain serial troponin were negative x 3 No acute ischemic changes on EKG Normal stress test in 08/16 [facility] from 2017 showed normal coronary arteries Cont on tele no further work up needed Will repeat Echo (3) Diabetes mellitus Current Visit: No Status: Chronic Assessment and Plan: Continue Accu-Cheks with sliding scale insulin. (4) DVT prophylaxis Current Visit: No Status: Chronic Assessment and Plan: Substance heparin (5) Depression Current Visit: No Status: Chronic Assessment and Plan: Denied any suicidal ideation continue current home medications social work administrator consulted - Time Spent with Patient Total time spent is greater than 50% in coordination of care (as documented) at patient's floor/unit and/or counseling patient: Internal Medicine: Result - Labs CBC & Chem 7: 01/13/19 00:34 01/13/19 00:34 Labs: Short CBC 01/12/19 01/13/19 Range/Units 18:06 00:34 WBC 9.9 9.7 (4.3-11.1) K/mcL Hgb 11.8 11.7 (11.5-15.4) g/dL Hct 38.1 38.4 (35.3-44.9) % Plt Count 300 327 (140-400) K/mcL BMP 01/12/19 01/13/19 18:06 00:34 Sodium 139 138 Potassium 3.7 3.7 Chloride 104 103 Carbon Dioxide 24 26 BUN 18 17 Creatinine 0.91 0.77 Glucose 102 88 Calcium 9.1 9.1 Cardiac Enzymes 01/12/19 01/13/19 01/13/19 Range/Units 18:06 00:34 08:34 Troponin I < 0.03 < 0.03 < 0.03 (< 0.04) ng/mL - ABG Interpretation ABG results: PT/INR, D-dimer PT 10.3 Seconds (9.4-12.1) 01/12/19 18:06 - Impressions Impressions Head CT 01/12/19 18:02 IMPRESSION: No acute abnormality detected. Findings were discussed with Heladio Parikh MD at 6:06 pm on 01/12/2019. D/ / Dalton Otero MD / Dalton Otero MD Interpreting Provider: Dalton Otero MD Chest X-Ray 01/12/19 18:59 IMPRESSION: No acute process. D/ / Delmer Delgado MD / Delmer Delgado MD Interpreting Provider: Delmer Delgado MD Head CTA 01/13/19 07:07 IMPRESSION: 1. No focal stenosis involving the cervical carotid/vertebral arteries. 2. No focal stenosis of the [id number]. D/ / Arun Gutierrez MD / Arun Gutierrez MD Interpreting Provider: Arun Gutierrez MD Neck CTA 01/13/19 07:07 IMPRESSION: 1. No focal stenosis involving the cervical carotid/vertebral arteries. 2. No focal stenosis of the [id number]. D/ / Arun Gutierrez MD / Arun Gutierrez MD Interpreting Provider: Arun Gutierrez MD Consult Discharge Plan - Plan Referrals: NONE,PCP [Primary Care Provider] - (2) Chest pain Qualifiers: Chest pain type: precordial pain Qualified Code(s): R07.2 - Precordial pain (3) Diabetes mellitus Qualifiers: Diabetes mellitus type: type 2 Diabetes mellitus ferry terminal agent insulin use: with ferry terminal agent use Diabetes mellitus complication status: without complication Qualified Code(s): E11.9 - Type 2 diabetes mellitus without complications; Z79.4 - exterminator helper termite (current) use of insulin (5) Depression Qualifiers: Depression Type: unspecified Qualified Code(s): F32.9 - Major depressive disorder, single episode, unspecified
[2019-01-13] MEDS: Acetaminophen/Butalbital/CaffeineTABLET PO PRN (17:30)
[2019-01-13] MEDS ORDERED: Melatonin 3 MG TABLET PO ONE ×2 (20:38→23:00)
[2019-01-14] MEDS: Acetaminophen/Butalbital/CaffeineTABLET PO PRN ×2 (05:15→18:06)
[2019-01-14] MEDS ORDERED: Ondansetron 4 MG/2 ML VIAL IVP ONE (05:16)
[2019-01-14] MEDS: *HR* Heparin 5,000 UNIT/ML VIAL SQ SCH ×3 (05:16→20:29)
[2019-01-14 05:55] LABS: Hematocrit 39.4 % (35.3-44.9); Hemoglobin 12.2 g/dL (11.5-15.4); Mean Platelet Volume 9.7 fL (9.4-12.4); Platelet Count 301 K/mcL (140-400); Red Blood Count 4.69 M/mcL (3.82-4.97); Red Cell Distribution Width 20.6 % (11.5-14.5); White Blood Count 8.7 K/mcL (4.3-11.1)
[2019-01-14] MEDS ORDERED: Ondansetron ODT 4 MG TAB.RAPDIS SL ONE (06:08)
[2019-01-14 06:13] LABS: BUN/Creatinine Ratio 19 (6-26); Blood Urea Nitrogen 15 mg/dL (8-23); Calcium 9.3 mg/dL (8.6-10.3); Carbon Dioxide 23 mEq/L (23-29); Chloride 103 mEq/L (98-107); Glucose 173 mg/dL (70-105); Osmolality,Calculated 291 (280-300); Sodium 138 mEq/L (136-145); eGFR For African Americans > 60 (> 60); eGFR For Non-African Americans > 60 (> 60)
[2019-01-14] MEDS: Metoprolol XL (24 HR) Succ 25 MG TAB.ER.24H PO SCH (09:38)
[2019-01-14] MEDS: Venlafaxine XR (24 HR) 150 MG CAP.ER.24H PO SCH (09:38)
[2019-01-14] MEDS: Insulin LISPRO 300 UNITS/3 ML VIAL SQ SCH ×3 (09:39→18:06)
[2019-01-14] MEDS: Aspirin 325 MG TABLET PO SCH (09:39)
[2019-01-14] MEDS: Topiramate 25 MG TABLET PO SCH ×2 (09:39→20:29)
[2019-01-14] MEDS: Gabapentin 300 MG CAPSULE PO SCH ×2 (09:39→20:28)
[2019-01-14] MEDS: Losartan/HCTZ 50-12.5 TABLET PO SCH (09:39)
--- NOTE | 2019-01-14 09:52 | Neurology Progress Note ---
Date of Encounter: 01/14/19 Time of Encounter: 09:00 Assessment and Plan (1) Left-sided weakness Current Visit: Yes Status: Acute Persistent left sided weakness with slight hyporeflexia. Given history of migraines and symptoms pattern which does not fit with a neurological pattern Complex Migraines a likely diagnosis. Differential would still include C onversion Disorder or Factitious Disorder. Echo already ordered, carotid duplex ordered. Continue physical therapy. Recommend outpatient neurology follow up for persistent migraines. Further recommendations per Dr. Quevedo, attending neurologist, addendum. Subjective Principal diagnosis: Complex Migraines Interval history: Ms. Davenport was seen at bedside. She reports improvement in her left sided weakness. She states she is still very weak but is improved from yesterday. She believes the physical therapy yesterday helped. She continues to report headaches which are a chronic issue for her but were previously helped by Botox. She denies any improvement in her weakness when her migraines improved on Botox. She continues to report numbness affecting the entire right side of her body. She denies changes in vision or hearing. She admits to nausea this morning which improved with prilosec. Objective - Constitutional Vitals: Temp Pulse Resp BP Pulse Ox 97.9 F 73 19 128/73 94 01/14/19 07:04 01/14/19 07:04 01/14/19 07:04 01/14/19 07:04 01/14/19 02:54 Exam: GENERAL: Comfortable in no acute distress HEENT: Normal LUNGS: CTA HEART: RRR, S1 S2 Audible, no murmur EXTREMITIES: No Pedal edema. DETAILED NEUROLOGICAL EXAMINATION: MENTAL STATUS: Oriented to person, place, date and situation. Memory: knows the President, Aware of recent events Recent Memory Intact, Attention span is normal Cranial Nerve Examination: CN - II: Visual Acuity, Field of Vision Normal, Pupils- size shape reaction to light and accommodation: All normal. CN III, IV, : External ocular movements were intact, Pupils were reactive, Nodrooping of the eyelids CN V: Sensation over the face to light touch and pinprick all normal on right, diminished sensation on left side of face. Corneal reflexes not tested, jaw jerk normal. CN VII: No facial asymmetry, no flattening of nasolabial folds, no difficulty in closing the eyes, no loss of forehead wrinkles, no difficulty in eye-closure, frowning raising eyebrows. CNVIII: No significant hearing loss CN IX, X: Uvula centralized not deviated, Gag reflex: Not tested CN X1: Sternocleidomastoid, trapezius, normal or evidence of any weakness. CN X11: No Dysarthria, no wasting or fibrillation of tongue muscles, no deviation, tongue muscle strength normal. Motor examination: No hypertrophy, tone was normal Upper limbs Proximal- Unable to lift right arm above head, lifting left arm above head Distal- Weakness in distal and proximal muscles of right upper extremity, no weakness on left On formal testing 5/5 on right, 4/5 on left Lower limbs On formal testing 5/5 on right, 4/5 on left Coordination: [id number]-[id number] normal on right, unable to perform finger to nose on left. Rapid alternating moment of right wrist normal unable to perform with left wrist Sensory system: Superficial sensations- Touch normal on right, diminished sensation on left Pain- Pinprick, Temperature all normal on right, diminished on left Deep sensation normal, Joint position sense normal. Cortical sensation, Tactile discrimination, localization and extinction all normal. Deep tendon reflexes. slight hyporeflexia on right, No evidence of Babinski. No sign of meningeal irritation Gait Examination: Deferred Results - Laboratory Findings CBC and BMP: 01/14/19 05:06 01/14/19 05:06 Abnormal lab findings: Abnormal lab results MCH 26.0 pg (28.0-33.3) L 01/14/19 05:06 MCHC 31.0 g/dL (31.6-35.5) L 01/14/19 05:06 RDW 20.6 % (11.5-14.5) H 01/14/19 05:06 MPV 9.2 fL (9.4-12.4) L 01/13/19 00:34 Glucose 173 mg/dL (70-105) H 01/14/19 05:06 POC Glucose 150 mg/dL (70-99) H 01/13/19 23:46 Consult Discharge Plan - Plan Referrals: NONE,PCP [Primary Care Provider] -
--- NOTE | 2019-01-14 13:29 | Internal Med Progress Note ---
Hospitalist Progress Note - Encounter Date of Encounter: 01/14/19 Time of Encounter: 11:00 - Subjective Interval History: Pt was seen and examined at bed side. She still complaining about headaches. She is more pleasant and less depressed today.. She denied any CP today.. - Exam Vitals: Temp Pulse Resp BP Pulse Ox 98.1 F 70 19 124/77 95 01/14/19 12:05 01/14/19 12:05 01/14/19 12:05 01/14/19 12:05 01/14/19 12:05 Exam: Gen: Alert, awake, Oriented to time,place and person Chest: Diminished breath sounds B/L, No wheezing, No crackles, No rales Heart: S1S2+ RRR No murmurs Abd: Soft, NT, BS +, No organomegaly Ext: No edema, pulses are palpable, No calf tenderness Neuro : Chronic left residual paralysis noticed. No speech difficulties noticed Psych: A, A, O x 3.. Looks very depressed. Skin: No rash. - Assessment and Plan (1) Stroke-like symptoms Current Visit: Yes Status: Acute Assessment and Plan: She does have chronic left residual paralysis from previous CVA Her current symptoms seems to be anxiety / depression related cont on tele cont close monitoring will ask SW to recreation counselor the pt I did recreation counselor the pt. PT / OT eval cont aspirin and Zocor Neuro on board appreciate recommendations Initial CT of Head- did not show any acute intracranial abnormality she had CTA of Head and Neck done today - no focal stenosis involving the cervical carotid/vertebral arteries (2) Chest pain Current Visit: Yes Status: Acute Assessment and Plan: Atypical chest pain serial troponin were negative x 3 No acute ischemic changes on EKG Normal stress test in 08/16 [facility] from 2017 showed normal coronary arteries Cont on tele no further work up needed Repeat Echo - P (3) History of CVA (cerebrovascular accident) Current Visit: No Status: Chronic Assessment and Plan: cont home meds (4) Diabetes mellitus Current Visit: No Status: Chronic Assessment and Plan: Continue Accu-Cheks with sliding scale insulin. (5) DVT prophylaxis Current Visit: No Status: Chronic Assessment and Plan: Substance heparin (6) Depression Current Visit: No Status: Chronic Assessment and Plan: Denied any suicidal ideation continue current home medications addiction social worker consulted - Time Spent with Patient Total time spent is greater than 50% in coordination of care (as documented) at patient's floor/unit and/or counseling patient: Internal Medicine: Result - Labs CBC & Chem 7: 01/14/19 05:06 01/14/19 05:06 Labs: Short CBC 01/14/19 Range/Units 05:06 WBC 8.7 (4.3-11.1) K/mcL Hgb 12.2 (11.5-15.4) g/dL Hct 39.4 (35.3-44.9) % Plt Count 301 (140-400) K/mcL BMP 01/14/19 05:06 Sodium 138 Potassium 4.0 Chloride 103 Carbon Dioxide 23 BUN 15 Creatinine 0.79 Glucose 173 H Calcium 9.3 - ABG Interpretation ABG results: PT/INR, D-dimer PT 10.3 Seconds (9.4-12.1) 01/12/19 18:06 - Impressions Impressions Echocardiogram 01/14/19 10:27 Impressions: LVEF 65%. Mild left ventricular diastolic dysfunction. Normal right ventricular structure and function. Mild aortic regurgitation. Mild mitral regurgitation. Mild tricuspid regurgitation. No pulmonary hypertension. No evidence of PFO by color Doppler. Left Ventricular Wall Motion: Rest Echo Findings All wall segments showed normal motion. Findings: Study Quality * Technically adequate exam. ECG Findings * Normal sinus rhythm. Left Ventricle * LVEF 65%. * Normal LV chamber size, wall thickness and function. * Mild left ventricular diastolic dysfunction. Right Ventricle * Normal right ventricular structure and function. Left Atrium * Normal left atrial size. Right Atrium * Normal right atrial size. Aortic Valve * Trileaflet aortic valve. * No aortic stenosis. * Mild aortic regurgitation. Mitral Valve * No mitral stenosis. * Mild mitral regurgitation. * Normal mitral valve structure. Tricuspid Valve * Tricuspid valve not well visualized. * Mild tricuspid regurgitation. Pulmonic Valve * Pulmonic valve is not well visualized. * No pulmonic stenosis. * No pulmonic regurgitation. Pulmonary Artery * Pulmonary artery not well visualized. Aorta * Normally sized aortic root. Pericardium * There is no pericardial effusion present. Interatrial Septum * No evidence of PFO by color Doppler. IVC * The IVC is not well evaluated. Consult Discharge Plan - Plan Referrals: NONE,PCP [Primary Care Provider] - (2) Chest pain Qualifiers: Chest pain type: precordial pain Qualified Code(s): R07.2 - Precordial pain (4) Diabetes mellitus Qualifiers: Diabetes mellitus type: type 2 Diabetes mellitus superintendent terminal insulin use: with penitentiary use Diabetes mellitus complication status: without complication Qualified Code(s): E11.9 - Type 2 diabetes mellitus without complications; Z79.4 - manager long term care (current) use of insulin (6) Depression Qualifiers: Depression Type: unspecified Qualified Code(s): F32.9 - Major depressive disorder, single episode, unspecified
[2019-01-14] MEDS: *HR* OxyCODONE/APAP 5/325 TABLET PO PRN (23:08)
[2019-01-14] MEDS ORDERED: Melatonin 3 MG TABLET PO ONE (23:15)
[2019-01-15 04:49] LABS: Hematocrit 39.8 % (35.3-44.9); Hemoglobin 12.4 g/dL (11.5-15.4); Mean Corpuscular HGB Conc 31.2 g/dL (31.6-35.5); Mean Corpuscular Hemoglobin 26.4 pg (28.0-33.3); Mean Corpuscular Volume 84.9 fL (83.0-100.0); Mean Platelet Volume 9.5 fL (9.4-12.4); Platelet Count 302 K/mcL (140-400); Red Blood Count 4.69 M/mcL (3.82-4.97); White Blood Count 10.5 K/mcL (4.3-11.1)
[2019-01-15 05:05] LABS: BUN/Creatinine Ratio 22 (6-26); Blood Urea Nitrogen 17 mg/dL (8-23); Carbon Dioxide 23 mEq/L (23-29); Chloride 105 mEq/L (98-107); Glucose 207 mg/dL (70-105); Osmolality,Calculated 290 (280-300); Potassium 4.3 mEq/L (3.5-5.1); Sodium 136 mEq/L (136-145); eGFR For African Americans > 60 (> 60); eGFR For Non-African Americans > 60 (> 60)
[2019-01-15] MEDS: *HR* Heparin 5,000 UNIT/ML VIAL SQ SCH ×3 (05:11→20:40)
[2019-01-15] MEDS: *HR* OxyCODONE/APAP 5/325 TABLET PO PRN ×3 (05:15→23:38)
[2019-01-15] MEDS: Insulin LISPRO 300 UNITS/3 ML VIAL SQ SCH ×3 (08:33→17:14)
[2019-01-15] MEDS: Venlafaxine XR (24 HR) 150 MG CAP.ER.24H PO SCH (08:34)
[2019-01-15] MEDS: Losartan/HCTZ 50-12.5 TABLET PO SCH (08:34)
[2019-01-15] MEDS: Aspirin 325 MG TABLET PO SCH (08:35)
[2019-01-15] MEDS: Metoprolol XL (24 HR) Succ 25 MG TAB.ER.24H PO SCH (08:35)
[2019-01-15] MEDS: Gabapentin 300 MG CAPSULE PO SCH ×2 (08:35→20:40)
[2019-01-15] MEDS: Topiramate 25 MG TABLET PO SCH ×2 (08:35→20:41)
--- NOTE | 2019-01-15 14:38 | Internal Med Progress Note ---
Hospitalist Progress Note - Encounter Date of Encounter: 01/15/19 Time of Encounter: 10:30 - Subjective Interval History: Pt was seen and examined at bed side. Her headaches are better today She is more pleasant and less depressed today. She denied any CP today. Talked to her daughter at bed side. - Exam Vitals: Temp Pulse Resp BP Pulse Ox 97.6 F 63 15 103/66 94 01/15/19 12:15 01/15/19 12:15 01/15/19 12:15 01/15/19 12:15 01/15/19 12:15 Exam: Gen: Alert, awake, Oriented to time,place and person Chest: Diminished breath sounds B/L, No wheezing, No crackles, No rales Heart: S1S2+ RRR No murmurs Abd: Soft, NT, BS +, No organomegaly Ext: No edema, pulses are palpable, No calf tenderness Neuro : Chronic left residual paralysis noticed. No speech difficulties noticed Psych: A, A, O x 3.. Looks very depressed. Skin: No rash. 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 PT / OT eval cont aspirin and Zocor Neuro on board appreciate recommendations Initial CT of Head- did not show any acute intracranial abnormality she had CTA of Head and Neck done today - no focal stenosis involving the cervical carotid/vertebral arteries (2) Chest pain Current Visit: Yes Status: Acute Assessment and Plan: Atypical chest pain serial troponin were negative x 3 No acute ischemic changes on EKG Normal stress test in 08/16 [facility] from 2017 showed normal coronary arteries Cont on tele no further work up needed Repeat Echo showed LVEF 65 %, mild LV diastolic dysfunction (3) Depression Current Visit: No Status: Chronic Assessment and Plan: Denied any suicidal ideation continue current home medications child protective services social worker consulted Family also concerned about her depression Consulted psych to address her medications (4) History of CVA (cerebrovascular accident) Current Visit: No Status: Chronic Assessment and Plan: cont home meds (5) Diabetes mellitus Current Visit: No Status: Chronic Assessment and Plan: Continue Accu-Cheks with sliding scale insulin. (6) DVT prophylaxis Current Visit: No Status: Chronic Assessment and Plan: Substance heparin - Time Spent with Patient Total time spent is greater than 50% in coordination of care (as documented) at patient's floor/unit and/or counseling patient: Internal Medicine: Result - Labs CBC & Chem 7: 01/15/19 04:37 01/15/19 04:37 Labs: Short CBC 01/15/19 Range/Units 04:37 WBC 10.5 (4.3-11.1) K/mcL Hgb 12.4 (11.5-15.4) g/dL Hct 39.8 (35.3-44.9) % Plt Count 302 (140-400) K/mcL BMP 01/15/19 04:37 Sodium 136 Potassium 4.3 Chloride 105 Carbon Dioxide 23 BUN 17 Creatinine 0.77 Glucose 207 H Calcium 9.0 - ABG Interpretation ABG results: PT/INR, D-dimer PT 10.3 Seconds (9.4-12.1) 01/12/19 18:06 Consult Discharge Plan - Plan Referrals: NONE,PCP [Primary Care Provider] - (2) Chest pain Qualifiers: Chest pain type: precordial pain Qualified Code(s): R07.2 - Precordial pain (3) Depression Qualifiers: Depression Type: unspecified Qualified Code(s): F32.9 - Major depressive disorder, single episode, unspecified (5) Diabetes mellitus Qualifiers: Diabetes mellitus type: type 2 Diabetes mellitus 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
--- NOTE | 2019-01-15 17:40 | Electrocardiograph Report ---
[facility] [employer] [facility] Test Date: 2019-01-12 Pat Name: Tiff Davenport Department: EXAM2 Room: 3B24 Gender: F Features Editor: : 1940 Requested By: Greg Hilton Order Number: [id number] Reading MD: Shorty Schultz Measurements Intervals [place] Rate: 86 P: 56 DC: 142 QRS: 69 QRSD: 88 T: 26 QT: 356 QTc: 426 Interpretive Statements Sinus rhythm Electronically Signed On 01-15-2019 17:38:03 EDT by Shorty Schultz
[2019-01-16] MEDS: *HR* Heparin 5,000 UNIT/ML VIAL SQ SCH (06:43)
[2019-01-16] MEDS: *HR* OxyCODONE/APAP 5/325 TABLET PO PRN (06:44)
[2019-01-16 07:34] VITALS: BP 131/52
[2019-01-16] MEDS: Insulin LISPRO 300 UNITS/3 ML VIAL SQ SCH (08:27)
[2019-01-16] MEDS: Aspirin 325 MG TABLET PO SCH (08:28)
[2019-01-16] MEDS: Metoprolol XL (24 HR) Succ 25 MG TAB.ER.24H PO SCH (08:28)
[2019-01-16] MEDS: Gabapentin 300 MG CAPSULE PO SCH (08:28)
[2019-01-16] MEDS: Topiramate 25 MG TABLET PO SCH (08:28)
[2019-01-16] MEDS: Venlafaxine XR (24 HR) 150 MG CAP.ER.24H PO SCH (08:28)
[2019-01-16] MEDS: Losartan/HCTZ 50-12.5 TABLET PO SCH (08:28)
--- NOTE | 2019-01-16 09:27 | Discharge Summary ---
- NOTES TO OUTPATIENT PROVIDER Notes to Outpatient Provider: f/u with PCP in one week. f/u with Psychiatrist Dr. Kelley in 1-2 weeks. Date of Encounter: 01/16/19 Time of Encounter: 09:14 - Discharge Diagnosis (1) Stroke-like symptoms Priority: Primary Status: Acute (2) Chest pain Priority: Primary Status: Acute Qualifiers: Chest pain type: precordial pain Qualified Code(s): R07.2 - Precordial pain (3) Depression Priority: Secondary Status: Chronic Qualifiers: Depression Type: unspecified Qualified Code(s): F32.9 - Major depressive disorder, single episode, unspecified (4) History of CVA (cerebrovascular accident) Priority: Secondary Status: Chronic (5) Diabetes mellitus Priority: Secondary Status: Chronic Qualifiers: Diabetes mellitus type: type 2 Diabetes mellitus [facility] insulin use: with [facility] use Diabetes mellitus complication status: without complication Qualified Code(s): E11.9 - Type 2 diabetes mellitus without complications; Z79.4 - [facility] (current) use of insulin (6) DVT prophylaxis Priority: Secondary Status: Chronic Hospital course: Ms. Davenport is a 78 year old female with known PMH of COPD, CVA with residual left-sided weakness, diabetes, GERD, hypertension, TIA, anxiety and Migraines who presented to the ED with complaints of headache, left-sided weakness and chest pain. She was admitted in the hospital and placed her on electronic device monitor. 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 Her current symptoms seems to be anxiety / depression related. Initial CT of Head- did not show any acute intracranial abnormality. She had CTA of Head and Neck done today - no focal stenosis involving the cervical carotid/vertebral arteries. Her CP seems to be atypical with negative serial troponin x 3 and no acute ischemic changes on EKG. She had normal stress test in 08/16 and [facility] from 2017 showed normal coronary arteries. She was evaluated by PT / OT for her physical deconditioning who recommend ECF placement. I did talk to the pt's daughter and explained to her about pt's major depression problem which is causing her current recurrent symptoms. We asked our psychiatrist to evaluate the pt and also recommended to f/u with her regular psychiatrist as scheduled. - Time Spent with Patient Total time spent providing and/or coordinating discharge services: - Discharge Medications Prescriptions: Continued Gabapentin [Neurontin] 600 mg PO BID Losartan/HCTZ [Hyzaar 50-12.5 Tablet] 1 each PO DAILY Insulin Aspart Prot/Insuln Asp [Novolog Mix 70-30 Vial] 30 unit SQ BIDWM Metoprolol Succinate [Toprol Xl] 25 mg PO QAM Omeprazole [PriLOSEC] 40 mg PO DAILY Metformin HCl 1,000 mg PO BID Aspirin 325 mg PO DAILY Pravastatin Sodium 10 mg PO HS Topiramate 50 mg PO BID Venlafaxine HCl [Venlafaxine HCl ER] 300 mg PO DAILY Loratadine [Allergy Relief] 10 mg PO DAILY Tizanidine HCl 2 mg PO BID Melatonin [Melatin] 3 - 6 mg PO HS PRN PRN Reason: Sleep Nitroglycerin [Nitrostat] 0.4 mg SL Q5M PRN PRN Reason: Chest Pain Cyanocobalamin (B-12) [Vitamin B12] 1,000 mcg IM QMONTH Ferrous Sulfate [Iron] 325 mg PO BID Oxybutynin Chloride [Ditropan XL] 10 mg PO DAILY SUMAtriptan succinate [Imitrex] 25 mg PO DAILY PRN PRN Reason: Migraine Headache Home Medications: Gabapentin [Neurontin] 600 mg PO BID 01/01/18 [History] Insulin Aspart Prot/Insuln Asp [Novolog Mix 70-30 Vial] 30 unit SQ BIDWM 01/01/18 [History] Losartan/HCTZ [Hyzaar 50-12.5 Tablet] 1 each PO DAILY 01/01/18 [History] Metformin HCl 1,000 mg PO BID 01/01/18 [History] Metoprolol Succinate [Toprol Xl] 25 mg PO QAM 01/01/18 [History] Omeprazole [PriLOSEC] 40 mg PO DAILY 01/01/18 [History] Aspirin 325 mg PO DAILY 03/08/18 [History] Pravastatin Sodium 10 mg PO HS 03/08/18 [History] Topiramate 50 mg PO BID 03/08/18 [History] Venlafaxine HCl [Venlafaxine HCl ER] 300 mg PO DAILY 03/08/18 [History] Loratadine [Allergy Relief] 10 mg PO DAILY 08/11/18 [History] Tizanidine HCl 2 mg PO BID 08/11/18 [History] Melatonin [Melatin] 3 - 6 mg PO HS PRN 09/16/18 [History] Nitroglycerin [Nitrostat] 0.4 mg SL Q5M PRN 09/16/18 [History] Cyanocobalamin (B-12) [Vitamin B12] 1,000 mcg IM QMONTH 01/12/19 [History] Ferrous Sulfate [Iron] 325 mg PO BID 01/12/19 [History] Oxybutynin Chloride [Ditropan XL] 10 mg PO DAILY 01/12/19 [History] SUMAtriptan succinate [Imitrex] 25 mg PO DAILY PRN 01/12/19 [History] Allergies/Adverse Reactions: Allergy/AdvReac Type Severity Reaction Status Date / Time No Known Allergies Allergy Verified 09/17/18 13:39 Date of admission: 01/13/19 15:06 Primary care physician: PCP NONE Consults: 01/13/19 01:13 Consult to Neurology [CONS] Routine Consulting Provider: Neurology [facility] Reason for Consult: Complex Migraine vs CVA Call Completed: No 01/13/19 12:47 Consult to Physical Therapy [CONS] Routine Comment: Evaluate, develop and implement POC Reason for Consult: Physical deconditioning Does patient have active BEDREST order?: No Is patient medically & hemodynamically stable?: Yes Patient assessed for mobility or mobilized this visit?: Yes OT [Consult to Occupational Therapy] [CONS] Routine Comment: Evaluate, develop and implement POC Reason for Consult: Physical deconditioning Does patient have active BEDREST order?: No Is patient medically & hemodynamically stable?: Yes Patient assessed for mobility or mobilized this visit?: Yes 01/13/19 14:31 Consult to Cutter Apprentice Hand [CONS] Routine Reason for SW Consult: Depression. 01/13/19 16:18 Consult to Cutter Apprentice Hand [CONS] Routine Reason for SW Consult: PT/OT recommend SNF 01/15/19 14:36 Consult to Psychiatry [CONS] Routine Consulting Provider: Psychiatry [place] Reason consult: Other Other reason and/or additional details: Depression Time Notified: 14:37 Call Completed: Yes - Constitutional Vitals: Temp Pulse Resp BP Pulse Ox 97.5 F L 75 19 131/52 95 01/16/19 07:33 01/16/19 07:33 01/16/19 07:33 01/16/19 07:33 01/16/19 07:33 General appearance: Present: cooperative, A&O X 3, no acute distress, answers questions appropriately Exam: Gen: Alert, awake, Oriented to time,place and person Chest: Diminished breath sounds B/L, No wheezing, No crackles, No rales Heart: S1S2+ RRR No murmurs Abd: Soft, NT, BS +, No organomegaly Ext: No edema, pulses are palpable, No calf tenderness Neuro : Chronic left residual paralysis noticed. No speech difficulties noticed Psych: A, A, O x 3.. Looks very depressed. Skin: No rash. - Patient Status Disposition: Transfer SNF Condition: Good Overall status at discharge: patient is back to baseline - Discharge Instructions Follow Up With: NONE,PCP [Primary Care Provider] - Anastasia Beverly MD [Partnered Physician] - - Diet and Activity Activity: increase activity as tolerated Diet: low salt diet
--- NOTE | 2019-01-16 09:57 | Physician Discharge Referral ---
ExtendedCare Referral Info Transfer To: ECF Provider in Charge after Transfer: PCP Institutional Level of Care: Skilled - Diagnosis (1) Stroke-like symptoms Status: Acute (2) Chest pain Status: Acute (3) Depression Status: Chronic (4) History of CVA (cerebrovascular accident) Status: Chronic (5) Diabetes mellitus Status: Chronic (6) DVT prophylaxis Status: Chronic - Transfer Medications Home Medications: Gabapentin [Neurontin] 600 mg PO BID 01/01/18 [History] Insulin Aspart Prot/Insuln Asp [Novolog Mix 70-30 Vial] 30 unit SQ BIDWM 01/01/18 [History] Losartan/HCTZ [Hyzaar 50-12.5 Tablet] 1 each PO DAILY 01/01/18 [History] Metformin HCl 1,000 mg PO BID 01/01/18 [History] Metoprolol Succinate [Toprol Xl] 25 mg PO QAM 01/01/18 [History] Omeprazole [PriLOSEC] 40 mg PO DAILY 01/01/18 [History] Aspirin 325 mg PO DAILY 03/08/18 [History] Pravastatin Sodium 10 mg PO HS 03/08/18 [History] Topiramate 50 mg PO BID 03/08/18 [History] Venlafaxine HCl [Venlafaxine HCl ER] 300 mg PO DAILY 03/08/18 [History] Loratadine [Allergy Relief] 10 mg PO DAILY 08/11/18 [History] Tizanidine HCl 2 mg PO BID 08/11/18 [History] Melatonin [Melatin] 3 - 6 mg PO HS PRN 09/16/18 [History] Nitroglycerin [Nitrostat] 0.4 mg SL Q5M PRN 09/16/18 [History] Cyanocobalamin (B-12) [Vitamin B12] 1,000 mcg IM QMONTH 01/12/19 [History] Ferrous Sulfate [Iron] 325 mg PO BID 01/12/19 [History] Oxybutynin Chloride [Ditropan XL] 10 mg PO DAILY 01/12/19 [History] SUMAtriptan succinate [Imitrex] 25 mg PO DAILY PRN 01/12/19 [History] Allergies/Adverse Reactions: Allergy/AdvReac Type Severity Reaction Status Date / Time No Known Allergies Allergy Verified 09/17/18 13:39 - Respiratory Orders Smoking Cessation: Smoking cessation has been advised. For more information, call the [place] Tobacco Quit Line at 1-776-MXFB-NOW. CERTIFICATION: I certify that the [facility] the above named [facility] necessary for the continuing treatment of the diagnosis listed. The above information is true and accurate reflection of patient's current condition. Confidential - Redisclosure prohibited without a patient's written consent.
[2019-01-16] MEDS ORDERED: *HR* LORazepam 0.5 MG TABLET PO ONE (10:24)
--- NOTE | 2019-01-16 10:37 | Consult Note ---
Date of Encounter: 01/16/19 Time of Encounter: 10:37 Assessment & Recommendation (1) Major depressive disorder Status: Acute Assessment & Recommendation: Patient endorses ongoing symptoms of depression but denies any SI/HI. She reports questionable hallucinations; however, it is unclear if these are truely hallucinations or if she is referring to people at the assisted living facility where she resides. She is well-linked with outpatient services, and has an upcoming appointment with her psychiatrist Dr. Kelley on 01/23/2019. She is currently on venlafaxine 300mg daily. At this time, no medication adjustments are recommended, and any changes would require weaning of her current medication to prevent withdrawal symptoms, which can be done on an outpatient basis. Recommend continued close followup with established outpatient mental health providers. Qualifiers: Major depression recurrence: recurrent Active/Remission status: currently active Major depression episode severity: moderate Qualified Code(s): F33.1 - Major depressive disorder, recurrent, moderate History of Present Illness Requesting Physician: Sia Vu MD Reason for consult: Depression History of present illness: Ms. Davenport is a 78 year old female with an extensive medical history including CVA with residual left-sided weakness, COPD, GERD, HTN, DM, anxiety, and depression. She presented to the ED with complaints of headache, left-sided weakness, and chest pain, and was admitted to the hospital for monitoring and testing; workup was negative, and patient was evaluated by PT/OT for evaluation of physical deconditioning, with recommendation for SNF placement. Many of patient's current and recurrent symptoms are suspected to be related to her underlying major depressive disorder, and family reportedly expressed concern about this problem to her primary team; psychiatry consult was placed by primary team for evaluation and recommendations regarding this problem. On evaluation this morning, patient was seated at the bedside and in no acute distress. She was able to answer questions appropriately, though her speech was slow and some of her answers were somewhat vague. She reports having struggled with depression over the last several months, with occasional crying spells and difficulty motivating herself to get up and do things. She reports poor sleep at night, secondary to waking multiple times to empty her bladder. She is still able to enjoy plearsure activities and hobbies, and reports that she does have several friends that she can talk to and do things with. She denies SI/HI. She reports sometimes seeing/hearing things that other people do not see, reporting that she can tell that they are not really there because "they do and/or say things that they're not supposed to do". She reports that these people sometimes say things that are upsetting to her, and reports that she "leaves the room to get away from them". She sees Dr. Kelley for her psychiatric care on an outpatient basis, but reports no improvement in her symptoms with medication therapy. CC: Sia Vu MD Past Med Surg Social Fam HX - Past Medical History Medical history: COPD, CVA, diabetes, GERD, hypertension, TIA - Past Psychiatric History Psychiatric history: Reports: anxiety, depression - Past Surgical History Surgical History: appendectomy, cholecystectomy, hysterectomy - Social History Smoking Status: Never smoker Smokeless Tobacco Status: No Alcohol use: none Drug use: none - Family History Mother Age: 96 Living Status: Still Living Hx Family Neuromuscular Disorders: Yes (Dementia) Hx Family Neurologic Disorders: Yes (dementia) Sister Hx Family Cancer: Yes Father Living Status: Medications & Allergies Gabapentin [Neurontin] 600 mg PO BID 01/01/18 [History] Insulin Aspart Prot/Insuln Asp [Novolog Mix 70-30 Vial] 30 unit SQ BIDWM 01/01/18 [History] Losartan/HCTZ [Hyzaar 50-12.5 Tablet] 1 each PO DAILY 01/01/18 [History] Metformin HCl 1,000 mg PO BID 01/01/18 [History] Metoprolol Succinate [Toprol Xl] 25 mg PO QAM 01/01/18 [History] Omeprazole [PriLOSEC] 40 mg PO DAILY 01/01/18 [History] Aspirin 325 mg PO DAILY 03/08/18 [History] Pravastatin Sodium 10 mg PO HS 03/08/18 [History] Topiramate 50 mg PO BID 03/08/18 [History] Venlafaxine HCl [Venlafaxine HCl ER] 300 mg PO DAILY 03/08/18 [History] Loratadine [Allergy Relief] 10 mg PO DAILY 08/11/18 [History] Tizanidine HCl 2 mg PO BID 08/11/18 [History] Melatonin [Melatin] 3 - 6 mg PO HS PRN 09/16/18 [History] Nitroglycerin [Nitrostat] 0.4 mg SL Q5M PRN 09/16/18 [History] Cyanocobalamin (B-12) [Vitamin B12] 1,000 mcg IM QMONTH 01/12/19 [History] Ferrous Sulfate [Iron] 325 mg PO BID 01/12/19 [History] Oxybutynin Chloride [Ditropan XL] 10 mg PO DAILY 01/12/19 [History] SUMAtriptan succinate [Imitrex] 25 mg PO DAILY PRN 01/12/19 [History] LORazepam [Ativan] 0.5 mg PO BID PRN 5 Days #10 tablet 01/16/19 [Rx] Allergy/AdvReac Type Severity Reaction Status Date / Time No Known Allergies Allergy Verified 09/17/18 13:39 Review of Systems Constitutional: Reports: weakness. Denies: fever, chills, weight change Eyes: Denies: eye pain, vision change Ears, Nose, Throat: Denies: ear pain, throat pain, dental pain, hearing loss, congestion Cardiovascular: Denies: chest pain, palpitations, dyspnea on exertion Respiratory: Denies: cough, dyspnea, wheezes Gastrointestinal: Denies: abdominal pain, nausea, vomiting, diarrhea, constipation Musculoskeletal: Denies: joint swelling, joint pain Integumentary: Denies: rash, lesions, pruritus Neurological: Reports: headache, weakness. Denies: numbness, memory loss Psychiatric: Reports: depression, anxiety, abnormal sleep pattern, auditory hallucinations (?), visual hallucinations (?). Denies: suicidal ideation, change in appetite, homicidal ideation, anhedonia, change in libido, hopelessness Endocrine: Denies: fatigue, heat or cold intolerance Psychiatry Exam - Constitutional Vitals: Temp Pulse Resp BP Pulse Ox 97.5 F L 75 19 131/52 95 01/16/19 07:33 01/16/19 07:33 01/16/19 07:33 01/16/19 07:33 01/16/19 07:33 General appearance: age & developmentally appropriate, well-groomed, well- nourished - Musculoskeletal Strength & Tone: normal for patient - Psychiatric Patient Orientation: Yes Person, Yes Time, Yes Place Level of alertness: Alert, Follows commands Behavior: calm, cooperative, tearful Psychomotor activity: Slowed Eye Contact: Fleeting Contact Mood Description: Depressed Affect description: congruent with mood, blunted, tearful Speech Volume: Soft/Quiet Speech pattern: normal tone, fluent, spontaneous, appropriate, slowed Language & Vocabulary: consistent with education Thought Process: Linear, Goal Oriented Thought Content: No Suicidal ideation, No Homicidal ideation, No Overt delusions Perceptual Disturbances: No Auditory hallucinations, No Visual hallucinations Attention Span Ability: Capable of Sustained Attention Memory Description: Grossly Intact Patient Reliability: Questionable Historian Results - Labs Labs: Laboratory Last Values WBC 10.5 K/mcL (4.3-11.1) 01/15/19 04:37 RBC 4.69 M/mcL (3.82-4.97) 01/15/19 04:37 Hgb 12.4 g/dL (11.5-15.4) 01/15/19 04:37 Hct 39.8 % (35.3-44.9) 01/15/19 04:37 MCV 84.9 fL (83.0-100.0) 01/15/19 04:37 MCH 26.4 pg (28.0-33.3) L 01/15/19 04:37 MCHC 31.2 g/dL (31.6-35.5) L 01/15/19 04:37 RDW 20.0 % (11.5-14.5) H 01/15/19 04:37 Plt Count 302 K/mcL (140-400) 01/15/19 04:37 MPV 9.5 fL (9.4-12.4) 01/15/19 04:37 PT 10.3 Seconds (9.4-12.1) 01/12/19 18:06 INR 0.9 01/12/19 18:06 APTT 30.5 Seconds (26.0-36.0) 01/12/19 18:06 Sodium 136 mEq/L (136-145) 01/15/19 04:37 Potassium 4.3 mEq/L (3.5-5.1) 01/15/19 04:37 Chloride 105 mEq/L (98-107) 01/15/19 04:37 Carbon Dioxide 23 mEq/L (23-29) 01/15/19 04:37 BUN 17 mg/dL (8-23) 01/15/19 04:37 Creatinine 0.77 mg/dL (0.60-1.20) 01/15/19 04:37 Est GFR ( Amer) > 60 (> 60) 01/15/19 04:37 Est GFR (Non-Af Amer) > 60 (> 60) 01/15/19 04:37 BUN/Creatinine Ratio 22 (6-26) 01/15/19 04:37 Glucose 207 mg/dL (70-105) H 01/15/19 04:37 POC Glucose 295 mg/dL (70-99) H 01/15/19 19:42 Calculated Osmolality 290 (280-300) 01/15/19 04:37 Calcium 9.0 mg/dL (8.6-10.3) 01/15/19 04:37 Troponin I < 0.03 ng/mL (< 0.04) 01/13/19 08:34 Specimen Rejected Volume 01/13/19 07:28 Consult Discharge Plan - Plan Referrals: Anastasia Beverly MD [Partnered Physician] - 01/23/19 2:40 pm NONE,PCP [Primary Care Provider] - Prescriptions: LORazepam [Ativan] 0.5 mg PO BID PRN 5 Days #10 tablet PRN Reason: Anxiety Prescription Printed - Attending Attestation I discussed this patient and my medical decision-making was reviewed with the Resident Physician. I agree with the documented findings, disposition and treatment plan as described except to the extent set forth below. Client was discharged before this chief writer could see her. However, resident saw her and discussed case with me. Agree with findings and plan as documented by resident.
== END 2019-01-16 11:34 | DRG 885 ==
LOC: 3BNU 17:32 → EMEROOARM 17:32 → SUATTDRO 21:43 → 3BNU 22:10
PROVIDERS: ADMIT Internal Medicine; ATTEND Family Medicine

== ENCOUNTER 2019-04-09 09:42 | Inpatient (IN) ==
[2019-04-09] MEDS ORDERED: *HR* OxyCODONE/APAP 5/325 TABLET PO ONE (10:13)
[2019-04-09] MEDS ORDERED: 0.9 % Sodium Chloride 1,000 ML IV ONE (10:15)
[2019-04-09 10:51] LABS: INR 0.9; Prothrombin Time 10.6 Seconds (9.4-12.1)
[2019-04-09 10:54] LABS: Activated Partial Thrombo Time 32.2 Seconds (26.0-36.0)
[2019-04-09 11:06] LABS: Albumin 3.8 g/dL (3.5-5.7); Albumin/Globulin Ratio 1.4 (1.1-2.2); Bilirubin,Direct 0.1 mg/dL (0.0-0.2); Bilirubin,Indirect 0.2 mg/dL (0.0-1.0); Bilirubin,Total 0.3 mg/dL (0.3-1.0); Globulin 2.8 g/dL (2.4-3.5); Total Protein 6.6 g/dL (6.4-8.9)
[2019-04-09 11:08] LABS: BUN/Creatinine Ratio 13 (6-26); Blood Urea Nitrogen 13 mg/dL (8-23); Calcium 9.2 mg/dL (8.6-10.3); Carbon Dioxide 22 mEq/L (23-29); Chloride 105 mEq/L (98-107); Glucose 154 mg/dL (70-105); Osmolality,Calculated 289 (280-300); Potassium 4.1 mEq/L (3.5-5.1); Sodium 138 mEq/L (136-145); Troponin I < 0.03 ng/mL (< 0.04); eGFR For African Americans > 60 (> 60); eGFR For Non-African Americans 53 (> 60)
[2019-04-09 11:42] LABS: Basophils # 0.1 K/mcL (0.0-0.2); Basophils % 0.8 %; Eosinophils # 0.3 K/mcL (0.0-0.6); Eosinophils % 3.1 %; Hemoglobin 13.3 g/dL (11.5-15.4); Immature Granulocytes % 0.4 % (0-4); Lymphocytes # 2.2 K/mcL (0.6-4.6); Lymphocytes % 21.2 %; Mean Corpuscular HGB Conc 30.9 g/dL (31.6-35.5); Mean Corpuscular Hemoglobin 28.9 pg (28.0-33.3); Mean Corpuscular Volume 93.3 fL (83.0-100.0); Mean Platelet Volume 9.6 fL (9.4-12.4); Monocytes # 0.6 K/mcL (0.0-1.3); Monocytes % 5.9 %; Platelet Count 268 K/mcL (140-400); Red Blood Count 4.61 M/mcL (3.82-4.97); Segmented Neutrophils % 68.6 %; White Blood Count 10.2 K/mcL (4.3-11.1)
[2019-04-09] MEDS ORDERED: Aspirin 325 MG TABLET PO ONE (13:32)
[2019-04-09] MEDS ORDERED: Ondansetron 4 MG/2 ML VIAL IVP PRN (13:53)
[2019-04-09] MEDS ORDERED: Acetaminophen 325 MG TABLET PO PRN (13:53)
[2019-04-09] MEDS ORDERED: Mag Hydrox/Al Hydrox/Simeth 30 ML UDC PO PRN (13:53)
[2019-04-09] MEDS ORDERED: *HR* Promethazine 25 MG/ML VIAL IVP PRN (13:53)
[2019-04-09] MEDS ORDERED: Naloxone 0.4 MG/ML INJ IVP PRN (13:53)
[2019-04-09] MEDS ORDERED: MOM Conc 10 ML UD.LIQ PO PRN (13:53)
[2019-04-09] MEDS ORDERED: Dextrose Gel 15 GM/37.5 ML TUBE PO PRN ×2 (13:55)
[2019-04-09] MEDS ORDERED: *HR* Dextrose 50 % in Water (Syg) 50 ML SYRINGE IVP PRN (13:55)
[2019-04-09] MEDS ORDERED: D5% in Water 1,000 ML IVC PRN (13:55)
[2019-04-09] MEDS: Insulin LISPRO 300 UNITS/3 ML VIAL SQ SCH ×2 (16:48→21:26)
[2019-04-09] MEDS: *HR* HYDROcodone/Acet 5/325 mg TABLET PO PRN (19:38)
[2019-04-10] MEDS: *HR* HYDROcodone/Acet 5/325 mg TABLET PO PRN ×3 (00:33→14:38)
[2019-04-10 05:33] LABS: Basophils # 0.1 K/mcL (0.0-0.2); Basophils % 1.1 %; Eosinophils # 0.2 K/mcL (0.0-0.6); Eosinophils % 3.8 %; Hematocrit 41.8 % (35.3-44.9); Hemoglobin 13.4 g/dL (11.5-15.4); Immature Granulocytes % 0.5 % (0-4); Lymphocytes # 2.2 K/mcL (0.6-4.6); Lymphocytes % 35.6 %; Mean Corpuscular HGB Conc 32.1 g/dL (31.6-35.5); Mean Corpuscular Hemoglobin 29.2 pg (28.0-33.3); Mean Corpuscular Volume 91.1 fL (83.0-100.0); Mean Platelet Volume 10.4 fL (9.4-12.4); Monocytes # 0.5 K/mcL (0.0-1.3); Neutrophils # 3.2 K/mcL (1.6-8.9); Platelet Count 247 K/mcL (140-400); Red Blood Count 4.59 M/mcL (3.82-4.97); Red Cell Distribution Width 16.8 % (11.5-14.5); White Blood Count 6.2 K/mcL (4.3-11.1)
[2019-04-10 06:14] LABS: Blood Urea Nitrogen 13 mg/dL (8-23); Calcium 8.7 mg/dL (8.6-10.3); Chloride 107 mEq/L (98-107); Glucose 214 mg/dL (70-105); Osmolality,Calculated 291 (280-300); Potassium 4.3 mEq/L (3.5-5.1); Sodium 137 mEq/L (136-145)
[2019-04-10 06:28] LABS: BUN/Creatinine Ratio 16 (6-26); eGFR For African Americans > 60 (> 60); eGFR For Non-African Americans > 60 (> 60)
[2019-04-10 06:42] LABS: Carbon Dioxide 19 mEq/L (23-29)
[2019-04-10] MEDS: Insulin LISPRO 300 UNITS/3 ML VIAL SQ SCH ×4 (08:21→21:28)
[2019-04-10] MEDS ORDERED: Cyanocobalamin (B-12) 1,000 MCG/ML VIAL IM SCH (10:45)
[2019-04-10] MEDS: SUMAtriptan succinate 25 MG TABLET PO PRN (14:38)
[2019-04-10] MEDS ORDERED: Gabapentin 300 MG CAPSULE PO ONE (15:06)
[2019-04-10] MEDS: Insulin NPH/REG 70/30 100 UNIT/ML (x5UNIT) SQ SCH (17:10)
[2019-04-10] MEDS ORDERED: *HR* LORazepam 0.5 MG TABLET PO SCH (21:00)
[2019-04-10] MEDS: Topiramate 25 MG TABLET PO SCH (21:20)
[2019-04-10] MEDS: tiZANidine 4 MG TABLET PO SCH (21:20)
[2019-04-10] MEDS: Gabapentin 300 MG CAPSULE PO SCH (21:21)
[2019-04-10] MEDS: Melatonin 3 MG TABLET PO PRN (21:25)
[2019-04-10] MEDS: *HR* LORazepam 0.5 MG TABLET PO PRN (21:26)
[2019-04-10] MEDS: Artificial Tears SOLN 15 ML BOTTLE BOTH EYES SCH (22:39)
[2019-04-11] MEDS: SUMAtriptan succinate 25 MG TABLET PO PRN (04:38)
[2019-04-11] MEDS: *HR* HYDROcodone/Acet 5/325 mg TABLET PO PRN (04:44)
[2019-04-11] MEDS: Artificial Tears SOLN 15 ML BOTTLE BOTH EYES SCH ×2 (09:12→20:47)
[2019-04-11] MEDS: Insulin NPH/REG 70/30 100 UNIT/ML (x5UNIT) SQ SCH ×2 (09:12→17:25)
[2019-04-11] MEDS: Venlafaxine XR (24 HR) 75 MG CAP.ER.24H PO SCH (09:12)
[2019-04-11] MEDS: Aspirin 325 MG TABLET PO SCH (09:12)
[2019-04-11] MEDS: Insulin LISPRO 300 UNITS/3 ML VIAL SQ SCH ×4 (09:12→20:38)
[2019-04-11] MEDS: Loratadine 10 MG TABLET PO SCH (09:12)
[2019-04-11] MEDS: Topiramate 25 MG TABLET PO SCH ×2 (09:13→20:48)
[2019-04-11] MEDS: tiZANidine 4 MG TABLET PO SCH ×2 (09:13→20:47)
[2019-04-11] MEDS: Metoprolol XL (24 HR) Succ 25 MG TAB.ER.24H PO SCH (09:13)
[2019-04-11] MEDS: Gabapentin 300 MG CAPSULE PO SCH ×2 (09:13→20:47)
[2019-04-11] MEDS: Losartan/HCTZ 50-12.5 TABLET PO SCH (09:13)
[2019-04-11] MEDS: *HR* LORazepam 0.5 MG TABLET PO PRN (17:35)
[2019-04-11] MEDS: Melatonin 3 MG TABLET PO PRN (20:56)
[2019-04-12 07:01] VITALS: BP 114/73
[2019-04-12] MEDS: Venlafaxine XR (24 HR) 75 MG CAP.ER.24H PO SCH (09:40)
[2019-04-12] MEDS: Metoprolol XL (24 HR) Succ 25 MG TAB.ER.24H PO SCH (09:41)
[2019-04-12] MEDS: Aspirin 325 MG TABLET PO SCH (09:41)
[2019-04-12] MEDS: Loratadine 10 MG TABLET PO SCH (09:41)
[2019-04-12] MEDS: Topiramate 25 MG TABLET PO SCH (09:41)
[2019-04-12] MEDS: Gabapentin 300 MG CAPSULE PO SCH (09:41)
[2019-04-12] MEDS: tiZANidine 4 MG TABLET PO SCH (09:41)
[2019-04-12] MEDS: Insulin NPH/REG 70/30 100 UNIT/ML (x5UNIT) SQ SCH (09:42)
[2019-04-12] MEDS: Losartan/HCTZ 50-12.5 TABLET PO SCH (09:42)
[2019-04-12] MEDS: Insulin LISPRO 300 UNITS/3 ML VIAL SQ SCH (09:42)
[2019-04-12] MEDS: Artificial Tears SOLN 15 ML BOTTLE BOTH EYES SCH (09:43)
== END 2019-04-12 13:40 | DRG 57 ==
LOC: 3BNU 09:42 → EMEROOARM 09:42 → 3BNU 15:12
PROVIDERS: ADMIT Internal Medicine; ATTEND Internal Medicine

== ENCOUNTER 2019-10-24 14:08 | Inpatient (IN) ==
[2019-10-24 15:32] LABS: Basophils # 0.1 K/mcL (0.0-0.2); Basophils % 0.9 %; Eosinophils # 0.4 K/mcL (0.0-0.6); Eosinophils % 3.2 %; Hematocrit 42.9 % (35.3-44.9); Hemoglobin 13.5 g/dL (11.5-15.4); Immature Granulocytes % 0.3 % (0-4); Lymphocytes # 3.3 K/mcL (0.6-4.6); Lymphocytes % 27.8 %; Mean Corpuscular HGB Conc 31.5 g/dL (31.6-35.5); Mean Corpuscular Hemoglobin 30.1 pg (28.0-33.3); Mean Corpuscular Volume 95.5 fL (83.0-100.0); Mean Platelet Volume 9.5 fL (9.4-12.4); Monocytes # 0.7 K/mcL (0.0-1.3); Monocytes % 5.5 %; Neutrophils # 7.3 K/mcL (1.6-8.9); Platelet Count 293 K/mcL (140-400); Red Blood Count 4.49 M/mcL (3.82-4.97); Red Cell Distribution Width 13.5 % (11.5-14.5); Segmented Neutrophils % 62.3 %; White Blood Count 11.8 K/mcL (4.3-11.1)
[2019-10-24 15:51] LABS: BUN/Creatinine Ratio 16 (6-26); Blood Urea Nitrogen 14 mg/dL (8-23); Calcium 9.3 mg/dL (8.6-10.3); Carbon Dioxide 28 mEq/L (23-29); Chloride 107 mEq/L (98-107); Glucose 67 mg/dL (70-105); Osmolality,Calculated 289 (280-300); Potassium 4.3 mEq/L (3.5-5.1); Sodium 140 mEq/L (136-145); Troponin I < 0.03 ng/mL (< 0.04); eGFR For African Americans > 60 (> 60); eGFR For Non-African Americans > 60 (> 60)
[2019-10-24] MEDS ORDERED: Naloxone 0.4 MG/ML INJ IVP PRN (16:48)
[2019-10-24] MEDS ORDERED: *HR* Dextrose 50 % in Water (Vial) 50 ML VIAL IVP PRN (16:53)
[2019-10-24] MEDS ORDERED: Dextrose Gel 15 GM/37.5 ML TUBE PO PRN ×2 (16:53)
[2019-10-24] MEDS ORDERED: D5% in Water 1,000 ML IVC PRN (16:53)
[2019-10-24] MEDS ORDERED: Nitroglycerin 0.4 MG TAB.SUBL SL PRN (17:13)
[2019-10-24] MEDS ORDERED: *HR* LORazepam 0.5 MG TABLET PO PRN (17:13)
[2019-10-24] MEDS: Melatonin 3 MG TABLET PO SCH (20:55)
[2019-10-24] MEDS: tiZANidine 4 MG TABLET PO SCH (20:56)
[2019-10-24] MEDS: Gabapentin 300 MG CAPSULE PO SCH (20:56)
[2019-10-24] MEDS: *HR* Heparin 5,000 UNIT/ML VIAL SQ SCH (20:59)
[2019-10-24] MEDS: (Cyclosporine [Restasis] 1 DROP) OP SCH (20:59)
[2019-10-24] MEDS: Insulin LISPRO 300 UNITS/3 ML VIAL SQ SCH (20:59)
[2019-10-24] MEDS: Topiramate 25 MG TABLET PO SCH (21:21)
[2019-10-25 03:17] LABS: Basophils # 0.1 K/mcL (0.0-0.2); Basophils % 0.8 %; Eosinophils # 0.4 K/mcL (0.0-0.6); Eosinophils % 3.8 %; Hematocrit 39.2 % (35.3-44.9); Hemoglobin 12.5 g/dL (11.5-15.4); Immature Granulocytes % 0.1 % (0-4); Lymphocytes # 3.1 K/mcL (0.6-4.6); Lymphocytes % 33.4 %; Mean Corpuscular HGB Conc 31.9 g/dL (31.6-35.5); Mean Corpuscular Hemoglobin 30.3 pg (28.0-33.3); Mean Corpuscular Volume 95.1 fL (83.0-100.0); Mean Platelet Volume 9.3 fL (9.4-12.4); Monocytes # 0.5 K/mcL (0.0-1.3); Monocytes % 5.4 %; Neutrophils # 5.2 K/mcL (1.6-8.9); Platelet Count 235 K/mcL (140-400); Red Blood Count 4.12 M/mcL (3.82-4.97); Red Cell Distribution Width 13.4 % (11.5-14.5); Segmented Neutrophils % 56.5 %; White Blood Count 9.3 K/mcL (4.3-11.1)
[2019-10-25 03:39] LABS: BUN/Creatinine Ratio 19 (6-26); Blood Urea Nitrogen 14 mg/dL (8-23); Calcium 8.8 mg/dL (8.6-10.3); Carbon Dioxide 23 mEq/L (23-29); Chloride 109 mEq/L (98-107); Cholesterol 133 mg/dL (< 200); Glucose 208 mg/dL (70-105); HDL Cholesterol 44 mg/dL (40-59); LDL Cholesterol,Calculated 34 mg/dL (< 100); Osmolality,Calculated 295 (280-300); Sodium 139 mEq/L (136-145); Triglycerides 275 mg/dL (< 150); Troponin I < 0.03 ng/mL (< 0.04); eGFR For African Americans > 60 (> 60); eGFR For Non-African Americans > 60 (> 60)
[2019-10-25] MEDS: *HR* Heparin 5,000 UNIT/ML VIAL SQ SCH ×2 (06:23→17:15)
[2019-10-25] MEDS ORDERED: Regadenoson 0.4 MG/5 ML SYRINGE IVP ONE (06:25)
[2019-10-25] MEDS ORDERED: Perflutren Lipid Microsphere 1.3 ML in 0.9 % Sodium Chloride 8.7 ML IVP ONE (09:17)
[2019-10-25 10:51] LABS: Thyroid Stimulating Hormone 3.926 mcIU/mL (0.340-5.600)
[2019-10-25] MEDS: Insulin LISPRO 300 UNITS/3 ML VIAL SQ SCH ×4 (11:01→21:03)
[2019-10-25] MEDS ORDERED: Ondansetron 4 MG/2 ML VIAL IVP PRN (11:43)
[2019-10-25] MEDS ORDERED: Artificial Tears SOLN 15 ML BOTTLE OP PRN (12:18)
[2019-10-25] MEDS: Aspirin 325 MG TABLET PO SCH (12:25)
[2019-10-25] MEDS: Topiramate 25 MG TABLET PO SCH ×2 (12:25→20:11)
[2019-10-25] MEDS: Venlafaxine XR (24 HR) 75 MG CAP.ER.24H PO SCH (12:25)
[2019-10-25] MEDS: Loratadine 10 MG TABLET PO SCH (12:25)
[2019-10-25] MEDS: Metoprolol XL (24 HR) Succ 25 MG TAB.ER.24H PO SCH (12:25)
[2019-10-25] MEDS: Gabapentin 300 MG CAPSULE PO SCH ×2 (12:25→20:11)
[2019-10-25] MEDS: tiZANidine 4 MG TABLET PO SCH ×2 (12:25→20:12)
[2019-10-25] MEDS: (Cyclosporine [Restasis] 1 DROP) OP SCH (12:27)
[2019-10-25] MEDS: Furosemide 40 MG in 0.9 % Sodium Chloride 50 ML IV SCH (13:39)
[2019-10-25] MEDS: Melatonin 3 MG TABLET PO SCH (20:11)
[2019-10-26 02:07] LABS: Basophils # 0.1 K/mcL (0.0-0.2); Eosinophils # 0.3 K/mcL (0.0-0.6); Eosinophils % 3.6 %; Hematocrit 41.4 % (35.3-44.9); Hemoglobin 12.9 g/dL (11.5-15.4); Immature Granulocytes % 0.3 % (0-4); Lymphocytes # 3.1 K/mcL (0.6-4.6); Lymphocytes % 32.4 %; Mean Corpuscular HGB Conc 31.2 g/dL (31.6-35.5); Mean Corpuscular Hemoglobin 29.9 pg (28.0-33.3); Mean Corpuscular Volume 96.1 fL (83.0-100.0); Mean Platelet Volume 10.8 fL (9.4-12.4); Monocytes # 0.6 K/mcL (0.0-1.3); Monocytes % 6.5 %; Neutrophils # 5.3 K/mcL (1.6-8.9); Platelet Count 212 K/mcL (140-400); Red Blood Count 4.31 M/mcL (3.82-4.97); Red Cell Distribution Width 13.3 % (11.5-14.5); Segmented Neutrophils % 56.2 %; White Blood Count 9.4 K/mcL (4.3-11.1)
[2019-10-26 02:25] LABS: BUN/Creatinine Ratio 18 (6-26); Blood Urea Nitrogen 15 mg/dL (8-23); Calcium 9.3 mg/dL (8.6-10.3); Carbon Dioxide 24 mEq/L (23-29); Chloride 104 mEq/L (98-107); Glucose 161 mg/dL (70-105); Osmolality,Calculated 290 (280-300); Potassium 3.8 mEq/L (3.5-5.1); Sodium 138 mEq/L (136-145); eGFR For African Americans > 60 (> 60); eGFR For Non-African Americans > 60 (> 60)
[2019-10-26] MEDS: *HR* Heparin 5,000 UNIT/ML VIAL SQ SCH ×2 (06:01→16:58)
[2019-10-26] MEDS: Insulin LISPRO 300 UNITS/3 ML VIAL SQ SCH ×4 (08:49→20:44)
[2019-10-26] MEDS: Venlafaxine XR (24 HR) 75 MG CAP.ER.24H PO SCH (08:49)
[2019-10-26] MEDS: Furosemide 40 MG in 0.9 % Sodium Chloride 50 ML IV SCH (08:50)
[2019-10-26] MEDS: Aspirin 325 MG TABLET PO SCH (08:50)
[2019-10-26] MEDS: Metoprolol XL (24 HR) Succ 25 MG TAB.ER.24H PO SCH (08:51)
[2019-10-26] MEDS: Topiramate 25 MG TABLET PO SCH ×2 (08:51→20:44)
[2019-10-26] MEDS: tiZANidine 4 MG TABLET PO SCH ×2 (08:51→20:43)
[2019-10-26] MEDS: Loratadine 10 MG TABLET PO SCH (08:52)
[2019-10-26] MEDS: Gabapentin 300 MG CAPSULE PO SCH ×2 (08:52→20:44)
[2019-10-26] MEDS: Insulin DETEMIR 100 UNIT/ML X5UNITS SQ SCH ×2 (13:55→20:45)
[2019-10-26] MEDS: SUMAtriptan succinate 25 MG TABLET PO PRN (16:58)
[2019-10-26] MEDS: Melatonin 3 MG TABLET PO SCH (20:44)
[2019-10-26] MEDS ORDERED: Furosemide 40 MG in 0.9 % Sodium Chloride 50 ML IV SCH (21:00)
[2019-10-27 02:30] LABS: Basophils # 0.1 K/mcL (0.0-0.2); Basophils % 0.8 %; Eosinophils # 0.3 K/mcL (0.0-0.6); Immature Granulocytes % 0.4 % (0-4); Lymphocytes # 3.8 K/mcL (0.6-4.6); Lymphocytes % 36.9 %; Mean Corpuscular Hemoglobin 29.5 pg (28.0-33.3); Mean Corpuscular Volume 95.2 fL (83.0-100.0); Mean Platelet Volume 9.5 fL (9.4-12.4); Monocytes # 0.6 K/mcL (0.0-1.3); Monocytes % 6.3 %; Neutrophils # 5.4 K/mcL (1.6-8.9); Platelet Count 269 K/mcL (140-400); Red Blood Count 4.41 M/mcL (3.82-4.97); Red Cell Distribution Width 13.2 % (11.5-14.5); Segmented Neutrophils % 52.6 %; White Blood Count 10.2 K/mcL (4.3-11.1)
[2019-10-27 02:49] LABS: Calcium 9.3 mg/dL (8.6-10.3); Potassium 3.6 mEq/L (3.5-5.1)
[2019-10-27] MEDS: *HR* Heparin 5,000 UNIT/ML VIAL SQ SCH (05:22)
[2019-10-27] MEDS ORDERED: Furosemide 20 MG TABLET PO SCH (09:00)
[2019-10-27] MEDS: Metoprolol XL (24 HR) Succ 25 MG TAB.ER.24H PO SCH (09:54)
[2019-10-27] MEDS: tiZANidine 4 MG TABLET PO SCH (09:54)
[2019-10-27] MEDS: Aspirin 325 MG TABLET PO SCH (09:54)
[2019-10-27] MEDS: Topiramate 25 MG TABLET PO SCH (09:54)
[2019-10-27] MEDS: Insulin LISPRO 300 UNITS/3 ML VIAL SQ SCH ×3 (09:55→15:51)
[2019-10-27] MEDS: Gabapentin 300 MG CAPSULE PO SCH (09:55)
[2019-10-27] MEDS: Loratadine 10 MG TABLET PO SCH (09:55)
[2019-10-27] MEDS: Venlafaxine XR (24 HR) 75 MG CAP.ER.24H PO SCH (09:55)
[2019-10-27] MEDS: Insulin DETEMIR 100 UNIT/ML X5UNITS SQ SCH (09:56)
[2019-10-27] MEDS: SUMAtriptan succinate 25 MG TABLET PO PRN (15:51)
[2019-10-27 19:12] VITALS: BP 119/73
== END 2019-10-27 20:15 | disposition home or self-care (01) | DRG 292 ==
LOC: 2ANU 14:08 → EMEROOARM 14:08 → 2ANU 19:35 → SUATTDRO 10-26 12:48
PROVIDERS: ADMIT Internal Medicine; ATTEND Internal Medicine

== ENCOUNTER 2020-02-03 17:34 | Observation (INO) ==
[2020-02-03 21:06] LABS: Prothrombin Time 11.2 Seconds (9.4-12.1)
[2020-02-03 21:08] LABS: Activated Partial Thrombo Time 32.5 Seconds (26.0-36.0)
[2020-02-03 21:11] LABS: BUN/Creatinine Ratio 19 (6-26); Blood Urea Nitrogen 18 mg/dL (8-23); Calcium 9.3 mg/dL (8.6-10.3); Carbon Dioxide 28 mEq/L (23-29); Chloride 103 mEq/L (98-107); Glucose 101 mg/dL (70-105); Osmolality,Calculated 290 (280-300); Potassium 4.1 mEq/L (3.5-5.1); Sodium 139 mEq/L (136-145); eGFR For African Americans > 60 (> 60); eGFR For Non-African Americans 56 (> 60)
[2020-02-03 21:12] LABS: Basophils # 0.1 K/mcL (0.0-0.2); Basophils % 1.1 %; Eosinophils # 0.3 K/mcL (0.0-0.6); Eosinophils % 3.2 %; Hematocrit 41.8 % (35.3-44.9); Hemoglobin 12.8 g/dL (11.5-15.4); Immature Granulocytes % 0.3 % (0-4); Lymphocytes % 29.3 %; Mean Corpuscular HGB Conc 30.6 g/dL (31.6-35.5); Mean Corpuscular Hemoglobin 29.4 pg (28.0-33.3); Mean Corpuscular Volume 96.1 fL (83.0-100.0); Mean Platelet Volume 9.6 fL (9.4-12.4); Monocytes # 0.6 K/mcL (0.0-1.3); Monocytes % 5.9 %; Neutrophils # 6.2 K/mcL (1.6-8.9); Platelet Count 265 K/mcL (140-400); Red Blood Count 4.35 M/mcL (3.82-4.97); Red Cell Distribution Width 13.3 % (11.5-14.5); Segmented Neutrophils % 60.2 %; Troponin I < 0.03 ng/mL (< 0.04); White Blood Count 10.3 K/mcL (4.3-11.1)
[2020-02-03] MEDS ORDERED: Naloxone 0.4 MG/ML INJ IVP PRN (21:35)
[2020-02-03] MEDS: Ondansetron 4 MG/2 ML VIAL IVP PRN (23:12)
[2020-02-04] MEDS ORDERED: Morphine Sulfate 2 MG/ML SYRINGE IVP ONE ×2 (01:27→18:02)
[2020-02-04 02:52] LABS: Basophils # 0.1 K/mcL (0.0-0.2); Basophils % 0.8 %; Eosinophils # 0.3 K/mcL (0.0-0.6); Eosinophils % 3.2 %; Hematocrit 41.3 % (35.3-44.9); Hemoglobin 12.6 g/dL (11.5-15.4); Immature Granulocytes % 0.3 % (0-4); Lymphocytes # 3.1 K/mcL (0.6-4.6); Lymphocytes % 31.4 %; Mean Corpuscular HGB Conc 30.5 g/dL (31.6-35.5); Mean Corpuscular Hemoglobin 29.4 pg (28.0-33.3); Mean Corpuscular Volume 96.5 fL (83.0-100.0); Mean Platelet Volume 9.5 fL (9.4-12.4); Monocytes # 0.5 K/mcL (0.0-1.3); Monocytes % 5.5 %; Neutrophils # 5.7 K/mcL (1.6-8.9); Platelet Count 255 K/mcL (140-400); Red Blood Count 4.28 M/mcL (3.82-4.97); Red Cell Distribution Width 13.4 % (11.5-14.5); Segmented Neutrophils % 58.8 %; White Blood Count 9.7 K/mcL (4.3-11.1)
[2020-02-04] MEDS: Gabapentin 300 MG CAPSULE PO SCH ×2 (03:10→08:53)
[2020-02-04] MEDS: Topiramate 25 MG TABLET PO SCH ×2 (03:10→08:53)
[2020-02-04 03:11] LABS: Alanine Aminotransferase 22 Units/L (7-52); Albumin 3.7 g/dL (3.5-5.7); Albumin/Globulin Ratio 1.3 (1.1-2.2); Alkaline Phosphatase 105 Units/L (34-104); Aspartate Amino Transferase 21 Units/L (13-39); BUN/Creatinine Ratio 22 (6-26); Bilirubin,Total 0.3 mg/dL (0.3-1.0); Blood Urea Nitrogen 20 mg/dL (8-23); Calcium 9.1 mg/dL (8.6-10.3); Carbon Dioxide 25 mEq/L (23-29); Chloride 106 mEq/L (98-107); Globulin 2.8 g/dL (2.4-3.5); Glucose 139 mg/dL (70-105); Osmolality,Calculated 295 (280-300); Potassium 4.1 mEq/L (3.5-5.1); Sodium 140 mEq/L (136-145); Total Protein 6.5 g/dL (6.4-8.9); eGFR For African Americans > 60 (> 60); eGFR For Non-African Americans > 60 (> 60)
[2020-02-04] MEDS ORDERED: SUMAtriptan succinate 25 MG TABLET PO PRN (04:54)
[2020-02-04] MEDS ORDERED: Nitroglycerin 0.4 MG TAB.SUBL SL PRN (04:54)
[2020-02-04] MEDS ORDERED: *HR* Dextrose 50 % in Water (Vial) 50 ML VIAL IVP PRN (04:56)
[2020-02-04] MEDS ORDERED: Dextrose Gel 15 GM/37.5 ML TUBE PO PRN ×2 (04:56)
[2020-02-04] MEDS ORDERED: D5% in Water 1,000 ML IVC PRN (04:56)
[2020-02-04] MEDS: *HR* Heparin 5,000 UNIT/ML VIAL SQ SCH ×2 (06:01→14:24)
[2020-02-04] MEDS: Ondansetron 4 MG/2 ML VIAL IVP PRN ×2 (06:06→14:24)
[2020-02-04] MEDS: Insulin LISPRO 300 UNITS/3 ML VIAL SQ SCH ×3 (08:54→17:15)
[2020-02-04] MEDS ORDERED: Losartan/HCTZ 50-12.5 TABLET PO SCH (09:00)
[2020-02-04] MEDS ORDERED: Aspirin Enteric Coated 81 MG Tablet PO SCH (09:00)
[2020-02-04] MEDS ORDERED: Metoprolol XL (24 HR) Succ 25 MG TAB.ER.24H PO SCH (09:00)
[2020-02-04] MEDS ORDERED: Furosemide 20 MG TABLET PO SCH (09:00)
[2020-02-04 14:18] VITALS: BP 140/71
[2020-02-04] MEDS ORDERED: *HR* LORazepam 0.5 MG TABLET PO PRN (15:33)
[2020-02-04] MEDS ORDERED: tiZANidine 4 MG TABLET PO PRN (15:34)
[2020-02-04] MEDS ORDERED: *HR* HYDROcodone/Acet 5/325 mg TABLET PO PRN (15:42)
[2020-02-04] MEDS ORDERED: Melatonin 3 MG TABLET PO SCH (21:00)
[2020-02-04] MEDS ORDERED: Insulin DETEMIR 100 UNIT/ML X5UNITS SQ SCH (21:00)
== END 2020-02-04 19:07 | disposition home or self-care (01) ==
LOC: 3ANU 17:34 → EMEROOARM 17:34 → 3ANU 20:15 → SUATTDRO 21:31
PROVIDERS: ADMIT Student in an Organized Health Care Education/Training Program; ATTEND Student in an Organized Health Care Education/Training Program

== ENCOUNTER 2020-05-25 19:08 | Observation (INO) ==
[2020-05-25] MEDS ORDERED: Nitroglycerin 0.4 MG TAB.SUBL SL PRN (19:30)
[2020-05-25] MEDS ORDERED: Ondansetron 4 MG/2 ML VIAL ONE (19:51)
[2020-05-25] MEDS ORDERED: Ondansetron 4 MG/2 ML VIAL IVP ONE (19:54)
[2020-05-25 20:00] LABS: Basophils # 0.1 K/mcL (0.0-0.2); Basophils % 0.9 %; Eosinophils # 0.4 K/mcL (0.0-0.6); Eosinophils % 3.3 %; Hematocrit 40.7 % (35.3-44.9); Hemoglobin 12.5 g/dL (11.5-15.4); Immature Granulocytes % 0.3 % (0-4); Lymphocytes # 2.7 K/mcL (0.6-4.6); Lymphocytes % 24.3 %; Mean Corpuscular HGB Conc 30.7 g/dL (31.6-35.5); Mean Corpuscular Hemoglobin 29.3 pg (28.0-33.3); Mean Corpuscular Volume 95.5 fL (83.0-100.0); Mean Platelet Volume 9.7 fL (9.4-12.4); Monocytes # 0.5 K/mcL (0.0-1.3); Monocytes % 4.6 %; Neutrophils # 7.4 K/mcL (1.6-8.9); Platelet Count 302 K/mcL (140-400); Red Blood Count 4.26 M/mcL (3.82-4.97); Red Cell Distribution Width 14.2 % (11.5-14.5); Segmented Neutrophils % 66.6 %; White Blood Count 11.1 K/mcL (4.3-11.1)
[2020-05-25] MEDS ORDERED: Morphine Sulfate 2 MG/ML SYRINGE IVP ONE ×2 (20:01→23:36)
[2020-05-25 20:05] LABS: INR 0.9; Prothrombin Time 10.6 Seconds (9.4-12.1)
[2020-05-25 20:08] LABS: Activated Partial Thrombo Time 25.6 Seconds (26.0-36.0)
[2020-05-25 20:19] LABS: BUN/Creatinine Ratio 19 (6-26); Blood Urea Nitrogen 20 mg/dL (8-23); Calcium 9.9 mg/dL (8.6-10.3); Carbon Dioxide 22 mEq/L (23-29); Chloride 108 mEq/L (98-107); Glucose 262 mg/dL (70-105); Lipase 42 Units/L (11-82); Osmolality,Calculated 300 (280-300); Potassium 4.1 mEq/L (3.5-5.1); Sodium 139 mEq/L (136-145); Troponin I < 0.03 ng/mL (< 0.04); eGFR For African Americans > 60 (> 60); eGFR For Non-African Americans 51 (> 60)
[2020-05-25] MEDS ORDERED: Naloxone 0.4 MG/ML INJ IVP PRN (21:26)
[2020-05-25] MEDS ORDERED: Acetaminophen 325 MG TABLET PO PRN (21:26)
[2020-05-25] MEDS ORDERED: *HR* Dextrose 50 % in Water (Vial) 50 ML VIAL IVP PRN (21:29)
[2020-05-25] MEDS ORDERED: Dextrose Gel 15 GM/37.5 ML TUBE PO PRN ×2 (21:29)
[2020-05-25] MEDS ORDERED: D5% in Water 1,000 ML IVC PRN (21:29)
[2020-05-25] MEDS ORDERED: Isovue-370 500 ML BOTTLE IVP ONE (23:36)
[2020-05-25] MEDS ORDERED: GI Cocktail 40 ML EACH PO ONE (23:38)
[2020-05-26] MEDS: Insulin DETEMIR 100 UNIT/ML X5UNITS SUBQ SCH ×2 (00:09→20:43)
[2020-05-26] MEDS: Insulin LISPRO 300 UNITS/3 ML VIAL SUBQ SCH ×5 (00:43→20:44)
[2020-05-26 03:16] LABS: Basophils # 0.1 K/mcL (0.0-0.2); Eosinophils # 0.4 K/mcL (0.0-0.6); Eosinophils % 3.9 %; Hematocrit 39.2 % (35.3-44.9); Hemoglobin 12.2 g/dL (11.5-15.4); Immature Granulocytes % 0.2 % (0-4); Lymphocytes # 3.4 K/mcL (0.6-4.6); Lymphocytes % 36.6 %; Mean Corpuscular HGB Conc 31.1 g/dL (31.6-35.5); Mean Corpuscular Hemoglobin 29.9 pg (28.0-33.3); Mean Corpuscular Volume 96.1 fL (83.0-100.0); Monocytes # 0.5 K/mcL (0.0-1.3); Platelet Count 301 K/mcL (140-400); Red Blood Count 4.08 M/mcL (3.82-4.97); Red Cell Distribution Width 14.2 % (11.5-14.5); Segmented Neutrophils % 53.3 %; White Blood Count 9.3 K/mcL (4.3-11.1)
[2020-05-26 03:19] LABS: Prothrombin Time 11.1 Seconds (9.4-12.1)
[2020-05-26 03:36] LABS: BUN/Creatinine Ratio 19 (6-26); Blood Urea Nitrogen 17 mg/dL (8-23); Calcium 9.3 mg/dL (8.6-10.3); Carbon Dioxide 23 mEq/L (23-29); Chloride 108 mEq/L (98-107); Glucose 158 mg/dL (70-105); Magnesium 1.9 mg/dL (1.6-2.6); Osmolality,Calculated 293 (280-300); Potassium 4.1 mEq/L (3.5-5.1); Sodium 139 mEq/L (136-145); eGFR For African Americans > 60 (> 60); eGFR For Non-African Americans > 60 (> 60)
[2020-05-26] MEDS: *HR* Enoxaparin 40 MG/0.4 ML SYRINGE SQ SCH (06:18)
[2020-05-26] MEDS: Aspirin Enteric Coated 81 MG Tablet PO SCH (08:28)
[2020-05-26] MEDS: Ondansetron 4 MG/2 ML VIAL IVP PRN (12:11)
[2020-05-26] MEDS ORDERED: *HR* FentaNYL (PF) 100 MCG/2 ML VIAL ONE (15:43)
[2020-05-26] MEDS ORDERED: *HR* Midazolam HCl 5 MG/5 ML VIAL IVP ONE ×2 (15:43→15:44)
[2020-05-26] MEDS ORDERED: Simethicone 40 MG/0.6 ML MLS IR ONE (15:44)
[2020-05-26] MEDS ORDERED: *HR* FentaNYL (PF) 100 MCG/2 ML VIAL IVP ONE (15:44)
[2020-05-26] MEDS ORDERED: Lidocaine -MPF 2% 2 ML VIAL ONE (15:59)
[2020-05-26] MEDS ORDERED: *HR* Propofol 200 MG/20 ML VIAL IVP ONE (16:00)
[2020-05-26] MEDS ORDERED: Melatonin 3 MG TABLET PO PRN (17:50)
[2020-05-26] MEDS: Gabapentin 300 MG CAPSULE PO SCH (20:40)
[2020-05-26] MEDS: Topiramate 25 MG TABLET PO SCH (20:41)
[2020-05-26] MEDS: (Cyclosporine [Restasis] 1 DROP) OP SCH (20:43)
[2020-05-27 06:02] LABS: Hematocrit 41.6 % (35.3-44.9); Hemoglobin 12.9 g/dL (11.5-15.4); Mean Corpuscular Hemoglobin 30.1 pg (28.0-33.3); Mean Corpuscular Volume 97.2 fL (83.0-100.0); Mean Platelet Volume 9.5 fL (9.4-12.4); Platelet Count 289 K/mcL (140-400); Red Blood Count 4.28 M/mcL (3.82-4.97); Red Cell Distribution Width 14.5 % (11.5-14.5); White Blood Count 7.5 K/mcL (4.3-11.1)
[2020-05-27] MEDS: *HR* Enoxaparin 40 MG/0.4 ML SYRINGE SQ SCH (06:15)
[2020-05-27] MEDS: (Cyclosporine [Restasis] 1 DROP) OP SCH ×2 (08:01→20:32)
[2020-05-27] MEDS: Insulin LISPRO 300 UNITS/3 ML VIAL SUBQ SCH ×3 (08:59→17:13)
[2020-05-27] MEDS: Venlafaxine XR (24 HR) 75 MG CAP.ER.24H PO SCH (09:01)
[2020-05-27] MEDS: Gabapentin 300 MG CAPSULE PO SCH ×3 (09:01→20:31)
[2020-05-27] MEDS: Loratadine 10 MG TABLET PO SCH (09:02)
[2020-05-27] MEDS: Furosemide 20 MG TABLET PO SCH (09:02)
[2020-05-27] MEDS: Metoprolol XL (24 HR) Succ 25 MG TAB.ER.24H PO SCH (09:02)
[2020-05-27] MEDS: Topiramate 25 MG TABLET PO SCH ×2 (09:02→20:31)
[2020-05-27] MEDS: Aspirin Enteric Coated 81 MG Tablet PO SCH (09:02)
[2020-05-27] MEDS: *HR* LORazepam 0.5 MG TABLET PO PRN ×2 (09:07→20:37)
[2020-05-27] MEDS ORDERED: Acetaminophen IV 500 MG/50 ML BAG IVPB ONE (11:48)
[2020-05-27] MEDS: Ondansetron 4 MG/2 ML VIAL IVP PRN (12:32)
[2020-05-27] MEDS: Sucralfate 1 GM TABLET PO SCH (17:13)
[2020-05-27] MEDS: Insulin DETEMIR 100 UNIT/ML X5UNITS SUBQ SCH (20:31)
[2020-05-28 01:21] LABS: Hematocrit 42.7 % (35.3-44.9); Hemoglobin 13.3 g/dL (11.5-15.4); Mean Corpuscular HGB Conc 31.1 g/dL (31.6-35.5); Mean Corpuscular Hemoglobin 29.3 pg (28.0-33.3); Mean Corpuscular Volume 94.1 fL (83.0-100.0); Mean Platelet Volume 10.2 fL (9.4-12.4); Platelet Count 273 K/mcL (140-400); Red Blood Count 4.54 M/mcL (3.82-4.97); Red Cell Distribution Width 14.2 % (11.5-14.5); White Blood Count 9.1 K/mcL (4.3-11.1)
[2020-05-28] MEDS: Insulin LISPRO 300 UNITS/3 ML VIAL SUBQ SCH ×2 (05:16→08:30)
[2020-05-28] MEDS: *HR* Enoxaparin 40 MG/0.4 ML SYRINGE SQ SCH (05:48)
[2020-05-28 07:37] VITALS: BP 145/74
[2020-05-28] MEDS: Gabapentin 300 MG CAPSULE PO SCH (08:26)
[2020-05-28] MEDS: Topiramate 25 MG TABLET PO SCH (08:26)
[2020-05-28] MEDS: Sucralfate 1 GM TABLET PO SCH (08:26)
[2020-05-28] MEDS: Venlafaxine XR (24 HR) 75 MG CAP.ER.24H PO SCH (08:26)
[2020-05-28] MEDS: Loratadine 10 MG TABLET PO SCH (08:26)
[2020-05-28] MEDS: Furosemide 20 MG TABLET PO SCH (08:26)
[2020-05-28] MEDS: Aspirin Enteric Coated 81 MG Tablet PO SCH (08:26)
[2020-05-28] MEDS: Metoprolol XL (24 HR) Succ 25 MG TAB.ER.24H PO SCH (08:27)
[2020-05-28] MEDS: (Cyclosporine [Restasis] 1 DROP) OP SCH (08:37)
== END 2020-05-28 12:22 | disposition home health service (06) ==
LOC: EMEROOARM 19:08 → 3BNU 19:08
PROVIDERS: ADMIT Student in an Organized Health Care Education/Training Program; ATTEND Student in an Organized Health Care Education/Training Program
PROC: ENDOEBX (2020-05-26 16:00)

== ENCOUNTER 2020-09-10 20:32 | Observation (INO) ==
[2020-09-10] MEDS ORDERED: Isovue-370 500 ML BOTTLE IVP ONE (21:33)
[2020-09-10] MEDS ORDERED: *HR* FentaNYL (PF) 100 MCG/2 ML VIAL IVP ONE ×2 (21:34→23:53)
[2020-09-10] MEDS ORDERED: 0.9 % Sodium Chloride 1,000 ML IVC ONE (21:34)
[2020-09-10] MEDS ORDERED: Ondansetron 4 MG/2 ML VIAL IVP ONE (21:34)
[2020-09-10 22:39] LABS: Basophils # 0.1 K/mcL (0.0-0.2); Basophils % 0.9 %; Eosinophils # 0.4 K/mcL (0.0-0.6); Eosinophils % 3.5 %; Hematocrit 40.4 % (35.3-44.9); Hemoglobin 12.3 g/dL (11.5-15.4); Immature Granulocytes % 0.3 % (0-4); Lymphocytes # 2.9 K/mcL (0.6-4.6); Lymphocytes % 25.9 %; Mean Corpuscular HGB Conc 30.4 g/dL (31.6-35.5); Mean Corpuscular Hemoglobin 29.2 pg (28.0-33.3); Mean Platelet Volume 9.7 fL (9.4-12.4); Monocytes # 0.5 K/mcL (0.0-1.3); Monocytes % 4.9 %; Neutrophils # 7.1 K/mcL (1.6-8.9); Platelet Count 287 K/mcL (140-400); Red Blood Count 4.21 M/mcL (3.82-4.97); Red Cell Distribution Width 13.7 % (11.5-14.5); Segmented Neutrophils % 64.5 %
[2020-09-10 22:48] LABS: Alanine Aminotransferase 21 Units/L (7-52); Albumin 3.8 g/dL (3.5-5.7); Albumin/Globulin Ratio 1.2 (1.1-2.2); Alkaline Phosphatase 88 Units/L (34-104); Aspartate Amino Transferase 19 Units/L (13-39); BUN/Creatinine Ratio 16 (6-26); Bilirubin,Total 0.2 mg/dL (0.3-1.0); Blood Urea Nitrogen 17 mg/dL (8-23); Calcium 9.1 mg/dL (8.6-10.3); Carbon Dioxide 23 mEq/L (23-29); Chloride 105 mEq/L (98-107); Globulin 3.1 g/dL (2.4-3.5); Glucose 211 mg/dL (70-105); Lipase 30 Units/L (11-82); Osmolality,Calculated 292 (280-300); Potassium 4.3 mEq/L (3.5-5.1); Sodium 137 mEq/L (136-145); Total Protein 6.9 g/dL (6.4-8.9); eGFR For African Americans > 60 (> 60); eGFR For Non-African Americans 50 (> 60)
[2020-09-10 22:49] LABS: Troponin I < 0.03 ng/mL (< 0.04)
[2020-09-10 23:11] LABS: Bacteria,Urine Few per hpf (None-Few); Bilirubin,Urine Negative (Negative); Blood,Urine Negative (Negative); Clarity,Urine Clear (Clear); Color,Urine Light-Yellow (Yellow); Glucose,Urine (UA) Normal (Normal); Ketones,Urine Negative (Negative); Leukocyte Esterase,Urine Trace (Negative); Nitrite,Urine Positive (Negative); Protein,Urine Trace mg/dL (Neg-Trace); Specific Gravity,Urine 1.026 (1.010-1.025); Squamous Epithelial Cell,Urine Few per hpf (None-Few); Urobilinogen,Urine Normal (Normal)
[2020-09-10] MEDS ORDERED: cefTRIAXone 1,000 MG in Water for inj. (sterile) 10 ML IVP ONE (23:19)
[2020-09-11] MEDS ORDERED: Melatonin 3 MG TABLET PO PRN (02:28)
[2020-09-11] MEDS ORDERED: Ondansetron 4 MG/2 ML VIAL IVP PRN (02:28)
[2020-09-11] MEDS ORDERED: Acetaminophen 325 MG TABLET PO PRN (02:28)
[2020-09-11] MEDS ORDERED: Naloxone 0.4 MG/ML INJ IVP PRN (02:28)
[2020-09-11] MEDS ORDERED: D5% in Water 1,000 ML IVC PRN (02:55)
[2020-09-11] MEDS ORDERED: Dextrose Gel 15 GM/37.5 ML TUBE PO PRN ×2 (02:55)
[2020-09-11] MEDS ORDERED: *HR* Dextrose 50 % in Water (Vial) 50 ML VIAL IVP PRN (02:55)
[2020-09-11 02:56] LABS: Basophils # 0.1 K/mcL (0.0-0.2); Basophils % 0.9 %; Eosinophils # 0.3 K/mcL (0.0-0.6); Eosinophils % 3.1 %; Hematocrit 39.6 % (35.3-44.9); Hemoglobin 12.1 g/dL (11.5-15.4); Immature Granulocytes % 0.2 % (0-4); Lymphocytes # 3.2 K/mcL (0.6-4.6); Lymphocytes % 32.1 %; Mean Corpuscular HGB Conc 30.6 g/dL (31.6-35.5); Mean Corpuscular Hemoglobin 29.2 pg (28.0-33.3); Mean Corpuscular Volume 95.7 fL (83.0-100.0); Mean Platelet Volume 9.5 fL (9.4-12.4); Monocytes # 0.5 K/mcL (0.0-1.3); Monocytes % 5.4 %; Neutrophils # 5.7 K/mcL (1.6-8.9); Platelet Count 250 K/mcL (140-400); Red Blood Count 4.14 M/mcL (3.82-4.97); Red Cell Distribution Width 13.8 % (11.5-14.5); Segmented Neutrophils % 58.3 %; White Blood Count 9.8 K/mcL (4.3-11.1)
[2020-09-11 03:16] LABS: BUN/Creatinine Ratio 19 (6-26); Blood Urea Nitrogen 17 mg/dL (8-23); Calcium 8.6 mg/dL (8.6-10.3); Carbon Dioxide 23 mEq/L (23-29); Chloride 109 mEq/L (98-107); Glucose 128 mg/dL (70-105); Osmolality,Calculated 289 (280-300); Phosphorous 2.8 mg/dL (2.7-4.5); Potassium 4.2 mEq/L (3.5-5.1); Sodium 138 mEq/L (136-145); eGFR For African Americans > 60 (> 60); eGFR For Non-African Americans 60 (> 60)
[2020-09-11] MEDS: *HR* HYDROcodone/Acet 5/325 mg TABLET PO PRN ×3 (04:33→20:45)
[2020-09-11] MEDS ORDERED: 0.9 % Sodium Chloride 1,000 ML IVC ONE (06:19)
[2020-09-11] MEDS: *HR* OxyCODONE Immed Rel 5 MG TABLET PO PRN ×2 (06:44→17:27)
[2020-09-11] MEDS: Insulin LISPRO 300 UNITS/3 ML VIAL SUBQ SCH ×4 (07:26→20:49)
[2020-09-11] MEDS: cefTRIAXone 1,000 MG in Water for inj. (sterile) 10 ML IVP SCH (08:16)
[2020-09-11] MEDS ORDERED: *HR* LORazepam 0.5 MG TABLET PO PRN (13:06)
[2020-09-11] MEDS ORDERED: Nitroglycerin 0.4 MG TAB.SUBL SL PRN (13:06)
[2020-09-11] MEDS: Gabapentin 300 MG CAPSULE PO SCH ×2 (14:59→20:45)
[2020-09-11] MEDS: *HR* Heparin 5,000 UNIT/ML VIAL SQ SCH (17:18)
[2020-09-11 19:30] LABS: Adenovirus Not Detected (Not Detect); Bordetella Pertussis Not Detected (Not Detect); Chlamydophila pneumoniae Not Detected (Not Detect); Coronavirus 229E Not Detected (Not Detect); Coronavirus HKU1 Not Detected (Not Detect); Coronavirus NL63 Not Detected (Not Detect); Coronavirus OC43 Not Detected (Not Detect); Human Metapneumovirus Not Detected (Not Detect); Human Rhinovirus/Enterovirus Not Detected (Not Detect); Influenza A Subtype 2009 H1 Not Detected (Not Detect); Influenza B Not Detected (Not Detect); Mycoplasma pneumoniae Not Detected (Not Detect); Parainfluenza Virus 1 Not Detected (Not Detect); Parainfluenza Virus 2 Not Detected (Not Detect); Parainfluenza Virus 3 Not Detected (Not Detect); Parainfluenza Virus 4 Not Detected (Not Detect); Respiratory Syncytial Virus Not Detected (Not Detect); SARS-CoV-2 Not Detected (Not Detect)
[2020-09-11] MEDS: Topiramate 25 MG TABLET PO SCH (20:45)
[2020-09-11] MEDS: Melatonin 3 MG TABLET PO SCH (20:46)
[2020-09-11] MEDS: tiZANidine 4 MG TABLET PO SCH (20:46)
[2020-09-12] MEDS: *HR* OxyCODONE Immed Rel 5 MG TABLET PO PRN (00:20)
[2020-09-12 04:19] LABS: Hematocrit 42.5 % (35.3-44.9); Hemoglobin 12.6 g/dL (11.5-15.4); Mean Corpuscular HGB Conc 29.6 g/dL (31.6-35.5); Mean Corpuscular Hemoglobin 28.8 pg (28.0-33.3); Mean Corpuscular Volume 97.3 fL (83.0-100.0); Mean Platelet Volume 9.6 fL (9.4-12.4); Platelet Count 197 K/mcL (140-400); Red Blood Count 4.37 M/mcL (3.82-4.97); Red Cell Distribution Width 13.8 % (11.5-14.5)
[2020-09-12 04:22] LABS: White Blood Count 4.3 K/mcL (4.3-11.1)
[2020-09-12 05:02] LABS: BUN/Creatinine Ratio 15 (6-26); Blood Urea Nitrogen 11 mg/dL (8-23); Calcium 8.6 mg/dL (8.6-10.3); Carbon Dioxide 21 mEq/L (23-29); Chloride 107 mEq/L (98-107); Glucose 223 mg/dL (70-105); Osmolality,Calculated 286 (280-300); Potassium 4.5 mEq/L (3.5-5.1); Sodium 135 mEq/L (136-145); eGFR For African Americans > 60 (> 60); eGFR For Non-African Americans > 60 (> 60)
[2020-09-12] MEDS: *HR* Heparin 5,000 UNIT/ML VIAL SQ SCH ×2 (05:10→17:02)
[2020-09-12] MEDS: Venlafaxine XR (24 HR) 75 MG CAP.ER.24H PO SCH (08:30)
[2020-09-12] MEDS: tiZANidine 4 MG TABLET PO SCH ×2 (08:31→20:32)
[2020-09-12] MEDS: Gabapentin 300 MG CAPSULE PO SCH ×3 (08:31→20:31)
[2020-09-12] MEDS: Loratadine 10 MG TABLET PO SCH (08:31)
[2020-09-12] MEDS: Topiramate 25 MG TABLET PO SCH ×2 (08:31→20:32)
[2020-09-12] MEDS: Metoprolol XL (24 HR) Succ 25 MG TAB.ER.24H PO SCH (08:31)
[2020-09-12] MEDS: cefTRIAXone 1,000 MG in Water for inj. (sterile) 10 ML IVP SCH (08:31)
[2020-09-12] MEDS: Aspirin Enteric Coated 81 MG Tablet PO SCH (08:31)
[2020-09-12] MEDS: Insulin LISPRO 300 UNITS/3 ML VIAL SUBQ SCH ×4 (08:33→20:33)
[2020-09-12] MEDS ORDERED: SODIUM CHLORIDE/NAHCO3/KCL/PEG 4,000 ML SOLN.RECON PO ONE (09:58)
[2020-09-12] MEDS: 0.9 % Sodium Chloride 1,000 ML IVC SCH ×2 (11:44→21:12)
[2020-09-12] MEDS: *HR* HYDROcodone/Acet 5/325 mg TABLET PO PRN ×2 (13:08→21:17)
[2020-09-12] MEDS ORDERED: Insulin NPH/REG 70/30 100 UNIT/ML (x5UNIT) SUBQ SCH (17:00)
[2020-09-12] MEDS: Insulin NPH/REG 70/30 100 UNIT/ML (x5UNIT) SUBQ SCH (17:11)
[2020-09-12] MEDS: Melatonin 3 MG TABLET PO SCH (20:30)
[2020-09-13] MEDS ORDERED: Lidocaine -MPF 2% 5 ML VIAL SQ ONE (01:05)
[2020-09-13] MEDS ORDERED: *HR* Propofol 500 MG/50 ML BOTTLE IVP ONE (01:05)
[2020-09-13] MEDS: *HR* HYDROcodone/Acet 5/325 mg TABLET PO PRN (04:26)
[2020-09-13] MEDS: *HR* Heparin 5,000 UNIT/ML VIAL SQ SCH ×2 (04:43→18:26)
[2020-09-13] MEDS: Insulin LISPRO 300 UNITS/3 ML VIAL SUBQ SCH ×4 (07:33→20:06)
[2020-09-13] MEDS: cefTRIAXone 1,000 MG in Water for inj. (sterile) 10 ML IVP SCH (08:11)
[2020-09-13] MEDS: tiZANidine 4 MG TABLET PO SCH ×2 (08:11→20:03)
[2020-09-13] MEDS: Topiramate 25 MG TABLET PO SCH ×2 (08:11→20:04)
[2020-09-13] MEDS: Venlafaxine XR (24 HR) 75 MG CAP.ER.24H PO SCH (08:11)
[2020-09-13] MEDS: Aspirin Enteric Coated 81 MG Tablet PO SCH (08:11)
[2020-09-13] MEDS: *HR* OxyCODONE Immed Rel 5 MG TABLET PO PRN (08:12)
[2020-09-13] MEDS: Metoprolol XL (24 HR) Succ 25 MG TAB.ER.24H PO SCH (08:12)
[2020-09-13] MEDS: Loratadine 10 MG TABLET PO SCH (08:12)
[2020-09-13] MEDS: Gabapentin 300 MG CAPSULE PO SCH ×3 (08:12→20:04)
[2020-09-13] MEDS: Insulin NPH/REG 70/30 100 UNIT/ML (x5UNIT) SUBQ SCH ×2 (11:15→18:26)
[2020-09-13] MEDS ORDERED: *HR* OxyCODONE/APAP 5/325 TABLET PO PRN (11:22)
[2020-09-13] MEDS: Melatonin 3 MG TABLET PO SCH (20:03)
[2020-09-14] MEDS: *HR* Heparin 5,000 UNIT/ML VIAL SQ SCH ×2 (05:06→17:43)
[2020-09-14] MEDS: cefTRIAXone 1,000 MG in Water for inj. (sterile) 10 ML IVP SCH (07:48)
[2020-09-14] MEDS: Insulin LISPRO 300 UNITS/3 ML VIAL SUBQ SCH ×3 (07:48→17:43)
[2020-09-14] MEDS: Venlafaxine XR (24 HR) 75 MG CAP.ER.24H PO SCH (07:49)
[2020-09-14] MEDS: Metoprolol XL (24 HR) Succ 25 MG TAB.ER.24H PO SCH (07:49)
[2020-09-14] MEDS: Aspirin Enteric Coated 81 MG Tablet PO SCH (07:49)
[2020-09-14] MEDS: tiZANidine 4 MG TABLET PO SCH (07:49)
[2020-09-14] MEDS: Gabapentin 300 MG CAPSULE PO SCH ×2 (07:49→15:23)
[2020-09-14] MEDS: Loratadine 10 MG TABLET PO SCH (07:49)
[2020-09-14] MEDS: Topiramate 25 MG TABLET PO SCH (07:49)
[2020-09-14] MEDS: Insulin NPH/REG 70/30 100 UNIT/ML (x5UNIT) SUBQ SCH ×2 (08:00→17:43)
[2020-09-14 19:04] VITALS: BP 127/70
[2020-10-06] MEDS ORDERED: Cyanocobalamin (B-12) 1,000 MCG/ML VIAL IM SCH (09:00)
== END 2020-09-14 20:00 | disposition home health service (06) ==
LOC: EMEROOARM 20:32 → 3BNU 20:32 → SUATTDRO 09-11 01:04 → 3BNU 09-11 01:40
PROVIDERS: ADMIT Family Medicine; ATTEND Internal Medicine
PROC: ENDOEBX (2020-09-13 13:45)
PROC: ENDOCBX (2020-09-13 13:45)

== ENCOUNTER 2020-10-26 19:05 | Observation (INO) ==
[2020-10-26] MEDS ORDERED: Isovue-370 500 ML BOTTLE IVP ONE (22:04)
[2020-10-27 00:46] LABS: Basophils # 0.1 K/mcL (0.0-0.2); Basophils % 0.9 %; Eosinophils # 0.4 K/mcL (0.0-0.6); Eosinophils % 3.4 %; Hematocrit 40.6 % (35.3-44.9); Hemoglobin 12.4 g/dL (11.5-15.4); Immature Granulocytes % 0.2 % (0-4); Lymphocytes # 3.6 K/mcL (0.6-4.6); Lymphocytes % 32.6 %; Mean Corpuscular HGB Conc 30.5 g/dL (31.6-35.5); Mean Corpuscular Volume 94.9 fL (83.0-100.0); Mean Platelet Volume 9.6 fL (9.4-12.4); Monocytes # 0.7 K/mcL (0.0-1.3); Monocytes % 6.2 %; Neutrophils # 6.3 K/mcL (1.6-8.9); Platelet Count 300 K/mcL (140-400); Red Blood Count 4.28 M/mcL (3.82-4.97); Red Cell Distribution Width 14.2 % (11.5-14.5); Segmented Neutrophils % 56.7 %; White Blood Count 11.2 K/mcL (4.3-11.1)
[2020-10-27 01:03] LABS: BUN/Creatinine Ratio 15 (6-26); Blood Urea Nitrogen 13 mg/dL (8-23); C-Reactive Protein 17 mg/L (Less than 10); Calcium 9.3 mg/dL (8.6-10.3); Carbon Dioxide 27 mEq/L (23-29); Chloride 103 mEq/L (98-107); Glucose 78 mg/dL (70-105); Osmolality,Calculated 293 (280-300); Potassium 4.6 mEq/L (3.5-5.1); Sodium 142 mEq/L (136-145); eGFR For African Americans > 60 (> 60); eGFR For Non-African Americans > 60 (> 60)
[2020-10-27] MEDS ORDERED: Piperacillin/Tazobactam 3.375 GM in 0.9 % Sodium Chloride Mini Bag 100 ML IVPB ONE (01:17)
[2020-10-27] MEDS ORDERED: Morphine Sulfate 2 MG/ML SYRINGE IVP ONE ×2 (03:04→16:01)
[2020-10-27] MEDS ORDERED: Acetaminophen 325 MG TABLET PO PRN (07:17)
[2020-10-27] MEDS ORDERED: Ondansetron 4 MG/2 ML VIAL IVP PRN (07:17)
[2020-10-27] MEDS ORDERED: Dextrose Gel 15 GM/37.5 ML TUBE PO PRN ×2 (07:46)
[2020-10-27] MEDS ORDERED: D5% in Water 1,000 ML IVC PRN (07:46)
[2020-10-27] MEDS ORDERED: *HR* Dextrose 50 % in Water (Vial) 50 ML VIAL IVP PRN (07:46)
[2020-10-27] MEDS: Cefepime HCl 2,000 MG in Water for inj. (sterile) 20 ML IVP SCH ×2 (08:10→21:29)
[2020-10-27] MEDS: MetroNIDAZOLE 500 MG/100 ML 500 MG/100 ML BAG IVPB SCH ×3 (08:10→23:35)
[2020-10-27] MEDS: *HR* OxyCODONE Immed Rel 5 MG TABLET PO PRN ×2 (08:26→15:08)
[2020-10-27] MEDS: Insulin LISPRO 300 UNITS/3 ML VIAL SUBQ SCH ×3 (11:45→21:30)
[2020-10-27] MEDS: Insulin DETEMIR 100 UNIT/ML X5UNITS SUBQ SCH (17:44)
[2020-10-27] MEDS: Topiramate 25 MG TABLET PO SCH (21:29)
[2020-10-27] MEDS: Gabapentin 300 MG CAPSULE PO SCH (21:29)
[2020-10-27] MEDS: Melatonin 3 MG TABLET PO SCH (21:29)
[2020-10-27] MEDS: *HR* LORazepam 0.5 MG TABLET PO PRN (23:35)
[2020-10-28] MEDS: Vancomycin 1,250 MG/262.5 ML IV.SOLN IVPB SCH (03:59)
[2020-10-28 07:40] LABS: Hematocrit 41.5 % (35.3-44.9); Hemoglobin 12.4 g/dL (11.5-15.4); Mean Corpuscular HGB Conc 29.9 g/dL (31.6-35.5); Mean Corpuscular Hemoglobin 28.8 pg (28.0-33.3); Mean Corpuscular Volume 96.3 fL (83.0-100.0); Platelet Count 187 K/mcL (140-400); Red Blood Count 4.31 M/mcL (3.82-4.97); Red Cell Distribution Width 14.3 % (11.5-14.5)
[2020-10-28 08:02] LABS: BUN/Creatinine Ratio 15 (6-26); Blood Urea Nitrogen 13 mg/dL (8-23); Calcium 9.3 mg/dL (8.6-10.3); Carbon Dioxide 23 mEq/L (23-29); Chloride 107 mEq/L (98-107); Glucose 143 mg/dL (70-105); Osmolality,Calculated 289 (280-300); Sodium 138 mEq/L (136-145); eGFR For African Americans > 60 (> 60); eGFR For Non-African Americans > 60 (> 60)
[2020-10-28] MEDS: Insulin LISPRO 300 UNITS/3 ML VIAL SUBQ SCH ×4 (09:07→21:59)
[2020-10-28] MEDS: Venlafaxine XR (24 HR) 75 MG CAP.ER.24H PO SCH (09:08)
[2020-10-28] MEDS: Furosemide 20 MG TABLET PO SCH (09:08)
[2020-10-28] MEDS: Gabapentin 300 MG CAPSULE PO SCH ×2 (09:08→22:00)
[2020-10-28] MEDS: Topiramate 25 MG TABLET PO SCH ×2 (09:08→22:00)
[2020-10-28] MEDS: Insulin DETEMIR 100 UNIT/ML X5UNITS SUBQ SCH (09:08)
[2020-10-28] MEDS: Metoprolol XL (24 HR) Succ 25 MG TAB.ER.24H PO SCH (09:09)
[2020-10-28] MEDS: Aspirin Enteric Coated 81 MG Tablet PO SCH (09:09)
[2020-10-28] MEDS ORDERED: Insulin NPH/REG 70/30 100 UNIT/ML (x5UNIT) SUBQ SCH ×2 (09:15→18:00)
[2020-10-28] MEDS: Cefepime HCl 2,000 MG in Water for inj. (sterile) 20 ML IVP SCH ×2 (13:02→21:59)
[2020-10-28] MEDS: MetroNIDAZOLE 500 MG/100 ML 500 MG/100 ML BAG IVPB SCH ×3 (13:03→23:33)
[2020-10-28] MEDS: *HR* OxyCODONE Immed Rel 5 MG TABLET PO PRN ×3 (13:16→23:32)
[2020-10-28] MEDS: *HR* Heparin 5,000 UNIT/ML VIAL SQ SCH (18:09)
[2020-10-28] MEDS: Melatonin 3 MG TABLET PO SCH (22:00)
[2020-10-29] MEDS: Vancomycin 1,250 MG/262.5 ML IV.SOLN IVPB SCH (04:12)
[2020-10-29] MEDS: *HR* OxyCODONE Immed Rel 5 MG TABLET PO PRN ×3 (04:17→13:36)
[2020-10-29] MEDS: *HR* Heparin 5,000 UNIT/ML VIAL SQ SCH (05:20)
[2020-10-29] MEDS: Cefepime HCl 2,000 MG in Water for inj. (sterile) 20 ML IVP SCH (08:46)
[2020-10-29] MEDS: Insulin LISPRO 300 UNITS/3 ML VIAL SUBQ SCH ×2 (08:46→13:37)
[2020-10-29] MEDS: MetroNIDAZOLE 500 MG/100 ML 500 MG/100 ML BAG IVPB SCH (08:47)
[2020-10-29] MEDS: *HR* LORazepam 0.5 MG TABLET PO PRN (08:48)
[2020-10-29] MEDS: Gabapentin 300 MG CAPSULE PO SCH (08:49)
[2020-10-29] MEDS: Furosemide 20 MG TABLET PO SCH (08:50)
[2020-10-29] MEDS: Venlafaxine XR (24 HR) 75 MG CAP.ER.24H PO SCH (08:50)
[2020-10-29] MEDS: Aspirin Enteric Coated 81 MG Tablet PO SCH (08:50)
[2020-10-29] MEDS: Metoprolol XL (24 HR) Succ 25 MG TAB.ER.24H PO SCH (08:51)
[2020-10-29] MEDS: Topiramate 25 MG TABLET PO SCH (08:51)
[2020-10-29] MEDS ORDERED: Insulin NPH/REG 70/30 100 UNIT/ML (x5UNIT) SUBQ SCH (09:00)
[2020-10-29 15:14] VITALS: BP 127/65
== END 2020-10-29 16:15 | disposition home health service (06) ==
LOC: 3BNU 19:05 → EMEROOARM 19:05 → SUATTDRO 10-27 05:10 → 3BNU 10-27 06:16
PROVIDERS: ADMIT Internal Medicine; ATTEND Internal Medicine

== ENCOUNTER 2020-12-08 09:40 | Inpatient (IN) ==
[2020-12-08 10:49] LABS: Basophils # 0.1 K/mcL (0.0-0.2); Eosinophils # 0.3 K/mcL (0.0-0.6); Eosinophils % 4.1 %; Hematocrit 41.3 % (35.3-44.9); Hemoglobin 12.6 g/dL (11.5-15.4); Immature Granulocytes % 0.1 % (0-4); Mean Corpuscular HGB Conc 30.5 g/dL (31.6-35.5); Mean Corpuscular Hemoglobin 28.5 pg (28.0-33.3); Mean Corpuscular Volume 93.4 fL (83.0-100.0); Mean Platelet Volume 9.8 fL (9.4-12.4); Monocytes # 0.5 K/mcL (0.0-1.3); Monocytes % 5.9 %; Platelet Count 212 K/mcL (140-400); Red Blood Count 4.42 M/mcL (3.82-4.97); Red Cell Distribution Width 13.9 % (11.5-14.5); Segmented Neutrophils % 63.9 %; White Blood Count 7.8 K/mcL (4.3-11.1)
[2020-12-08] MEDS ORDERED: Piperacillin/Tazobactam 3.375 GM in 0.9 % Sodium Chloride Mini Bag 100 ML IVPB ONE (11:10)
[2020-12-08 11:11] LABS: BUN/Creatinine Ratio 17 (6-26); Blood Urea Nitrogen 13 mg/dL (8-23); C-Reactive Protein 25 mg/L (Less than 10); Calcium 9.4 mg/dL (8.6-10.3); Carbon Dioxide 25 mEq/L (23-29); Chloride 110 mEq/L (98-107); Glucose 110 mg/dL (70-105); Osmolality,Calculated 291 (280-300); Potassium 4.1 mEq/L (3.5-5.1); Sodium 140 mEq/L (136-145); eGFR For African Americans > 60 (> 60); eGFR For Non-African Americans > 60 (> 60)
[2020-12-08] MEDS ORDERED: Piperacillin/Tazobactam 3.375 GM in Water for inj. (sterile) 20 ML IVP ONE (11:15)
[2020-12-08 11:21] LABS: Estimated Average Glucose 154 mg/dl
[2020-12-08] MEDS ORDERED: *HR* Dextrose 50 % in Water (Vial) 50 ML VIAL IVP PRN (11:43)
[2020-12-08] MEDS ORDERED: Dextrose Gel 15 GM/37.5 ML TUBE PO PRN ×2 (11:43)
[2020-12-08] MEDS ORDERED: Naloxone 0.4 MG/ML INJ IVP PRN (11:43)
[2020-12-08] MEDS ORDERED: Ondansetron 4 MG/2 ML VIAL IVP PRN (11:43)
[2020-12-08] MEDS ORDERED: D5% in Water 1,000 ML IVC PRN (11:43)
[2020-12-08] MEDS ORDERED: Piperacillin/Tazobactam 3.375 GM in 0.9 % Sodium Chloride Mini Bag 100 ML IVPB SCH (16:00)
[2020-12-08] MEDS: Insulin LISPRO 300 UNITS/3 ML VIAL SUBQ SCH (16:09)
[2020-12-08] MEDS: *HR* HYDROcodone/Acet 5/325 mg TABLET PO PRN (16:17)
[2020-12-08] MEDS: Piperacillin/Tazobactam 3.375 GM in 0.9 % Sodium Chloride Mini Bag 100 ML IVPB SCH (17:59)
[2020-12-08] MEDS ORDERED: tiZANidine 4 MG TABLET PO ONE (20:59)
[2020-12-08] MEDS: Insulin DETEMIR 100 UNIT/ML X5UNITS SUBQ SCH (21:42)
[2020-12-09] MEDS: *HR* HYDROcodone/Acet 5/325 mg TABLET PO PRN ×2 (00:08→08:55)
[2020-12-09] MEDS: Piperacillin/Tazobactam 3.375 GM in 0.9 % Sodium Chloride Mini Bag 100 ML IVPB SCH ×3 (00:59→17:35)
[2020-12-09] MEDS: *HR* Enoxaparin 40 MG/0.4 ML SYRINGE SQ SCH (04:15)
[2020-12-09 05:52] LABS: Basophils # 0.1 K/mcL (0.0-0.2); Eosinophils # 0.4 K/mcL (0.0-0.6); Eosinophils % 3.7 %; Hematocrit 41.4 % (35.3-44.9); Hemoglobin 13.2 g/dL (11.5-15.4); Immature Granulocytes % 0.2 % (0-4); Lymphocytes # 3.2 K/mcL (0.6-4.6); Lymphocytes % 32.5 %; Mean Corpuscular HGB Conc 31.9 g/dL (31.6-35.5); Mean Corpuscular Hemoglobin 29.7 pg (28.0-33.3); Mean Corpuscular Volume 93.2 fL (83.0-100.0); Mean Platelet Volume 9.5 fL (9.4-12.4); Monocytes # 0.6 K/mcL (0.0-1.3); Monocytes % 6.5 %; Neutrophils # 5.5 K/mcL (1.6-8.9); Platelet Count 270 K/mcL (140-400); Red Blood Count 4.44 M/mcL (3.82-4.97); Segmented Neutrophils % 56.1 %; White Blood Count 9.7 K/mcL (4.3-11.1)
[2020-12-09 06:38] LABS: BUN/Creatinine Ratio 17 (6-26); Blood Urea Nitrogen 15 mg/dL (8-23); Calcium 9.2 mg/dL (8.6-10.3); Carbon Dioxide 23 mEq/L (23-29); Chloride 107 mEq/L (98-107); Glucose 90 mg/dL (70-105); Magnesium 1.9 mg/dL (1.6-2.6); Osmolality,Calculated 286 (280-300); Potassium 4.1 mEq/L (3.5-5.1); Sodium 138 mEq/L (136-145); eGFR For African Americans > 60 (> 60); eGFR For Non-African Americans > 60 (> 60)
[2020-12-09] MEDS: Insulin LISPRO 300 UNITS/3 ML VIAL SUBQ SCH ×3 (08:01→17:04)
[2020-12-09] MEDS ORDERED: Nitroglycerin 0.4 MG TAB.SUBL SL PRN (10:36)
[2020-12-09] MEDS ORDERED: *HR* LORazepam 0.5 MG TABLET PO PRN (10:36)
[2020-12-09] MEDS ORDERED: tiZANidine 4 MG TABLET PO PRN (10:36)
[2020-12-09] MEDS: Metoprolol XL (24 HR) Succ 25 MG TAB.ER.24H PO SCH (11:43)
[2020-12-09] MEDS: Morphine Sulfate 2 MG/ML SYRINGE IVP PRN ×3 (12:05→21:55)
[2020-12-09] MEDS: Sucralfate 1 GM TABLET PO SCH (21:02)
[2020-12-09] MEDS: Gabapentin 300 MG CAPSULE PO SCH (21:02)
[2020-12-09] MEDS: Topiramate 25 MG TABLET PO SCH (21:02)
[2020-12-09] MEDS: Acetaminophen 325 MG TABLET PO PRN (21:03)
[2020-12-09] MEDS: Melatonin 3 MG TABLET PO SCH (21:03)
[2020-12-09] MEDS: Insulin DETEMIR 100 UNIT/ML X5UNITS SUBQ SCH (21:55)
[2020-12-10] MEDS: Piperacillin/Tazobactam 3.375 GM in 0.9 % Sodium Chloride Mini Bag 100 ML IVPB SCH ×3 (02:12→17:39)
[2020-12-10] MEDS: Morphine Sulfate 2 MG/ML SYRINGE IVP PRN ×4 (02:23→20:20)
[2020-12-10 03:26] LABS: Basophils # 0.1 K/mcL (0.0-0.2); Basophils % 1.3 %; Eosinophils # 0.3 K/mcL (0.0-0.6); Eosinophils % 4.3 %; Hemoglobin 12.8 g/dL (11.5-15.4); Immature Granulocytes % 0.1 % (0-4); Lymphocytes # 2.1 K/mcL (0.6-4.6); Lymphocytes % 30.7 %; Mean Corpuscular HGB Conc 31.2 g/dL (31.6-35.5); Mean Corpuscular Hemoglobin 28.4 pg (28.0-33.3); Mean Corpuscular Volume 91.1 fL (83.0-100.0); Mean Platelet Volume 9.6 fL (9.4-12.4); Monocytes # 0.5 K/mcL (0.0-1.3); Monocytes % 6.7 %; Neutrophils # 3.8 K/mcL (1.6-8.9); Platelet Count 308 K/mcL (140-400); Red Cell Distribution Width 13.9 % (11.5-14.5); Segmented Neutrophils % 56.9 %; White Blood Count 6.7 K/mcL (4.3-11.1)
[2020-12-10 03:53] LABS: BUN/Creatinine Ratio 15 (6-26); Blood Urea Nitrogen 13 mg/dL (8-23); Calcium 9.3 mg/dL (8.6-10.3); Carbon Dioxide 22 mEq/L (23-29); Chloride 108 mEq/L (98-107); Glucose 161 mg/dL (70-105); Osmolality,Calculated 288 (280-300); Potassium 4.1 mEq/L (3.5-5.1); Sodium 137 mEq/L (136-145); eGFR For African Americans > 60 (> 60); eGFR For Non-African Americans > 60 (> 60)
[2020-12-10] MEDS: *HR* Enoxaparin 40 MG/0.4 ML SYRINGE SQ SCH (06:25)
[2020-12-10] MEDS: Topiramate 25 MG TABLET PO SCH ×2 (08:23→20:21)
[2020-12-10] MEDS: Metoprolol XL (24 HR) Succ 25 MG TAB.ER.24H PO SCH (08:23)
[2020-12-10] MEDS: Sucralfate 1 GM TABLET PO SCH ×2 (08:23→20:21)
[2020-12-10] MEDS: Venlafaxine XR (24 HR) 75 MG CAP.ER.24H PO SCH (08:23)
[2020-12-10] MEDS: Aspirin 325 MG TABLET PO SCH (08:24)
[2020-12-10] MEDS: Gabapentin 300 MG CAPSULE PO SCH ×2 (08:24→20:20)
[2020-12-10] MEDS: Insulin LISPRO 300 UNITS/3 ML VIAL SUBQ SCH ×3 (08:27→17:38)
[2020-12-10] MEDS: *HR* OxyCODONE/APAP 7.5/325 TABLET PO PRN ×2 (09:47→18:40)
[2020-12-10] MEDS: Melatonin 3 MG TABLET PO SCH (20:21)
[2020-12-10] MEDS: Insulin DETEMIR 100 UNIT/ML X5UNITS SUBQ SCH (20:23)
[2020-12-11] MEDS: Piperacillin/Tazobactam 3.375 GM in 0.9 % Sodium Chloride Mini Bag 100 ML IVPB SCH (01:44)
[2020-12-11] MEDS: Morphine Sulfate 2 MG/ML SYRINGE IVP PRN ×3 (01:50→20:46)
[2020-12-11] MEDS: *HR* Enoxaparin 40 MG/0.4 ML SYRINGE SQ SCH (04:55)
[2020-12-11] MEDS: *HR* OxyCODONE/APAP 7.5/325 TABLET PO PRN (05:03)
[2020-12-11 08:48] LABS: Basophils # 0.1 K/mcL (0.0-0.2); Basophils % 1.2 %; Eosinophils # 0.3 K/mcL (0.0-0.6); Eosinophils % 4.8 %; Hematocrit 43.7 % (35.3-44.9); Hemoglobin 13.4 g/dL (11.5-15.4); Immature Granulocytes % 0.3 % (0-4); Lymphocytes # 2.4 K/mcL (0.6-4.6); Lymphocytes % 38.9 %; Mean Corpuscular HGB Conc 30.7 g/dL (31.6-35.5); Mean Corpuscular Hemoglobin 28.4 pg (28.0-33.3); Mean Corpuscular Volume 92.6 fL (83.0-100.0); Mean Platelet Volume 9.8 fL (9.4-12.4); Monocytes # 0.5 K/mcL (0.0-1.3); Monocytes % 7.8 %; Neutrophils # 2.9 K/mcL (1.6-8.9); Platelet Count 257 K/mcL (140-400); Red Blood Count 4.72 M/mcL (3.82-4.97); White Blood Count 6.1 K/mcL (4.3-11.1)
[2020-12-11 09:04] LABS: BUN/Creatinine Ratio 12 (6-26); Blood Urea Nitrogen 11 mg/dL (8-23); Calcium 8.8 mg/dL (8.6-10.3); Carbon Dioxide 22 mEq/L (23-29); Chloride 108 mEq/L (98-107); Glucose 234 mg/dL (70-105); Osmolality,Calculated 291 (280-300); Potassium 4.4 mEq/L (3.5-5.1); Sodium 137 mEq/L (136-145); eGFR For African Americans > 60 (> 60); eGFR For Non-African Americans > 60 (> 60)
[2020-12-11] MEDS: Venlafaxine XR (24 HR) 75 MG CAP.ER.24H PO SCH (09:09)
[2020-12-11] MEDS: Topiramate 25 MG TABLET PO SCH ×2 (09:09→20:45)
[2020-12-11] MEDS: Vitamin B Complex/Vit C/Vit E 1 EACH TABLET PO SCH (09:09)
[2020-12-11] MEDS: Sucralfate 1 GM TABLET PO SCH ×2 (09:10→20:45)
[2020-12-11] MEDS: Aspirin 325 MG TABLET PO SCH (09:10)
[2020-12-11] MEDS: Gabapentin 300 MG CAPSULE PO SCH ×2 (09:10→20:45)
[2020-12-11] MEDS: Metoprolol XL (24 HR) Succ 25 MG TAB.ER.24H PO SCH (09:10)
[2020-12-11] MEDS: Insulin LISPRO 300 UNITS/3 ML VIAL SUBQ SCH ×3 (10:59→18:28)
[2020-12-11] MEDS: Melatonin 3 MG TABLET PO SCH (20:45)
[2020-12-11] MEDS: Insulin DETEMIR 100 UNIT/ML X5UNITS SUBQ SCH (20:49)
[2020-12-12] MEDS: Acetaminophen 325 MG TABLET PO PRN (00:42)
[2020-12-12 05:20] LABS: Basophils # 0.1 K/mcL (0.0-0.2); Basophils % 0.8 %; Eosinophils # 0.3 K/mcL (0.0-0.6); Eosinophils % 3.8 %; Hematocrit 38.6 % (35.3-44.9); Hemoglobin 11.9 g/dL (11.5-15.4); Immature Granulocytes % 0.3 % (0-4); Lymphocytes # 2.7 K/mcL (0.6-4.6); Lymphocytes % 31.2 %; Mean Corpuscular HGB Conc 30.8 g/dL (31.6-35.5); Mean Corpuscular Volume 93.9 fL (83.0-100.0); Mean Platelet Volume 9.7 fL (9.4-12.4); Monocytes # 0.5 K/mcL (0.0-1.3); Monocytes % 6.1 %; Platelet Count 239 K/mcL (140-400); Red Blood Count 4.11 M/mcL (3.82-4.97); Red Cell Distribution Width 14.2 % (11.5-14.5); Segmented Neutrophils % 57.8 %; White Blood Count 8.6 K/mcL (4.3-11.1)
[2020-12-12] MEDS: *HR* Enoxaparin 40 MG/0.4 ML SYRINGE SQ SCH (05:20)
[2020-12-12] MEDS: Morphine Sulfate 2 MG/ML SYRINGE IVP PRN ×2 (05:21→18:45)
[2020-12-12 05:39] LABS: BUN/Creatinine Ratio 16 (6-26); Blood Urea Nitrogen 13 mg/dL (8-23); Calcium 8.7 mg/dL (8.6-10.3); Carbon Dioxide 21 mEq/L (23-29); Chloride 109 mEq/L (98-107); Glucose 252 mg/dL (70-105); Magnesium 1.9 mg/dL (1.6-2.6); Osmolality,Calculated 291 (280-300); Potassium 4.1 mEq/L (3.5-5.1); Sodium 136 mEq/L (136-145); eGFR For African Americans > 60 (> 60); eGFR For Non-African Americans > 60 (> 60)
[2020-12-12] MEDS: Aspirin 325 MG TABLET PO SCH (08:07)
[2020-12-12] MEDS: Vitamin B Complex/Vit C/Vit E 1 EACH TABLET PO SCH (08:08)
[2020-12-12] MEDS: Topiramate 25 MG TABLET PO SCH ×2 (08:08→20:24)
[2020-12-12] MEDS: Venlafaxine XR (24 HR) 75 MG CAP.ER.24H PO SCH (08:08)
[2020-12-12] MEDS: Gabapentin 300 MG CAPSULE PO SCH ×2 (08:08→20:24)
[2020-12-12] MEDS: Sucralfate 1 GM TABLET PO SCH ×2 (08:08→20:29)
[2020-12-12] MEDS: Metoprolol XL (24 HR) Succ 25 MG TAB.ER.24H PO SCH (08:08)
[2020-12-12] MEDS: Insulin LISPRO 300 UNITS/3 ML VIAL SUBQ SCH ×3 (08:09→17:13)
[2020-12-12] MEDS ORDERED: Insulin DETEMIR 100 UNIT/ML X5UNITS SUBQ ONE (16:17)
[2020-12-12] MEDS: Melatonin 3 MG TABLET PO SCH (20:24)
[2020-12-12] MEDS: Insulin DETEMIR 100 UNIT/ML X5UNITS SUBQ SCH (22:07)
[2020-12-12] MEDS: *HR* OxyCODONE/APAP 7.5/325 TABLET PO PRN (22:10)
[2020-12-13] MEDS: Morphine Sulfate 2 MG/ML SYRINGE IVP PRN ×2 (00:57→10:09)
[2020-12-13] MEDS: *HR* Enoxaparin 40 MG/0.4 ML SYRINGE SQ SCH (04:39)
[2020-12-13] MEDS: *HR* OxyCODONE/APAP 7.5/325 TABLET PO PRN ×2 (06:09→15:15)
[2020-12-13 07:59] LABS: Basophils # 0.1 K/mcL (0.0-0.2); Eosinophils # 0.4 K/mcL (0.0-0.6); Eosinophils % 3.7 %; Hematocrit 41.9 % (35.3-44.9); Hemoglobin 13.1 g/dL (11.5-15.4); Immature Granulocytes % 0.5 % (0-4); Lymphocytes # 3.7 K/mcL (0.6-4.6); Lymphocytes % 32.4 %; Mean Corpuscular HGB Conc 31.3 g/dL (31.6-35.5); Mean Corpuscular Hemoglobin 28.9 pg (28.0-33.3); Mean Corpuscular Volume 92.3 fL (83.0-100.0); Mean Platelet Volume 10.3 fL (9.4-12.4); Monocytes # 0.7 K/mcL (0.0-1.3); Monocytes % 6.4 %; Neutrophils # 6.4 K/mcL (1.6-8.9); Platelet Count 288 K/mcL (140-400); Red Blood Count 4.54 M/mcL (3.82-4.97); Red Cell Distribution Width 14.1 % (11.5-14.5); White Blood Count 11.5 K/mcL (4.3-11.1)
[2020-12-13 08:28] LABS: BUN/Creatinine Ratio 19 (6-26); Blood Urea Nitrogen 16 mg/dL (8-23); Carbon Dioxide 17 mEq/L (23-29); Chloride 110 mEq/L (98-107); Glucose 208 mg/dL (70-105); Magnesium 1.7 mg/dL (1.6-2.6); Osmolality,Calculated 291 (280-300); Potassium 4.8 mEq/L (3.5-5.1); Sodium 137 mEq/L (136-145); eGFR For African Americans > 60 (> 60); eGFR For Non-African Americans > 60 (> 60)
[2020-12-13] MEDS: Topiramate 25 MG TABLET PO SCH ×2 (09:50→19:59)
[2020-12-13] MEDS: Aspirin 325 MG TABLET PO SCH (09:51)
[2020-12-13] MEDS: Vitamin B Complex/Vit C/Vit E 1 EACH TABLET PO SCH (09:51)
[2020-12-13] MEDS: Metoprolol XL (24 HR) Succ 25 MG TAB.ER.24H PO SCH (09:51)
[2020-12-13] MEDS: Insulin LISPRO 300 UNITS/3 ML VIAL SUBQ SCH ×3 (09:52→16:20)
[2020-12-13] MEDS: Gabapentin 300 MG CAPSULE PO SCH ×2 (09:52→19:59)
[2020-12-13] MEDS: Sucralfate 1 GM TABLET PO SCH ×2 (09:52→19:59)
[2020-12-13] MEDS: Venlafaxine XR (24 HR) 75 MG CAP.ER.24H PO SCH (09:52)
[2020-12-13] MEDS: Insulin DETEMIR 100 UNIT/ML X5UNITS SUBQ SCH ×2 (10:00→20:01)
[2020-12-13] MEDS ORDERED: Ondansetron 4 MG/2 ML VIAL IVP PRN ×3 (15:26→18:25)
[2020-12-13] MEDS ORDERED: *HR* HYDROcodone/Acet 5/325 mg TABLET PO PRN ×2 (15:26→18:25)
[2020-12-13] MEDS ORDERED: 0.9 % Sodium Chloride 1,000 ML IVC SCH (15:30)
[2020-12-13] MEDS ORDERED: Bupivacaine-MPF 0.25% 10 ML VIAL ONE (15:37)
[2020-12-13] MEDS ORDERED: Lidocaine/EPI 1:200k 1% PF 10 ML VIAL ONE (15:37)
[2020-12-13] MEDS ORDERED: Lidocaine 1% 20 ML MDV ONE (15:37)
[2020-12-13] MEDS ORDERED: Bupivacaine/Clonidine Syringe 20 ML, Syringe LUER-LOK 1 EACH TP ONE (15:45)
[2020-12-13] MEDS ORDERED: Lidocaine -MPF 2% 2 ML VIAL ONE (16:39)
[2020-12-13] MEDS ORDERED: *HR* FentaNYL (PF) 100 MCG/2 ML VIAL ONE (16:39)
[2020-12-13] MEDS ORDERED: *HR* LORazepam 0.5 MG TABLET PO PRN (18:25)
[2020-12-13] MEDS ORDERED: *HR* Dextrose 50 % in Water (Vial) 50 ML VIAL IVP PRN (18:25)
[2020-12-13] MEDS ORDERED: Naloxone 0.4 MG/ML INJ IVP PRN (18:25)
[2020-12-13] MEDS ORDERED: Nitroglycerin 0.4 MG TAB.SUBL SL PRN (18:25)
[2020-12-13] MEDS ORDERED: D5% in Water 1,000 ML IVC PRN (18:25)
[2020-12-13] MEDS ORDERED: Acetaminophen 325 MG TABLET PO PRN (18:25)
[2020-12-13] MEDS ORDERED: Morphine Sulfate 2 MG/ML SYRINGE IVP PRN (18:25)
[2020-12-13] MEDS ORDERED: tiZANidine 4 MG TABLET PO PRN (18:25)
[2020-12-13] MEDS ORDERED: Dextrose Gel 15 GM/37.5 ML TUBE PO PRN ×2 (18:25)
[2020-12-13] MEDS: Melatonin 3 MG TABLET PO SCH (19:58)
[2020-12-13] MEDS: 0.9 % Sodium Chloride 1,000 ML IVC SCH (20:00)
[2020-12-14] MEDS: *HR* OxyCODONE/APAP 7.5/325 TABLET PO PRN ×2 (04:39→17:05)
[2020-12-14 05:48] LABS: Basophils # 0.1 K/mcL (0.0-0.2); Basophils % 0.8 %; Eosinophils # 0.3 K/mcL (0.0-0.6); Hematocrit 41.1 % (35.3-44.9); Hemoglobin 12.9 g/dL (11.5-15.4); Immature Granulocytes % 0.2 % (0-4); Lymphocytes # 2.3 K/mcL (0.6-4.6); Lymphocytes % 27.1 %; Mean Corpuscular HGB Conc 31.4 g/dL (31.6-35.5); Mean Corpuscular Hemoglobin 29.1 pg (28.0-33.3); Mean Corpuscular Volume 92.6 fL (83.0-100.0); Mean Platelet Volume 9.7 fL (9.4-12.4); Monocytes # 0.5 K/mcL (0.0-1.3); Monocytes % 5.2 %; Neutrophils # 5.4 K/mcL (1.6-8.9); Platelet Count 279 K/mcL (140-400); Red Blood Count 4.44 M/mcL (3.82-4.97); Red Cell Distribution Width 14.2 % (11.5-14.5); Segmented Neutrophils % 62.7 %; White Blood Count 8.6 K/mcL (4.3-11.1)
[2020-12-14] MEDS ORDERED: *HR* Enoxaparin 40 MG/0.4 ML SYRINGE SQ SCH (06:00)
[2020-12-14 06:02] LABS: BUN/Creatinine Ratio 13 (6-26); Blood Urea Nitrogen 11 mg/dL (8-23); Calcium 9.1 mg/dL (8.6-10.3); Carbon Dioxide 22 mEq/L (23-29); Chloride 110 mEq/L (98-107); Glucose 167 mg/dL (70-105); Magnesium 1.8 mg/dL (1.6-2.6); Osmolality,Calculated 291 (280-300); Potassium 3.8 mEq/L (3.5-5.1); Sodium 139 mEq/L (136-145); eGFR For African Americans > 60 (> 60); eGFR For Non-African Americans > 60 (> 60)
[2020-12-14] MEDS: Sucralfate 1 GM TABLET PO SCH ×2 (08:25→19:52)
[2020-12-14] MEDS: Gabapentin 300 MG CAPSULE PO SCH ×2 (08:26→19:52)
[2020-12-14] MEDS: Topiramate 25 MG TABLET PO SCH ×2 (08:26→19:52)
[2020-12-14] MEDS: Insulin LISPRO 300 UNITS/3 ML VIAL SUBQ SCH ×3 (08:27→18:23)
[2020-12-14] MEDS: Insulin DETEMIR 100 UNIT/ML X5UNITS SUBQ SCH (08:30)
[2020-12-14] MEDS ORDERED: Venlafaxine XR (24 HR) 75 MG CAP.ER.24H PO SCH (09:00)
[2020-12-14] MEDS ORDERED: Metoprolol XL (24 HR) Succ 25 MG TAB.ER.24H PO SCH (09:00)
[2020-12-14] MEDS ORDERED: Vitamin B Complex/Vit C/Vit E 1 EACH TABLET PO SCH (09:00)
[2020-12-14] MEDS ORDERED: Aspirin 325 MG TABLET PO SCH (09:00)
[2020-12-14] MEDS: Doxycycline 100 MG CAPSULE PO SCH ×2 (12:27→19:54)
[2020-12-14 19:15] VITALS: BP 147/79; PULSE 69; TEMP 98.7; O2SAT 96
[2020-12-14] MEDS: Melatonin 3 MG TABLET PO SCH (19:54)
[2020-12-14] MEDS: 0.9 % Sodium Chloride 1,000 ML IVC SCH (19:54)
== END 2020-12-14 20:59 | disposition home health service (06) | DRG 617 ==
LOC: EMEROOARM 09:40 → 3NENU 09:40 → SUATTDRO 11:54 → 3NENU 12:45
PROVIDERS: ADMIT Internal Medicine; ATTEND Pharmacist

== ENCOUNTER 2021-02-05 16:04 | Observation (INO) ==
[2021-02-05] MEDS ORDERED: Isovue-370 500 ML BOTTLE IVP ONE (16:37)
[2021-02-05 16:51] LABS: Hematocrit 42.8 % (35.3-44.9); Hemoglobin 13.1 g/dL (11.5-15.4); Mean Corpuscular HGB Conc 30.6 g/dL (31.6-35.5); Mean Corpuscular Hemoglobin 28.2 pg (28.0-33.3); Mean Corpuscular Volume 92.2 fL (83.0-100.0); Mean Platelet Volume 9.6 fL (9.4-12.4); Platelet Count 333 K/mcL (140-400); Red Blood Count 4.64 M/mcL (3.82-4.97); Red Cell Distribution Width 14.6 % (11.5-14.5); White Blood Count 11.2 K/mcL (4.3-11.1)
[2021-02-05 16:55] LABS: INR 0.9; Prothrombin Time 10.3 Seconds (9.4-12.1)
[2021-02-05 16:57] LABS: Activated Partial Thrombo Time 30.4 Seconds (26.0-36.0)
[2021-02-05 17:20] LABS: BUN/Creatinine Ratio 19 (6-26); Blood Urea Nitrogen 17 mg/dL (8-23); Calcium 9.2 mg/dL (8.6-10.3); Carbon Dioxide 22 mEq/L (23-29); Chloride 107 mEq/L (98-107); Glucose 125 mg/dL (70-105); Osmolality,Calculated 291 (280-300); Potassium 4.3 mEq/L (3.5-5.1); Sodium 139 mEq/L (136-145); Troponin I < 0.03 ng/mL (< 0.04); eGFR For African Americans > 60 (> 60); eGFR For Non-African Americans 60 (> 60)
[2021-02-05] MEDS ORDERED: Ondansetron 4 MG/2 ML VIAL IVP ONE (19:30)
[2021-02-05] MEDS ORDERED: Naloxone 0.4 MG/ML INJ IVP PRN (20:27)
[2021-02-05] MEDS ORDERED: Gadolinium Contrast Agent (WT Based) IV PRN (20:36)
[2021-02-05] MEDS ORDERED: Perflutren Lipid Microsphere 1.3 ML in 0.9 % Sodium Chloride 8.7 ML IVP PRN (20:36)
[2021-02-05] MEDS ORDERED: Dextrose Gel 15 GM/37.5 ML TUBE PO PRN ×2 (20:39)
[2021-02-05] MEDS ORDERED: *HR* Dextrose 50 % in Water (Syg) 50 ML SYRINGE IVP PRN (20:39)
[2021-02-05] MEDS ORDERED: D5% in Water 1,000 ML IVC PRN (20:39)
[2021-02-05] MEDS ORDERED: Melatonin 3 MG TABLET PO PRN (21:00)
[2021-02-05] MEDS: Aspirin 81 MG TAB.CHEW PO SCH (22:36)
[2021-02-05] MEDS ORDERED: SUMAtriptan succinate 25 MG TABLET PO ONE (23:09)
[2021-02-05] MEDS: Insulin LISPRO 300 UNITS/3 ML VIAL SUBQ SCH (23:21)
[2021-02-05] MEDS: Insulin DETEMIR 100 UNIT/ML X5UNITS SUBQ SCH (23:21)
[2021-02-06 05:45] LABS: BUN/Creatinine Ratio 16 (6-26); Blood Urea Nitrogen 13 mg/dL (8-23); Carbon Dioxide 18 mEq/L (23-29); Chloride 108 mEq/L (98-107); Glucose 202 mg/dL (70-105); Magnesium 1.9 mg/dL (1.6-2.6); Osmolality,Calculated 286 (280-300); Potassium 4.5 mEq/L (3.5-5.1); Sodium 135 mEq/L (136-145); eGFR For African Americans > 60 (> 60); eGFR For Non-African Americans > 60 (> 60)
[2021-02-06] MEDS ORDERED: *HR* Heparin 5,000 UNIT/ML VIAL SQ SCH (06:00)
[2021-02-06] MEDS: Aspirin 81 MG TAB.CHEW PO SCH (08:22)
[2021-02-06] MEDS: Insulin LISPRO 300 UNITS/3 ML VIAL SUBQ SCH ×4 (08:22→22:12)
[2021-02-06] MEDS: Insulin DETEMIR 100 UNIT/ML X5UNITS SUBQ SCH ×2 (08:28→22:10)
[2021-02-06 09:18] LABS: Hematocrit 40.2 % (35.3-44.9); Hemoglobin 12.4 g/dL (11.5-15.4); Mean Corpuscular HGB Conc 30.8 g/dL (31.6-35.5); Mean Corpuscular Hemoglobin 28.4 pg (28.0-33.3); Mean Platelet Volume 9.8 fL (9.4-12.4); Platelet Count 286 K/mcL (140-400); Red Blood Count 4.37 M/mcL (3.82-4.97); Red Cell Distribution Width 14.6 % (11.5-14.5); White Blood Count 8.8 K/mcL (4.3-11.1)
[2021-02-06] MEDS: Gabapentin 300 MG CAPSULE PO SCH ×2 (09:32→22:09)
[2021-02-06] MEDS ORDERED: Acetaminophen 325 MG TABLET PO PRN (11:19)
[2021-02-06] MEDS: Ondansetron 4 MG/2 ML VIAL IVP PRN (15:46)
[2021-02-07 02:03] LABS: Basophils # 0.1 K/mcL (0.0-0.2); Eosinophils # 0.3 K/mcL (0.0-0.6); Eosinophils % 3.5 %; Hematocrit 42.8 % (35.3-44.9); Hemoglobin 13.5 g/dL (11.5-15.4); Immature Granulocytes % 0.2 % (0-4); Lymphocytes # 3.2 K/mcL (0.6-4.6); Lymphocytes % 32.9 %; Mean Corpuscular HGB Conc 31.5 g/dL (31.6-35.5); Mean Platelet Volume 10.4 fL (9.4-12.4); Monocytes # 0.5 K/mcL (0.0-1.3); Monocytes % 5.6 %; Neutrophils # 5.5 K/mcL (1.6-8.9); Platelet Count 247 K/mcL (140-400); Red Blood Count 4.65 M/mcL (3.82-4.97); Red Cell Distribution Width 14.3 % (11.5-14.5); Segmented Neutrophils % 56.8 %; White Blood Count 9.6 K/mcL (4.3-11.1)
[2021-02-07 02:20] LABS: BUN/Creatinine Ratio 20 (6-26); Blood Urea Nitrogen 17 mg/dL (8-23); Calcium 9.4 mg/dL (8.6-10.3); Carbon Dioxide 24 mEq/L (23-29); Chloride 105 mEq/L (98-107); Glucose 197 mg/dL (70-105); Magnesium 1.8 mg/dL (1.6-2.6); Osmolality,Calculated 289 (280-300); Potassium 4.1 mEq/L (3.5-5.1); Sodium 136 mEq/L (136-145); eGFR For African Americans > 60 (> 60); eGFR For Non-African Americans > 60 (> 60)
[2021-02-07] MEDS: Metoprolol XL (24 HR) Succ 25 MG TAB.ER.24H PO SCH (08:43)
[2021-02-07] MEDS: Gabapentin 300 MG CAPSULE PO SCH ×2 (08:43→19:48)
[2021-02-07] MEDS: Aspirin 81 MG TAB.CHEW PO SCH (08:43)
[2021-02-07] MEDS: *HR* Enoxaparin 40 MG/0.4 ML SYRINGE SQ SCH (08:44)
[2021-02-07] MEDS: Insulin LISPRO 300 UNITS/3 ML VIAL SUBQ SCH ×4 (08:44→21:15)
[2021-02-07] MEDS: Insulin DETEMIR 100 UNIT/ML X5UNITS SUBQ SCH ×2 (08:49→21:14)
[2021-02-07] MEDS ORDERED: tiZANidine 4 MG TABLET PO PRN (14:38)
[2021-02-07] MEDS ORDERED: Nitroglycerin 0.4 MG TAB.SUBL SL PRN (14:38)
[2021-02-07] MEDS ORDERED: SUMAtriptan succinate 25 MG TABLET PO PRN (14:38)
[2021-02-07] MEDS ORDERED: *HR* LORazepam 0.5 MG TABLET PO PRN (14:38)
[2021-02-07] MEDS: Sucralfate 1 GM TABLET PO SCH (19:48)
[2021-02-07] MEDS: Topiramate 25 MG TABLET PO SCH (19:49)
[2021-02-07] MEDS: Ondansetron 4 MG/2 ML VIAL IVP PRN (19:53)
[2021-02-07] MEDS ORDERED: Melatonin 3 MG TABLET PO SCH (21:00)
[2021-02-07] MEDS: (Cyclosporine [Restasis] 1 EACH Droperette) OP SCH (21:15)
[2021-02-08] MEDS: Acetaminophen 325 MG TABLET PO PRN ×2 (03:29→16:40)
[2021-02-08 05:09] LABS: Basophils # 0.1 K/mcL (0.0-0.2); Eosinophils # 0.3 K/mcL (0.0-0.6); Eosinophils % 3.3 %; Hematocrit 42.2 % (35.3-44.9); Hemoglobin 13.2 g/dL (11.5-15.4); Immature Granulocytes % 0.2 % (0-4); Lymphocytes # 3.2 K/mcL (0.6-4.6); Lymphocytes % 31.2 %; Mean Corpuscular HGB Conc 31.3 g/dL (31.6-35.5); Mean Corpuscular Hemoglobin 28.6 pg (28.0-33.3); Mean Corpuscular Volume 91.5 fL (83.0-100.0); Mean Platelet Volume 9.6 fL (9.4-12.4); Monocytes # 0.6 K/mcL (0.0-1.3); Monocytes % 5.4 %; Platelet Count 304 K/mcL (140-400); Red Blood Count 4.61 M/mcL (3.82-4.97); Red Cell Distribution Width 14.2 % (11.5-14.5); Segmented Neutrophils % 58.9 %; White Blood Count 10.1 K/mcL (4.3-11.1)
[2021-02-08 05:29] LABS: BUN/Creatinine Ratio 26 (6-26); Blood Urea Nitrogen 22 mg/dL (8-23); Carbon Dioxide 24 mEq/L (23-29); Chloride 106 mEq/L (98-107); Glucose 275 mg/dL (70-105); Osmolality,Calculated 297 (280-300); Potassium 4.2 mEq/L (3.5-5.1); Sodium 137 mEq/L (136-145); eGFR For African Americans > 60 (> 60); eGFR For Non-African Americans > 60 (> 60)
[2021-02-08 05:53] LABS: Estimated Average Glucose 151 mg/dl; Hemoglobin A1C 6.9 %
[2021-02-08] MEDS: Gabapentin 300 MG CAPSULE PO SCH (08:03)
[2021-02-08] MEDS: Metoprolol XL (24 HR) Succ 25 MG TAB.ER.24H PO SCH (08:03)
[2021-02-08] MEDS: Topiramate 25 MG TABLET PO SCH (08:03)
[2021-02-08] MEDS: *HR* Enoxaparin 40 MG/0.4 ML SYRINGE SQ SCH (08:03)
[2021-02-08] MEDS: Aspirin 81 MG TAB.CHEW PO SCH (08:03)
[2021-02-08] MEDS: Sucralfate 1 GM TABLET PO SCH (08:04)
[2021-02-08] MEDS: (Cyclosporine [Restasis] 1 EACH Droperette) OP SCH (08:04)
[2021-02-08] MEDS: Insulin LISPRO 300 UNITS/3 ML VIAL SUBQ SCH ×3 (08:08→18:18)
[2021-02-08] MEDS ORDERED: Furosemide 20 MG TABLET PO SCH (09:00)
[2021-02-08] MEDS ORDERED: Venlafaxine XR (24 HR) 75 MG CAP.ER.24H PO SCH (09:00)
[2021-02-08] MEDS ORDERED: Insulin NPH/REG 70/30 100 UNIT/ML (x5UNIT) SUBQ SCH ×2 (09:00→18:00)
[2021-02-08] MEDS ORDERED: Vitamin B Complex/Vit C/Vit E 1 EACH TABLET PO SCH (09:00)
[2021-02-08 14:59] VITALS: BP 145/71; PULSE 69; TEMP 97.9; O2SAT 95
[2021-03-09] MEDS ORDERED: Cyanocobalamin (B-12) 1,000 MCG/ML VIAL IM SCH (09:00)
== END 2021-02-08 20:30 | disposition other institution (70) ==
LOC: EMEROOARM 16:04 → 3BNU 16:04 → SUATTDRO 20:38 → 3BNU 21:35
PROVIDERS: ADMIT Internal Medicine; ATTEND Internal Medicine

== ENCOUNTER 2021-04-24 18:11 | Observation (INO) ==
[2021-04-24] MEDS ORDERED: Aspirin 325 MG TABLET PO ONE (18:30)
[2021-04-24 20:45] LABS: Basophils # 0.1 K/mcL (0.0-0.2); Basophils % 0.4 %; Eosinophils # 0.1 K/mcL (0.0-0.6); Eosinophils % 0.6 %; Hematocrit 39.7 % (35.3-44.9); Hemoglobin 12.1 g/dL (11.5-15.4); Immature Granulocytes % 0.8 % (0-4); Lymphocytes # 0.6 K/mcL (0.6-4.6); Lymphocytes % 4.7 %; Mean Corpuscular HGB Conc 30.5 g/dL (31.6-35.5); Mean Corpuscular Hemoglobin 27.9 pg (28.0-33.3); Mean Corpuscular Volume 91.5 fL (83.0-100.0); Mean Platelet Volume 9.3 fL (9.4-12.4); Monocytes # 0.2 K/mcL (0.0-1.3); Monocytes % 1.2 %; Neutrophils # 12.3 K/mcL (1.6-8.9); Platelet Count 301 K/mcL (140-400); Red Blood Count 4.34 M/mcL (3.82-4.97); Red Cell Distribution Width 14.9 % (11.5-14.5); Segmented Neutrophils % 92.3 %; White Blood Count 13.3 K/mcL (4.3-11.1)
[2021-04-24 21:09] LABS: BUN/Creatinine Ratio 19 (6-26); Blood Urea Nitrogen 19 mg/dL (8-23); Carbon Dioxide 25 mEq/L (23-29); Chloride 107 mEq/L (98-107); Glucose 97 mg/dL (70-105); Osmolality,Calculated 292 (280-300); Potassium 4.2 mEq/L (3.5-5.1); Sodium 140 mEq/L (136-145); Troponin I < 0.03 ng/mL (< 0.04); eGFR For African Americans > 60 (> 60); eGFR For Non-African Americans 53 (> 60)
[2021-04-24] MEDS ORDERED: Naloxone 0.4 MG/ML INJ IVP PRN ×2 (21:13→21:37)
[2021-04-24] MEDS ORDERED: Melatonin 3 MG TABLET PO PRN (21:37)
[2021-04-24] MEDS ORDERED: Ondansetron ODT 4 MG TAB.RAPDIS SL PRN (21:37)
[2021-04-24] MEDS ORDERED: Acetaminophen 325 MG TABLET PO PRN (21:37)
[2021-04-24] MEDS ORDERED: *HR* HYDROcodone/Acet 5/325 mg TABLET PO PRN (21:37)
[2021-04-24] MEDS ORDERED: *HR* Dextrose 50 % in Water (Syg) 50 ML SYRINGE IVP PRN (21:46)
[2021-04-24] MEDS ORDERED: Dextrose Gel 15 GM/37.5 ML TUBE PO PRN ×2 (21:46)
[2021-04-24] MEDS ORDERED: D5% in Water 1,000 ML IVC PRN (21:46)
[2021-04-24 22:08] LABS: Influenza A PCR Negative (Negative); Influenza B PCR Negative (Negative); Resp. Syncytial Virus PCR Negative (Negative)
[2021-04-24 22:10] LABS: SARS-CoV-2 by PCR (In House) Negative (Negative)
[2021-04-24] MEDS: Insulin LISPRO 300 UNITS/3 ML VIAL SUBQ SCH (23:38)
[2021-04-25 05:18] LABS: Basophils # 0.1 K/mcL (0.0-0.2); Basophils % 0.9 %; Eosinophils # 0.2 K/mcL (0.0-0.6); Eosinophils % 1.9 %; Hematocrit 36.9 % (35.3-44.9); Immature Granulocytes % 0.7 % (0-4); Lymphocytes # 1.8 K/mcL (0.6-4.6); Lymphocytes % 20.3 %; Mean Corpuscular HGB Conc 29.8 g/dL (31.6-35.5); Mean Corpuscular Volume 90.4 fL (83.0-100.0); Mean Platelet Volume 9.3 fL (9.4-12.4); Monocytes # 0.2 K/mcL (0.0-1.3); Monocytes % 2.7 %; Neutrophils # 6.6 K/mcL (1.6-8.9); Platelet Count 283 K/mcL (140-400); Red Blood Count 4.08 M/mcL (3.82-4.97); Red Cell Distribution Width 14.9 % (11.5-14.5); Segmented Neutrophils % 73.5 %
[2021-04-25 05:37] LABS: Chol/HDL Ratio 2.7 (0-4.9)
[2021-04-25 05:42] LABS: BUN/Creatinine Ratio 20 (6-26); Blood Urea Nitrogen 17 mg/dL (8-23); Calcium 8.7 mg/dL (8.6-10.3); Carbon Dioxide 24 mEq/L (23-29); Chloride 108 mEq/L (98-107); Glucose 109 mg/dL (70-105); Osmolality,Calculated 292 (280-300); Sodium 140 mEq/L (136-145); eGFR For African Americans > 60 (> 60); eGFR For Non-African Americans > 60 (> 60)
[2021-04-25 06:47] LABS: Bilirubin,Urine Negative (Negative); Blood,Urine Negative (Negative); Clarity,Urine Clear (Clear); Color,Urine Yellow (Yellow); Glucose,Urine (UA) Normal (Normal); Ketones,Urine Negative (Negative); Leukocyte Esterase,Urine Negative (Negative); Nitrite,Urine Negative (Negative); Protein,Urine Trace mg/dL (Neg-Trace); Specific Gravity,Urine 1.024 (1.010-1.025); Urobilinogen,Urine Normal (Normal)
[2021-04-25] MEDS ORDERED: Regadenoson 0.4 MG/5 ML SYRINGE IVP ONE (06:58)
[2021-04-25] MEDS: Insulin LISPRO 300 UNITS/3 ML VIAL SUBQ SCH ×4 (07:52→22:52)
[2021-04-25] MEDS: Aspirin 81 MG TAB.CHEW PO SCH (09:17)
[2021-04-25] MEDS: Nitroglycerin 0.4 MG TAB.SUBL SL PRN (09:18)
[2021-04-25 11:02] LABS: Estimated Average Glucose 157 mg/dl; Hemoglobin A1C 7.1 %
[2021-04-25] MEDS ORDERED: Isovue-370 500 ML BOTTLE IVP ONE ×3 (15:34→16:55)
[2021-04-25] MEDS ORDERED: Isovue-370 500 ML BOTTLE PO ONE (15:45)
[2021-04-25] MEDS: Isosorbide MONOnitrate (24 HR) 30 MG TAB.ER.24H PO SCH (15:54)
[2021-04-25] MEDS: SUMAtriptan succinate 25 MG TABLET PO PRN ×2 (20:12→22:51)
[2021-04-25] MEDS: Gabapentin 300 MG CAPSULE PO SCH (20:13)
[2021-04-25] MEDS: *HR* LORazepam 0.5 MG TABLET PO PRN (20:13)
[2021-04-25] MEDS: Sucralfate 1 GM TABLET PO SCH (20:14)
[2021-04-25] MEDS: *HR* OxyCODONE Immed Rel 5 MG TABLET PO PRN (22:52)
[2021-04-25] MEDS: *HR* Heparin 5,000 UNIT/ML VIAL SQ SCH (22:52)
[2021-04-26 01:13] LABS: Basophils # 0.1 K/mcL (0.0-0.2); Basophils % 0.9 %; Eosinophils # 0.3 K/mcL (0.0-0.6); Eosinophils % 4.2 %; Hematocrit 36.1 % (35.3-44.9); Hemoglobin 11.2 g/dL (11.5-15.4); Immature Granulocytes % 0.1 % (0-4); Lymphocytes # 1.9 K/mcL (0.6-4.6); Lymphocytes % 27.3 %; Mean Corpuscular Hemoglobin 28.1 pg (28.0-33.3); Mean Corpuscular Volume 90.5 fL (83.0-100.0); Mean Platelet Volume 9.5 fL (9.4-12.4); Monocytes # 0.5 K/mcL (0.0-1.3); Monocytes % 7.2 %; Neutrophils # 4.1 K/mcL (1.6-8.9); Platelet Count 271 K/mcL (140-400); Red Blood Count 3.99 M/mcL (3.82-4.97); Red Cell Distribution Width 14.6 % (11.5-14.5); Segmented Neutrophils % 60.3 %; White Blood Count 6.8 K/mcL (4.3-11.1)
[2021-04-26 01:28] LABS: BUN/Creatinine Ratio 17 (6-26); Blood Urea Nitrogen 16 mg/dL (8-23); Calcium 8.8 mg/dL (8.6-10.3); Carbon Dioxide 20 mEq/L (23-29); Chloride 107 mEq/L (98-107); Glucose 268 mg/dL (70-105); Osmolality,Calculated 291 (280-300); Potassium 4.3 mEq/L (3.5-5.1); Sodium 135 mEq/L (136-145); eGFR For African Americans > 60 (> 60); eGFR For Non-African Americans 58 (> 60)
[2021-04-26] MEDS: *HR* Heparin 5,000 UNIT/ML VIAL SQ SCH ×3 (06:23→22:09)
[2021-04-26 08:02] LABS: Lipase 19 Units/L (11-82)
[2021-04-26] MEDS: Gabapentin 300 MG CAPSULE PO SCH ×3 (08:31→21:22)
[2021-04-26] MEDS: Furosemide 20 MG TABLET PO SCH (08:31)
[2021-04-26] MEDS: Aspirin 81 MG TAB.CHEW PO SCH (08:31)
[2021-04-26] MEDS: Isosorbide MONOnitrate (24 HR) 30 MG TAB.ER.24H PO SCH (08:33)
[2021-04-26] MEDS: Nitroglycerin 0.4 MG TAB.SUBL SL PRN ×2 (08:34→15:23)
[2021-04-26] MEDS: Sucralfate 1 GM TABLET PO SCH ×2 (08:34→21:20)
[2021-04-26] MEDS: Insulin LISPRO 300 UNITS/3 ML VIAL SUBQ SCH ×4 (08:34→20:53)
[2021-04-26] MEDS ORDERED: Aspirin Enteric Coated 81 MG Tablet PO SCH (09:00)
[2021-04-26] MEDS: valACYclovir 500 MG TABLET PO SCH ×2 (12:39→21:22)
[2021-04-26] MEDS: *HR* LORazepam 0.5 MG TABLET PO PRN (15:23)
[2021-04-26] MEDS ORDERED: Isovue-370 500 ML BOTTLE IVP ONE (15:28)
[2021-04-26] MEDS: Topiramate 25 MG TABLET PO SCH (21:22)
[2021-04-27] MEDS: *HR* OxyCODONE Immed Rel 5 MG TABLET PO PRN ×3 (00:01→14:34)
[2021-04-27] MEDS ORDERED: Insulin LISPRO 300 UNITS/3 ML VIAL SUBQ ONE (04:30)
[2021-04-27] MEDS: SUMAtriptan succinate 25 MG TABLET PO PRN (05:16)
[2021-04-27] MEDS: *HR* Heparin 5,000 UNIT/ML VIAL SQ SCH ×2 (05:17→14:34)
[2021-04-27 07:46] VITALS: TEMP 98.4
[2021-04-27] MEDS: Aspirin 81 MG TAB.CHEW PO SCH (08:29)
[2021-04-27] MEDS: Gabapentin 300 MG CAPSULE PO SCH ×2 (08:29→14:33)
[2021-04-27] MEDS: Topiramate 25 MG TABLET PO SCH (08:30)
[2021-04-27] MEDS: Furosemide 20 MG TABLET PO SCH (08:30)
[2021-04-27] MEDS: Isosorbide MONOnitrate (24 HR) 30 MG TAB.ER.24H PO SCH (08:30)
[2021-04-27] MEDS: Sucralfate 1 GM TABLET PO SCH (08:31)
[2021-04-27] MEDS: Insulin LISPRO 300 UNITS/3 ML VIAL SUBQ SCH ×2 (08:32→11:34)
[2021-04-27] MEDS: *HR* LORazepam 0.5 MG TABLET PO PRN ×2 (08:42→14:39)
[2021-04-27 11:32] VITALS: BP 118/64; PULSE 73; O2SAT 98
[2021-05-08] MEDS ORDERED: Cyanocobalamin (B-12) 1,000 MCG/ML VIAL IM SCH (09:00)
== END 2021-04-27 15:03 | disposition home or self-care (01) ==
LOC: 3ANU 18:11 → EMEROOARM 18:11 → SUATTDRO 19:29 → 3ANU 23:00 → SUATTDRO 23:16
PROVIDERS: ADMIT Nurse Practitioner; ATTEND General Practice

== ENCOUNTER 2021-07-02 22:03 | Observation (INO) ==
[2021-07-02] MEDS ORDERED: Isovue-370 500 ML BOTTLE IVP ONE (22:11)
[2021-07-02 22:35] LABS: Hematocrit 40.3 % (35.3-44.9); Hemoglobin 12.2 g/dL (11.5-15.4); Mean Corpuscular HGB Conc 30.3 g/dL (31.6-35.5); Mean Corpuscular Hemoglobin 26.9 pg (28.0-33.3); Mean Platelet Volume 9.8 fL (9.4-12.4); Platelet Count 298 K/mcL (140-400); Red Blood Count 4.53 M/mcL (3.82-4.97); Red Cell Distribution Width 15.4 % (11.5-14.5); White Blood Count 10.2 K/mcL (4.3-11.1)
[2021-07-02 22:43] LABS: INR 0.9; Prothrombin Time 10.4 Seconds (9.4-12.1)
[2021-07-02 22:46] LABS: Activated Partial Thrombo Time 19.3 Seconds (26.0-36.0)
[2021-07-02 23:07] LABS: BUN/Creatinine Ratio 15 (6-26); Blood Urea Nitrogen 14 mg/dL (8-23); Carbon Dioxide 19 mEq/L (23-29); Chloride 107 mEq/L (98-107); Glucose 149 mg/dL (70-105); Osmolality,Calculated 289 (280-300); Potassium 3.9 mEq/L (3.5-5.1); Sodium 138 mEq/L (136-145); Troponin I < 0.03 ng/mL (< 0.04); eGFR For African Americans > 60 (> 60); eGFR For Non-African Americans 60 (> 60)
[2021-07-03] MEDS ORDERED: Aspirin 81 MG TAB.CHEW PO STA (01:10)
[2021-07-03] MEDS ORDERED: Melatonin 3 MG TABLET PO PRN (02:59)
[2021-07-03] MEDS ORDERED: Naloxone 0.4 MG/ML INJ IVP PRN (02:59)
[2021-07-03] MEDS ORDERED: Ondansetron 4 MG/2 ML VIAL IVP PRN (02:59)
[2021-07-03] MEDS ORDERED: Dextrose 4 GM Chewable Tablets PO PRN ×2 (03:15)
[2021-07-03] MEDS ORDERED: D5% in Water 1,000 ML IVC PRN (03:15)
[2021-07-03] MEDS ORDERED: *HR* Dextrose 50 % in Water (Syg) 50 ML SYRINGE IVP PRN (03:15)
[2021-07-03] MEDS: *HR* Heparin 5,000 UNIT/ML VIAL SQ SCH ×2 (06:08→17:32)
[2021-07-03 07:32] LABS: Basophils # 0.1 K/mcL (0.0-0.2); Basophils % 1.1 %; Eosinophils # 0.4 K/mcL (0.0-0.6); Eosinophils % 3.7 %; Hematocrit 36.6 % (35.3-44.9); Hemoglobin 11.3 g/dL (11.5-15.4); Immature Granulocytes % 0.2 % (0-4); Lymphocytes # 3.6 K/mcL (0.6-4.6); Lymphocytes % 36.9 %; Mean Corpuscular HGB Conc 30.9 g/dL (31.6-35.5); Mean Corpuscular Hemoglobin 27.2 pg (28.0-33.3); Mean Platelet Volume 9.9 fL (9.4-12.4); Monocytes # 0.6 K/mcL (0.0-1.3); Platelet Count 295 K/mcL (140-400); Red Blood Count 4.16 M/mcL (3.82-4.97); Red Cell Distribution Width 15.2 % (11.5-14.5); Segmented Neutrophils % 52.1 %; White Blood Count 9.7 K/mcL (4.3-11.1)
[2021-07-03 07:44] LABS: Alanine Aminotransferase 22 Units/L (7-52); Albumin 3.6 g/dL (3.5-5.7); Albumin/Globulin Ratio 1.4 (1.1-2.2); Alkaline Phosphatase 89 Units/L (34-104); Aspartate Amino Transferase 21 Units/L (13-39); BUN/Creatinine Ratio 16 (6-26); Bilirubin,Total 0.2 mg/dL (0.3-1.0); Blood Urea Nitrogen 13 mg/dL (8-23); Calcium 8.5 mg/dL (8.6-10.3); Carbon Dioxide 24 mEq/L (23-29); Chloride 107 mEq/L (98-107); Globulin 2.6 g/dL (2.4-3.5); Glucose 111 mg/dL (70-105); Magnesium 1.9 mg/dL (1.6-2.6); Osmolality,Calculated 287 (280-300); Phosphorous 2.5 mg/dL (2.7-4.5); Potassium 3.8 mEq/L (3.5-5.1); Sodium 138 mEq/L (136-145); Total Protein 6.2 g/dL (6.4-8.9); Troponin I < 0.03 ng/mL (< 0.04); eGFR For African Americans > 60 (> 60); eGFR For Non-African Americans > 60 (> 60)
[2021-07-03] MEDS: Insulin LISPRO 300 UNITS/3 ML VIAL SUBQ SCH ×4 (09:09→20:59)
[2021-07-03 10:51] LABS: Bilirubin,Urine Negative (Negative); Blood,Urine Negative (Negative); Clarity,Urine Turbid (Clear); Color,Urine Yellow (Yellow); Glucose,Urine (UA) Normal (Normal); Ketones,Urine Negative (Negative); Leukocyte Esterase,Urine Negative (Negative); Nitrite,Urine Negative (Negative); Protein,Urine 30 mg/dL (Neg-Trace); Specific Gravity,Urine > 1.030 (1.010-1.025); Squamous Epithelial Cell,Urine Moderate per hpf (None-Few); Urobilinogen,Urine Normal (Normal)
[2021-07-03] MEDS: Acetaminophen 325 MG TABLET PO PRN ×2 (15:11→23:22)
[2021-07-03] MEDS: *HR* LORazepam 0.5 MG TABLET PO PRN (21:33)
[2021-07-03] MEDS: Gabapentin 300 MG CAPSULE PO SCH (21:33)
[2021-07-03] MEDS ORDERED: RIMEGEPANT SULFATE 75 MG SL PRN (21:44)
[2021-07-04 02:52] LABS: Hematocrit 37.9 % (35.3-44.9); Hemoglobin 11.6 g/dL (11.5-15.4); Mean Corpuscular HGB Conc 30.6 g/dL (31.6-35.5); Mean Corpuscular Hemoglobin 26.7 pg (28.0-33.3); Mean Corpuscular Volume 87.3 fL (83.0-100.0); Mean Platelet Volume 9.9 fL (9.4-12.4); Platelet Count 281 K/mcL (140-400); Red Blood Count 4.34 M/mcL (3.82-4.97); White Blood Count 7.7 K/mcL (4.3-11.1)
[2021-07-04 03:14] LABS: BUN/Creatinine Ratio 20 (6-26); Blood Urea Nitrogen 15 mg/dL (8-23); Calcium 8.8 mg/dL (8.6-10.3); Carbon Dioxide 22 mEq/L (23-29); Chloride 108 mEq/L (98-107); Glucose 155 mg/dL (70-105); Osmolality,Calculated 288 (280-300); Potassium 4.4 mEq/L (3.5-5.1); Sodium 137 mEq/L (136-145); eGFR For African Americans > 60 (> 60); eGFR For Non-African Americans > 60 (> 60)
[2021-07-04] MEDS: *HR* Heparin 5,000 UNIT/ML VIAL SQ SCH ×2 (06:07→18:10)
[2021-07-04] MEDS: Insulin LISPRO 300 UNITS/3 ML VIAL SUBQ SCH ×4 (07:55→21:39)
[2021-07-04] MEDS: Gabapentin 300 MG CAPSULE PO SCH ×3 (08:37→21:41)
[2021-07-04] MEDS: *HR* LORazepam 0.5 MG TABLET PO PRN (15:07)
[2021-07-05 02:29] LABS: Hematocrit 39.1 % (35.3-44.9); Hemoglobin 12.3 g/dL (11.5-15.4); Mean Corpuscular HGB Conc 31.5 g/dL (31.6-35.5); Mean Corpuscular Hemoglobin 27.1 pg (28.0-33.3); Mean Corpuscular Volume 86.1 fL (83.0-100.0); Mean Platelet Volume 9.6 fL (9.4-12.4); Platelet Count 300 K/mcL (140-400); Red Blood Count 4.54 M/mcL (3.82-4.97); Red Cell Distribution Width 15.2 % (11.5-14.5); White Blood Count 8.4 K/mcL (4.3-11.1)
[2021-07-05 02:47] LABS: BUN/Creatinine Ratio 21 (6-26); Blood Urea Nitrogen 15 mg/dL (8-23); Carbon Dioxide 21 mEq/L (23-29); Chloride 107 mEq/L (98-107); Glucose 211 mg/dL (70-105); Osmolality,Calculated 291 (280-300); Potassium 4.3 mEq/L (3.5-5.1); Sodium 137 mEq/L (136-145); eGFR For African Americans > 60 (> 60); eGFR For Non-African Americans > 60 (> 60)
[2021-07-05] MEDS: *HR* Heparin 5,000 UNIT/ML VIAL SQ SCH ×2 (05:55→18:02)
[2021-07-05] MEDS: Insulin LISPRO 300 UNITS/3 ML VIAL SUBQ SCH ×3 (08:24→18:01)
[2021-07-05] MEDS: Gabapentin 300 MG CAPSULE PO SCH ×2 (08:25→15:30)
[2021-07-05] MEDS: *HR* LORazepam 0.5 MG TABLET PO PRN ×2 (08:25→18:02)
[2021-07-05] MEDS ORDERED: Aspirin Enteric Coated 81 MG Tablet PO SCH (09:00)
[2021-07-05 14:20] VITALS: BP 156/76; PULSE 58; TEMP 98; O2SAT 94
== END 2021-07-05 18:17 | disposition home health service (06) ==
LOC: EMEROOARM 22:03 → 3BNU 22:03 → SUATTDRO 07-03 01:18 → 3BNU 07-03 01:25
PROVIDERS: ADMIT Internal Medicine; ATTEND Family Medicine